=== PATIENT | female | born 1950 ===

== ENCOUNTER 2020-08-22 11:33 | Outpatient (REF) | payer SELFPAY ==
--- NOTE | 2020-08-22 12:45 | MHC.AU.P13 ---
Hearing Instrument Problem Date of Visit: 08/22/20 Right Ear: Pattern Painter: Phonak Model: [employer]O B50-13 Serial Number: [id number] Repair Warranty: 07/15/2021 Loss and Damage Warranty: 07/15/2021 Battery Size: 13 Color: SANDALWOOD Pipe Wrapping Machine Operator: 2P Type of Mold: cshell [id number] SEBASTIÁN EXP 04/18/20 Type of Wax Guard: CERUSTOP Left Ear: Pattern Painter: Phonak Model: [employer]O B50-13 Serial Number: [id number] RepairWarranty: 07/15/2021 Loss and Damage Warranty: USED Battery Size: 13 Color: SANDALWOOD Pipe Wrapping Machine Operator: 2UP Type of Mold: CSHELL [id number] EXP 06/30/2019 Type of Wax Guard: CERUSTOP Follow-Up Summary: Aids dropped off right not working - both aids cleaned, wax guards replaced, now amplifying clearly. Family member bought one pack wax guards. Recommendations: Recommendations: Hearing instrument follow-up or maintenance as needed. Signature: Provider: VELASQUEZ Cardenas-
== END 2020-08-22 11:34 | disposition home or self-care (01) ==
LOC: HO.HAP 11:33
PROVIDERS: Visit Provider Otolaryngology
DX: Z46.1 Encounter for fitting and adjustment of hearing aid (principal)
CPT/HCPCS: V5267

== ENCOUNTER 2023-06-04 11:03 | Emergency (ER) | payer MEDICARE, SELFPAY ==
--- NOTE | ~2023-06-04 | CT_ITS ---
EXAMINATION: CT ABDOMEN AND PELVIS WITH CONTRAST CLINICAL INFORMATION: Left lower quadrant pain COMPARISON: Previous CT of the abdomen and pelvis December 2022 and MRI January 2023 TECHNIQUE: Multidetector volumetric images were obtained from the superior aspect of the liver through the pubic symphysis following administration 85 mL of Omnipaque 350 intravenous contrast. Sagittal and coronal reformatted images were obtained on the technologist's workstation. Oral contrast: Yes This CT examination was performed using dose optimization techniques as appropriate, variously including the following: *Automated exposure control *Adjustment of mA and/or kV according to patient size (this includes techniques or standardized protocols for targeted exams where dose is matched to indication/reason for exam; i.e. extremities or head) *Use of iterative reconstruction technique DLP: 353 mGy-cm FINDINGS: LUNG BASES: Stable left lower lung cyst. Lung bases are otherwise clear. LIVER, GALLBLADDER, AND BILIARY TREE: The liver is normal in size, shape, and attenuation. Stable liver cysts, largest measuring 2 cm in the central liver near the hepatic venous confluence. No biliary ductal dilatation is present. Fluid fluid level in the gallbladder. Gallbladder is otherwise unremarkable. PANCREAS: Mild dilatation of the main pancreatic duct measuring up to 4 mm similar to previous exam. SPLEEN: Unremarkable. ADRENAL GLANDS: Unremarkable. KIDNEYS AND URETERS: There are areas of bilateral renal cortical thinning or scarring. No stone or hydronephrosis. BLADDER: Distended bladder. GASTROINTESTINAL TRACT: The small and large bowel are unremarkable. The appendix is upper normal in size but otherwise unremarkable. This is similar in size to December 2022 exam. No inflammatory changes in the periappendiceal fat or fluid. ABDOMINAL WALL: Diastasis of the rectus muscles and small umbilical hernia containing fat. LYMPH NODES: Normal. VASCULAR: Atherosclerotic disease. No aneurysm. PELVIC VISCERA: Probable small uterine fibroids similar to previous exam. OSSEOUS STRUCTURES: Degenerative changes of the spine and hip joints. CT/CT abdomen pelvis w IV con IMPRESSION: No acute findings. Stable liver cysts and mild dilatation of the main pancreatic duct in the head of the pancreas. Bilateral renal cortical thinning or scarring. Upper normal-size appendix similar to previous exam. Fleischner guidelines were followed.
[2023-06-04 11:36] VITALS: BP 153/75; PULSE 75; RESP 20; TEMP 37.2; O2SAT 100; BMI 34.8
--- NOTE | 2023-06-04 11:36 | ED.GENADULT ---
HPI - General Adult General Chief complaint: Abdominal Pain Stated complaint: abd pain/ leg pain sent by PCP Time Seen by Provider: 06/04/23 12:00 Related Data Allergies Allergy/AdvReac Type Severity Reaction Status Date / Time Sulfa (Sulfonamide AdvReac Stomach Verified 06/04/23 11:40 Antibiotics) Upset PMFSH Social History Social History Use of substances other than those prescribed or required for medical reasons: No Advance Directives: No Advance Directives Information Provided: Yes Physical Exam ED Vital Signs: Vital Signs - 24 hr 06/04/23 11:36 06/04/23 13:16 06/04/23 14:39 Temperature 98.9 F 98.6 F 98.3 F Pulse Rate 75 80 80 Respiratory Rate 20 14 18 Blood Pressure 153/75 H 131/77 152/72 H Pulse Oximetry 100 98 97 Oxygen Delivery Method Room Air Room Air Room Air 06/04/23 18:42 Temperature 98.2 F Pulse Rate 76 Respiratory Rate 20 Blood Pressure 168/85 H Pulse Oximetry 99 Oxygen Delivery Method Room Air BMI result Body Mass Index 34.8 Course Course Course Narrative: RME performed by Keshia Lindo PA-C. Patient is a 72 year old assigned female at presenting to the emergency department with lower abdominal pain, low back pain, and pain down her upper leg. Patient was sent here by her PCP. Patient has been to the [facility] ED for this already, got a CT scan and was negative. Detailed physical exam and review of systems are deferred to the steam hand. Labs ordered. Patient placed back in the waiting room pending room availability and results. Dr. Guidry saw and dispositioned this patient. Please refer to his note from 06/04/2023. Medications Administered Discontinued Medications Generic Name Dose Route Start Last Admin Trade Name Freq PRN Reason Stop Dose Admin Hydromorphone HCl 0.5 mg 06/04/23 12:47 06/04/23 13:12 Hydromorphone Hcl 0.5 Mg/0.5 Ml Syringe IVPUSH 06/04/23 12:48 0.5 mg ONCE ONE Administration Protocol Hydromorphone HCl 0.5 mg 06/04/23 18:51 06/04/23 19:10 Hydromorphone Hcl 0.5 Mg/0.5 Ml Syringe IVPUSH 06/04/23 18:52 0.5 mg ONCE ONE Administration Protocol Sodium Chloride 1,000 mls @ 999 mls/hr 06/04/23 13:00 06/04/23 14:27 Ns IV 06/04/23 14:00 Infused .Q1H1M BERNA Infusion Iohexol 100 ml 06/04/23 13:51 06/04/23 13:51 Iohexol 350 Mg/Ml 100 Ml Infus..Btl IV 06/04/23 13:52 85 ml ONCE ONE Administration Ondansetron HCl 4 mg 06/04/23 12:47 06/04/23 13:12 Ondansetron Hcl 4 Mg/2 Ml Vial IVPUSH 06/04/23 12:48 4 mg ONCE ONE Administration Medical Decision Making Lab Data 06/04/23 11:45 06/04/23 11:45 Labs: Lab Results 06/04/23 06/04/23 06/04/23 Range/Units 11:45 18:01 19:07 WBC 9.2 (4.8-10.8) X10*3/uL RBC 5.00 (4.20-5.50) X10*6/uL Hgb 13.8 (12.0-16.0) g/dl Hct 42.0 (37.0-47.0) % MCV 84.0 (80.0-98.0) fL MCH 27.6 (27.0-33.0) pg MCHC 32.9 (31.0-35.0) g/dl RDW 14.2 (11.0-16.0) % Plt Count 242 (160-400) X10*3/uL MPV 9.6 (9.4-12.3) fL Immature Gran % (Auto) 0.2 (0.0-0.4) % Neut % (Auto) 58.1 (45-73) % Lymph % (Auto) 34.2 (20-40) % [place] % (Auto) 6.0 (2-11) % Eos % (Auto) 0.8 (0-4) % Baso % (Auto) 0.7 (0-2) % Lymph # (Auto) 3.2 (1.2-4.9) X10*3/uL [place] # (Auto) 0.6 (0.1-1.2) X10*3/uL Eos # (Auto) 0.1 (0.0-0.4) X10*3/uL Baso # (Auto) 0.1 (0.0-0.2) X10*3/uL Abs Immat Gran (auto) 0.02 (0.00-0.03) X10*3/uL Absolute Neuts (auto) 5.4 (2.0-8.3) x10*3/uL Absolute Nucleated RBC 0.000 (0.0-0.012) X10*3/uL Nucleated RBC % (auto) 0.0 (0.0-0.2) /100WBC Sodium 135 (135-145) mmol/L Potassium 4.7 (3.3-5.1) mmol/L Chloride 100 (96-108) mmol/L Carbon Dioxide 25 (22-29) mmol/L Anion Gap 15 (12-20) BUN 10 (9-16) mg/dL Creatinine 0.76 (0.5-1.4) mg/dL Estim Creat Clear Calc 56.9 Estimated GFR > 60 POC Glucose 65 (60-115) mg/dL Random Glucose 108 (60-115) mg/dL Calcium 10.0 (8.4-10.2) mg/dL Magnesium 1.7 (1.6-2.6) mg/dL Total Bilirubin 0.4 (0.0-1.0) mg/dL AST 21 (5-31) U/L ALT 26 (0-31) U/L Alkaline Phosphatase 105 (39-117) U/L Total Protein 8.0 (6.5-8.0) g/dL Albumin 4.4 (3.5-5.0) g/dL Lipase 331 H (8-78) U/L Urine Color Yellow Urine Appearance Clear Urine pH 5.5 (5.0-9.0) Ur Specific [place] >= 1.030 H (1.005-1.025) Urine Protein Negative (Neg-Trace) mg/dL Urine Glucose (UA) Negative (Negative) mg/dL Urine Ketones 15 (Negative) mg/dL Urine Blood Negative (Negative) Urine Nitrite Negative (Negative) Ur Leukocyte Esterase Negative (Negative) Discharge Plan Discharge Clinical Impression: Abdominal pain Patient Disposition: Still a Patient
[2023-06-04 11:50] LABS: MANUAL DIFF FLAG NO
[2023-06-04 11:52] LABS: Basophils Absolute Auto 0.1 X10*3/uL (0.0-0.2); Basophils Percent Auto 0.7 % (0-2); Eosinophils Absolute Auto 0.1 X10*3/uL (0.0-0.4); Eosinophils Percent Auto 0.8 % (0-4); Hemoglobin 13.8 g/dl (12.0-16.0); Imm Gran Abs Auto 0.02 X10*3/uL (0.00-0.03); Imm Gran Pct Auto 0.2 % (0.0-0.4); Lymphocytes Absolute Auto 3.2 X10*3/uL (1.2-4.9); Lymphocytes Percent Auto 34.2 % (20-40); Mean Corpuscular HGB Conc 32.9 g/dl (31.0-35.0); Mean Corpuscular Hemoglobin 27.6 pg (27.0-33.0); Mean Platelet Volume 9.6 fL (9.4-12.3); Monocytes Absolute Auto 0.6 X10*3/uL (0.1-1.2); Neutrophils Absolute Auto 5.4 x10*3/uL (2.0-8.3); Neutrophils Percent Auto 58.1 % (45-73); Platelet Count 242 X10*3/uL (160-400); Red Cell Distribution Width 14.2 % (11.0-16.0); White Blood Count 9.2 X10*3/uL (4.8-10.8)
--- OUTSIDE RECORDS SUMMARY | 2023-06-04 11:55 | XMS_ITS | Continuity of Care Document ---
Author Name Unknown Organization [facility] Address [address] [place] [address] nhi, [address] [place] [address]- Care Team Providers Care Battery Container Inspector Name Role Phone Nicolette Rider NP Primary Care Physician [phone] Encounter [facility] Date(s): 03/16/22 - 04/15/22 [facility] [address] [place] [address] Drive, [address] [place] [address]- Allergies, Adverse Reactions, Alerts Substance Reaction Severity Status sulfa drugs Acute abdominal pain Active Effexor 1 Unknown Active 1nausea vomiting intolerance Immunizations Given and Recorded Vaccine Date Status Refusal Reason SARS-CoV-2 (COVID-19) mRNA BNT-162b2 vac 1 04/04/21 Given SARS-CoV-2 (COVID-19) mRNA BNT-162b2 vac 07/24/20 Recorded SARS-CoV-2 (COVID-19) mRNA BNT-162b2 vac 07/03/20 Recorded influenza virus vaccine, inactivated 04/04/21 Give n influenza virus vaccine, inactivated 01/30/20 Stevo rded influenza virus vaccine, inactivated 03/24/19 Give n influenza virus vaccine, inactivated 04/08/18 Give n influenza virus vaccine, inactivated 04/22/17 Give n influenza virus vaccine, inactivated 03/03/16 Give n influenza virus vaccine, inactivated 04/10/15 Give n influenza virus vaccine, inactivated 02/28/14 Give n influenza virus vaccine, inactivated 2 02/16/13 Gi alexandra Influenza Vaccine (oldterm) 3 02/16/12 Given tetanus/diphtheria/pertussis, acel(Tdap) 12/08/11 Given Pneumovax 23 (oldterm) 4 08/21/11 Given tetanus-diphtheria toxoids (Td) 5 08/21/11 Given FluLaval (oldterm) 6 01/26/11 Given Influenza Inactive (IM) (oldterm) 7 02/18/10 Given Not Given Vaccine Date Status Refusal Reason pneumococcal 13-valent vaccine 07/25/18 Not Given Patient Refuses pneumococcal 13-valent vaccine 07/22/18 Not Given Patient Refuses 1Result Comment: DILUENT LOT#: [id number] EXP: 10/2022 MFG: FRESENSIUS 2Admin Note: vis 3Admin Note: VIS GIVEN 4Admin Note: vis 08/16/08 5Admin Note: vis 03/20/08 6Admin Note: vis given 7Admin Note: VIS Medications acetaminophen 500 mg oral tablet 2 tablet = 1,000 mg, By Mouth, 4 times a day, PRN for pain, # 100 tablet, 0 Refills, Maintenance, 07/17/21 10:31:00 EDT, Tablet, [facility]/pharmacy #[id number], Partial fill upon patient request if the prescription is for a schedule II opioid drug., 155, cm, 07/01... Start Date: 07/17/21 Status: Ordered Alcohol Pads See Instructions, # 100 each, Refills 3, Tot. Refills 3, Maintenance, Use to check blood sugar twice daily for type 2 diabetes E11.65, 07/17/21 10:35:00 EDT, Supply, 155, cm, 07/17/21 10:03:00 EDT, Height, 48, kg, 10/27/20 14:35:00 EDT, Dry Weight Start Date: 07/17/21 Status: Ordered cyclobenzaprine 5 mg oral tablet 1 tablet = 5 mg, By Mouth, 3 times a day, PRN muscle spasms, # 30 tablet, 0 Refills, Maintenance, 04/06/22 9:51:00 EST, Tablet, [facility], Partial fill upon patient request if the prescription is for a schedule II opioid drug., 155, cm,... Start Date: 04/06/22 Status: Ordered Diabetic shoes with 3 inserts Diabetic shoes with 3 inserts, See Instructions, # 1 each, Refills 0, Tot. 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 Refills 11, Maintenance, Use up to 3 bed pads per night for urinary incontinence. R32, 10/21/21 11:58:00 EDT, Supply Start Date: 10/21/21 Status: Ordered empagliflozin 10 mg oral tablet 1 tablet = 10 mg, By Mouth, Daily in AM, # 30 tablet, 5 Refills, Maintenance, 03/12/22 21:19:00 EST, Tablet, [facility]/pharmacy #[id number], Please allow for early refill as last her pills were dropped in water;Partial fill upon patient request if the prescript... Start Date: 03/12/22 Status: Ordered Freestyle Lite Lancets See Instructions, # 100 each, Refills 3, Tot. Refills 3, Maintenance, use to check blood sugars twice daily for DM, E11.65, 07/17/21 10:35:00 EDT, Compound, 155, cm, 07/17/21 10:03:00 EDT, Height, 48, kg, 10/27/20 14:35:00 EDT, Dry Weight Start Date: 07/17/21 Stop Date: 11/14/21 Status: Ordered Freestyle Lite Monitor See Instructions, # 1 units, Refills 0, Tot. Refills 0, Maintenance, use to test blood sugars twicedaily for DM, E11.65, 05/20/18 15:46:00 EST, Compound Start Date: 05/20/18 Status: Ordered Freestyle Lite Test Strips See Instructions, # 100 each, Refills 3, Tot. Refills 3, Maintenance, use to test blood sugars twice daily for diabetes, E11.65, 07/17/21 10:34:00 EDT, Compound, 155, cm, 07/17/21 10:03:00 EDT, Height, 48, kg, 10/27/20 14:35:00 EDT, Dry Weight Start Date: 07/17/21 Stop Date: 11/14/21 Status: Ordered glimepiride 4 mg oral tablet 1 tablet = 4 mg, By Mouth, Daily, with the first meal of the day, # 30 tablet, 0 Refills, Maintenance, 03/10/22 16:40:00 EST, Tablet, [facility]/pharmacy #[id number], Please allow for early refill as last her pills were dropped in water; Partial fill upon patient... Start Date: 03/10/22 Stop Date: 04/09/22 Status: Ordered Medrol Dosepak 4 mg oral tablet 1 pack/packet, By Mouth, Once, # 21 tablet, 0 Refills, Soft Stop, 04/06/22 9:52:00 EST, Tablet, Partial fill upon patient request if the prescription is for a schedule II opioid drug., 155, cm, 04/06/22 7:13:00 EST, Height, 49.9, kg, 04/02/22 8:47:00... Start Date: 04/06/22 Status: Ordered metFORMIN 1000 mg oral tablet 1 tablet, By Mouth, 2 times a day, # 60 tablet, 5 Refills, 02/04/22 11:40:00 EDT, [facility]/pharmacy #[id number], Please allow for early refill as last her pills were dropped in water, 155, cm, 12/02/21 16:59:00EDT, Height, 48, kg, 10/27/20 14:35:00 EDT, Dry We... Start Date: 02/04/22 Status: Ordered Metoprolol Succinate ER 100 mg oral tablet, extended release 1 tablet, By Mouth, Daily, # 90 tablet, 3 Refills, Maintenance, 12/15/21 8:39:00 EDT, [facility]/pharmacy #[id number], 155, cm, 12/02/21 16:59:00 EDT, Height, 48, kg, 10/27/20 14:35:00 EDT, Dry Weight Start Date: 12/15/21 Stop Date: 12/10/22 Status: Ordered omeprazole 20 mg oral enteric coated capsule 1 capsule = 20 mg, By Mouth, Daily, # 14 capsule, 0 Refills, Maintenance, 12/02/21 18:07:00 EDT, ECCapsule, [facility]/pharmacy #[id number], Partial fill upon patient request if the prescription is for a schedule II opioid drug., 155, cm, 12/02/21 16:59:00 EDT, H... Start Date: 12/02/21 Stop Date: 12/16/21 Status: Ordered oxyCODONE 5 mg oral tablet See Instructions, PRN, 1 tablet By Mouth Every 4-6 hours, # 42 tablet, Refills 0, Tot. Refills 0, Maintenance, Pain , Moderate, 04/06/22 9:51:00 EST, Instructions Replace Required Details, Route to Pharmacy Electronically, [facility]... Start Date: 04/06/22 Status: Ordered Pen Charlton, 31 G x 5 mm BD Ultra Fine III See Instructions, # 50 each, Refills 1, Tot. Refills 1, Maintenance, Use for once weekly trulicity injection for DM E11.65, 08/01/21 15:14:00 EDT, To replace glimeride, Supply, 155, cm, 08/01/21 14:55:00 EDT, Height, 48, kg, 10/27/20 14:35:00 EDT, Dry... Start Date: 08/01/21 Status: Ordered ramipril 5 mg oral capsule 1 capsule, By Mouth, Daily, for 90 days, # 90 capsule, 1 Refills, Physician Stop 08/11/22 11:04:00 EDT, 02/12/22 11:04:00 EDT, [facility]/pharmacy #[id number], Please allow for early refill as last her pills weredropped in water, 155, cm, 12/02/21 16:59:00 EDT,... Start Date: 02/12/22 Stop Date: 08/11/22 Status: Ordered Small adult pull ups Small adult pull ups, See Instructions, # 240 each, Refills 11, Tot. Refills 11, Maintenance, Use up to 8 per day for urinary incontinence R32, 10/21/21 12:03:00 EDT, Supply Start Date: 10/21/21 Status: Ordered Walker See Instructions, # 1 each, Maintenance, Use for ambulation, 04/06/22 9:52:00 EST, Supply, 155, cm,04/06/22 7:13:00 EST, Height, 49.9, kg, 04/02/22 8:47:00 EST, Dry Weight Start Date: 04/06/22 Status: Ordered Problem List Condition Confirmation Course Effective Dates Status H ealth Status Informant Adjustment disorder with anxiety 1 Confirmed Active Breast mass, right Confirmed Active Cervical radiculopathy Confirmed Active Chronic left shoulder pain Confirmed Active Diabetes Mellitus Confirmed 02/19/10 Active Hx of fracture of clavicle Confirmed Active Hypertension Confirmed 02/19/10 Active *[id number] 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 Saunders Confirmed Active Current smoker Confirmed Active Cervical stenosis of spinal canal Confirmed Active Urinary incontinence Confirmed Active 1Dx in 08/2018 upon psych eval Patient Care team information Care Team Personnel Name: Nicolette Rider NP Position: [facility] PCO Associate Professional Member Role: PCP Address: Address: [address] [place] [address]- Name: Neelam Garvey RN Position: S RN Member Role: Primary Care Nurse Name: Jo Quick RN Position: S RN Member Role: Primary Care Nurse Name: La Mares RN Position: [facility] RN Member Role: Primary Care Nurse Name: Cherie Vaughan RN Position: [facility] RN Member Role: Primary Care Nurse Name: Torsten Gay RN Position: [facility] RN Member Role: Primary Care Nurse Address: Address: [address] [place] [address]- Care Team Related Persons Name: AMMON CUELLAR Address: home [address] [place] [address] Name: FAISAL GILLESPIE Address: home [address] [place] [address] Name: AMMON PIERRE Address: home [address] [address]
--- OUTSIDE RECORDS SUMMARY | 2023-06-04 11:55 | XMS_ITS | Continuity of Care Document ---
Author Name Unknown Organization [facility] Address [address] [place] [address]- Care Team Providers Care Staff Radiologist Name Role Phone Tereso MILLER, Nicolette Mills Primary Care Physician [phone] Encounter [facility] Date(s): 01/07/23 - 03/03/[address] [address]- Attending Physician: Not on Staff, Attending MD Allergies, Adverse Reactions, Alerts Substance Reaction Severity [...] Influenza Inactive (IM) (oldterm) 7 02/18/10 Given 1Result Comment: DILUENT LOT#: [id number] EXP: 10/2022 MFG: FRESENSIUS 2Admin Note: vis 3Admin Note: VIS GIVEN 4Admin Note: vis 08/16/08 5Admin Note: vis 03/20/08 6Admin Note: vis given 7Admin Note: VIS Medications acetaminophen 500 mg oral tablet 2 tablet = 1,000 mg, By Mouth, 4 times a day, PRN for pain, # 100 tablet, 0 Refills, Maintenance, 07/17/21 10:31:00 EDT, Tablet, [id number], Partial fill upon patient request if [...] Dry Weight Start Date: 07/17/21 Status: Ordered amlodipine-benazepril 5 mg-20 mg oral capsule 1 capsule, By Mouth, Daily, # 30 capsule, 5 Refills, Maintenance, 02/09/23 11:58:00 EDT, Capsule, [id number], to replace amlodipine, benazepril, ramipril., 1 capsule By Mouth Daily, 146, cm, 02/09/23 11:42:00 EDT, Height, 50, kg, 04/16/22 12:4... Start Date: 02/09/23 Status: Ordered capsaicin 0.025% topical cream 1 application, Topically, 3 times a day, PRN Pain , Moderate, # 60 Gm, 0 Refills, Maintenance, 05/21/22 11:55:00 EST, Cream, [id number], Partial fill upon patient request if the prescription is for a schedule II opioid drug., 1 application Top... Start Date: 05/21/22 Status: Ordered Diabetic shoes with 3 inserts Diabetic shoes with 3 inserts, See Instructions, # 1 each, Refills 0, Tot. 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 Start Date: 11/23/22 Status: Ordered disposable bed pads disposable bed pads, See Instructions, # 90 each, Refills 11, Tot. Refills 11, Maintenance, Use up to 3 bed pads per night for urinary incontinence. R32, 10/21/21 11:58:00 EDT, Supply Start Date: 10/21/21 Status: Ordered duloxetine 20 mg oral enteric coated capsule 1 capsule = 20 mg, By Mouth, Daily, # 90 capsule, 1 Refills, Maintenance, 01/12/23 12:16:00 EDT, [facility]/pharmacy #[id number], 146, cm, 01/12/23 11:33:00 EDT, Height, 50, kg, 04/16/22 12:46:00 EST, Dry Weight Start Date: 01/12/23 Stop Date: 07/11/23 Status: Ordered Freestyle Elliot Sensor See Instructions, # 2 each, Refills 5, Tot. Refills 5, Maintenance, Freestyle elliot 3 use as directed for Type 2 Diabetes Mellitus on insulin E11.65, 02/09/23 12:12:00 EDT, Supply, 146, cm, 02/09/23 11:42:00 EDT, Height, 50, kg, 04/16/22 12:46:00 EST... Start Date: 02/09/23 Stop Date: 08/08/23 Status: Ordered gabapentin 300 mg oral capsule 300 mg, 1, capsule, By Mouth, 3 times a day, # 270 capsule, Refills 1, Tot. Refills 1, Maintenance,01/12/23 12:17:00 EDT, Route to Pharmacy Electronically, [facility]/pharmacy #[id number], 146, cm, 01/12/23 11:33:00 EDT, Height, 50, kg, 04/16/22 12:46:00 EST, Dry... Start Date: 01/12/23 Stop Date: 07/11/23 Status: Ordered Lantus Solostar Pen 100 units/mL subcutaneous solution = 24 units, Subcutaneous Injection, Daily, Adjust dose as recommended weekly by RN per protocol. Dispense 3 pens per month, # 15 mL, 3 Refills, Maintenance, 02/09/23 12:19:00 EDT, [facility]/pharmacy #[id number],146, cm, 02/09/23 11:42:00 EDT, Height, 50, kg, 12... Start Date: 02/09/23 Stop Date: 02/04/24 Status: Ordered metFORMIN 500 mg oral tablet, extended release 1 tablet = 500 mg, By Mouth, Daily, # 90 tablet, 1 Refills, Maintenance, 02/23/23 16:46:00 EDT, [facility]/pharmacy #[id number], Partial fill upon patient request if the prescription is for a schedule II opioid drug., 146, cm, 02/09/23 11:42:00 EDT, Height, 50, kg... Start Date: 02/23/23 Stop Date: 08/22/23 Status: Ordered methocarbamol 750 mg oral tablet 1 tablet = 750 mg, By Mouth, 3 times a day, PRN Pain , Moderate, Take only as needed for muscle spasms and pain., # 90 tablet, 3 Refills, Maintenance, 02/09/23 12:40:00 EDT, [facility]/pharmacy #[id number], 146, cm, 02/09/23 11:42:00 EDT, Height, 50, kg, 04/16/22... Start Date: 02/09/23 Status: Ordered Metoprolol Succinate ER 100 mg oral tablet, extended release 1 tablet, By Mouth, Daily, # 90 tablet, 1 Refills, Maintenance, 12/27/22 10:31:00 EDT, [facility]/pharmacy#[id number], 146, cm, 12/04/22 11:11:00 EDT, Height, 50, kg, 04/16/22 12:46:00 EST, Dry Weight Start Date: 12/27/22 Stop Date: 06/25/23 Status: Ordered One Touch Delica Lancets See Instructions, # 100 each, Refills 5, Tot. Refills 5, Maintenance, 1 box = 100 lancets Use to test blood sugar twice a day for type 2 diabetes E11.65, 01/25/23 14:45:00 EDT, Supply, 146, cm, 01/12/23 11:33:00 EDT, Height, 50, kg, 04/16/22 12:46:0... Start Date: 01/25/23 Status: Ordered One Touch Ultra 2 Glucose Meter See Instructions, # 1 each, Refills 0, Tot. Refills 0, Maintenance, Use to test blood sugar twice aday for type 2 diabetes E11.65, 09/04/22 8:40:00 EDT, Supply, 146, cm, 09/01/22 11:06:00 EDT, Height, 50, kg, 04/16/22 12:46:00 EST, Dry Weight Start Date: 09/04/22 Status: Ordered One Touch Ultra Test Strips See Instructions, # 100 each, Refills 5, Tot. Refills 5, Maintenance, Use to test blood sugar twicea day for type 2 diabetes E11.65, 09/04/22 8:40:00 EDT, Supply, 146, cm, 09/01/22 11:06:00 EDT, Height, 50, kg, 04/16/22 12:46:00 EST, Dry Weight Start Date: 09/04/22 Status: Ordered pantoprazole 40 mg oral delayed release tablet 1 tablet = 40 mg, By Mouth, Daily, # 90 tablet, 0 Refills, Maintenance, 01/12/23 12:15:00 EDT, 146,cm, 01/12/23 11:33:00 EDT, Height, 50, kg, 04/16/22 12:46:00 EST, Dry Weight Start Date: 01/12/23 Stop Date: 04/12/23 Status: Ordered Pen Higden, 31 G x 5 mm BD Ultra Fine III See Instructions, # 100 each, Refills 3, Tot. Refills 3, Maintenance, Use for Lantus injection for DM E11.65, 01/12/23 12:18:00 EDT, To replace glimeride, Supply, 146, cm, 01/12/23 11:33:00 EDT, Height, 50, kg, 04/16/22 12:46:00 EST, Dry Weight Start Date: 01/12/23 Status: Ordered Small adult pull ups Small [...] Effective Dates Status H ealth Status Informant Acute pancreatitis Confirmed Active Adjustment disorder with anxiety 1 Confirmed Active Breast mass, right Confirmed Active Cervical radiculopathy Confirmed Active Chronic left shoulder pain Confirmed Active Chronic right shoulder pain Confirmed Active Diabetes Mellitus Confirmed 02/19/10 Active Hx of fracture of clavicle Confirmed Active Hypertension Confirmed 02/19/10 Active *[id number] 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 Confirmed Active Current smoker Confirmed Active Cervical stenosis of spinal canal Confirmed Active Subclinical hyperthyroidism Confirmed Active Thyroid nodule - TIRADS 4, follow up US due 05/01/2023 Confirmed Active Urinary incontinence Confirmed Active 1Dx in 08/2018 upon psych eval Social History Social History Type Response Sex Female Patient Care team information Care Team Personnel Name: Nicolette Rider NP Position: S PCO Associate Professional Member Role: PCP Address: Address: [address] [place] [address]- Name: Neelam Garvey RN Position: S RN Member Role: Primary Care Nurse Name: Jo Quick RN Position: S RN Member Role: Primary Care Nurse Name: La Mares RN Position: S RN Member Role: Primary Care Nurse Name: Cherie Vaughan RN Position: S RN Member Role: Primary Care Nurse Name: Torsten Gay RN Position: S RN Member Role: Primary Care Nurse Address: Address: [address] [place] [id number]- [place] Care Team Related Persons Name: AMMON CUELLAR Address: [address] [place] [address] Name: FAISAL GILLESPIE Address: home [address] [place] [address] Name: AMMON PIERRE Address: home [address] [address]
--- OUTSIDE RECORDS SUMMARY | 2023-06-04 11:55 | XMS_ITS | Continuity of Care Document ---
Author Name Unknown Organization [facility] Address [address] [place] [address]- Care Team Providers Care Director Global Intelligence Name Role Phone Tereso MILLER, Nicolette Mills Primary Care Physician [phone] Encounter [facility] Date(s): 03/22/23 - 05/21/[address] [address]- Attending Physician: Jose KEITH, Raffy Burton Allergies, Adverse Reactions, Alerts Substance Reaction Severity [...] 7 02/18/10 Given 1Result Comment: DILUENT LOT#: [id number] EXP: 10/2022 MFG: FRESENSIUS 2Admin Note: vis 3Admin Note: VIS GIVEN 2011- 4Admin Note: vis 08/16/08 5Admin Note: vis 03/20/08 6Admin Note: vis given 7Admin Note: VIS Medications acetaminophen 500 mg oral tablet 2 tablet = 1,000 mg, By Mouth, 4 times a day, PRN for pain, # 100 tablet, 0 Refills, Maintenance, 07/17/21 10:31:00 EDT, Tablet, [facility]/pharmacy #[id number], Partial fill upon patient request if the prescription is for a schedule II opioid drug., 155, cm, 07/01... Start Date: 07/17/21 Status: Ordered Alcohol Pads See Instructions, # 100 each, Refills 3, Tot. Refills 3, Maintenance, Use to check blood sugar twice daily for type 2 diabetes E11.65, 04/09/23 13:35:00 EST, Supply, 146, cm, 04/09/23 12:58:00 EST, Height, 50, kg, 04/16/22 12:46:00 EST, Dry Weight Start Date: 04/09/23 Status: Ordered amlodipine-benazepril 5 mg-20 mg oral capsule 1 capsule, By Mouth, Daily, # 30 capsule, 5 Refills, Maintenance, 02/09/23 11:58:00 EDT, Capsule, [facility]/pharmacy #[id number], to replace amlodipine, benazepril, ramipril., 1 capsule By Mouth Daily, 146, cm, 02/09/23 11:42:00 EDT, Height, 50, kg, 04/16/22 12:4... Start Date: 02/09/23 Status: Ordered ammonium lactate 12% topical cream 1 APPLICATION EXTERNALLY TWICE A DAY 30 DAYS, # 140 Gm Start Date: 04/01/23 Status: Ordered capsaicin 0.025% topical cream 1 application, Topically, 3 times a day, PRN Pain , Moderate, # 60 Gm, 0 Refills, Maintenance, 05/21/22 11:55:00 EST, Cream, [facility]/pharmacy #[id number], Partial fill upon patient request if [...] Refills, Maintenance, 11/23/22 13:00:00 EDT, Gel, [facility]/pharmacy #[id number], Partial fill upon patient request if the prescription is for aschedule II opioid drug., 146, cm, 09/01/22 11:06:0... Start Date: 11/23/22 Status: Ordered disposable bed pads disposable bed pads, See Instructions, # 90 each, Refills 11, Tot. Refills 11, Maintenance, Use up to 3 bed pads per night for urinary incontinence. R32, 10/21/21 11:58:00 EDT, Supply Start Date: 10/21/21 Status: Ordered duloxetine 30 mg oral enteric coated capsule 1 capsule = 30 mg, By Mouth, Daily, # 30 capsule, 3 Refills, Maintenance, 04/09/23 13:32:00 EST, [facility]/pharmacy #[id number], Partial fill upon patient request if the prescription is for a schedule II opioid drug., 146, cm, 04/09/23 12:58:00 EST, Height, 50, k... Start Date: 04/09/23 Status: Ordered Freestyle Elliot Sensor See Instructions, # 2 each, Refills 11, Tot. Refills 11, Maintenance, Freestyle elliot 3 sensors useas directed for Type 2 Diabetes Mellitus on insulin E11.65, 03/22/23 9:56:00 EST, PA was approved, Supply, 146, cm, 02/09/23 11:42:00 EDT, Height, 50,... Start Date: 03/22/23 Stop Date: 03/16/24 Status: Ordered Jardiance 10 mg oral tablet 1 tablet, By Mouth, Daily in AM, # 30 tablet, 0 Refills, Maintenance, 05/07/23 14:28:00 EST, [facility] STORE [id number], 146, cm, 04/09/23 12:58:00 EST, Height, 50, kg, 04/16/22 12:46:00 EST, Dry Weight Start Date: 05/07/23 Status: Ordered Lantus Solostar Pen 100 units/mL subcutaneous solution = 20 units, Subcutaneous Injection, Daily, Adjust dose as recommended weekly by RN per protocol. Dispense 3 pens per month, # 15 mL, 3 Refills, Maintenance, 02/09/23 12:19:00 EDT, [facility]/pharmacy #[id number],146, cm, 02/09/23 11:42:00 EDT, Height, 50, kg, 12... Start Date: 02/09/23 Stop Date: 02/04/24 Status: Ordered metFORMIN 500 mg/5 mL oral solution 5 mL = 500 mg, By Mouth, 2 times a day, # 300 mL, 4 Refills, Maintenance, 05/20/23 15:46:00 EST, Solution, [facility]/pharmacy #[id number], Partial fill upon patient request if the prescription is for a schedule II opioid drug., 146, cm, 05/20/23 14:43:00 EST, Hei... Start Date: 05/20/23 Status: Ordered Metoprolol Succinate ER 100 mg oral tablet, extended release 1 tablet, By Mouth, Daily, # 90 tablet, 1 Refills, Maintenance, 12/27/22 10:31:00 EDT, [facility]/pharmacy#[id number], 146, cm, 12/04/22 11:11:00 EDT, Height, 50, [...] Daily, # 90 tablet, 1 Refills, Maintenance, 05/21/23 11:02:00 EST, 146,cm, 05/20/23 14:43:00 EST, Height, 50, kg, 04/16/22 12:46:00 EST, Dry Weight Start Date: 05/21/23 Stop Date: 11/17/23 Status: Ordered Pen [place], 31 G x 5 mm BD Ultra Fine III See Instructions, # 100 each, Refills 3, Tot. Refills 3, Maintenance, Use for Lantus injection for DM E11.65, 01/12/23 12:18:00 EDT, To replace glimeride, Supply, 146, cm, 01/12/23 11:33:00 EDT, Height, 50, kg, 04/16/22 12:46:00 EST, Dry Weight Start Date: 01/12/23 Status: Ordered rosuvastatin 20 mg oral tablet 1 tablet = 20 mg, By Mouth, Daily, # 90 tablet, 3 Refills, Maintenance, 03/24/23 8:41:00 EST, Tablet, [facility]/pharmacy #[id number], Partial fill upon patient request if the prescription is for a schedule II opioid drug., 146, cm, 03/22/23 13:01:00 EST, Height,... Start Date: 03/24/23 Status: Ordered Small adult pull ups Small adult pull ups, See Instructions, # 240 each, Refills 11, Tot. Refills 11, Maintenance, Use up to 8 per day for urinary incontinence R32, 10/21/21 12:03:00 EDT, Supply Start Date: 10/21/21 Status: Ordered Tresiba FlexTouch 100 units/mL subcutaneous solution = 20 units, Subcutaneous Injection, Daily, Replaces Lantus, # 15 mL, 5 Refills, Maintenance, 05/20/23 15:46:00 EST, [facility]/pharmacy #[id number], Partial fill upon patient request if the prescription is for a schedule II opioid drug., 146, cm, 05/20/23 14:43:00... Start Date: 05/20/23 Status: Ordered Walker See Instructions, # 1 [...] clavicle Confirmed Active Hypertension Confirmed 02/19/10 Active *[phone] Economic Analysis Director Claudette Burnett Confirmed Active Current smoker Confirmed Active Cervical stenosis of spinal canal Confirmed Active Subclinical hyperthyroidism Confirmed Active Thyroid nodule - TIRADS 4, follow up US due 05/01/2023 Confirmed Active Urinary incontinence Confirmed Active 1Dx in 08/2018 upon psych eval Social History Social History Type Response Tobacco Use: MARIJUANA. Sex Female Patient Care team information Care Team Personnel Name: Nicolette Rider NP Position: S PCO Associate Professional Member Role: PCP Address: Address: [address] [place] [address]- Name: Neelam Garvey RN Position: S RN Member Role: Primary Care Nurse Name: Jo Quick RN Position: S RN Member Role: Primary Care Nurse Name: La Mares RN Position: S RN Member Role: Primary Care Nurse Name: Torsten Gay RN Position: S RN Member Role: Primary Care Nurse Address: Address: [address] [place] [address]- [place] Care Team Related Persons Name: AMMON CUELLAR Address: home [address] [place] [address] Name: FAISAL GILLESPIE Address: home [address] [place] [address] Name: AMMON PIERRE Address: home [address] [address]
--- OUTSIDE RECORDS SUMMARY | 2023-06-04 11:55 | XMS_ITS | Continuity of Care Document ---
Author Name Unknown Organization [facility] Address [address] [place] [address]- Care Team Providers Care Collar Shaper Operator Name Role Phone Tereso MILLER, Nicolette Mills Primary Care Physician [phone] [facility] Date(s): 10/27/20 - 10/27/[address] [address]- Discharge Disposition: A-D/C Walkout Attending Physician: Not on Staff, Attending MD Admitting Physician: Not on Staff, Admitting MD Referring Physician: Not on Staff, Referring MD Allergies, Adverse Reactions, Alerts Substance Reaction Severity Status Effexor 1 Unknown Active 1nausea vomiting intolerance Immunizations Given and Recorded Vaccine Date Status Refusal Reason SARS-CoV-2 (COVID-19) mRNA BNT-162b2 vac 07/24/20 Recorded SARS-CoV-2 (COVID-19) mRNA BNT-162b2 vac 07/03/20 Recorded influenza virus vaccine, inactivated 01/30/20 Stevo rded influenza virus vaccine, inactivated 03/24/19 Give n influenza virus vaccine, inactivated 04/08/18 Give n influenza virus vaccine, inactivated 04/22/17 Give n influenza virus vaccine, inactivated 03/03/16 Give n influenza virus vaccine, inactivated 04/10/15 Give n influenza virus vaccine, inactivated 02/28/14 Give n influenza virus vaccine, inactivated 1 02/16/13 Gi alexandra Influenza Vaccine (oldterm) 2 02/16/12 Given tetanus/diphtheria/pertussis, acel(Tdap) 12/08/11 Given Pneumovax 23 (oldterm) 3 08/21/11 Given tetanus-diphtheria toxoids (Td) 4 08/21/11 Given FluLaval (oldterm) 5 01/26/11 Given Influenza Inactive (IM) (oldterm) 6 02/18/10 Given Not Given Vaccine Date Status Refusal Reason pneumococcal 13-valent vaccine 07/25/18 Not Given Patient Refuses pneumococcal 13-valent vaccine 07/22/18 Not Given Patient Refuses 1Admin Note: vis 2Admin Note: VIS GIVEN 3Admin Note: vis 08/16/08 4Admin Note: vis 03/20/08 5Admin Note: vis given 6Admin Note: VIS Medications 4 pronged cane 4 pronged cane, See Instructions, # 1 each, Refills 0, Tot. Refills 0, Maintenance, to be used to help with mobility dx: unsteady gait R26.81, risk for falls Z91.81, 09/03/17 17:41:29 EDT, Compound Start Date: 09/03/17 Status: Ordered Alcohol Pads See Instructions, # 200 each, Refills 3, Tot. Refills 3, Maintenance, use as directed for Diabetes Mellitus to check BG twice daily E11.65, 09/27/20 14:01:00 EDT, Compound, 157.48, cm, 09/27/20 13:38:00 EDT, Height, 44.5, kg, 12/24/18 9:18:00 EDT, Dry... Start Date: 09/27/20 Stop Date: 01/25/21 Status: Ordered Bedside Commode See Instructions, # 1 each, Refills 0, Tot. Refills 0, Maintenance, please dispense one bedside commode Dx: frailty R54, Risk for falls Z91.81, urge incontinence N39.41, 02/18/18 18:43:58 EDT, Compound Start Date: 02/18/18 Status: Ordered Diabetics shoes Diabetics shoes, See Instructions, # 1 pair, Refills 3, Tot. Refills 3, Maintenance, diabetic shoesDx: DM2 with peripheral neuropathy, 05/20/18 15:36:48 EST, Compound Start Date: 05/20/18 Status: Ordered Disposable Bed Pads Disposable Bed Pads, See Instructions, # 30 each, Refills 11, Tot. Refills 11, Maintenance, Use every night for incontinence ICD10: R32, 12/30/18 13:32:56 EDT, Compound Start Date: 12/30/18 Status: Ordered extended shower chair/bench extended shower chair/bench, See Instructions, # 1 units, Refills 0, Tot. Refills 0, Maintenance, use for safe showering due to gait instability, 12/06/14 18:39:48, Compound Start Date: 12/06/14 Status: Ordered Freestyle Lite Lancets See Instructions, # 200 each, Refills 3, Tot. Refills 3, Maintenance, use to check blood sugars twice daily for DM, E11.65, 04/24/20 11:53:00 EST, Compound, 157.48, cm, 03/26/20 15:59:00 EST, Height,44.5, kg, 12/24/18 9:18:00 EDT, Dry Weight Start Date: 04/24/20 Stop Date: 08/22/20 Status: Ordered Freestyle Lite Lancets See Instructions, # 200 each, Refills 3, Tot. Refills 3, Maintenance, use to check blood sugars twice daily for DM, E11.65, 09/03/17 17:17:52 EDT, Compound Start Date: 09/03/17 Stop Date: 01/01/18 Status: Ordered Freestyle Lite Monitor See Instructions, # 1 units, Refills 0, Tot. Refills 0, Maintenance, use to test blood sugars twicedaily for DM, E11.65, 05/20/18 15:46:00 EST, Compound Start Date: 05/20/18 Status: Ordered Freestyle Lite Test Strips See Instructions, # 200 each, Refills 3, Tot. Refills 3, Maintenance, use to test blood sugars twice daily for diabetes, E11.65, 04/24/20 11:53:00 EST, Compound, 157.48, cm, 03/26/20 15:59:00 EST, Height, 44.5, kg, 12/24/18 9:18:00 EDT, Dry Weight Start Date: 04/24/20 Stop Date: 08/22/20 Status: Ordered Freestyle Lite Test Strips See Instructions, # 200 each, Refills 3, Tot. Refills 3, Maintenance, use to test blood sugars twice daily for diabetes, E11.65, 09/03/17 17:17:36 EDT, Compound Start Date: 09/03/17 Stop Date: 01/01/18 Status: Ordered glimepiride 2 mg oral tablet 1.5 tablet = 3 mg, By Mouth, Daily, decrease in dose with the first meal of the day, # 45 tablet, 5Refills, Maintenance, 10/25/20 13:20:00 EDT, Tablet, [facility]/pharmacy #[id number], Partial fill upon patient request if the prescription is for a schedule II op... Start Date: 10/25/20 Stop Date: 04/23/21 Status: Ordered meloxicam 15 mg oral tablet 1 tablet = 15 mg, By Mouth, Daily, PRN Pain , Moderate, # 30 tablet, 3 Refills, Maintenance, 10/25/20 13:41:00 EDT, Tablet, [id number], Partial fill upon patient request if the prescription is for a schedule II opioid drug., 157.48, cm, ... Start Date: 10/25/20 Stop Date: 02/22/21 Status: Ordered metFORMIN 1000 mg oral tablet 1 tablet = 1,000 mg, By Mouth, 2 times a day, # 180 tablet, 3 Refills, Soft Stop, 03/19/20 12:51:00EST, [id number], 157.48, cm, 10/31/19 7:51:00 EDT, Height, 44.5, kg, 12/24/18 9:18:00 EDT, Dry Weight Start Date: 03/19/20 Stop Date: 03/14/21 Status: Ordered Metoprolol Succinate ER 100 mg oral tablet, extended release 1 tablet, By Mouth, Daily, # 90 tablet, 3 Refills, Maintenance, 03/19/20 12:50:00 EST, [id number], 157.48, cm, 10/31/19 7:51:00 EDT, Height, 44.5, kg, 12/24/18 9:18:00 EDT, Dry Weight Start Date: 03/19/20 Status: Ordered multivitamin Multiple Vitamins oral capsule 1 capsule, By Mouth, Daily, # 90 capsule, 3 Refills, Maintenance, 04/24/20 11:53:00 EST, Capsule, [id number], 1 capsule By Mouth Daily,x90 days, 157.48, cm, 03/26/20 15:59:00 EST, Height, 44.5, kg, 12/24/18 9:18:00 EDT, Dry Weight Start Date: 04/24/20 Stop Date: 04/19/21 Status: Ordered multivitamin Multiple Vitamins oral capsule 1 capsule, By Mouth, Daily, # 90 capsule, 3 Refills, Maintenance, 03/19/20 12:51:00 EST, Capsule, [id number], 1 capsule By Mouth Daily,x90 days, 157.48, cm, 10/31/19 7:51:00 EDT, Height, 44.5, kg, 12/24/18 9:18:00 EDT, Dry Weight Start Date: 03/19/20 Stop Date: 03/14/21 Status: Ordered Nutritional Supplements See Instructions, # 180 each, Refills 3, Tot. Refills 3, Maintenance, Glucerna drinks. Drink 1 can twice a day. Dx: unintended weight loss, underweight R63.6, type 2 DM E11.65, 09/03/17 17:41:44 EDT,Compound Start Date: 09/03/17 Status: Ordered ramipril 5 mg oral capsule 1 capsule = 5 mg, By Mouth, Daily, # 90 capsule, 3 Refills, Maintenance, 03/19/20 12:51:00 EST, Capsule, [id number], resent as a dup, 157.48, cm, 10/31/19 7:51:00 EDT, Height, 44.5, kg, 12/24/18 9:18:00 EDT, Dry Weight Start Date: 03/19/20 Stop Date: 03/14/21 Status: Ordered Right wrist splint Right wrist splint, See Instructions, # 1 each, Refills 0, Tot. Refills 0, Maintenance, Thumb SpicaWrist splint to be worn every night to bed for Right Carpal Tunnel Syndrome G56.01, 02/08/18 8:27:22 EDT, Compound Start Date: 02/08/18 Status: Ordered rollator walker (4 wheels, seat, brakes) rollator walker (4 wheels, seat, brakes), See Instructions, # 1 units, Refills 0, Tot. Refills 0, Maintenance, use for safe ambulation and resting due to gait instability; patient is 155cm, 50kg, 12/06/14 18:37:52, Compound Start Date: 12/06/14 Status: Ordered Shingrix intramuscular injection = 0.5 mL, Intramuscular, Once, repeat dose in 2 to 6 months, # 2 each, 0 Refills, Soft Stop, 03/26/20 17:30:00 EST, Powder, [id number], Partial fill upon patient request, 0.5 mL IntramuscularOnce,Instr:repeat dose in 2 to 6 months, 157.48, cm... Start Date: 03/26/20 Status: Ordered Small Adult Diapers Small Adult Diapers, See Instructions, # 90 each, Refills 11, Tot. Refills 11, Maintenance, Wear daily for urinary incontinence. Up to three daily. ICD10: R32, 12/30/18 13:31:17 EDT, Compound Start Date: 12/30/18 Status: Ordered tiZANidine 2 mg oral capsule 1 capsule = 2 mg, By Mouth, Every 8 hours, PRN as needed for muscle spasm, # 40 capsule, 1 Refills,Maintenance, 10/25/20 13:32:00 EDT, Capsule, [id number], Partial fill upon patient request if the prescription is for a schedule II opioid drug... Start Date: 10/25/20 Status: Ordered Tylenol 325 mg oral capsule = 650 mg, By Mouth, Once, PRN as needed for fever, lot [id number] EXP 05/2018, # 2 capsule, 0 Refills, Maintenance, 03/07/18 17:28:48 EST, Capsule Start Date: 03/07/18 Stop Date: 03/07/18 Status: Ordered Voltaren 1% topical gel 1 application, Topically, 4 times a day, PRN Pain , Mild, # 100 Gm, 5 Refills, Maintenance, 09/27/20 14:00:00 EDT, Gel, [id number], 1 application Topically 4 times a day,PRN:Pain , Mild, 157.48, cm, 09/27/20 13:38:00 EDT, Height, 44.5, kg, ... Start Date: 09/27/20 Status: Ordered Problem List Condition Effective Dates Status Health Status Inform ant Adjustment disorder with anxiety(Confirmed) 1 Active Breast mass, right(Confirmed) Active Cervical radiculopathy(Confirmed) Active Chronic left shoulder pain(Confirmed) Active Diabetes Mellitus(Confirmed) 02/19/10 Active Hx of fracture of clavicle(Confirmed) Active Hypertension(Confirmed) 02/19/10 Active *[id number] Care Partn er Claudette Saunders(Confirmed) Active Current smoker(Confirmed) Active 1Dx in 08/2018 upon psych eval Vital Signs Most recent to oldest [Reference Range]: 1 Height 155 cm (10/27/20 2:35 PM) Weight 48 kg (10/27/20 2:35 PM) Oxygen Saturation [94-100 %] 98 % (10/27/20 2:35 PM) Pulse Rate [55-90 bpm] 85 bpm (10/27/20 2:35 PM) Blood Pressure [90-138/55-84 mm Hg] 180/ 71mm Hg *H* (10/27/20 2:35 PM) Respiratory Rate [16-30 br/min] 18 br/mi n (10/27/20 2:35 PM) Temperature [96.8-100.4 DegF] 98.6 DegF (10/27/20 2:35 PM) Mode of Delivery (Oxygen) Room air (10/27/20 2:35 PM) Blood pressure sites Arm, left (10/27/20 2:35 PM) Temperature Route Oral (10/27/20 2:35 PM) Dry Weight 48 kg (10/27/20 2:35 PM)
--- OUTSIDE RECORDS SUMMARY | 2023-06-04 11:55 | XMS_ITS | Continuity of Care Document ---
Author Name Unknown Organization [facility] Address [address] [address]- Care Team Providers Care Goldbeater Name Role Phone Tereso MILLER, Nicolette Mills Primary Care Physician [phone] Encounter [facility] Date(s): 08/09/19 - 08/19/19 [facility] [address] [address]- [facility] Attending Physician: Dai Clark Admitting Physician: Dai Clark Referring Physician: AdmtrDai Allergies, Adverse Reactions, Alerts Substance Reaction Severity Status Effexor 1 Active 1nausea vomiting intolerance Immunizations Given and Recorded Vaccine Date Status Refusal Reason influenza virus vaccine, inactivated 03/24/19 Give n [...] 1Admin Note: vis 2Admin Note: VIS GIVEN 2011- 3Admin Note: vis 08/16/08 4Admin Note: vis [...] Mellitus to check BG twice daily E11.65, 06/24/18 10:08:09 EST, Compound Start Date: 06/24/18 Stop Date: 10/22/18 Status: Ordered aspirin 81 mg oral delayed release tablet 81 mg, 1, tablet, By Mouth, Daily, # 90 tablet, Refills 1, Tot. Refills 1, Maintenance, 03/16/19 14:34:47 EST, Route to Pharmacy Electronically, [id number], [facility]/pharmacy #[id number] Start Date: 03/16/19 Stop Date: 09/12/19 Status: Ordered Bedside Commode See Instructions, # [...] EDT, Compound Start Date: 12/30/18 Status: Ordered EpiPen 2-Madhav 0.3 mg injectable kit See Instructions, Intramuscular Once, # 1 applicator, 0 Refills, Soft Stop Start Date: 09/14/12 Status: Ordered extended shower chair/bench extended shower [...] Status: Ordered glimepiride 2 mg oral tablet 1 tablet = 2 mg, By Mouth, Daily, # 90 tablet, 1 Refills, Soft Stop, 03/16/19 14:34:14 EST Start Date: 03/16/19 Stop Date: 09/12/19 Status: Ordered ibuprofen 600 mg oral tablet 600 mg, 1, tablet, By Mouth, Every 6 hours, PRN, # 60 tablet, Refills 1, Tot. Refills 1, Maintenance, Pain , Severe, 05/24/19 14:46:00 EST, Route to Pharmacy Electronically, [facility]/pharmacy #[id number], 151, cm, 05/01/19 14:24:00 EST, Height, 44.5, kg, ... Start Date: 05/24/19 Status: Ordered Lipitor 40 mg oral tablet 1 tablet = 40 mg, By Mouth, Daily, # 90 tablet, 1 Refills, Maintenance, 03/16/19 14:34:37 EST, Tablet Start Date: 03/16/19 Stop Date: 09/12/19 Status: Ordered metFORMIN 1000 mg oral tablet 1 tablet = 1,000 mg, By Mouth, 2 times a day, # 180 tablet, 1 Refills, Soft Stop, 03/16/19 14:33:56EST Start Date: 03/16/19 Stop Date: 09/12/19 Status: Ordered Metoprolol Succinate ER 100 mg oral tablet, extended release 1 tablet = 100 mg, By Mouth, Daily, # 90 tablet, 1 Refills, Soft Stop, 03/16/19 14:33:14 EST Start Date: 03/16/19 Stop Date: 09/12/19 Status: Ordered multivitamin Multiple Vitamins oral capsule 1 capsule, By Mouth, Daily, # 30 capsule, 0 Refills, Maintenance, 07/22/18 11:00:36 EDT, Capsule, 1capsule By Mouth Daily Start Date: 07/22/18 Status: Ordered multivitamin Multiple Vitamins oral tablet 1 tablet, By Mouth, Daily, # 90 tablet, 3 Refills, Maintenance, 05/24/19 15:09:00 EST, Tablet, [facility]/pharmacy #[id number], 1 tablet By Mouth Daily,x90 days, 151, cm, 05/24/19 14:49:00 EST, Height, 44.5, kg, 12/24/18 9:18:00 EDT, Dry Weight Start Date: 05/24/19 Stop Date: 05/18/20 Status: Ordered Nutritional Supplements See Instructions, # 180 each, Refills 3, Tot. Refills 3, Maintenance, Glucerna drinks. Drink 1 can twice a day. Dx: unintended weight loss, underweight R63.6, type 2 DM E11.65, 09/03/17 17:41:44 EDT,Compound Start Date: 09/03/17 Status: Ordered ramipril 5 mg oral capsule 1 capsule = 5 mg, By Mouth, Daily, # 90 capsule, 1 Refills, Maintenance, 03/16/19 14:32:50 EST, Capsule Start Date: 03/16/19 Stop Date: 09/12/19 Status: Ordered Right wrist splint Right wrist [...] 18:37:52, Compound Start Date: 12/06/14 Status: Ordered Small Adult Diapers Small Adult Diapers, See Instructions, # 90 each, Refills 11, Tot. Refills 11, Maintenance, Wear daily for urinary incontinence. Up to three daily. ICD10: R32, 12/30/18 13:31:17 EDT, Compound Start Date: 12/30/18 Status: Ordered Tylenol 325 mg oral capsule = 650 mg, By Mouth, Once, PRN as needed for fever, lot [id number] EXP 05/2018, # 2 capsule, 0 Refills, Maintenance, 03/07/18 17:28:48 EST, Capsule Start Date: 03/07/18 Stop Date: 03/07/18 Status: Ordered Voltaren 1% topical gel 1 application, Topically, 4 times a day, PRN Pain , Mild, # 100 Gm, 0 Refills, Maintenance, 06/30/19 12:31:00 EST, Gel, [id number], 1 application Topically 4 times a day,PRN:Pain , Mild, 151,cm, 06/12/19 9:50:00 EST, Height, 44.5, kg, ... Start Date: 06/30/19 Status: Ordered Problem List Condition Effective Dates Status Health Status Inform ant Adjustment disorder with anxiety(Confirmed) 1 Active Breast mass, right(Confirmed) Active Cervical radiculopathy(Confirmed) Active Diabetes Mellitus(Confirmed) 02/19/10 Active Hypertension(Confirmed) 02/19/10 Active *[id number]-Senior Process Engineer-Jose E Cotto(Confirmed) Active Current smoker(Confirmed) Active 1Dx in 08/2018 upon psych eval
--- OUTSIDE RECORDS SUMMARY | 2023-06-04 11:55 | XMS_ITS | Continuity of Care Document ---
Author Name Unknown Organization [facility] Address [address] [place] [address]- Care Team Providers Care Manager Meat Name Role Phone Tereso MILLER, Nicolette Mills Primary Care Physician [phone] Encounter [facility] Date(s): 11/29/20 - 12/29/[address] [id number] Allergies, Adverse Reactions, Alerts Substance Reaction Severity [...] tablet, 5Refills, Maintenance, 10/25/20 13:20:00 EDT, Tablet, [id number], Partial fill upon [...] Once, PRN as needed for fever, lot [id number] EXP 05/2018, # 2 capsule, 0 Refills, [...] cm, 09/27/20 13:38:00 EDT, Height, 44.5, kg, 08/... Start Date: 09/27/20 Status: Ordered Problem List Condition Effective Dates Status Health Status Inform ant Adjustment disorder with anxiety(Confirmed) 1 Active Breast mass, right(Confirmed) Active Cervical radiculopathy(Confirmed) Active Chronic left shoulder pain(Confirmed) Active Diabetes Mellitus(Confirmed) 02/19/10 Active Hx of fracture of clavicle(Confirmed) Active Hypertension(Confirmed) 02/19/10 Active *[id number] Care Partn patrick Saunders(Confirmed) Active Current smoker(Confirmed) Active Cervical stenosis of spinal canal(Confirmed) Active 1Dx in 08/2018 upon psych eval
--- OUTSIDE RECORDS SUMMARY | 2023-06-04 11:55 | XMS_ITS | Continuity of Care Document ---
Author Name Unknown Organization [facility] Address [address] [place] [address]- Care Team Providers Care Geometry Tutor Name Role Phone Tereso MILLER, Nicolette Mills Primary Care Physician [phone] Encounter [facility] Date(s): 02/04/22 - 03/06/[address] [address]- Allergies, Adverse Reactions, Alerts Substance Reaction Severity [...] Given Patient Refuses 1Result Comment: DILUENT LOT#: [id number] EXP: 10/2022 MFG: FRESENSIUS 2Admin Note: vis [...] Dry Weight Start Date: 07/17/21 Status: Ordered Ativan 0.5 mg oral tablet 1 tablet = 0.5 mg, By Mouth, Once, Take 1 (.5 mg) tablet 1/2 hour before MRI for anxity/panic. If needed, you may repeat by taking another .5 mg tablet. This medication can make you sleepy- please donot drive or operate machinery with use.... Start Date: 01/22/22 Status: Ordered cyclobenzaprine 5 mg oral tablet 1 tablet = 5 mg, By Mouth, 3 times a day, PRN muscle spasms, # 30 tablet, 0 Refills, Maintenance, 12/25/21 13:17:00 EDT, Tablet, [id number], Partial fill upon patient request if the prescription is for a schedule II opioid drug., 155, cm, 0... Start Date: 12/25/21 Status: Ordered Diabetic shoes with 3 inserts Diabetic shoes with 3 inserts, See Instructions, # 1 each, Refills 0, Tot. 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 Start Date: 12/17/21 Status: Ordered disposable bed pads disposable bed pads, See Instructions, # 90 each, Refills 11, Tot. Refills 11, Maintenance, Use up to 3 bed pads per night for urinary incontinence. R32, 10/21/21 11:58:00 EDT, Supply Start Date: 10/21/21 Status: Ordered empagliflozin 10 mg oral tablet 1 tablet = 10 mg, By Mouth, Daily in AM, # 30 tablet, 0 Refills, Maintenance, 11/09/21 13:28:00 EDT, Tablet, [id number], Please allow for early refill as last her pills were dropped in water;Partial fill upon patient request if the prescript... Start Date: 11/09/21 Status: Ordered Freestyle Lite Lancets See Instructions, [...] tablet = 4 mg, By Mouth, Daily, for 90 days, with the first meal of the day, # 90 tablet, 1 Refills, Hard Stop 03/10/22 16:40:00 EST, 09/11/21 16:40:00 EDT, Tablet, [id number], Partial fillupon patient request if the prescription is for a s... Start Date: 09/11/21 Stop Date: 03/10/22 Status: Ordered glimepiride 4 mg oral tablet 1 tablet = 4 mg, By Mouth, Daily, with the first meal of the day, # 30 tablet, 0 Refills, Maintenance, 03/10/22 16:40:00 EST, Tablet, [id number], Please allow for early refill as last her pills were dropped in water; Partial fill upon patient... Start Date: 03/10/22 Stop Date: 04/09/22 Status: Ordered ibuprofen 600 mg oral tablet 600 mg, 1, tablet, By Mouth, Every 6 hours, PRN, with food or milk, # 60 tablet, Refills 1, Tot. Refills 1, Maintenance, Pain , Moderate, 10/20/21 16:04:00 EDT, Route to Pharmacy Electronically, [id number], Partial fill upon patient request if... Start Date: 10/20/21 Status: Ordered Lac-Hydrin 12% lotion 1 application, Topically, 2 times a day, # 400 Gm, 0 Refills, Maintenance, 03/20/21 14:35:00 EST, Lotion, [id number], Partial fill upon patient request if the prescription is for a schedule II opioid drug., 1 application Topically 2 times a da... Start Date: 03/20/21 Status: Ordered metFORMIN 1000 mg oral tablet 1 tablet, By Mouth, 2 times a day, # 60 tablet, 5 Refills, 02/04/22 11:40:00 EDT, [id number], Please allow for early refill as last her pills were dropped in water, 155, cm, 12/02/21 16:59:00EDT, Height, 48, kg, 10/27/20 14:35:00 EDT, Dry We... Start Date: 02/04/22 Status: Ordered methocarbamol 500 mg oral tablet See Instructions, 1-2 tablets 4 times a day as needed for muscle spasms, # 40 tablet, 1 Refills, Maintenance, 10/07/21 13:46:00 EDT, Tablet, [id number], Partial fill upon patient request if the prescription is for a schedule II opioid drug., 1... Start Date: 10/07/21 Status: Ordered Metoprolol Succinate ER 100 mg oral tablet, extended release 1 tablet, By Mouth, Daily, # 90 tablet, 3 Refills, Maintenance, 12/15/21 8:39:00 EDT, [id number], 155, cm, 12/02/21 16:59:00 EDT, Height, 48, kg, 10/27/20 14:35:00 EDT, Dry Weight Start Date: 12/15/21 Stop Date: 12/10/22 Status: Ordered omeprazole 20 mg oral enteric coated capsule 1 capsule = 20 mg, By Mouth, Daily, # 14 capsule, 0 Refills, Maintenance, 12/02/21 18:07:00 EDT, ECCapsule, [id number], Partial fill upon patient request if the prescription is for a schedule II opioid drug., 155, cm, 12/02/21 16:59:00 EDT, H... Start Date: 12/02/21 Stop Date: 12/16/21 Status: Ordered ondansetron 4 mg oral tablet 1 tablet = 4 mg, By Mouth, Every 8 hours, PRN as needed for nausea/vomiting, Use as needed for nausea / vomiting, # 15 tablet, 0 Refills, Maintenance, 12/02/21 18:03:00 EDT, Tablet, [id number], Partial fill upon patient request if the prescrip... Start Date: 12/02/21 Stop Date: 12/07/21 Status: Ordered Pen [place], 31 G x 5 mm BD Ultra [...] Stop 08/11/22 11:04:00 EDT, 02/12/22 11:04:00 EDT, [id number], Please allow for early refill as last her pills weredropped in water, 155, cm, 12/02/21 16:59:00 EDT,... Start Date: 02/12/22 Stop Date: 08/11/22 Status: Ordered salicylic acid 17% topical liquid 1 application, Topically, Daily, # 15 mL, 1 Refills, Acute 03/15/22 11:23:00 EST, 02/12/22 11:23:00EDT, Liquid, [id number], Partial fill upon patient request if the prescription is for a schedule II opioid drug., 1 application Topically Daily... Start Date: 02/12/22 Stop Date: 03/15/22 Status: Ordered Small adult pull ups Small adult pull ups, See Instructions, # 240 each, Refills 11, Tot. Refills 11, Maintenance, Use up to 8 per day for urinary incontinence R32, 10/21/21 12:03:00 EDT, Supply Start Date: 10/21/21 Status: Ordered Voltaren 1% topical gel 1 application, Topically, 4 times a day, PRN Pain , Mild, # 100 Gm, 5 Refills, Maintenance, 01/22/21 10:34:00 EDT, Gel, [id number], 1 application Topically 4 times a day,PRN:Pain , Mild, 155,cm, 12/17/20 15:46:00 EDT, Height, 48, kg, 10/27/20... 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
--- OUTSIDE RECORDS SUMMARY | 2023-06-04 11:55 | XMS_ITS | Continuity of Care Document ---
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 Name Role Phone Tereso MILLER, Nicolette Mills Primary Care Physician Encounter [facility] [place] Date(s): 04/02/22 - 04/06/[address] [id number] Discharge Disposition: A-D/C Home Attending Physician: Jovon Nixon MD Admitting Physician: Jovon Nixon MD Referring Physician: Jovon Nixon MD Allergies, Adverse Reactions, Alerts Substance Reaction [...] Given Patient Refuses 1Result Comment: DILUENT LOT#: [id number] EXP: 10/2022 MFG: FRESENSIUS 2Admin Note: vis 3Admin Note: VIS GIVEN 2011- 4Admin Note: vis 08/16/08 5Admin Note: vis 03/20/08 6Admin Note: vis given 7Admin Note: VIS Medications acetaminophen 500 mg oral tablet 2 tablet = 1,000 mg, By Mouth, 4 times a day, PRN for pain, # 100 tablet, 0 Refills, Maintenance, 07/17/21 10:31:00 EDT, Tablet, [facility]/pharmacy #[id number], Partial fill upon patient request [...] Weight Start Date: 07/17/21 Status: Ordered cyclobenzaprine 10 mg oral tablet 5 mg, Tablet, By Mouth, 04/06/22 11:00:00 EST Start Date: 04/06/22 Stop Date: 04/06/22 Status: Completed cyclobenzaprine 5 mg oral tablet 1 tablet = 5 mg, By Mouth, 3 times a day, PRN muscle spasms, # 30 tablet, 0 Refills, Maintenance, 04/06/22 9:51:00 EST, Tablet[facility], Partial fill upon patient request if [...] 5 Refills, Maintenance, 03/12/22 21:19:00 EST, Tablet, [facility]/pharmacy #[id number], Please allow for early refill as [...] 0 Refills, Maintenance, 03/10/22 16:40:00 EST, Tablet, [facility]/pharmacy #[id number], Please allow for early refill as [...] 60 tablet, 5 Refills, 02/04/22 11:40:00 EDT, [id number], Please allow for early refill as last her pills were dropped in water, 155, cm, 12/02/21 16:59:00EDT, Height, 48, kg, 10/27/20 14:35:00 EDT, Dry We... Start Date: 02/04/22 Status: Ordered metoprolol 100 mg oral tablet, extended release 100 mg, XL Tablet, By Mouth, 04/06/22 9:00:00 EST Start Date: 04/06/22 Stop Date: 04/06/22 Status: Completed Metoprolol Succinate ER 100 mg oral tablet, [...] 0 Refills, Maintenance, 12/02/21 18:07:00 EDT, ECCapsule, [facility]/pharmacy #[id number], Partial fill upon patient request [...] Replace Required Details, Route to Pharmacy Electronically, [facility] [place] [facility] Start Date: 04/06/22 Status: Ordered Pen [place], 31 G x 5 mm BD Ultra [...] Stop 08/11/22 11:04:00 EDT, 02/12/22 11:04:00 EDT, [facility]/pharmacy #[id number], Please allow for early refill as [...] clavicle Confirmed Active Hypertension Confirmed 02/19/10 Active *[phone] Director Of Extension Work Claudette Saunders Confirmed Active Current smoker Confirmed Active Cervical stenosis of spinal canal Confirmed Active Urinary incontinence Confirmed Active 1Dx in 08/2018 upon psych eval Results Radiology Reports * Exam Date Time Procedure Performing Provider Status 04/03/22 5:58 PM Chest Portable Lisa Panda; Auth ( Verified) Notes: (Chest Portable) Reason For Exam: chest pressure; increased BP; negative EKG;Other: RESULT: Chest Portable Chest Portable Reason: Other:; chest pressure; increased BP; negative EKG; Clinical Question(s): Pulmonary Embolism / Pulmonary Embolism COMPARISON: 10/24/2019 FINDINGS: LINES AND TUBES: None. LUNGS AND PLEURA: Clear lungs. Normal pulmonary vascularity. No pleural effusion. No pneumothorax. HEART, MEDIASTINUM AND YASMEEN: Heart is normal in size. Aorta is mildly calcified. BONES AND SOFT TISSUES: No acute abnormality. Cervical spine fusion hardware. IMPRESSION: No evidence of acute abnormality. WSN: [id number] Ordering Physician: Carlton Warner Dictated By: Migel Sow MD Dictated Date/Time: 04/03/22 6:04 pm Reviewed By: Migel Sow MD Signed By: Migel Sow MD Signed Date/Time: 04/03/22 6:04 pm Transcribed By: LUTHER Transcribed Date/Time: 04/03/22 6:03 pm * Exam Date Time Procedure Performing Provider Status 04/02/22 7:03 PM US Doppler Ext Upper Venous Right Quinn Teresa garcia; Auth (Verified) Notes: (US Doppler Ext Upper Venous Right) Reason For Exam: RUE pain, tenderness, erythema after sx;Pain/Tenderness Extremities RESULT: US Doppler Ext Upper Venous Right US Doppler Ext Upper Venous Right Reason: Pain Tenderness Extremities; RUE pain, tenderness, erythema after sx; Clinical Question(s):Thrombosis COMPARISON: None. IMAGING TECHNIQUE: Ultrasound examination of the upper extremity deep venous system was performed using grayscale, color, and spectral wave analysis including response to compression. Assessment includes the contralateral jugular and subclavian vein. FINDINGS: Internal jugular vein: Patent. No thrombosis. Subclavian vein: Patent. No thrombosis. Axillary vein: Patent. No thrombosis. Brachial vein: Patent. No thrombosis. Basilic vein: Patent. No thrombosis. Cephalic vein: Patent. No thrombosis. Contralateral internal jugular vein: Could not be assessed due to difficulties with patient positioning. Contralateral subclavian vein: Could not be assessed due to difficulties with patient positioning. IMPRESSION: No evidence of venous thrombosis. WSN: [id number] Ordering Physician: Carlton Warner Dictated By: Tenisha Machuca MD Dictated Date/Time: 04/02/22 8:36 pm Reviewed By: Tenisha Machuca MD Signed By: Tenisha Machuca MD Signed Date/Time: 04/02/22 8:36 pm Transcribed By: LUTHER Transcribed Date/Time: 04/02/22 8:35 pm * Exam Date Time Procedure Performing Provider Status 04/02/22 12:33 PM C-Arm > 1 Hour Shwetha [facility] (Verified) Notes: (C-Arm > 1 Hour) Reason For Exam: ACDF C3-C6 RESULT: C-Arm > 1 Hour Cervical Spine 3 Views or Less, C-Arm > 1 Hour INDICATION: Reason: myelopathy,ACDF C3-C6 COMPARISONS: None TECHNIQUE: Fluoroscopy support was provided. There was no radiologist in attendance. FLUOROSCOPY TIME: 37.9 seconds EXPOSURE: 7 images TECHNOLOGIST TIME: 2 hours 45 minutes FINDINGS: Endotracheal tube is partially imaged. Esophageal temperature probe terminating at the C3-4 level. Images document anterior cervical spinal fusion at C3-C6. IMPRESSION: See above. WSN: [id number] Ordering Physician: Jovon Nixon Dictated By: Pranay Astudillo MD Dictated Date/Time: 04/02/22 12:40 p Reviewed By: Pranay Astudillo MD Signed By: Pranay Astudillo MD Signed Date/Time: 04/02/22 12:40 pm Transcribed By: LUTHER Transcribed Date/Time: 04/02/22 12:38 pm * Exam Date Time Procedure Performing Provider Status 04/02/22 12:33 PM Cervical Spine 3 Views or Less Dax meza La; Cinthya (Verified) Notes: (Cervical Spine 3 Views or Less) Reason For Exam: myelopathy,ACDF C3-C6 RESULT: Cervical Spine 3 Views or Less Cervical Spine 3 Views or Less, C-Arm > 1 Hour INDICATION: Reason: myelopathy,ACDF C3-C6 COMPARISONS: None TECHNIQUE: Fluoroscopy support was provided. There was no radiologist in attendance. FLUOROSCOPY TIME: 37.9 seconds EXPOSURE: 7 images TECHNOLOGIST TIME: 2 hours 45 minutes FINDINGS: Endotracheal tube is partially imaged. Esophageal temperature probe terminating at the C3-4 level. Images document anterior cervical spinal fusion at C3-C6. IMPRESSION: See above. WSN: [id number] Ordering Physician: Jovon Nixon Dictated By: Pranay Astudillo MD Dictated Date/Time: 04/02/22 12:40 p Reviewed By: Pranay Astudillo MD Signed By: Pranay Astudillo MD Signed Date/Time: 04/02/22 12:40 pm Transcribed By: LUTHER Transcribed Date/Time: 04/02/22 12:38 pm Vital Signs Most recent to oldest [Reference Range]: 1 2 3 Height 155 cm (04/06/22 11:27 AM) 155 cm (04/06/22 7:13 AM) 155 cm (04/06/22 3:05 AM) Weight 50 kg (04/02/22 8:38 AM) 50 kg (04/01/22 8:43 AM) Oxygen Saturation [94-100 %] 100 % (04/06/22 11:27 AM) 99 % (04/06/22 7:13 AM) 96 % (04/06/22 3:05 AM) Pulse Rate [55-90 bpm] 98 bpm *H* (04/06/22 11:27 AM) 83 bpm (04/06/22 9:12 AM) 83 bpm (04/06/22 7:13 AM) Body Mass Index [18.5-24.99 kg/m2] 20.81 kg/m2 (04/02/22 8:38 AM) 20.81 kg/m2 (04/01/22 8:43 AM) Blood Pressure [90-138/55-84 mm Hg] 164/90mm Hg *H* (04/06/22 11:27 AM) 164/84mm Hg *H* (04/06/22 9:12 AM) 164/84mm Hg *H* (04/06/22 7:13 AM) Respiratory Rate [16-30 br/min] 18 br/min (04/06/22 11:38 AM) 20 br/min (04/06/22 11:27 AM) 20 br/min (04/06/22 7:13 AM) Temperature [96.8-100.4 DegF] 98.5 DegF (04/06/22 11: AM) 98.4 DegF (04/06/22 7:13 AM) 98 DegF (04/06/22 3:05 AM) Mode of Delivery (Oxygen) Room air (04/06/22 11:27 AM) Room air (04/06/22 7:13 AM) Room air (04/06/22 3:05 AM) Blood pressure sites Arm, right (04/06/22 11:27 AM) Arm, left (04/06/22 7:13 AM) Arm, left (04/06/22 3:05 AM) Temperature Route Oral (04/06/22 11:27 AM) Oral (04/06/22 7:13 AM) Oral (04/06/22 3:05 AM) Dry Weight 49.9 kg (04/02/22 8:38 AM) 50 kg (04/01/22 8:43 AM) Weight Obtained Via Patient/family state d (04/01/22 8:43 AM) Dry Weight Obtained Via Standing scale (04/02/22 8:38 AM) Patient/family stated (04/01/22 8:43 AM) EKG study * Event Display: ECG 12-Lead Authored Date: Please click on pdf link to open report * Event Display: ECG 12-Lead Authored Date: Ventricular Rate: 73 BPM Atrial Rate: 73 BPM P-R Interval: 178 ms QRS Duration: 86 ms Q-T Interval: 416 ms QTC Calculation(Bazett): 458 ms P [place]: 73 degrees R [place]: -24 degrees T [place]: 58 degrees Normal sinus rhythm Septal infarct (cited on or before 24-JUL-2018) Abnormal ECG When compared with ECG of 19-MAR-2022 09:43, No significant change was found Confirmed by ANT TRUONG MD ([id number]) on 04/04/2022 1:03:30 PM [place] * Shwetha Arroyo RN: PERFORM, SIGN, VERIFY Event Display: Progress Note Hospital Authored Date: Patient: TELLO CUELLAR Age: 71 years Sex: Female : 1950 Associated Diagnoses: None Author: Shwetha Arroyo RN Findings Narrative/Incidental pt refused milk of magnesia and ducolax suppository, will take at home.. * Genie Yap RN: PERFORM, SIGN, VERIFY Event Display: Progress Note Hospital Authored Date: Patient: TELLO CUELLAR Age: 71 years Sex: Female : 1950 Associated Diagnoses: None Author: Genie Yap RN Findings Narrative/Incidental BP 186/84. Neurologist national sales consultant paged and ordered IV Hydralazine 10mg STAT. IV Hydralazine given. repeat BP 169/82. * Pamella Haq: MODIFY, SIGN, MODIFY, SIGN, VERIFY, MODIFY Pamella Haq: MODIFY, PERFORM Pamella Haq: PERFORM Andrea Henderson MD: SIGN Event Display: Progress Note Hospital Authored Date: Patient: TELLO CUELLAR Age: 71 years Sex: Female : 1950 Associated Diagnoses: None Author: Pamella Haq LOS 3 days POD 3 C3-6 ACDF No acute events overnight continued improvement in RUE pain, moving it much better this morning Denies any new pain, new weakness, new paresthesias, saddle anesthesias, changes in gait or changesin urination. No difficulty breathing. Health Status Problem list All Problems Adjustment disorder with anxiety / SNOMED CT 64508709 / Confirmed Dx in 08/2018 upon psych eval Breast mass, right / SNOMED CT 147768584 / Confirmed carpel tunnel surgery right wrist / Confirmed Cervical radiculopathy / SNOMED CT 849028061 / Confirmed Chronic left shoulder pain / SNOMED CT 888720680 / Confirmed Depression / SNOMED CT 854971311 / Confirmed Diabetes Mellitus / ICD-9-CM 250 / Confirmed Hx of fracture of clavicle / SNOMED CT 2534042575 / Confirmed Hypertension / ICD-9-CM 997.91 / Confirmed *[phone] Director Of Extension Work Claudette Saunders / SNOMED CT 704421679 / Confirmed Current smoker / SNOMED CT 892424221 / Confirmed Cervical stenosis of spinal canal / SNOMED CT 181124323 / Confirmed Urinary incontinence / SNOMED CT 1655552486 / Confirmed Inactive: Severe obesity / SNOMED CT 1392079762 select into nl: where @patientid:1 = @patientid:1 detail ProblemRequest->problem[1].onset_dt_tm = cnvtdatetime(curdate,curtime3) ekssub- >mod = 'Problem added by Discern Expert' go * Resolved: Alcohol dependency / SNOMED CT 520560805 Resolved: costochondritis Resolved: menapuase Canceled: *[phone]-Director Of Extension Work-Jose E Cotto / SNOMED CT 968158062 Allergies Allergic Reactions (Selected) Unknown Effexor- No reactions were documented. Nonallergic Reactions (Selected) Severity Not Documented Sulfa drugs- Acute abdominal pain. Medications (Selected) Inpatient Medications Ordered Bisacodyl Supp: 10 mg, Suppository, Rectally, Daily, PRN for Constipation, Routine, 04/02/22 13:29:00 EST Chloraseptic Lozenge: 1 lozenge, Lozenge, By Mouth, Every 3 hours, PRN for Other, Sore Throat, Routine, 04/02/22 13:29:00 EST Chloraseptic [place]: 1 sprays, [place], By Mouth, Every 4 hours, PRN for Other, Sore Throat, Routine, 04/02/22 13:29:00 EST Colace Capsule: 100 mg, Capsule, By Mouth, 2 times a day, Hold for: diarrhea or loose stools, Routine, 04/02/22 13:29:00 EST Decadron Inj: 4 mg, Injection, IV Push Slowly, Every 8 hours, Routine, 04/04/22 14:00:00 EST Heparin Inj: 5,000 units, Injection, Subcutaneous Injection, 3 times a day, (DVT Prophylaxis), Routine, 04/04/22 14:00:00 EST Insulin LISPRO Sliding Scale: 2-10 units, Injection, Subcutaneous Injection, 3 times a day before meals, Routine, 04/02/22 16:00:00 EST, Stop date 05/02/22 13:00:00 EST Milk of Magnesia Liquid: 30 mL, Suspension, By Mouth, Daily, PRN for Constipation, Routine, 04/02/22 13:29:00 EST MorPHINE Inj: 1 mg, Injection, IV Push Slowly, Every hour, PRN for Pain , Severe, Routine, 04/02/2213:29:00 EST Nicotine Topical: 14 mg, Patch, Topically, Apply to Left Arm, Daily, Routine, 04/04/22 11:11:00 EST Ondansetron Inj: 4 mg, Injection, IV Push, Every 6 hours, PRN for Nausea & Vomiting, Routine, 04/02/22 13:29:00 EST Remove Patch: 1 each, Patch, Topically, Apply to Left Arm, Daily, Remove existing Nicotine Topical patch prior to new patch application., Routine, 04/04/22 11:11:00 EST Tylenol Tablet: 650 mg, Tablet, By Mouth, Every 4 hours, Routine, 04/02/22 13:29:00 EST cyclobenzaprine 10 mg oral tablet: 5 mg, Tablet, By Mouth, Every 8 hours, Routine, 04/02/22 13:33:00 EST famotidine 20 mg oral tablet: 20 mg, Tablet, By Mouth, 2 times a day, to be taken while on Decadron, Routine, 04/04/22 13:37:00 EST metoprolol 100 mg oral tablet, extended release: 100 mg, XL Tablet, By Mouth, Daily, Routine, 04/02/22 13:35:00 EST oxyCODONE 5 mg oral tablet: 10 mg, Tablet, By Mouth, Every 4 hours, Hold for: hypotension/sedation,PRN for Pain , Severe, Routine, 04/02/22 18:51:00 EST oxyCODONE 5 mg oral tablet: 5 mg, Tablet, By Mouth, Every 4 hours, Hold for: hypotension/sedation, PRN for Pain , Moderate, Routine, 04/02/22 18:51:00 EST Prescriptions Prescribed Alcohol Pads: See Instructions, # 100 each, Refills 3, Tot. Refills 3, Maintenance, Use to check blood sugar twice daily for type 2 diabetes E11.65, 07/17/21 10:35:00 EDT, Supply, 155, cm, 07/17/21 10:03:00 EDT, Height, 48, kg, 10/27/20 14:35:00 EDT, Dry Weight Diabetic shoes with 3 inserts: Diabetic shoes with 3 inserts, See Instructions, # 1 each, Refills 0, Tot. 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 Refills 3, Maintenance, use to check blood sugars twice daily for DM, E11.65, 07/17/21 10:35:00 EDT, Compound, 155, cm, 07/17/21 10:03:00 EDT, Height, 48, kg, 10/27/20 14:35:00 EDT, Dry Weight Freestyle Lite Monitor: See Instructions, # 1 units, Refills 0, Tot. Refills 0, Maintenance, use totest blood sugars twice daily for DM, E11.65, 05/20/18 15:46:00 EST, Compound Freestyle Lite Test Strips: See Instructions, # 100 each, Refills 3, Tot. Refills 3, Maintenance, use to test blood sugars twice daily for diabetes, E11.65, 07/17/21 10:34:00 EDT, Compound, 155, cm, 07/17/21 10:03:00 EDT, Height, 48, kg, 10/27/20 14:35:00 EDT, Dry Weight Lac-Hydrin 12% lotion: 1 application, Topically, 2 times a day, # 400 Gm, 0 Refills, Maintenance, 03/20/21 14:35:00 EST, Lotion, [facility]/pharmacy #[id number], Partial fill upon patient request if the prescription is for a schedule II opioid drug., 1 application Topically 2 times a da... Metoprolol Succinate ER 100 mg oral tablet, extended release: 1 tablet, By Mouth, Daily, # 90 tablet, 3 Refills, Maintenance, 12/15/21 8:39:00 EDT, [facility]/pharmacy #[id number], 155, cm, 12/02/21 16:59:00 EDT,Height, 48, kg, 10/27/20 14:35:00 EDT, Dry Weight Pen [place], 31 G x 5 mm BD Ultra Fine III: See Instructions, # 50 each, Refills 1, Tot. Refills 1,Maintenance, Use for once weekly trulicity injection for DM E11.65, 08/01/21 15:14:00 EDT, To replace glimeride, Supply, 155, cm, 08/01/21 14:55:00 EDT, Height, 48, kg, 10/27/20 14:35:00 EDT, Dry... Small adult pull ups: Small adult pull ups, See Instructions, # 240 each, Refills 11, Tot. Refills 11, Maintenance, Use up to 8 per day for urinary incontinence R32, 10/21/21 12:03:00 EDT, Supply Voltaren 1% topical gel: 1 application, Topically, 4 times a day, PRN Pain , Mild, # 100 Gm, 5 Refills, Maintenance, 01/22/21 10:34:00 EDT, Gel, [facility]/pharmacy #[id number], 1 application Topically 4 times a day,PRN:Pain , Mild, 155, cm, 12/17/20 15:46:00 EDT, Height, 48, kg, 10/27/20... acetaminophen 500 mg oral tablet: 2 tablet = 1,000 mg, By Mouth, 4 times a day, PRN for pain, # 100tablet, 0 Refills, Maintenance, 07/17/21 10:31:00 EDT, Tablet, [facility]/pharmacy #[id number], Partial fill upon patient request if the prescription is for a schedule II opioid drug., 155, cm, 07/01... cyclobenzaprine 5 mg oral tablet: 1 tablet = 5 mg, By Mouth, 3 times a day, PRN muscle spasms, # 30tablet, 0 Refills, Maintenance, 12/25/21 13:17:00 EDT, Tablet, [facility]/pharmacy #[id number], Partial fill upon patient request if the prescription is for a schedule II opioid drug., 155, cm, ... disposable bed pads: disposable bed pads, See Instructions, # 90 each, Refills 11, Tot. Refills 11,Maintenance, Use up to 3 bed pads per night for urinary incontinence. R32, 10/21/21 11:58:00 EDT, Supply empagliflozin 10 mg oral tablet: 1 tablet = 10 mg, By Mouth, Daily in AM, # 30 tablet, 5 Refills, Maintenance, 03/12/22 21:19:00 EST, Tablet, [facility]/pharmacy #[id number], Please allow for early refill as lasther pills were dropped in water; Partial fill upon patient request if the prescript... glimepiride 4 mg oral tablet: 1 tablet = 4 mg, By Mouth, Daily, with the first meal of the day, # 30 tablet, 0 Refills, Maintenance, 03/10/22 16:40:00 EST, Tablet, [facility]/pharmacy #[id number], Please allow for early refill as last her pills were dropped in water; Partial fill upon patient... ibuprofen 600 mg oral tablet: 600 mg, 1, tablet, By Mouth, Every 6 hours, PRN, with food or milk, #60 tablet, Refills 1, Tot. Refills 1, Maintenance, Pain , Moderate, 10/20/21 16:04:00 EDT, Route toPharmacy Electronically, [id number], Partial fill upon patient request if... metFORMIN 1000 mg oral tablet: 1 tablet, By Mouth, 2 times a day, # 60 tablet, 5 Refills, 02/04/22 11:40:00 EDT, [id number], Please allow for early refill as last her pills were dropped in water, 155, cm, 12/02/21 16:59:00 EDT, Height, 48, kg, 10/27/20 14:35:00 EDT, Dry We... methocarbamol 500 mg oral tablet: See Instructions, 1-2 tablets 4 times a day as needed for muscle spasms, # 40 tablet, 1 Refills, Maintenance, 10/07/21 13:46:00 EDT, Tablet, [id number], Partial fill upon patient request if the prescription is for a schedule II opioid drug., 1... omeprazole 20 mg oral enteric coated capsule: 1 capsule = 20 mg, By Mouth, Daily, # 14 capsule, 0 Refills, Maintenance, 12/02/21 18:07:00 EDT, EC Capsule, [id number], Partial fill upon patient request if the prescription is for a schedule II opioid drug., 155, cm, 12/02/21 16:59:00 EDT, H... ondansetron 4 mg oral tablet: 1 tablet = 4 mg, By Mouth, Every 8 hours, PRN as needed for nausea/vomiting, Use as needed for nausea / vomiting, # 15 tablet, 0 Refills, Maintenance, 12/02/21 18:03:00 EDT, Tablet, [facility]/pharmacy #[id number], Partial fill upon patient request if the prescrip... ramipril 5 mg oral capsule: 1 capsule, By Mouth, Daily, for 90 days, # 90 capsule, 1 Refills, Physician Stop 08/11/22 11:04:00 EDT, 02/12/22 11:04:00 EDT, [id number], Please allow for early refill as last her pills were dropped in water, 155, cm, 12/02/21 16:59:00 EDT,... Physical Examination Temperature 97.9 (04:57) Systolic Blood Pressure 149 (04:57) Diastolic Blood Pressure 68 (04:57) Pulse 68 (04:57) SpO2 100 (04:57) Respiratory Rate 18 (05:54) General: Appears stated age, awake, alert and NAD HEENT: Normocephalic, atraumatic, trachea midline Respiratory: Breathing is even and nonlabored Extremities:?? Symmetric, no edema, no calf tenderness. Skin: on R dorsal hand extending to the medial forearm there is an erythematous petechia rash present Neurologic: anterior cervical incision is covered with a bandage that has mild hemorrhagic stainingpresent and Tegaderm. ( removed, steri strips remain in place) No edema or difficulty breathing. Voice is not hoarse. Mental status: awake, alert oriented to location, date and self Speech is clear, fluent, and appropriate, follows simple and complex commands CN: tracts well around the room no facial weakness hearing intact to voice Motor: normal bulk and tone Upper Extremities- RUE limited due to pain Deltoid:? 4/5 right? 5/5 left Biceps:? 4/5 right? 5/5 left Triceps:? 4/5 right? 5/5 left Wrist Ext:? 4/5 right? 5/5 left Hand weight calculator:? 4/5 right? 5/5 left Fine Motor:?? 4/5 right? 5/5 left Lower Extremities- Hip Flexion:? 5/5 right? 5/5 left Knee Extension:? 5/5 right? 5/5 left Plantar flexion:?? 5/5 right? 5/5 left Dorsiflexion:? 5/5 right? 5/5 left EHL:? 5/5 right? 5/5 left Sensation: intact to light touch throughout left upper and bilateral lower extremities right upper extremity with hypesthesias but improving no saddle anesthesia Reflexes: no Hoffmans no Clonus no Babinski Impression and Plan Ms. Cuellar is a 71 year old female with a PMHx significant for HTN, DM, depression, anxiety, urinary incontinence and current tobacco use who underwent an elective C3-C6 ACDF by Dr. Nixon on 04/02/22. Post operatively she developed significant pain in the RUE with hypesthesias, as well as a petechial rash in the right hand and forearm. A US of the RUE was obtained and there was no evidence of a venous thrombus. Patient symptoms are likely secondary to peripheral nerve inflammatory response due to the neuro monitoring needle. RUE symptoms are improving. RUE is 4- to 4/5 secondary to pain. POD3 s/p C3-C6 ACDF Plan: -Neuro checks q4hrs -Diabetic diet, with POC glucose and Insulin Sliding Scale -Maintain Normotensive BP -CIWA protocol - Oxycodone 5-10mg PO q4hrs PRN pain - Tylenol 650mg PO q4hrs for pain - Flexeril 5mg PO q8hrs for muscle spasms - Decadron 4mg IV q8hrs until discharge then will transition to a medrol dosepack - Heparin SubQ for DVT ppx -PT/OT rec rehab - CM following awaiting placement - Continue home meds, supportive care and bowel meds Discussed with national sales consultant attending neurosurgeon Dr. Henderson Page [phone] with any questions or concerns Note * Shwetha Arroyo RN: PERFORM Event Display: Discharge/Transfer Note Hospital Authored Date: [id number] Nursing Discharge Note Entered On: 04/06/2022 12:45 EST Performed On: 04/06/2022 12:44 EST by Shwetha Arroyo RN Nursing Discharge Note 2 Discharge Time : 04/06/2022 12:15 EST Discharge Level of Care at Discharge : Home/Long Term/Foster Care Patient Left Unit Via : Wheelchair Patient Accompanied Off Unit with : Responsible adult DC Instructions Provided & Signed by Pt : Yes Patient Understands D/C Instructions : Yes Patient Instructions Discharge Signed : Yes Did Pt have Specialty Bed or Wound Vac : No Shwetha Arroyo RN - 04/06/2022 12:44 EST * Alyse Herrera: MODIFY, SIGN, VERIFY, PERFORM Event Display: Discharge/Transfer Note Hospital Authored Date: [id number] Patient: TELLO CUELLAR Age: 71 years Sex: Female : 1950 Associated Diagnoses: None Author: Alyse Herrera Discharge Information Admission: Date: 04/02/2022 Preoperative diagnosis: Severe spinal cord compression, C3-4 and C4-5, with bilateral foraminal stenosis, C5-C6, with cervical myelopathy. Discharge: Date: 04/03/2022 Postoperative diagnosis: Same Operation: C3-6 ACDF Surgeon: Jovon Nixon M.D. Hospital Course Ms. Cuellar is a 71 year old female with a PMHx significant for HTN, DM, depression, anxiety, urinary incontinence and current tobacco use who presented outpatient for evaluation of right-sided neck pain, secondary suboccipital pain, headaches and right shoulder pain. She also had radiculopathy and num bness/tingling of her hands as well as significant weakness of her hands. On exam, she had weaknessof bilateral shoulder abduction at 4/5. MRI of the cervical spine showed some T2 signal change stemming from C3 all the way down to level of C5 with severe spinal cord compression at C3-C4 with very large right sided disc osteophyte complex and severe foraminal stenosis. She underwent an elective C3-C6 ACDF by Dr. Nixon on 04/02/22. Post operatively she developed significant pain in the RUE with hypesthesias, as well as a petechial rash in the right hand and forearm. A US of the RUE was obtained and there was no evidence of a venous thrombus. She has had improvement of both pain and movement of the right arm. She is ambulatory, tolerating PO, and voiding freely. PT clear patient for home w services. She will be discharged home with Medrol dosepak, oxycodone, and cyclobenzaprine. Discussed post operative expectations and pain management. She expressed good understanding, all questions answered. Neurosurgery post operative instructions provided upon discharge. Vitals Temperature 98.4 (07:14) Systolic Blood Pressure 164 (09:14) Diastolic Blood Pressure 84 (09:14) Pulse 83 (09:14) SpO2 99 (07:14) Respiratory Rate 20 (07:14) General: appears stated age, awake, alert, and NAD HEENT: NC/AT, trachea midline Respiratory: Regular rate, non labored Gastrointestinal: Soft, nontender, nondistended Extremities: symmetric, no edema, no calf tenderness Skin: _ Neurologic: Mental status Awake, alert oriented to location, date and self Speech clear, fluent appropriate Follows simple and complex commands CN EOMI, PERRL, VFF, no nystagmus No focal weakness Sensation intact Tongue midline Should shrug 5/5 Motor Normal bulk and tone Upper Extremities Deltoid: _/5 R _/5 L Triceps: _/5 R _/5 L Biceps: _/5 R _/5 L Wrist Ext: _/5 R _/5 L Hand weight calculator: _/5 R _/5 L Fine Motor: _/5 R _/5 L Lower Extremities Hip Flexion: _/5 R _/5 L Knee Extension: _/5 R _/5 L Plantar Flexion: _/5 R _/5 L Dorsiflexion: _/5 R _/5 L EHL: _/5 R _/5 L Sensation Intact to light touch throughout upper and lower extremities Discharge Plan Diet/Activity/Patient Education/Follow Up Follow Up with: Nicolette Rider; Jovon Nixon 04/29/2022 10:30 AM Please arrive an hour before yourappointment to get cervical x-rays in [facility] prior to appointment. Discharge Disposition Discharge: home with VNA. Home Health Face to Face I certify that this patient is under my care and that I or an allowed non- physician practitioner working with me, had a [id number] encounter with the patient on this date: 04/06/2022. The encounter with the patient was in whole, or in part, for the following medical condition, whichis the primary reason for home health care: Cervical spinal stenosis. Physical Therapy: Functional mobility training, Home exercise program to strengthen, increase ROM, Falls prevention training. Homebound due to: Inability to leave home without assistance/supervision, Pain, decreased strength,and endurance. Physician Signature: Alyse Herrera MEDICATION LIST (Selected) Prescriptions Prescribed Alcohol Pads: See Instructions, # 100 each, Refills 3, Tot. Refills 3, Maintenance, Use to check blood sugar twice daily for type 2 diabetes E11.65, 07/17/21 10:35:00 EDT, Supply, 155, cm, 07/17/21 10:03:00 EDT, Height, 48, kg, 10/27/20 14:35:00 EDT, Dry Weight Diabetic shoes with 3 inserts: Diabetic shoes with 3 inserts, See Instructions, # 1 each, Refills 0, Tot. 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 Refills 3, Maintenance, use to check blood sugars twice daily for DM, E11.65, 07/17/21 10:35:00 EDT, Compound, 155, cm, 07/17/21 10:03:00 EDT, Height, 48, kg, 10/27/20 14:35:00 EDT, Dry Weight Freestyle Lite Monitor: See Instructions, # 1 units, Refills 0, Tot. Refills 0, Maintenance, use totest blood sugars twice daily for DM, E11.65, 05/20/18 15:46:00 EST, Compound Freestyle Lite Test Strips: See Instructions, # 100 each, Refills 3, Tot. Refills 3, Maintenance, use to test blood sugars twice daily for diabetes, E11.65, 07/17/21 10:34:00 EDT, Compound, 155, cm, 07/17/21 10:03:00 EDT, Height, 48, kg, 10/27/20 14:35:00 EDT, Dry Weight Medrol Dosepak 4 mg oral tablet: 1 pack/packet, By Mouth, Once, # 21 tablet, 0 Refills, Soft Stop, 04/06/22 9:52:00 EST, Tablet, Partial fill upon patient request if the prescription is for a schedule II opioid drug., 155, cm, 04/06/22 7:13:00 EST, Height, 49.9, kg, 04/02/22 8:47:00... Metoprolol Succinate ER 100 mg oral tablet, extended release: 1 tablet, By Mouth, Daily, # 90 tablet, 3 Refills, Maintenance, 12/15/21 8:39:00 EDT, [facility]/pharmacy #[id number], 155, cm, 12/02/21 16:59:00 EDT,Height, 48, kg, 10/27/20 14:35:00 EDT, Dry Weight Pen [place], 31 G x 5 mm BD Ultra Fine III: See Instructions, # 50 each, Refills 1, Tot. Refills 1,Maintenance, Use for once weekly trulicity injection for DM E11.65, 08/01/21 15:14:00 EDT, To replace glimeride, Supply, 155, cm, 08/01/21 14:55:00 EDT, Height, 48, kg, 10/27/20 14:35:00 EDT, Dry... Small adult pull ups: Small adult pull ups, See Instructions, # 240 each, Refills 11, Tot. Refills 11, Maintenance, Use up to 8 per day for urinary incontinence R32, 10/21/21 12:03:00 EDT, Supply Walker: See Instructions, # 1 each, Maintenance, Use for ambulation, 04/06/22 9:52:00 EST, Supply, 155, cm, 04/06/22 7:13:00 EST, Height, 49.9, kg, 04/02/22 8:47:00 EST, Dry Weight acetaminophen 500 mg oral tablet: 2 tablet = 1,000 mg, By Mouth, 4 times a day, PRN for pain, # 100tablet, 0 Refills, Maintenance, 07/17/21 10:31:00 EDT, Tablet, [facility]/pharmacy #[id number], Partial fill upon patient request if the prescription is for a schedule II opioid drug., 155, cm, 07/01... cyclobenzaprine 5 mg oral tablet: 1 tablet = 5 mg, By Mouth, 3 times a day, PRN muscle spasms, # 30tablet, 0 Refills, Maintenance, 04/06/22 9:51:00 EST, Tablet, [facility], Partial fill upon patient request if the prescription is for a schedule II opioid drug., 155, cm,... disposable bed pads: disposable bed pads, See Instructions, # 90 each, Refills 11, Tot. Refills 11,Maintenance, Use up to 3 bed pads per night for urinary incontinence. R32, 10/21/21 11:58:00 EDT, Supply empagliflozin 10 mg oral tablet: 1 tablet = 10 mg, By Mouth, Daily in AM, # 30 tablet, 5 Refills, Maintenance, 03/12/22 21:19:00 EST, Tablet, [facility]/pharmacy #[id number], Please allow for early refill as lasther pills were dropped in water; Partial fill upon patient request if the prescript... glimepiride 4 mg oral tablet: 1 tablet = 4 mg, By Mouth, Daily, with the first meal of the day, # 30 tablet, 0 Refills, Maintenance, 03/10/22 16:40:00 EST, Tablet, [facility]/pharmacy #[id number], Please allow for early refill as last her pills were dropped in water; Partial fill upon patient... metFORMIN 1000 mg oral tablet: 1 tablet, By Mouth, 2 times a day, # 60 tablet, 5 Refills, 02/04/22 11:40:00 EDT, [facility]/pharmacy #[id number], Please allow for early refill as last her pills were dropped in water, 155, cm, 12/02/21 16:59:00 EDT, Height, 48, kg, 10/27/20 14:35:00 EDT, Dry We... omeprazole 20 mg oral enteric coated capsule: 1 capsule = 20 mg, By Mouth, Daily, # 14 capsule, 0 Refills, Maintenance, 12/02/21 18:07:00 EDT, EC Capsule, [facility]/pharmacy #[id number], Partial fill upon patient request if the prescription is for a schedule II opioid drug., 155, cm, 12/02/21 16:59:00 EDT, H... oxyCODONE 5 mg oral tablet: See Instructions, PRN, 1 tablet By Mouth Every 4-6 hours, # 42 tablet, Refills 0, Tot. Refills 0, Maintenance, Pain , Moderate, 04/06/22 9:51:00 EST, Instructions Replace Required Details, Route to Pharmacy Electronically, [facility]... ramipril 5 mg oral capsule: 1 capsule, By Mouth, Daily, for 90 days, # 90 capsule, 1 Refills, Physician Stop 08/11/22 11:04:00 EDT, 02/12/22 11:04:00 EDT, [facility]/pharmacy #[id number], Please allow for early refill as last her pills were dropped in water, 155, cm, 12/02/21 16:59:00 EDT,... * Cruz MANCILLA, Shwetha England: PERFORM Event Display: Patient Education/Instruction Authored Date: Inpatient Adult Discharge Instructions [address] [id number] Name: TELLO ALISA : 1950 Visit: 04/02/2022 07:03:00 Current Date: 04/06/2022 11:58 Account: [id number] Inpatient Adult Discharge Instructions We would like to thank you for allowing us to assist you with your healthcare needs. The following includes patient education materials and information regarding your injury/illness. Our entire staffstrives to provide an excellent experience for our patients and their families. PLEASE ENSURE YOU FOLLOW-UP PER THE INSTRUCTIONS BELOW! ?? YOUR OPINION IS IMPORTANT TO US! Please complete the survey you may receive by mail or email. Your feedback will be used to make improvements to the healthcare experiences of our patients and their families. Surveys are administered by [facility]. ?? If further treatment with your primary care physician or another doctor is recommended, it is important for you to keep the appointment. Call your primary care physician or return to the Emergency Department immediately if your condition worsens, fails to improve, or new symptoms develop. If you need to find a doctor, you can call [facility] [employer] for a referral at [phone] or toll free at [phone]) or log in to [email or web address].. ?? You can view and manage your care through the patient portal or by using a health care michelle of your choosing. [employer] is a website that allows you to securely view your medical information including your hospital discharge summary, office visit summaries, medications and follow-up visits. You can also request appointments, renew medications, and request access to your medical information using a health care michelle of your choosing, or just ask a question. You can enroll at [email or web address] or register during your next office visit. You have been discharged from [facility], Patient Care Unit: D3B. If you have any questions regarding these instructions after you leave, please call us and we will be happy to assist you. [facility] Your Care Team Attending Physician Tiffani KEITH, Jovon Posadas Discharging Providers Russell ROSENTHAL, Alyse Garcias Reason for Admission MYELOPATHY C3 C6 ACDF 23HR OVN FRANK Your Diagnosis Cervical spinal stenosis Tests Performed Below is a partial list of the tests performed during your hospitalization. You may have had other tests and procedures not included in this list. Please discuss all test results with your provider. COVID-19 (NOVEL CORONAVIRUS), PCR GLUCOSE POC Doppler Ext Upper Venous Right (US) XR C-Arm > 1 Hour XR Cervical Spine 3 Views or Less XR Chest Portable Primary Care Provider Nicolette Rider NP Advance Directive Health Care Proxy on File Yes - Health Care Proxy No qualifying data available. Discharge Vitals Temperature: 98.5 DegF Height: 155 cm Pulse Rate:??98 bpm??High Weight: 50 kg Respiratory Rate: 18 br/min Body Mass Index: 20.81 kg/m2 Systolic Blood Pressure:??164 mm Hg??High Body surface area: 1.47 Diastolic Blood Pressure:??90 mm Hg??High ?? Oxygen Saturation: 100 % ?? Studies Pending All tests and labs ordered during this hospital stay have been completed unless listed below. Please discuss all pending results with your provider listed above in these instructions. ?? No incomplete studies found What to do next Instructions From Your Doctor Discharge Orders Scheduled Follow-Up Appointments Wednesday 10:30 AM EST ?? With: Tiffani KEITH, Jovon Posadas Where: [facility] [address] [place] [address] Drive [address] [place] [address]- Wednesday 1:30 PM EST ?? With: Where: [facility] [address] [address]- You Need to Schedule the Following Appointments Follow Up with??Jovon Nixon When??04/29/2022 10:30 AM EST Why: Please arrive an hour before your appointment to get cervical x-rays in [facility] prior toappointment Where: [address] [place] [address], [address] [place] [phone]- Business (1) Follow Up with??Nicolette Rider When??In 0 days Discharge Medications TELLO CUELLAR :1950 Visit Date:04/02/2022 Medications: Please continue your medications until treatment is completed or stopped by your provider. Medications not listed below should be discontinued. Discuss any questions related to medications with your provider. What How Much When Why Instructions Next Dose New Durable Medical Equipment (Walker) See instructions Use for ambulation ?? Printed Prescription New MethylPREDNISolone (Medrol Dosepak 4 mg oral tablet) 1 pack/packet Oral Once Printed Prescription tomorrow am 04/07/22 New Oxycodone (oxyCODONE 5 mg oral tablet) See instructions 1 tablet By Mouth Every 4-6 hours ?? Pickup at [facility] 3 as needed Unchanged Acetaminophen (acetaminophen 500 mg oral tablet) 2 tab(s) Oral 4 times a day as needed for for pain Neck pain as needed, last dose 9am 04/06/22 Unchanged Cyclobenzaprine (cyclobenzaprine 5 mg oral tablet) 1 tab(s) Oral 3 times a day as needed for muscle spasms Pickup at [facility] 3 as needed, last dose 11:30 am??04/06/22 Unchanged Durable Medical Equipment (Alcohol Pads) See instructions Use to check blood sugar twice daily for type 2 diabetes E11.65 ?? 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 Unchanged Durable Medical Equipment (disposable bed pads) See instructions Urinary incontinence Use up to 3 bed pads per night for urinary incontinence. R32 ?? Unchanged Durable Medical Equipment (Freestyle Lite Lancets) See instructions Duration: 30 Days use to check blood sugars twice daily for DM, E11.65 ?? Unchanged Durable Medical Equipment (Freestyle Lite Monitor) See instructions use to test blood sugars twice daily for DM, E11.65 ?? Unchanged Durable Medical Equipment (Freestyle Lite Test Strips) See instructions Duration: 30 Days use to test blood sugars twice daily for diabetes, E11.65 ?? Unchanged Durable Medical Equipment (Pen [place], 31 G x 5 mm BD Ultra Fine III) See instructions Diabetes Mellitus Use for once weekly trulicity injection for DM E11.65 ?? Unchanged Durable Medical Equipment (Small adult pull ups) See instructions Urinary incontinence Use up to 8 per day for urinary incontinence R32 ?? Unchanged empagliflozin (empagliflozin 10 mg oral tablet) 1 tab(s) Oral Daily in the morning tomorrow am 04/07/22 Unchanged Glimepiride (glimepiride 4 mg oral tablet) 1 tab(s) Oral Daily Duration: 30 Days with the first meal of the day ?? tomorrow am 04/07/22 Unchanged Metformin (metFORMIN 1000 mg oral tablet) 1 tab(s) Oral Twice a day may resume as previous Unchanged Metoprolol (Metoprolol Succinate ER 100 mg oral tablet, extended release) 1 tab(s) Oral Daily Duration: 90 Days tomorrow am 04/07/22 Unchanged Omeprazole (omeprazole 20 mg oral enteric coated capsule) 1 capsule Oral Daily Duration: 14 Days tomorrow am 04/07/22 Unchanged Ramipril (ramipril 5 mg oral capsule) 1 capsule Oral Daily Duration: 90 Days resume as previous Pharmacy Information [facility] 3: [address], [place] [id number] [phone] ?? What How Much When Why Comments Stop Taking Ammonium Lactate 12% (Lac-Hydrin 12% lotion) 1 michelle Topically Twice a day Foot callus Stop Taking Diclofenac Topical (Voltaren 1% topical gel) 1 michelle Topically 4 times a day as needed for Pain , Mild Stop Taking Ibuprofen (ibuprofen 600 mg oral tablet) 1 tab(s) Oral Every 6 hours as needed for Pain , Moderate Neck pain with food or milk ?? Stop Taking Methocarbamol (methocarbamol 500 mg oral tablet) See instructions Muscle spasms of neck 1-2 tablets 4 times a day as needed for muscle spasms ?? Stop Taking Ondansetron (ondansetron 4 mg oral tablet) 1 tab(s) Oral Every 8 hours as needed for as needed for nausea/vomiting Duration: 5 Days Use as needed for nausea / ??vomiting ?? Test Results Below is a partial list of the most recent Laboratory test results done prior to this discharge. You may have had other tests and procedures not included in this list. Please discuss all test resultswith your provider. 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 Adjustment disorder with anxiety?? Breast mass, right?? carpel tunnel surgery right wrist?? Cervical radiculopathy?? Cervical stenosis of spinal canal?? Chronic left shoulder pain?? Current smoker?? Depression?? Diabetes Mellitus?? Hx of fracture of clavicle?? Hypertension?? Urinary incontinence?? Education Materials Below is the list of Educational Leaflet Providered with your Discharge Instructions. Neurosurgery-Cervical Fusion Post-Op?? Valuables and Belongings I fully understand and agree that [facility] accepts no responsibility for all my personal property including clothing, toilet articles, radios, jewelry, dentures, hearing aids, rings, money, or any other property that is in my possession or is brought to me after admission. I understand certain valuables may be placed in a hospital safe for a short period of time. I understand that the hospital is not liable for loss or damage due to accident, fire, or other natural occurrence while said property is in the safe. I accept full responsibility for any personal property that I keep with me, and will not hold the hospital responsible in case of loss or disappearance. I acknowledge that i have been encouraged to send valuables and belongings home. ?? Review of Valuable and Belonging List: With patient Disposition of Belongings: Other: PACU Date for Pt to Sign Valuables/Belongings: 04/02/22 08:59:00 ?? Valuables & Belongings ?? Clothes Electronic devices Jewelry Monetary Items Personal devices Miscellaneous Medications (Valuables) Valuables at Bedside Pants, Shirt, Shoes, Undergarments, Other: purple bathrobe ? Dentures, partial plate, Dentures, upper, Hearing aid, left ? Valuables Sent Home ? Valuables Sent to Security ? Other Discharge Information ?? Wound Assessment?? Wound Assessment?? Wound Location I: Neck Wound Type I: Surgical ? Pulmonary Rehab Status?? Pulmonary Rehab Discharge Status?? Respiratory Rate: 18 br/min ? Common Emergency Awareness Tips IS IT A STROKE? Act FAST and Check for these signs: FACE Does the face look uneven? ARM Does one arm drift down? SPEECH Does their speech sound strange? TIME Call at any sign of stroke ?? Heart Attack Signs Chest discomfort: Most heart attacks involve discomfort in the center of the chest and lasts more than a few minutes, or goes away and comes back. It can feel like uncomfortable pressure, squeezing, fullness or pain. Discomfort in upper body: Symptoms can include pain or discomfort in one or both arms, back, neck, jaw or stomach. Shortness of breath: With or without discomfort. Other signs: Breaking out in a cold sweat, nausea, or lightheaded. Remember, MINUTES DO MATTER. If you experience any of these heart attack warning signs, call to get immediate medical attention! ?? Smoking can increase your chances of developing chronic health problems and can cause harmful effects to other family members in your house. If you smoke, you are strongly encouraged to quit. Please call [facility] Link at [phone] or [phone]) or log in to [email or web address] for referrals to smoking cessation programs. ?? The National Suicide Prevention Hotline is available 23/11 if you or someone you know needs to find a reason to keep living. By calling 3-742-751-Breadcrumbtracking (7018) you'll be connected to a skilled, trained counselor at a crisis center in your area. INPATIENT DISCHARGE INSTRUCTIONS SIGNATURE PAGE ALISATELLO Location:[facility] Registration Date and Time:04/02/2022 07:03 [facility] Primary Care Physician: Nicolette Rider NP, I TELLO CUELLAR, have received the above patient education materials/instructions and have verbalized understanding. If ambulance or transport services are being used I further acknowledge being givena choice of service. ?? If you need to contact me, please call me at this number: . Patient/Cherry Grower Name: Patient/Cherry Grower Signature: Relationship to Patient: Witness Name/Signature: Date: * Alyse Herrera: PERFORM, SIGN, VERIFY Event Display: Patient Education Handout Authored Date: [id number] * Alyse Herrera: PERFORM Event Display: Patient Education Leaflets Authored Date: [id number] Neurosurgery-Cervical Fusion Post-Op ?? 201 Cervical Fusion What can I expect post operatively? Please remember that it takes time for your muscles and nerves to heal. You may have complete relief of your pain immediately after your surgery, but that is not normal.?? Neck pain is common post operatively and may persist for several weeks. Narcotics and muscle relaxers help to control this painbut it is not always possible to achieve 0/10 pain in postoperative period. ? With a cervical fusion, it is common to have sore shoulders.?? You may also feel a lump in your throat. These will all subside in the coming weeks.? You may prefer to eat softer foods for a few days after surgery. ?? Bruising after surgery below or around the surgical site is expected.? Localized swelling or ???bumps?? are common at the surgical site and will subside over time.?? Call the office if they are getting worse.? It is common to experience temporary relapse or flare of preoperative symptoms.?? If it does not subside or if it worsens you should call the office.? Physical therapy may be suggested at your follow up appointment. ?? Constipation is common while taking narcotics; you may want to start on a bowel regimen to prevent this.?? You can use over the counter medications.? Which Activities should I avoid? Do not bend or twist your back repeatedly. Do not lift more than 5-10 pounds (about the weight of a gallon of milk). If you go to pick something up and it causes strain to the muscles, do not lift it. Remember to keep things close to your body if you do lift or carry anything, and use your knees if you bend instead of your back. Do not drive if you are taking prescription pain medications or a muscle relaxer . These medications can cause you to be drowsy. Once you are able to drive, make sure that you can safely look over your shoulders without causing any pain. You are able to sit in a car.?? If for prolonged periods of time, take frequent breaks to stretch and walk.?? Do not do any running/jogging, vacuuming, weight lifting, sweeping/mopping, laundry, shoveling/raking, riding a medical sociologist or anything that might irritate your back until you have completely healed from your surgery. You may have sexual activity when you are comfortable with it. ?? Follow these activity limitations until your follow up appointment in 4 weeks. ? Medications?? You will get prescription pain medications when discharged from the hospital.?? Narcotic medications are tightly controlled, any new scripts you need to lease picker in person. If you live far away this may be able to arrange through your primary care provider.? You will get muscle relaxers to take in addition to pain medications.?? This helps prevent muscles from getting tight and sore, which will make mobility difficult.?? Do not take pain medication and tizanidine at the same time. Would recommend spacing these medications out by at least 2 hours. Do not take ibuprofen for 3 months after a fusion surgery. ?? You may take 975-1000 mg of tylenol every 6 hours for additional pain relief. Do not exceed the daily recommended dose of 4000 mg. ?? You may restart any antiplatelet or anticoagulation medications 1 week post- operative, please consult with your prescribing physician on these medications.? How can I take care of myself at home? Please remember that it takes time for your muscles and nerves to heal. You may have complete relief of your pain immediately after your surgery, but that is not normal. Back or neck pain is common post operatively and may persist for several weeks. ?? It is common to experience temporary relapse or flare of preoperative symptoms.?? If it does not subside you can call the office.? Walk around your house at least every 1 ??-2 hours while you are awake, to stay as active as possible, keep the back muscles strong, and to help prevent blood clots in your legs. You may do stairs as tolerated.?? Once you are comfortable with walking, you can gradually increase the amount or length of time thatyou do walk. ?? Do not push yourself to do too much too soon. Increasing your pain may actually delay your recovery. Change your positions often. Avoid lying down, standing or sitting for long periods during the day. ?? If you do any activity that increases your pain, you should stop it immediately. ?? You may sleep how you are most comfortable, with the exception of stomach sleeping. ?? Ice: You may ice the area to help with pain. Place a towel over the surgical site to protect your skin, and then use an ice pack for 30 minutes,usually about 4 times per day. Do not leave the pack on longer than 30 minutes since it may actually increase your pain. ?? Washing/wound care: Your surgical dressing will remain in place for 3 days postoperatively; you may remove it on day 3 after surgery and shower normally. ?? It is important that you wash your surgical wounds at least once per day with soap and water, and pat it dry afterwards. ?? Do not be afraid of hurting the wound because of the soap and water. You should take showers, but not baths to do this. Do not submerge incision (i.e. bath, pool, Jacuzzi, ocean) for at least four weeks after surgery. If angeles have been used, you will need to be seen within 10-14 days from surgery at the office tohave the angeles removed. Steri strips are commonly placed over the incision.?? These will fall off on their own. ?? When should I call my doctor? Contact our office at the appropriate number listed below if you have any of the following signs and symptoms: ?? New numbness or tingling or weakness in your feet or legs Increasing redness or swelling around your incision with or without any soreness The edges of your incision start coming apart. ??Incision is draining, especially if yellow/green and/or bad smelling. Fever over 101 F. ??Pain that is increasing and you cannot control.?? If you are having difficulties with breathing go to the emergency department This information has been modified by your health care provider with permission from the publisher. ?? * AMI Guzman S: Pranay Bartlett MD: VERIFY Event Display: Result: Authored Date: Cervical Spine 3 Views or Less, C-Arm > 1 Hour INDICATION: Reason: myelopathy,ACDF C3-C6 COMPARISONS: None TECHNIQUE: Fluoroscopy support was provided. There was no radiologist in attendance. FLUOROSCOPY TIME: 37.9 seconds EXPOSURE: 7 images TECHNOLOGIST TIME: 2 hours 45 minutes FINDINGS: Endotracheal tube is partially imaged. Esophageal temperature probe terminating at the C3-4 level. Images document anterior cervical spinal fusion at C3-C6. IMPRESSION: See above. WSN: [id number] Ordering Physician: Jovon Nixon Dictated By: Pranay Astudillo MD Dictated Date/Time: 04/02/22 12:40 p Reviewed By: Pranay Astudillo MD Signed By: Pranay Astudillo MD Signed Date/Time: 04/02/22 12:40 pm Transcribed By: CSB Transcribed Date/Time: 04/02/22 12:38 pm * AMI Guzman S: Tenisha Delong MD: VERIFY Event Display: Result: Authored Date: US Doppler Ext Upper Venous Right Reason: Pain Tenderness Extremities; RUE pain, tenderness, erythema after sx; Clinical Question(s):Thrombosis COMPARISON: None. IMAGING TECHNIQUE: Ultrasound examination of the upper extremity deep venous system was performed using grayscale, color, and spectral wave analysis including response to compression. Assessment includes the contralateral jugular and subclavian vein. FINDINGS: Internal jugular vein: Patent. No thrombosis. Subclavian vein: Patent. No thrombosis. Axillary vein: Patent. No thrombosis. Brachial vein: Patent. No thrombosis. Basilic vein: Patent. No thrombosis. Cephalic vein: Patent. No thrombosis. Contralateral internal jugular vein: Could not be assessed due to difficulties with patient positioning. Contralateral subclavian vein: Could not be assessed due to difficulties with patient positioning. IMPRESSION: No evidence of venous thrombosis. WSN: [id number] Ordering Physician: Carlton Warner Dictated By: Tenisha Machuca MD Dictated Date/Time: 04/02/22 8:36 pm Reviewed By: Tenisha Machuca MD Signed By: Tenisha Machuca MD Signed Date/Time: 04/02/22 8:36 pm Transcribed By: LUTHER Transcribed Date/Time: 04/02/22 8:35 pm XR Cervical spine Views * AMI Guzman S: TRANSCRIPranay Hanna MD: VERIFY Event Display: Result: Authored Date: [id number] Cervical Spine 3 Views or Less, C-Arm > 1 Hour INDICATION: Reason: myelopathy,ACDF C3-C6 COMPARISONS: None TECHNIQUE: Fluoroscopy support was provided. There was no radiologist in attendance. FLUOROSCOPY TIME: 37.9 seconds EXPOSURE: 7 images TECHNOLOGIST TIME: 2 hours 45 minutes FINDINGS: Endotracheal tube is partially imaged. Esophageal temperature probe terminating at the C3-4 level. Images document anterior cervical spinal fusion at C3-C6. IMPRESSION: See above. WSN: [id number] Ordering Physician: Jovon Nixon Dictated By: Pranay Astudillo MD Dictated Date/Time: 04/02/22 12:40 p Reviewed By: Pranay Astudillo MD Signed By: Pranay Astudillo MD Signed Date/Time: 04/02/22 12:40 pm Transcribed By: LUTHER Transcribed Date/Time: 04/02/22 12:38 pm Portable XR Chest Views * NIKOLASSPowerscwilbur , CIS S: TRANSCRIBE Migel Sow MD: VERIFY Event Display: Result: Authored Date: [id number] Chest Portable Reason: Other:; chest pressure; increased BP; negative EKG; Clinical Question(s): Pulmonary Embolism / Pulmonary Embolism COMPARISON: 10/24/2019 FINDINGS: LINES AND TUBES: None. LUNGS AND PLEURA: Clear lungs. Normal pulmonary vascularity. No pleural effusion. No pneumothorax. HEART, MEDIASTINUM AND YASMEEN: Heart is normal in size. Aorta is mildly calcified. BONES AND SOFT TISSUES: No acute abnormality. Cervical spine fusion hardware. IMPRESSION: No evidence of acute abnormality. WSN: [id number] Ordering Physician: Carlton Warner Dictated By: Migel Sow MD Dictated Date/Time: 04/03/22 6:04 pm Reviewed By: Migel Sow MD Signed By: Migel Sow MD Signed Date/Time: 04/03/22 6:04 pm Transcribed By: LUTHER Transcribed Date/Time: 04/03/22 6:03 pm Patient Care team information Care Team Personnel Name: Nicolette Rider NP Position: S PCO Associate Professional Member Role: PCP Address: Address: [address] [place] [id number]- Name: Neelam Garvey RN Position: S RN Member Role: Primary Care Nurse Name: Jo Quick RN Position: S RN Member Role: Primary Care Nurse Name: La Mares RN Position: S RN Member Role: Primary Care Nurse Name: Cherie Vaughan RN Position: S RN Member Role: Primary Care Nurse Name: Torsten Gya RN Position: S RN Member Role: Primary Care Nurse Address: Address: [address] [place] [phone]- Care Team Related Persons Name: AMMON CUELLAR Address: home [address] [place] [address] Name: FAISAL GILLESPIE Address: home [address] [place] [address] Name: AMMON PIERRE Address: home [address] [address]
--- OUTSIDE RECORDS SUMMARY | 2023-06-04 11:55 | XMS_ITS | Continuity of Care Document ---
Author Name Unknown Organization [facility] Address [address] [place] [address]- Care Team Providers Care Medical Chief Technician Name Role Phone Tereos MILLER, Nicolette Mills Primary Care Physician Encounter [facility] Date(s): 12/23/22 - 02/12/[address] [address]- Attending Physician: Not on Staff, Attending MD [...] 7 02/18/10 Given 1Result Comment: DILUENT LOT#: [id number] EXP: 10/2022 MFG: FRESENSIUS 2Admin Note: vis [...] Refills, Maintenance, 02/09/23 11:58:00 EDT, Capsule, [id number], to replace amlodipine, benazepril, ramipril., 1 capsule [...] 3 Refills, Maintenance, 11/23/22 13:00:00 EDT, Gel, [facility]/pharmacy #[id number], Partial fill upon patient request [...] capsule, 1 Refills, Maintenance, 01/12/23 12:16:00 EDT, [facility]/pharmacy #[id number], 146, cm, 01/12/23 11:33:00 EDT, Height, [...] Maintenance,01/12/23 12:17:00 EDT, Route to Pharmacy Electronically, [facility]/pharmacy #[id number], 146, cm, 01/12/23 11:33:00 EDT, Height, 50, kg, 04/16/22 12:46:00 EST, Dry... Start Date: 01/12/23 Stop Date: 07/11/23 Status: Ordered Lantus Solostar Pen 100 units/mL subcutaneous solution = 24 units, Subcutaneous Injection, Daily, Adjust dose as recommended weekly by RN per protocol. Dispense 3 pens per month, # 15 mL, 3 Refills, Maintenance, 02/09/23 12:19:00 EDT, [facility]/pharmacy #[id number],146, cm, 02/09/23 11:42:00 EDT, Height, 50, kg, 12... Start Date: 02/09/23 Stop Date: 02/04/24 Status: Ordered methocarbamol 750 mg oral tablet 1 tablet = 750 mg, By Mouth, 3 times a day, PRN Pain , Moderate, Take only as needed for muscle spasms and pain., # 90 tablet, 3 Refills, Maintenance, 02/09/23 12:40:00 EDT, [facility]/pharmacy #[id number], 146, cm, 02/09/23 11:42:00 EDT, Height, 50, kg, 04/16/22... 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 Confirmed Active Current smoker Confirmed Active Cervical stenosis of spinal canal Confirmed Active Subclinical hyperthyroidism Confirmed Active Thyroid nodule - TIRADS 4, follow up US due 05/01/2023 Confirmed Active Urinary incontinence Confirmed Active 1Dx in 08/2018 upon psych eval Social History Social History Type Response Sex Female Patient Care team information Care Team Personnel Name: Nicolette Rider NP Position: [facility] PCO Associate Professional Member Role: PCP Address: Address: [address] [place] [address]- Name: Neelam Garvey RN Position: [facility] RN Member Role: Primary Care Nurse Name: Jo Quick RN Position: S RN Member Role: Primary Care Nurse Name: La Mares RN Position: S RN Member Role: Primary Care Nurse Name: Cherie Vaughan RN Position: [facility] RN Member Role: Primary Care Nurse Name: Torsten Gay RN Position: S RN Member Role: Primary Care Nurse Address: Address: [address] [place] [address]- Care Team Related Persons Name: AMMON CUELLAR Address: home [address] [place] [address] Name: FAISAL GILLESPIE Address: home [address] [place] [id number] Name: AMMON PIERRE Address: home [address] [address]
--- OUTSIDE RECORDS SUMMARY | 2023-06-04 11:55 | XMS_ITS | Continuity of Care Document ---
Author Name Unknown Organization [facility] Address [address] [place] [address]- Care Team Providers Care Account Specialist Name Role Phone Tereso MILLER, Nicolette Mills Primary Care Physician [phone] Encounter [facility] Date(s): 11/26/22 - 12/26/[address] [address]- Allergies, Adverse Reactions, Alerts Substance Reaction Severity [...] 7 02/18/10 Given 1Result Comment: DILUENT LOT#: [id number] EXP: 10/2022 MFG: FRESENSIUS 2Admin Note: vis [...] Dry Weight Start Date: 07/17/21 Status: Ordered capsaicin 0.025% topical cream 1 application, Topically, 3 times a day, PRN Pain , Moderate, # 60 Gm, 0 Refills, Maintenance, 05/21/22 11:55:00 EST, Cream, [id number], Partial fill upon patient request if the prescription is for a schedule II opioid drug., 1 application Top... Start Date: 05/21/22 Status: Ordered cetirizine 10 mg oral tablet 1 tablet, By Mouth, Daily, # 30 tablet, 1 Refills, Maintenance, 09/01/22 11:12:00 EDT, [id number], 146, cm, 09/01/22 11:06:00 EDT, Height, 50, kg, 04/16/22 12:46:00 EST, Dry Weight Start Date: 09/01/22 Status: Ordered clotrimazole 1% topical cream See Instructions, APPLY EXTERNALLY TO THE VAGINAL AREA NEEDED FOR ITCH TWICE DAILY FOR YEAST INFECTION, # 60 Gm, 1 Refills, Maintenance, 12/23/22 21:53:00 EDT, [id number], 40, APPLY EXTERNALLY TO THE VAGINAL AREA NEEDED FOR ITCH TWICE DAILY... Start Date: 12/23/22 Status: Ordered Diabetic shoes with 3 inserts [...] 3 Refills, Maintenance, 11/23/22 13:00:00 EDT, Gel, [facility]/pharmacy #[id number], Partial fill upon patient request if the prescription is for aschedule II opioid drug., 146, cm, 09/01/22 11:06:0... Start Date: 11/23/22 Status: Ordered disposable bed pads disposable bed pads, See Instructions, # 90 each, Refills 11, Tot. Refills 11, Maintenance, Use up to 3 bed pads per night for urinary incontinence. R32, 10/21/21 11:58:00 EDT, Supply Start Date: 10/21/21 Status: Ordered fluconazole 150 mg oral tablet 1 tablet = 150 mg, By Mouth, Once, For yeast infection. Take one dose today (Friday 09/01) and the next dose in 72 hours (Monday 09/04), # 2 tablet, 0 Refills, Soft Stop, 09/01/22 11:17:00 EDT, Tablet, [facility]/pharmacy #2566, Partial fill upon patient reque... Start Date: 09/01/22 Status: Ordered glimepiride 4 mg oral tablet See Instructions, TAKE 1 TABLET BY MOUTH EVERY DAY WITH THE FIRST MEAL OF THE DAY, # 90 tablet, 1 Refills, Maintenance, 12/23/22 21:53:00 EDT, [id number], 146, cm, 12/04/22 11:11:00 EDT, Height,50, kg, 04/16/22 12:46:00 EST, Dry Weight Start Date: 12/23/22 Status: Ordered ibuprofen 600 mg oral tablet 1, tablet, By Mouth, 4 times a day, PRN, # 60 tablet, Refills 1, Maintenance, NEEDED FOR PAIN, 11/18/22 11:25:00 EDT, Route to Pharmacy Electronically, [id number], 146, cm, 09/01/22 11:06:00 EDT, Height, 50, kg, 04/16/22 12:46:00 EST, Dry Weight Start Date: 11/18/22 Status: Ordered Jardiance 10 mg oral tablet 1 tablet, By Mouth, Daily in AM, # 30 tablet, 2 Refills, Maintenance, 09/29/22 12:59:00 EDT, [facility], 146, cm, 09/01/22 11:06:00 EDT, Height, 50, kg, 04/16/22 12:46:00 EST, Dry Weight Start Date: 09/29/22 Status: Ordered metFORMIN 1000 mg oral tablet 1 tablet, By Mouth, 2 times a day, # 60 tablet, 5 Refills, 08/07/22 13:34:00 EDT, [facility]/pharmacy #[id number], Please allow for early refill as last her pills were dropped in water, 146, cm, 07/27/22 11:29:00EDT, Height, 50, kg, 04/16/22 12:46:00 EST, Dry We... Start Date: 08/07/22 Status: Ordered Metoprolol Succinate ER 100 mg oral tablet, extended release 1 tablet, By Mouth, Daily, # 90 tablet, 1 Refills, Maintenance, 12/27/22 10:31:00 EDT, [id number], 146, cm, 12/04/22 11:11:00 EDT, Height, 50, kg, 04/16/22 12:46:00 EST, Dry Weight Start Date: 12/27/22 Stop Date: 06/25/23 Status: Ordered Metoprolol Succinate ER 100 mg oral tablet, extended release 1 tablet, By Mouth, Daily, for 90 days, # 90 tablet, 1 Refills, Hard Stop 12/27/22 10:31:00 EDT, 06/30/22 10:31:00 EST, [id number], 146, cm, 05/21/22 11:19:00 EST, Height, 50, kg, 04/16/22 12:46:00 EST, Dry Weight Start Date: 06/30/22 Stop Date: 12/27/22 Status: Ordered omeprazole 20 mg oral enteric coated capsule 1 capsule = 20 mg, By Mouth, Daily, # 14 capsule, 0 Refills, Maintenance, 12/02/21 18:07:00 EDT, [place], [facility]/pharmacy #[id number], Partial fill upon patient request if the prescription is for a schedule II opioid drug., 155, cm, 12/02/21 16:59:00 EDT, H... Start Date: 12/02/21 Stop Date: 12/16/21 Status: Ordered One Touch Ultra 2 Glucose [...] Start Date: 09/04/22 Status: Ordered One Touch UltraSoft Lancets See Instructions, # 100 each, Refills 5, Tot. Refills 5, Maintenance, Use to test blood sugar twicea day for type 2 diabetes E11.65, 09/04/22 8:40:00 EDT, Supply, 146, cm, 09/01/22 11:06:00 EDT, Height, 50, kg, 04/16/22 12:46:00 EST, Dry Weight Start Date: 09/04/22 Status: Ordered Pen [place], 31 G x 5 mm BD Ultra Fine III See Instructions, # 50 each, Refills 1, Tot. Refills 1, Maintenance, Use for once weekly trulicity injection for DM E11.65, 08/01/21 15:14:00 EDT, To replace glimeride, Supply, 155, cm, 08/01/21 14:55:00 EDT, Height, 48, kg, 10/27/20 14:35:00 EDT, Dry... Start Date: 08/01/21 Status: Ordered Pls discontinue empagliflozin (Jardiance) Pls discontinue empagliflozin (Jardiance), See Instructions, # 1 each, Refills 0, Tot. Refills 0, Maintenance, pls dicontinue, 09/01/22 11:18:00 EDT, Supply, 146, cm, 09/01/22 11:06:00 EDT, Height, 50, kg, 04/16/22 12:46:00 EST, Dry Weight Start Date: 09/01/22 Status: Ordered ramipril 5 mg oral capsule 1 capsule, By Mouth, Daily, # 90 capsule, 0 Refills, Maintenance, 12/17/22 14:32:00 EDT, [facility], 146, cm, 12/04/22 11:11:00 EDT, Height, 50, kg, 04/16/22 12:46:00 EST, Dry Weight Start Date: 12/17/22 Status: Ordered Small adult pull ups Small adult pull ups, See Instructions, # 240 each, Refills 11, Tot. Refills 11, Maintenance, Use up to 8 per day for urinary incontinence R32, 10/21/21 12:03:00 EDT, Supply Start Date: 10/21/21 Status: Ordered tiZANidine 2 mg oral tablet 1, tablet, By Mouth, Every 8 hours, PRN, MUSCLE SPASMS., # 90 tablet, Refills 0, Maintenance, NEEDED, 06/16/22 15:00:00 EST, Route to Pharmacy Electronically, [facility], 146, cm, 05/21/22 11:19:00 EST, Height, 50, kg, 04/16/22 12:46:00 EST, D... Start Date: 06/16/22 Status: Ordered Walker See Instructions, # 1 [...] clavicle Confirmed Active Hypertension Confirmed 02/19/10 Active *[id number]-Kirby cherelle Montoya Confirmed Active Current smoker Confirmed Active Cervical stenosis of spinal canal Confirmed Active Subclinical hyperthyroidism Confirmed Active Thyroid nodule - TIRADS 4, follow up US due 05/01/2023 Confirmed Active Urinary incontinence Confirmed Active 1Dx in 08/2018 upon psych eval Patient Care team information Care Team Personnel Name: Tereso MILLER, Nicolette Mills Position: [facility] PCO Associate Professional Member Role: PCP Address: Address: [address] [place] [address]- Name: Neelam Garvey RN Position: S RN Member Role: Primary Care Nurse Name: Jo Quick RN Position: S RN Member Role: Primary Care Nurse Name: La Mares RN Position: S RN Member Role: Primary Care Nurse Name: Cherie Vaughan RN Position: S RN Member Role: Primary Care Nurse Name: Torsten Gay RN Position: S RN Member Role: Primary Care Nurse Address: Address: [address] [place] [address]- Care Team Related Persons Name: AMMON CUELLAR Address: home [address] [place] [address] Name: FAISAL GILLESPIE Address: home [address] [facility] [address] [place] [address] Name: AMMON PIERRE Address: home [address] [address]
--- OUTSIDE RECORDS SUMMARY | 2023-06-04 11:55 | XMS_ITS | Continuity of Care Document ---
Author Name Unknown Organization [facility] Address [address] [place] [address]- Care Team Providers Care Manufacturing Cost Estimator Name Role Phone Nicolette Rider NP Primary Care Physician Encounter [facility] Date(s): 08/27/22 - 09/26/[address] [address]- Allergies, Adverse Reactions, Alerts Substance Reaction Severity [...] (Td) 5 08/21/11 Given FluLaval (oldterm) 6 9/26/11 Given Influenza Inactive (IM) (oldterm) 7 02/18/10 Given Not Given Vaccine Date Status Refusal Reason pneumococcal 13-valent vaccine 07/25/18 Not Given Patient Refuses pneumococcal 13-valent vaccine 07/22/18 Not Given Patient Refuses 1Result Comment: DILUENT LOT#: [id number] EXP: 10/2022 MFG: FRESENSIUS 2Admin Note: vis [...] Refills, Maintenance, 09/01/22 11:12:00 EDT, [facility], 146, cm, 09/01/22 11:06:00 EDT, Height, 50, kg, 04/16/22 12:46:00 EST, Dry Weight Start Date: 09/01/22 Status: Ordered clotrimazole 1% topical cream 1 application, Topically, 2 times a day, For yeast infection. Apply externally to the vaginal area as needed for itch., # 60 Gm, 1 Refills, Maintenance, 09/01/22 11:29:00 EDT, Cream, [id number], Partial fill upon patient request if the prescr... Start Date: 09/01/22 Status: Ordered Diabetic shoes with 3 inserts [...] 5 Refills, Maintenance, 03/12/22 21:19:00 EST, Tablet, [id number], Please allow for early refill as last her pills were dropped in water;Partial fill upon patient request if the prescript... Start Date: 03/12/22 Status: Ordered fluconazole 150 mg oral tablet 1 tablet = 150 mg, By Mouth, Once, For yeast infection. Take one dose today (Friday 09/01) and the next dose in 72 hours (Monday 09/04), # 2 tablet, 0 Refills, Soft Stop, 09/01/22 11:17:00 EDT, Tablet, [id number], Partial fill upon patient reque... Start Date: 09/01/22 Status: Ordered glimepiride 4 mg oral tablet 1 tablet = 4 mg, By Mouth, Daily, with the first meal of the day, # 30 tablet, 5 Refills, Maintenance, 08/07/22 13:54:00 EDT, Tablet, [id number], Please allow for early refill as last her pills were dropped in water; Partial fill upon patient... Start Date: 08/07/22 Stop Date: 02/03/23 Status: Ordered ibuprofen 600 mg oral tablet 600 mg, 1, tablet, By Mouth, 4 times a day, PRN, # 60 tablet, Refills 1, Tot. Refills 1, Maintenance, for pain, 05/21/22 11:57:00 EST, Route to Pharmacy Electronically, [facility]/pharmacy #[id number], Partial fill upon patient request if the prescription is for a... Start Date: 05/21/22 Status: Ordered metFORMIN 1000 mg oral tablet 1 tablet, By Mouth, 2 times a day, # 60 tablet, 5 Refills, 08/07/22 13:34:00 EDT, [facility]/pharmacy #[id number], Please allow for early refill as last her pills were dropped in water, 146, cm, 07/27/22 11:29:00EDT, Height, 50, kg, 04/16/22 12:46:00 EST, Dry We... Start Date: 08/07/22 Status: Ordered Metoprolol Succinate ER 100 mg oral tablet, extended release 1 tablet, By Mouth, Daily, # 90 tablet, 1 Refills, Maintenance, 06/30/22 10:31:00 EST, [facility]/pharmacy#[id number], 146, cm, 05/21/22 11:19:00 EST, Height, 50, kg, 04/16/22 12:46:00 EST, Dry Weight Start Date: 06/30/22 Stop Date: 12/27/22 Status: Ordered omeprazole 20 mg oral enteric coated capsule 1 capsule = 20 mg, By Mouth, Daily, # 14 capsule, 0 Refills, Maintenance, 12/02/21 18:07:00 EDT, ECCapsule, [facility]/pharmacy #[id number], Partial fill upon patient request if the [...] Weight Start Date: 09/04/22 Status: Ordered Pen [place], 31 G x 5 mm BD Ultra [...] # 90 capsule, 1 Refills, Physician Stop 02/07/23 11:04:00 EDT, 08/11/22 11:04:00 EDT, [facility]/pharmacy #[id number], Please allow for early refill as last her pills weredropped in water, 146, cm, 07/27/22 11:29:00 EDT,... Start Date: 08/11/22 Stop Date: 02/07/23 Status: Ordered Small adult pull ups Small [...] 06/16/22 15:00:00 EST, Route to Pharmacy Electronically, [facility] 609[facility], 146, cm, 05/21/22 11:19:00 EST, Height, 50, [...] clavicle Confirmed Active Hypertension Confirmed 02/19/10 Active *[id number]-Kirby cherelle Montoya Confirmed Active Current smoker Confirmed Active Cervical stenosis of spinal canal Confirmed Active Subclinical hyperthyroidism Confirmed Active Thyroid nodule - TIRADS 4, follow up US due 05/01/2023 Confirmed Active Urinary incontinence Confirmed Active 1Dx in 08/2018 upon psych eval Patient Care team information Care Team Personnel Name: Nicolette Rider NP Position[facility] Associate Professional Member Role: PCP Address: Address: [address] [place] [address]- [place] Name: Neelam Garvey RN Position: S RN Member Role: Primary Care Nurse Name: Jo Quick RN Position: S RN Member Role: Primary Care Nurse Name: La Mares RN Position: S RN Member Role: Primary Care Nurse Name: Cherie Vaughan RN Position: S RN Member Role: Primary Care Nurse Name: Torsten aGy RN Position: [facility] RN Member Role: Primary Care Nurse Address: Address: [address] [place] [address]- Care Team Related Persons Name: AMMON CUELLAR Address: home [address] [place] [address] Name: FAISAL GILLESPIE Address: home [address] [place] [address] Name: AMMON PIERRE Address: home [address] [address]
--- OUTSIDE RECORDS SUMMARY | 2023-06-04 11:56 | XMS_ITS | Continuity of Care Document ---
Author Name Unknown Organization [facility] Address [address] [place] [address]- Care Team Providers Care Hog Killer Name Role Phone Nicolette Rider NP Primary Care Physician Encounter [facility] Date(s): 04/20/22 - 05/20/[address] [address]- Allergies, Adverse Reactions, Alerts Substance Reaction Severity [...] Given Patient Refuses 1Result Comment: DILUENT LOT#: [id number] EXP: 10/2022 MFG: FRESENSIUS 2Admin Note: vis 3Admin Note: VIS GIVEN 4Admin Note: vis 08/16/08 5Admin Note: vis 03/20/08 6Admin Note: vis given 7Admin Note: VIS Medications acetaminophen 500 mg oral tablet 2 tablet = 1,000 mg, By Mouth, 4 times a day, PRN for pain, # 100 tablet, 0 Refills, Maintenance, 07/17/21 10:31:00 EDT, Tablet, [facility]/pharmacy #[id number], Partial fill upon [...] 0 Refills, Maintenance, 04/06/22 9:51:00 EST, Tablet, [facility], Partial fill upon patient request if [...] 5 Refills, Maintenance, 03/12/22 21:19:00 EST, Tablet, [facility]/pharmacy #[id number], Please allow for [...] 0 Refills, Maintenance, 03/10/22 16:40:00 EST, Tablet, [facility]/pharmacy #[id number], Please allow for [...] 60 tablet, 5 Refills, 02/04/22 11:40:00 EDT, [facility]/pharmacy #[id number], Please allow for early refill as last her pills were dropped in water, 155, cm, 12/02/21 16:59:00EDT, Height, 48, kg, 10/27/20 14:35:00 EDT, Dry We... Start Date: 02/04/22 Status: Ordered Metoprolol Succinate ER 100 mg oral tablet, extended release 1 tablet, By Mouth, Daily, # 90 tablet, 3 Refills, Maintenance, 12/15/21 8:39:00 EDT, [facility]/pharmacy #[id number], 155, cm, 12/02/21 16:59:00 EDT, Height, 48, kg, 10/27/20 14:35:00 EDT, Dry Weight Start Date: 12/15/21 Stop Date: 12/10/22 Status: Ordered omeprazole 20 mg oral enteric coated capsule 1 capsule = 20 mg, By Mouth, Daily, # 14 capsule, 0 Refills, Maintenance, 12/02/21 18:07:00 EDT, ECCapsule, [facility]/pharmacy #[id number], Partial fill upon [...] Replace Required Details, Route to Pharmacy Electronically, [facility]... Start Date: 04/06/22 Status: Ordered Pen [place], 31 G x 5 mm BD Ultra [...] Stop 08/11/22 11:04:00 EDT, 02/12/22 11:04:00 EDT, [facility]/pharmacy #[id number], Please allow for early refill as last [...] clavicle Confirmed Active Hypertension Confirmed 02/19/10 Active *[id number] Shank Burnisher Claudette Burnett Confirmed Active Current smoker Confirmed Active Cervical stenosis of spinal canal Confirmed Active Urinary incontinence Confirmed Active 1Dx in 08/2018 upon psych eval Patient Care team information Care Team Personnel Name: Nicolette Rider NP Position: [facility] PCO Associate Professional Member Role: PCP Address: Address: [address] [place] [address]- Name: Neelam Garvey RN Position: S RN Member Role: Primary Care Nurse Name: Jo Quick RN Position: S RN Member Role: Primary Care Nurse Name: La Mares RN Position: S RN Member Role: Primary Care Nurse Name: Cherie Vaughan RN Position: S RN Member Role: Primary Care Nurse Name: Torsten Gay RN Position: [facility] RN Member Role: Primary Care Nurse Address: Address: [address] [place] [address]- Care Team Related Persons Name: AMMON CUELLAR Address: home [address] [place] [address] Name: FAISAL GILLESPIE Address: home [address] [place] [address] Name: AMMON PIERRE Address: home [address] [address]
--- OUTSIDE RECORDS SUMMARY | 2023-06-04 11:56 | XMS_ITS | Continuity of Care Document ---
Author Name Unknown Organization [facility] Address [address] [place] [address]- Care Team Providers Care Straight Tooth Gear Generator Operator Name Role Phone Nicolette Rider NP Primary Care Physician [phone] Encounter [facility] Date(s): 05/19/22 - 06/18/[address] [address]- Allergies, Adverse Reactions, Alerts Substance Reaction Severity [...] Given Patient Refuses 1Result Comment: DILUENT LOT#: [id number] EXP: 10/2022 MFG: FRESENSIUS 2Admin Note: vis [...] 5 Refills, Maintenance, 03/12/22 21:19:00 EST, Tablet, [facility]/pharmacy #[id number], Please allow for early refill as [...] 0 Refills, Maintenance, 03/10/22 16:40:00 EST, Tablet, [facility]/pharmacy #[id number], Please allow for early refill as last her pills were dropped in water; Partial fill upon patient... Start Date: 03/10/22 Stop Date: 04/09/22 Status: Ordered ibuprofen 600 mg oral tablet 600 mg, 1, tablet, By Mouth, 4 times a day, PRN, # 60 tablet, Refills 1, Tot. Refills 1, Maintenance, for pain, 05/21/22 11:57:00 EST, Route to Pharmacy Electronically, [facility]/pharmacy #[id number], Partial fill upon patient request if the prescription is for a... Start Date: 05/21/22 Status: Ordered metFORMIN 1000 mg oral tablet 1 tablet, By Mouth, 2 times a day, # 60 tablet, 5 Refills, 02/04/22 11:40:00 EDT, [facility]/pharmacy #[id number], Please allow for early refill as last her pills were dropped in water, 155, cm, 12/02/21 16:59:00EDT, Height, 48, kg, 10/27/20 14:35:00 EDT, Dry We... Start Date: 02/04/22 Status: Ordered Metoprolol Succinate ER 100 mg oral tablet, extended release 1 tablet, By Mouth, Daily, # 90 tablet, 3 Refills, Maintenance, 12/15/21 8:39:00 EDT, [facility]/pharmacy #[id number], 155, cm, 12/02/21 16:59:00 EDT, Height, 48, kg, 10/27/20 14:35:00 EDT, Dry Weight Start Date: 12/15/21 Stop Date: 12/10/22 Status: Ordered omeprazole 20 mg oral enteric coated capsule 1 capsule = 20 mg, By Mouth, Daily, # 14 capsule, 0 Refills, Maintenance, 12/02/21 18:07:00 EDT, ECCapsule, [facility]/pharmacy #[id number], Partial fill upon patient request if the prescription is for a schedule II opioid drug., 155, cm, 12/02/21 16:59:00 EDT, H... 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 Current smoker Confirmed Active Cervical stenosis of spinal canal Confirmed Active Urinary incontinence Confirmed Active 1Dx in 08/2018 upon psych eval Patient Care team information Care Team Personnel Name: Nicolette Rider NP Position: [facility] PCO Associate Professional Member Role: PCP Address: Address: [address] [place] [address]- Name: Neelam Garvey RN Position: S RN Member Role: Primary Care Nurse Name: Jo Quick RN Position: S RN Member Role: Primary Care Nurse Name: La Mares RN Position: S RN Member Role: Primary Care Nurse Name: Cherie Vaughan RN Position: S RN Member Role: Primary Care Nurse Name: Torsten Gay RN Position: [facility] RN Member Role: Primary Care Nurse Address: Address: [address] [place] [address]- Care Team Related Persons Name: AMMON CUELLAR Address: home [address] [place] [address] Name: FAISAL GILLESPIE Address: home [address] [place] [address] Name: AMMON PIERRE Address: home [address] [address]
--- OUTSIDE RECORDS SUMMARY | 2023-06-04 11:56 | XMS_ITS | Continuity of Care Document ---
Author Name Unknown Organization [facility] Address [address] [place] [address], [address] [place] [address]- Care Team Providers Care Community Action Worker Name Role Phone Tereso MILLER, Nicolette Mills Primary Care Physician [phone] Encounter [facility] Date(s): 01/12/22 - 02/27/22 [facility] [address] [place] [address] Drive, [address] [place], [place] [address] Attending Physician: Jovon Nixon MD Referring Physician: Nicolette Rider NP Allergies, Adverse Reactions, Alerts Substance Reaction Severity [...] Given Patient Refuses 1Result Comment: DILUENT LOT#: [id number] EXP: 10/2022 MFG: FRESENSIUS 2Admin Note: vis [...] Refills, Maintenance, 12/25/21 13:17:00 EDT, [facility]t, [id number], Partial fill upon patient request if the prescription is for a schedule II opioid drug., 155, cm, 080... Start Date: 12/25/21 Status: Ordered Diabetic shoes [...] Refills, Soft Stop, 12/17/21 9:21:00 EDT, Tablet, [facility]/pharmacy #2566, Partial fill upon patient request if [...] 0 Refills, Maintenance, 11/09/21 13:28:00 EDT, Tablet, [facility]/pharmacy #2566, Please allow for [...] 03/10/22 16:40:00 EST, 09/11/21 16:40:00 EDT, Tablet, [facility]/pharmacy #[id number], Partial fillupon patient request if the [...] 1 Refills, Maintenance, 10/07/21 13:46:00 EDT, Tablet, [facility]/pharmacy #4471, Partial fill upon patient [...] 12/02/21 Stop Date: 12/07/21 Status: Ordered Pen [place], 31 G x 5 mm BD Ultra [...] clavicle Confirmed Active Hypertension Confirmed 02/19/10 Active *[id number] 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
--- OUTSIDE RECORDS SUMMARY | 2023-06-04 11:56 | XMS_ITS | Continuity of Care Document ---
Author Name Unknown Organization [facility] Address [address] [place] [address] [address], [address] [place] [address]- Care Team Providers Care Cad Developer Name Role Phone Tereso MILLER, Nicolette Mills Primary Care Physician Encounter [facility] Date(s): 10/04/19 - 11/03/19 [facility] [address] [place] [address] Drive, [address] [place] [address]- [facility] Attending Physician: Dai Clark Admitting [...] Date: 06/24/18 Stop Date: 10/22/18 Status: Ordered Bedside Commode See Instructions, # [...] tablet = 2 mg, By Mouth, Daily, labs due, # 90 tablet, 0 Refills, Soft Stop, 10/02/19 8:52:00 EDT, [facility]/pharmacy #[id number], 151, cm, 06/12/19 9:50:00 EST, Height, 44.5, kg, 12/24/18 9:18:00 EDT, Dry Weight Start Date: 10/02/19 Stop Date: 12/31/19 Status: Ordered metFORMIN 1000 mg oral tablet 1 tablet = 1,000 mg, By Mouth, 2 times a day, # 180 tablet, 1 Refills, Soft Stop, 03/16/19 14:33:56EST Start Date: 03/16/19 Stop Date: 09/12/19 Status: Ordered Metoprolol Succinate ER 100 mg oral tablet, extended release 1 tablet, By Mouth, Daily, # 90 tablet, 1 Refills, Maintenance, 08/22/19 7:23:00 EDT, [facility] STORE 63694, 151, cm, 06/12/19 9:50:00 EST, Height, 44.5, kg, 12/24/18 9:18:00 EDT, Dry Weight Start Date: 08/22/19 Status: Ordered multivitamin Multiple Vitamins oral capsule 1 capsule, By Mouth, Daily, # 30 capsule, 0 Refills, Maintenance, 07/22/18 11:00:36 EDT, Capsule, 1capsule By Mouth Daily Start Date: 07/22/18 Status: Ordered Nutritional Supplements See Instructions, # 180 each, Refills 3, Tot. Refills 3, Maintenance, Glucerna drinks. Drink 1 can twice a day. Dx: unintended weight loss, underweight R63.6, type 2 DM E11.65, 09/03/17 17:41:44 EDT,Compound Start Date: 09/03/17 Status: Ordered ramipril 5 mg oral capsule 1 capsule = 5 mg, By Mouth, Daily, # 90 capsule, 1 Refills, Maintenance, 09/29/19 16:40:00 EDT, Capsule, [facility]/pharmacy #[id number], resent as a dup, 151, cm, 06/12/19 9:50:00 EST, Height, 44.5, kg, :18:00 EDT, Dry Weight Start Date: 09/29/19 Stop Date: 03/27/20 Status: Ordered Right wrist splint Right wrist [...] Once, PRN as needed for fever, lot [id number] EXP 05/2018, # 2 capsule, 0 Refills, Maintenance, 03/07/18 17:28:48 EST, Capsule Start Date: 03/07/18 Stop Date: 03/07/18 Status: Ordered Problem List Condition Effective Dates Status Health Status Inform ant Adjustment disorder with anxiety(Confirmed) 1 Active Breast mass, right(Confirmed) Active Cervical radiculopathy(Confirmed) Active Diabetes Mellitus(Confirmed) 02/19/10 Active Hypertension(Confirmed) 02/19/10 Active *[id number]-Orderly-KirtiJose E(Confirmed) Active Current smoker(Confirmed) Active 1Dx in 08/2018 upon psych eval
--- OUTSIDE RECORDS SUMMARY | 2023-06-04 11:56 | XMS_ITS | Continuity of Care Document ---
Author Name Unknown Organization [facility] Address [address] [place] [address]- Care Team Providers Care Call Center Representative Name Role Phone Nicolette Rider NP Primary Care Physician Encounter [facility] Date(s): 11/18/22 - 12/18/[address] [address] Allergies, Adverse Reactions, Alerts Substance Reaction [...] 7 02/18/10 Given 1Result Comment: DILUENT LOT#: [id number] EXP: 10/2022 MFG: FRESENSIUS 2Admin Note: vis [...] Refills, Maintenance, 09/01/22 11:12:00 EDT, [facility], 146, cm, 09/01/22 11:06:00 EDT, Height, 50, [...] 3 Refills, Maintenance, 11/23/22 13:00:00 EDT, Gel, [id number], Partial fill upon patient request [...] 11/18/22 11:25:00 EDT, Route to Pharmacy Electronically, [facility], 146, cm, 09/01/22 11:06:00 EDT, Height, 50, kg, 04/16/22 12:46:00 EST, Dry Weight Start Date: 11/18/22 Status: Ordered Jardiance 10 mg oral tablet 1 tablet, By Mouth, Daily in AM, # 30 tablet, 2 Refills, Maintenance, 09/29/22 12:59:00 EDT, [facility], 146, cm, 09/01/22 11:06:00 EDT, Height, 50, kg, 04/16/22 12:46:00 EST, Dry Weight Start Date: 09/29/22 Status: Ordered metFORMIN 1000 mg oral tablet 1 tablet, By Mouth, 2 times a day, # 60 tablet, 5 Refills, 08/07/22 13:34:00 EDT, [facility]/pharmacy #[id number], Please allow for early refill as last her pills were dropped in water, 146, cm, 07/27/22 11:29:00EDT, Height, 50, kg, 04/16/22 12:46:00 EST, Dry We... Start Date: 08/07/22 Status: Ordered Metoprolol Succinate ER 100 mg oral tablet, extended release 1 tablet, By Mouth, Daily, # 90 tablet, 1 Refills, Maintenance, 12/27/22 10:31:00 EDT, [facility]/pharmacy#[id number], 146, cm, 12/04/22 11:11:00 [...] 0 Refills, Maintenance, 12/02/21 18:07:00 EDT, [place], [facility]/pharmacy #[id number], Partial fill upon patient request if the [...] Weight Start Date: 09/04/22 Status: Ordered Pen [place], 31 G x 5 mm BD Ultra [...] capsule, 0 Refills, Maintenance, 12/17/22 14:32:00 EDT, [facility] 05[facility], 146, cm, 12/04/22 11:11:00 EDT, Height, 50, [...] 06/16/22 15:00:00 EST, Route to Pharmacy Electronically, [facility] 53[facility], 146, cm, 05/21/22 11:19:00 EST, Height, 50, [...] clavicle Confirmed Active Hypertension Confirmed 02/19/10 Active *[id number]-Kirby cherelle Montoya Confirmed Active Current smoker Confirmed Active Cervical stenosis of spinal canal Confirmed Active Subclinical hyperthyroidism Confirmed Active Thyroid nodule - TIRADS 4, follow up US due 05/01/2023 Confirmed Active Urinary incontinence Confirmed Active 1Dx in 08/2018 upon psych eval Patient Care team information Care Team Personnel Name: Tereso MILLER, Nicolette Mills Position: [facility]O Associate Professional Member Role: PCP Address: Address: [address] [place] [address]- Name: Neelam Garvey RN Position: S RN Member Role: Primary Care Nurse Name: Jo Quick RN Position: S RN Member Role: Primary Care Nurse Name: La Mares RN Position: S RN Member Role: Primary Care Nurse Name: Cherie Vaughan RN Position: S RN Member Role: Primary Care Nurse Name: Torsten Gay RN Position: S RN Member Role: Primary Care Nurse Address: Address: [address] [place] [address]- Care Team Related Persons Name: AMMON CUELLAR Address: home [address] [place] [address] Name: FAISAL GILLESPIE Address: home [address] [place] [address] Name: AMMON PIERRE Address: home [address] [address]
--- OUTSIDE RECORDS SUMMARY | 2023-06-04 11:56 | XMS_ITS | Continuity of Care Document ---
Author Name Unknown Organization [facility] Address [address] [place] [address]- Care Team Providers Care Perinatal Instructor Name Role Phone Nicolette Rider NP Primary Care Physician [facility] Date[facility]): 04/16/22 - 05/16/22 [facility] [address] [facility] [address] [place], [place] [address] Allergies, Adverse Reactions, Alerts Substance Reaction Severity [...] Given Patient Refuses 1Result Comment: DILUENT LOT#: [id number] EXP: 10/2022 MFG: FRESENSIUS 2Admin Note: vis 3Admin Note: VIS GIVEN 4Admin Note: vis 08/16/08 5Admin Note: vis 03/20/08 6Admin Note: vis given 7Admin Note: VIS Medications acetaminophen 500 mg oral tablet 2 tablet = 1,000 mg, By Mouth, 4 times a day, PRN for pain, # 100 tablet, 0 Refills, Maintenance, 07/17/21 10:31:00 EDT, Tablet, [facility]/pharmacy #[id number], Partial fill upon patient request [...] 0 Refills, Maintenance, 04/06/22 9:51:00 EST, Tablet, [facility], Partial fill upon patient request if [...] 5 Refills, Maintenance, 03/12/22 21:19:00 EST, Tablet, [facility]/pharmacy #[id number], Please allow for early refill [...] 0 Refills, Maintenance, 03/10/22 16:40:00 EST, Tablet, [facility]/pharmacy #[id number], Please allow for early refill [...] 60 tablet, 5 Refills, 02/04/22 11:40:00 EDT, [facility]/pharmacy #[id number], Please allow for early refill as last her pills were dropped in water, 155, cm, 12/02/21 16:59:00EDT, Height, 48, kg, 10/27/20 14:35:00 EDT, Dry We... Start Date: 02/04/22 Status: Ordered Metoprolol Succinate ER 100 mg oral tablet, extended release 1 tablet, By Mouth, Daily, # 90 tablet, 3 Refills, Maintenance, 12/15/21 8:39:00 EDT, [facility]/pharmacy #[id number], 155, cm, 12/02/21 16:59:00 EDT, Height, 48, kg, 10/27/20 14:35:00 EDT, Dry Weight Start Date: 12/15/21 Stop Date: 12/10/22 Status: Ordered omeprazole 20 mg oral enteric coated capsule 1 capsule = 20 mg, By Mouth, Daily, # 14 capsule, 0 Refills, Maintenance, 12/02/21 18:07:00 EDT, ECCapsule, [facility]/pharmacy #[id number], Partial fill upon patient request [...] Replace Required Details, Route to Pharmacy Electronically, [facility]... 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 Current smoker Confirmed Active Cervical stenosis of spinal canal Confirmed Active Urinary incontinence Confirmed Active 1Dx in 08/2018 upon psych eval Patient Care team information Care Team Personnel Name: Nicolette iRder NP Position: S PCO Associate Professional Member Role: PCP Address: Address: [address] [place] [address]- Name: Neelam Garvey RN Position: S RN Member Role: Primary Care Nurse Name: Jo Quick RN Position: S RN Member Role: Primary Care Nurse Name: La Mares RN Position: S RN Member Role: Primary Care Nurse Name: Cherie Vaughan RN Position: S RN Member Role: Primary Care Nurse Name: Torsten Gay RN Position: S RN Member Role: Primary Care Nurse Address: Address: [address] [place] [address]- Care Team Related Persons Name: AMMON CUELLAR Address: home [address] [place] [address] Name: FAISAL GILLESPIE Address: home [address] [place] [address] Name: AMMON PIERRE Address: home [address] [address]
--- OUTSIDE RECORDS SUMMARY | 2023-06-04 11:56 | XMS_ITS | Continuity of Care Document ---
Author Name Unknown Organization [facility] Address [address] [place] [address]- Care Team Providers Care Tooth Cutter Contact Wheel Name Role Phone Tereso MILLER, Nicolette Mills Primary Care Physician [phone] [facility]counter [facility] Date(s): 02/14/22 - 03/16/[address] [address]- Allergies, Adverse Reactions, Alerts Substance Reaction Severity [...] Given Patient Refuses 1Result Comment: DILUENT LOT#: [id number] EXP: 10/2022 MFG: FRESENSIUS 2Admin Note: vis [...] Refills, Maintenance, 12/25/21 13:17:00 EDT, Tablet, [id number], Partial fill upon patient request if the prescription is for a schedule II opioid drug., 155, cm, ... Start Date: 12/25/21 Status: Ordered Diabetic shoes [...] Refills, Soft Stop, 12/17/21 9:21:00 EDT, Tablet, [facility]/pharmacy #[id number], Partial fill upon patient [...] 5 Refills, Maintenance, 03/12/22 21:19:00 EST, Tablet, [facility]/pharmacy #[id number], Please allow for early [...] 0 Refills, Maintenance, 03/10/22 16:40:00 EST, Tablet, [facility]/pharmacy #[id number], Please allow for early [...] 10/20/21 16:04:00 EDT, Route to Pharmacy Electronically, [facility]/pharmacy #[id number], Partial fill upon patient request if... [...] 60 tablet, 5 Refills, 02/04/22 11:40:00 EDT, [facility]/pharmacy #[id number], Please allow for early [...] 0 Refills, Maintenance, 12/02/21 18:03:00 EDT, Tablet, [facility]/pharmacy #[id number], Partial fill upon patient request if the prescrip... 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 Current smoker Confirmed Active Cervical stenosis of spinal canal Confirmed Active Urinary incontinence Confirmed Active 1Dx in 08/2018 upon psych eval Patient Care team information Care Team Personnel Name: Nicolette Rider NP Position: [facility] PCO Associate Professional Member Role: PCP Address: Address: [address] [place] [address]- Name: Neelam Garvey RN Position: S RN Member Role: Primary Care Nurse Name: La Mares RN Position: S RN Member Role: Primary Care Nurse Name: Cherie Vaughan RN Position: S RN Member Role: Primary Care Nurse Name: Torsten Gay RN Position: S RN Member Role: Primary Care Nurse Address: Address: [address] [place] [address] Care Team Related Persons Name: AMMON CUELLAR Address: home [address] [place] [address] Name: FAISAL GILLESPIE Address: home [address] [place] [address] Name: AMMON PIERRE Address: home [address] [address]
--- OUTSIDE RECORDS SUMMARY | 2023-06-04 11:56 | XMS_ITS | Continuity of Care Document ---
Author Name Unknown Organization [facility] Address [address] [place] [address]- Care Team Providers Care Geek Squad [employer] Name Role Phone Tereso MILLER, Nicolette Mills Primary Care Physician [facility] Date[facility]s): 11/26/22 - 12/26/[address] [address]- Allergies, Adverse Reactions, Alerts Substance Reaction Severity [...] 7 02/18/10 Given 1Result Comment: DILUENT LOT#: [id number] EXP: 10/2022 MFG: FRESENSIUS 2Admin Note: vis [...] Refills, Maintenance, 09/01/22 11:12:00 EDT, [id number], 146, cm, 09/01/22 11:06:00 EDT, Height, 50, kg, 04/16/22 12:46:00 EST, Dry Weight Start Date: 09/01/22 Status: Ordered clotrimazole 1% topical cream See Instructions, APPLY EXTERNALLY TO THE VAGINAL AREA NEEDED FOR ITCH TWICE DAILY FOR YEAST INFECTION, # 60 Gm, 1 Refills, Maintenance, 12/23/22 21:53:00 EDT, [facility], 40, APPLY EXTERNALLY TO THE VAGINAL AREA [...] 3 Refills, Maintenance, 11/23/22 13:00:00 EDT, Gel, [facility] #[id number], Partial fill upon patient request if [...] Refills, Soft Stop, 09/01/22 11:17:00 EDT, Tablet, [facility] #[id number], Partial fill upon patient reque... Start Date: 09/01/22 Status: Ordered glimepiride 4 mg oral tablet See Instructions, TAKE 1 TABLET BY MOUTH EVERY DAY WITH THE FIRST MEAL OF THE DAY, # 90 tablet, 1 Refills, Maintenance, 12/23/22 21:53:00 EDT, [facility], 146, cm, 12/04/22 11:11:00 EDT, Height,50, kg, 04/16/22 12:46:00 EST, Dry Weight Start Date: 12/23/22 Status: Ordered ibuprofen 600 mg oral tablet 1, tablet, By Mouth, 4 times a day, PRN, # 60 tablet, Refills 1, Maintenance, NEEDED FOR PAIN, 11/18/22 11:25:00 EDT, Route to Pharmacy Electronically, [facility], 146, cm, 09/01/22 11:06:00 EDT, Height, 50, kg, 04/16/22 12:46:00 EST, Dry Weight Start Date: 11/18/22 Status: Ordered Jardiance 10 mg oral tablet 1 tablet, By Mouth, Daily in AM, # 30 tablet, 2 Refills, Maintenance, 09/29/22 12:59:00 EDT, [facility], 146, cm, 09/01/22 11:06:00 EDT, Height, 50, kg, 04/16/22 12:46:00 EST, Dry Weight Start Date: 09/29/22 Status: Ordered metFORMIN 1000 mg oral tablet 1 tablet, By Mouth, 2 times a day, # 60 tablet, 5 Refills, 08/07/22 13:34:00 EDT, [facility]/pharmacy #[id number], Please allow for early [...] 0 Refills, Maintenance, 12/02/21 18:07:00 EDT, [place], [facility]/pharmacy #6931, Partial fill upon patient request if the [...] Weight Start Date: 09/04/22 Status: Ordered Pen [place], 31 G x 5 mm BD Ultra [...] capsule, 0 Refills, Maintenance, 12/17/22 14:32:00 EDT, [facility], 146, cm, 12/04/22 11:11:00 EDT, Height, 50, [...] 06/16/22 15:00:00 EST, Route to Pharmacy Electronically, [facility], 146, cm, 05/21/22 11:19:00 EST, Height, 50, [...] clavicle Confirmed Active Hypertension Confirmed 02/19/10 Active *[id number]-Kirby cherelle Montoya Confirmed Active Current smoker Confirmed Active Cervical stenosis of spinal canal Confirmed Active Subclinical hyperthyroidism Confirmed Active Thyroid nodule - TIRADS 4, follow up US due 05/01/2023 Confirmed Active Urinary incontinence Confirmed Active 1Dx in 08/2018 upon psych eval Patient Care team information Care Team Personnel Name: Tereso MILLER, Nicolette Mills Position: [facility] PCO Associate Professional Member Role: PCP Address: Address: [address] [place] [address]- Name: Neelam Garvey RN Position: S RN Member Role: Primary Care Nurse Name: Jo Quick RN Position: S RN Member Role: Primary Care Nurse Name: La Mares RN Position: S RN Member Role: Primary Care Nurse Name: Cherie Vaughan RN Position: S RN Member Role: Primary Care Nurse Name: Torsten Gay RN Position: S RN Member Role: Primary Care Nurse Address: Address: [address] [place] [address]- Care Team Related Persons Name: AMMON CUELLAR Address: home [address] [place] [address] Name: FAISAL GILLESPIE Address: home [address] [place] [address] Name: AMMON PIERRE Address: home [address] [address]
--- OUTSIDE RECORDS SUMMARY | 2023-06-04 11:56 | XMS_ITS | Continuity of Care Document ---
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/pharmacy #[id number], Partial fill upon patient request [...] capsule, 1 Refills, Maintenance, 01/12/23 12:16:00 EDT, [facility]/pharmacy #[id number], 146, cm, 01/12/23 11:33:00 EDT, Height, [...] Maintenance,01/12/23 12:17:00 EDT, [id number] 146, cm, 01/12/23 11:33:00 EDT, Height, 50, kg, 04/16/22 12:46:00 EST, Dry... Start Date: 01/12/23 Stop Date: 07/11/23 Status: Ordered Lantus Solostar Pen 100 units/mL subcutaneous solution = 24 units, Subcutaneous Injection, Daily, Adjust dose as recommended weekly by RN per protocol. Dispense 3 pens per month, # 15 mL, 3 Refills, Maintenance, 02/09/23 12:19:00 EDT, [facility]/pharmacy #[id number],146, cm, 02/09/23 11:42:00 EDT, Height, 50, kg, 12... Start Date: 02/09/23 Stop Date: 02/04/24 Status: Ordered methocarbamol 750 mg oral tablet 1 tablet = 750 mg, By Mouth, 3 times a day, PRN Pain , Moderate, Take only as needed for muscle spasms and pain., # 90 tablet, 3 Refills, Maintenance, 02/09/23 12:40:00 EDT, [facility]/pharmacy #[id number], 146, cm, 02/09/23 11:42:00 EDT, Height, 50, kg, 04/16/22... Start Date: 02/09/23 Status: Ordered Metoprolol Succinate ER 100 mg oral tablet, extended release 1 tablet, By Mouth, Daily, # 90 tablet, 1 Refills, Maintenance, 12/27/22 10:31:00 EDT, 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 Current smoker Confirmed Active Cervical stenosis of spinal canal Confirmed Active Subclinical hyperthyroidism Confirmed Active Thyroid nodule - TIRADS 4, follow up US due 05/01/2023 Confirmed Active Urinary incontinence Confirmed Active 1Dx in 08/2018 upon psych eval Social History Social History Type Response Sex Female Patient Care team information Care Team Personnel Name: Nicolette Rider NP Position: [facility] PCO Associate Professional Member Role: PCP Address: Address: [address] [place] [id number]- Name: Neelam Garvey RN Position: S RN Member Role: Primary Care Nurse Name: Jo Quick RN Position: S RN Member Role: Primary Care Nurse Name: La Mares RN Position: S RN Member Role: Primary Care Nurse Name: Cherie Vaughan RN Position: S RN Member Role: Primary Care Nurse Name: Torsten Gay RN Position: S RN Member Role: Primary Care Nurse Address: Address: [address] [place] [address]- Care Team Related Persons Name: AMMON CUELLAR Address: home [address] [place] [address] Name: FAISAL GILLESPIE Address: home [address] [place] [address] Name: AMMON PIERRE Address: home [address] [address]
--- OUTSIDE RECORDS SUMMARY | 2023-06-04 11:56 | XMS_ITS | Continuity of Care Document ---
Author Name Unknown Organization 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 If needed, you may repeat by taking another .5 mg tablet. This medication can make you sleepy- pleasedo not drive or operate machinery with [employer]... Start Date: 12/04/21 Status: Ordered cyclobenzaprine 5 mg oral tablet 1 tablet = 5 mg, By Mouth, 3 times a day, PRN muscle spasms, # 30 tablet, 0 Refills, Maintenance, 12/25/21 13:17:00 EDT, Tablet, [id number], Partial fill upon patient request if the prescription is for a schedule II opioid drug., 155, cm, /0... Start Date: 12/25/21 Status: Ordered Diabetic shoes with 3 inserts Diabetic shoes with 3 inserts, See Instructions, # 1 each, Refills 0, Tot. 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, 09/08/21 12:14:00 EDT, Supply Start Date: 09/08/21 Status: Ordered Diflucan 150 mg oral tablet See Instructions, 1 tablet By Mouth today, repeat in 72 hours if no improvement, # 2 tablet, 0 Refills, Soft Stop, 12/17/21 9:21:00 EDT, Tablet, [facility]/pharmacy #[id number], Partial fill upon patient [...] 0 Refills, Maintenance, 11/09/21 13:28:00 EDT, Tablet, [facility]/pharmacy #[id number], Please allow for early [...] 03/10/22 16:40:00 EST, 09/11/21 16:40:00 EDT, Tablet, [facility]/pharmacy #[id number], Partial fillupon patient request if the [...] 2 times a day, # 60 tablet, 0 Refills, 11/09/21 13:29:00 EDT, [id number], Please allow for early refill as last her pills were dropped in water, 155, cm, 10/07/21 13:25:00EDT, Height, 48, kg, 10/27/20 14:35:00 EDT, Dry We... Start Date: 11/09/21 Status: Ordered methocarbamol 500 mg oral tablet [...] 12/02/21 Stop Date: 12/07/21 Status: Ordered Pen [place], 31 G x 5 mm BD Ultra Fine III See Instructions, # 50 each, Refills 1, Tot. Refills 1, Maintenance, Use for once weekly trulicity injection for DM E11.65, 08/01/21 15:14:00 EDT, To replace glimeride, Supply, 155, cm, 08/01/21 14:55:00 EDT, Height, 48, kg, 10/27/20 14:35:00 EDT, Dry... Start Date: 08/01/21 Status: Ordered Small adult pull ups Small [...] Date: 01/22/21 Status: Ordered Problem List Condition Effective Dates Status Health Status Inform ant Adjustment disorder with anxiety(Confirmed) 1 Active Breast mass, right(Confirmed) Active Cervical radiculopathy(Confirmed) Active Chronic left shoulder pain(Confirmed) Active Diabetes Mellitus(Confirmed) 02/19/10 Active Hx of fracture of clavicle(Confirmed) Active Hypertension(Confirmed) 02/19/10 Active *[id number] Care Partn patrick Saunders(Confirmed) Active Current smoker(Confirmed) Active Cervical stenosis of spinal canal(Confirmed) Active Urinary incontinence(Confirmed) Active 1Dx in 08/2018 upon psych eval Care Team Personnel Name: Nicolette Rider NP Address: [address] [place] [address]
--- OUTSIDE RECORDS SUMMARY | 2023-06-04 11:56 | XMS_ITS | Continuity of Care Document ---
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 Name Role Phone Tereso MILLER, Nicolette Mills Primary Care Physician [phone] [facility]): 04/17/20 - 05/17/[address] [address] Allergies, Adverse Reactions, Alerts Substance Reaction [...] daily for diabetes, E11.65, 04/24/20 11:53:00 EST, [facility], 157.48, cm, 03/26/20 15:59:00 EST, Height, 44.5, [...] Mouth, Daily, labs due, # 90 tablet, 3 Refills, Soft Stop, 03/19/20 12:51:00 EST, [facility]/pharmacy #[id number], 157.48, cm, 10/31/19 7:51:00 EDT, Height, 44.5, kg, 12/24/18 9:18:00 EDT, DryWeight Start Date: 03/19/20 Stop Date: 03/14/21 Status: Ordered metFORMIN 1000 mg oral tablet [...] 3 Refills, Maintenance, 03/19/20 12:51:00 EST, Capsule, [facility]/pharmacy #[id number], resent as a dup, 157.48, cm, [...] Once, PRN as needed for fever, lot [id number] EXP 05/2018, # 2 capsule, 0 Refills, Maintenance, 03/07/18 17:28:48 EST, Capsule Start Date: 03/07/18 Stop Date: 03/07/18 Status: Ordered Problem List Condition Effective Dates Status Health Status Inform ant Adjustment disorder with anxiety(Confirmed) 1 Active Breast mass, right(Confirmed) Active Cervical radiculopathy(Confirmed) Active Chronic left shoulder pain(Confirmed) Active Diabetes Mellitus(Confirmed) 02/19/10 Active Hx of fracture of clavicle(Confirmed) Active Hypertension(Confirmed) 02/19/10 Active *[id number] Care Partn er Claudette Saunders(Confirmed) Active Current smoker(Confirmed) Active 1Dx in 08/2018 upon psych eval
--- OUTSIDE RECORDS SUMMARY | 2023-06-04 11:56 | XMS_ITS | Continuity of Care Document ---
Author Name Unknown Organization [facility] Address [address] [place] [address]- Care Team Providers Care Nurse College Name Role Phone Nicolette Rider NP Primary Care Physician Encounter [facility] Date(s): 12/31/22 - 01/30/[address] [address]- Allergies, Adverse Reactions, Alerts Substance Reaction Severity [...] 7 02/18/10 Given 1Result Comment: DILUENT LOT#: [id number] EXP: 10/2022 MFG: FRESENSIUS 2Admin Note: vis 3Admin Note: VIS GIVEN 2011- 4Admin Note: vis 08/16/08 5Admin Note: vis 03/20/08 6Admin Note: vis given 7Admin Note: VIS Medications acetaminophen 500 mg oral tablet 2 tablet = 1,000 mg, By Mouth, 4 times a day, PRN for pain, # 100 tablet, 0 Refills, Maintenance, 07/17/21 10:31:00 EDT, Tablet, [facility]/pharmacy #[id number], Partial fill upon patient request [...] Dry Weight Start Date: 07/17/21 Status: Ordered amLODIPine 10 mg oral tablet 10 mg, 1, tablet, By Mouth, Daily, Instead of amlodipine/benazepril combo, # 90 tablet, Refills 1, Tot. Refills 1, Maintenance, 01/26/23 9:38:00 EDT, Route to Pharmacy Electronically, [facility]/pharmacy #[id number], Partial fill upon patient request if the prescr... Start Date: 01/26/23 Status: Ordered capsaicin 0.025% topical cream 1 application, Topically, 3 times a day, PRN Pain , Moderate, # 60 Gm, 0 Refills, Maintenance, 05/21/22 11:55:00 EST, Cream, [id number], Partial fill upon patient request if the prescription is for a schedule II opioid drug., 1 application Top... Start Date: 05/21/22 Status: Ordered clotrimazole 1% topical cream See Instructions, APPLY EXTERNALLY TO THE VAGINAL AREA NEEDED FOR ITCH TWICE DAILY FOR YEAST INFECTION, # 60 Gm, 1 Refills, Maintenance, 12/23/22 21:53:00 EDT, [id number], 40, APPLY EXTERNALLY TO THE VAGINAL AREA [...] 3 Refills, Maintenance, 11/23/22 13:00:00 EDT, Gel, [facility]/pharmacy #[id number], Partial fill upon patient request [...] capsule, 1 Refills, Maintenance, 01/12/23 12:16:00 EDT, [facility]/pharmacy #[id number], 146, cm, 01/12/23 11:33:00 EDT, Height, 50, kg, 04/16/22 12:46:00 EST, Dry Weight Start Date: 01/12/23 Stop Date: 07/11/23 Status: Ordered folic acid 1 mg oral tablet TAKE 1 TABLET BY MOUTH EVERY DAY Start Date: 01/12/23 Status: Ordered gabapentin 300 mg oral capsule 300 mg, 1, capsule, By Mouth, 3 times a day, # 270 capsule, Refills 1, Tot. Refills 1, Maintenance,01/12/23 12:17:00 EDT, Route to Pharmacy Electronically, [facility]/pharmacy #[id number], 146, cm, 01/12/23 11:33:00 EDT, Height, 50, kg, 04/16/22 12:46:00 EST, Dry... Start Date: 01/12/23 Stop Date: 07/11/23 Status: Ordered ibuprofen 600 mg oral tablet 1, tablet, By Mouth, 4 times a day, PRN, # 60 tablet, Refills 1, Maintenance, NEEDED FOR PAIN, 11/18/22 11:25:00 EDT, Route to Pharmacy Electronically, [facility] [id number], 146, cm, 09/01/22 11:06:00 EDT, Height, 50, kg, 04/16/22 12:46:00 EST, Dry Weight Start Date: 11/18/22 Status: Ordered isopropyl alcohol 70% topical pad See Instructions, USE DIRECTED., # 100 each, 5 Refills, Maintenance, 01/12/23 12:17:00 EDT, [facility]/pharmacy #[id number], USE DIRECTED., 146, cm, 01/12/23 11:33:00 EDT, Height, 50, kg, 04/16/22 12:46:00 EST, Dry Weight Start Date: 01/12/23 Status: Ordered Lantus Solostar Pen 100 units/mL subcutaneous solution = 12 units, Subcutaneous Injection, Daily, # 15 mL, 3 Refills, Maintenance, 01/12/23 12:15:00 EDT, [facility]/pharmacy #[id number], 146, cm, 01/12/23 11:33:00 EDT, Height, 50, kg, 04/16/22 12:46:00 EST, Dry Weight Start Date: 01/12/23 Stop Date: 01/07/24 Status: Ordered metFORMIN 1000 mg oral tablet 1 tablet, By Mouth, 2 times a day, # 60 tablet, 5 Refills, 08/07/22 13:34:00 EDT, [facility]/pharmacy #[id number], Please allow for early refill as last her pills were dropped in water, 146, cm, 07/27/22 11:29:00EDT, Height, 50, kg, 04/16/22 12:46:00 EST, Dry We... Start Date: 08/07/22 Status: Ordered methocarbamol 750 mg oral tablet 1 tablet = 750 mg, By Mouth, 3 times a day, PRN Pain , Moderate, # 90 tablet, 3 Refills, Maintenance, 01/12/23 12:15:00 EDT, [facility]/pharmacy #[id number], 146, cm, 01/12/23 11:33:00 EDT, Height, 50, kg, 04/16/22 12:46:00 EST, Dry Weight Start Date: 01/12/23 Status: Ordered Metoprolol Succinate ER 100 mg oral tablet, extended release 1 tablet, By Mouth, Daily, # 90 tablet, 1 Refills, Maintenance, 12/27/22 10:31:00 EDT, [facility]/pharmacy#[id number], 146, cm, 12/04/22 11:11:00 EDT, Height, [...] 01/12/23 Stop Date: 04/12/23 Status: Ordered Pen [place], 31 G x 5 mm BD Ultra Fine III See Instructions, # 100 each, Refills 3, Tot. Refills 3, Maintenance, Use for Lantus injection for DM E11.65, 01/12/23 12:18:00 EDT, To replace glimeride, Supply, 146, cm, 01/12/23 11:33:00 EDT, Height, 50, kg, 04/16/22 12:46:00 EST, Dry Weight Start Date: 01/12/23 Status: Ordered ramipril 5 mg oral capsule 1 capsule, By Mouth, Daily, instead of amlodipine/benazepril. Back to previous regimen., # 90 capsule, 1 Refills, Maintenance, 01/26/23 9:36:00 EDT, [id number], 146, cm, 01/12/23 11:33:00 EDT, Height, 50, kg, 04/16/22 12:46:00 EST, Dry Weight Start Date: 01/26/23 Status: Ordered Small adult pull ups Small adult pull ups, See Instructions, # 240 each, Refills 11, Tot. 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 Current smoker Confirmed Active Cervical stenosis of spinal canal Confirmed Active Subclinical hyperthyroidism Confirmed Active Thyroid nodule - TIRADS 4, follow up US due 05/01/2023 Confirmed Active Urinary incontinence Confirmed Active 1Dx in 08/2018 upon psych eval Social History Social History Type Response Sex Female Patient Care team information Care Team Personnel Name: Nicolette Rider NP Position: [facility] PCO Associate Professional Member Role: PCP Address: Address: [address] [place] [address]- Name: Neelam Garvey RN Position: S RN Member Role: Primary Care Nurse Name: Jo Quick RN Position: S RN Member Role: Primary Care Nurse Name: La Mares RN Position: S RN Member Role: Primary Care Nurse Name: Cherie Vaughan RN Position: S RN Member Role: Primary Care Nurse Name: Torsten Gay RN Position: S RN Member Role: Primary Care Nurse Address: Address: [address] [place] [address]- Care Team Related Persons Name: AMMON CUELLAR Address: home [address] [place] [address] Name: FAISAL GILLESPIE Address: home [address] [place] [address] Name: AMMON PIERRE Address: home [address] [address]
--- OUTSIDE RECORDS SUMMARY | 2023-06-04 11:56 | XMS_ITS | Continuity of Care Document ---
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 Name Role Phone Nicolette Rider NP Primary Care Physician [phone] Encounter [facility] [place] Date(s): 11/18/22 - 12/18/[address] [address] Allergies, Adverse Reactions, Alerts Substance Reaction Severity [...] 7 02/18/10 Given 1Result Comment: DILUENT LOT#: [id number] EXP: 10/2022 MFG: FRESENSIUS 2Admin Note: vis [...] Refills, Maintenance, 09/01/22 11:12:00 EDT, [facility], 146, cm, 09/01/22 11:06:00 EDT, Height, 50, [...] 11/18/22 11:25:00 EDT, Route to Pharmacy Electronically, [facility], 146, cm, 09/01/22 11:06:00 EDT, Height, 50, kg, 04/16/22 12:46:00 EST, Dry Weight Start Date: 11/18/22 Status: Ordered Jardiance 10 mg oral tablet 1 tablet, By Mouth, Daily in AM, # 30 tablet, 2 Refills, Maintenance, 09/29/22 12:59:00 EDT, [facility], 146, cm, 09/01/22 11:06:00 EDT, Height, 50, kg, 04/16/22 12:46:00 EST, Dry Weight Start Date: 09/29/22 Status: Ordered metFORMIN 1000 mg oral tablet 1 tablet, By Mouth, 2 times a day, # 60 tablet, 5 Refills, 08/07/22 13:34:00 EDT, [facility]/pharmacy #[id number], Please allow for early refill as last her pills were dropped in water, 146, cm, 07/27/22 11:29:00EDT, Height, 50, kg, 04/16/22 12:46:00 EST, Dry We... Start Date: 08/07/22 Status: Ordered Metoprolol Succinate ER 100 mg oral tablet, extended release 1 tablet, By Mouth, Daily, # 90 tablet, 1 Refills, Maintenance, 12/27/22 10:31:00 EDT, [facility]/pharmacy#[id number], 146, cm, 12/04/22 11:11:00 EDT, Height, [...] 0 Refills, Maintenance, 12/02/21 18:07:00 EDT, [place], [facility]/pharmacy #[id number], Partial fill upon patient request if the [...] Weight Start Date: 09/04/22 Status: Ordered Pen [place], 31 G x 5 mm BD [...] capsule, 0 Refills, Maintenance, 12/17/22 14:32:00 EDT, [facility], 146, cm, 12/04/22 11:11:00 EDT, Height, 50, [...] 06/16/22 15:00:00 EST, Route to Pharmacy Electronically, [facility], 146, cm, 05/21/22 11:19:00 EST, Height, 50, [...] clavicle Confirmed Active Hypertension Confirmed 02/19/10 Active *[id number]-Kirby cherelle Montoya Confirmed Active Current smoker Confirmed Active Cervical stenosis of spinal canal Confirmed Active Subclinical hyperthyroidism Confirmed Active Thyroid nodule - TIRADS 4, follow up US due 05/01/2023 Confirmed Active Urinary incontinence Confirmed Active 1Dx in 08/2018 upon psych eval Patient Care team information Care Team Personnel Name: Tereso MILLER, Nicolette [place] Position: [facility] PCO Associate Professional Member Role: PCP Address: Address: [address] [place] [address]- Name: Neelam Garvey RN Position: S RN Member Role: Primary Care Nurse Name: Jo Quick RN Position: S RN Member Role: Primary Care Nurse Name: aL Mares RN Position: S RN Member Role: Primary Care Nurse Name: Cherie Vaughan RN Position: S RN Member Role: Primary Care Nurse Name: Torsten Gay RN Position: S RN Member Role: Primary Care Nurse Address: Address: [address] [place] [address]- Care Team Related Persons Name: AMMON CUELLAR Address: home [address] [place] [address] Name: FAISAL GILLESPIE Address: home [address] [place] [address] Name: AMMON PIERRE Address: home [address] [address]
--- OUTSIDE RECORDS SUMMARY | 2023-06-04 11:56 | XMS_ITS | Continuity of Care Document ---
Author Name Unknown Organization [facility] Address [address] [place] [address]- Care Team Providers Care Asset Specialist Name Role Phone Nicolette Rider NP Primary Care Physician Encounter [facility] [place] Date(s): 01/07/23 - 02/06/[address] [address] Attending Physician: Dai Clark Admitting Physician: AdmtrDai Referring Physician: Admtr, Ar8 Allergies, Adverse Reactions, Alerts Substance Reaction Severity [...] 7 02/18/10 Given 1Result Comment: DILUENT LOT#: [id number] EXP: 10/2022 MFG: FRESENSIUS 2Admin Note: vis 3Admin Note: VIS GIVEN 2011- 4Admin Note: vis 08/16/08 5Admin Note: vis 03/20/08 6Admin Note: vis given 7Admin Note: VIS Medications acetaminophen 500 mg oral tablet 2 tablet = 1,000 mg, By Mouth, 4 times a day, PRN for pain, # 100 tablet, 0 Refills, Maintenance, 07/17/21 10:31:00 EDT, Tablet, [facility]/pharmacy #[id number], Partial fill upon patient request [...] 01/26/23 9:38:00 EDT, Route to Pharmacy Electronically, [facility]/pharmacy #[id number], Partial fill upon patient request if the prescr... Start Date: 01/26/23 Status: Ordered capsaicin 0.025% topical cream 1 application, Topically, 3 times a day, PRN Pain , Moderate, # 60 Gm, 0 Refills, Maintenance, 05/21/22 11:55:00 EST, Cream, [facility]/pharmacy #[id number], Partial fill upon patient request if the prescription is for a schedule II opioid drug., 1 application Top... Start Date: 05/21/22 Status: Ordered clotrimazole 1% topical cream See Instructions, APPLY EXTERNALLY TO THE VAGINAL AREA NEEDED FOR ITCH TWICE DAILY FOR YEAST INFECTION, # 60 Gm, 1 Refills, Maintenance, 12/23/22 21:53:00 EDT, [facility] ST[facility] 31237, 40, APPLY EXTERNALLY TO THE VAGINAL AREA [...] 3 Refills, Maintenance, 11/23/22 13:00:00 EDT, Gel, [facility]/pharmacy #[id number], Partial fill upon patient request [...] capsule, 1 Refills, Maintenance, 01/12/23 12:16:00 EDT, [facility]/pharmacy #[id number], 146, cm, 01/12/23 11:33:00 EDT, [...] Maintenance,01/12/23 12:17:00 EDT, Route to Pharmacy Electronically, [facility]/pharmacy #[id number], 146, cm, 01/12/23 11:33:00 EDT, Height, 50, kg, 04/16/22 12:46:00 EST, Dry... Start Date: 01/12/23 Stop Date: 07/11/23 Status: Ordered ibuprofen 600 mg oral tablet 1, tablet, By Mouth, 4 times a day, PRN, # 60 tablet, Refills 1, Maintenance, NEEDED FOR PAIN, 11/18/22 11:25:00 EDT, Route to Pharmacy Electronically, [facility] [id number], 146, cm, 09/01/22 11:06:00 EDT, Height, 50, kg, 04/16/22 12:46:00 EST, Dry Weight Start Date: 11/18/22 Status: Ordered isopropyl alcohol 70% topical pad See Instructions, USE DIRECTED., # 100 each, 5 Refills, Maintenance, 01/12/23 12:17:00 EDT, [facility]/pharmacy #[id number], USE DIRECTED., 146, cm, 01/12/23 11:33:00 EDT, Height, 50, kg, 04/16/22 12:46:00 EST, Dry Weight Start Date: 01/12/23 Status: Ordered Lantus Solostar Pen 100 units/mL subcutaneous solution = 12 units, Subcutaneous Injection, Daily, # 15 mL, 3 Refills, Maintenance, 01/12/23 12:15:00 EDT, [facility]/pharmacy #[id number], 146, cm, 01/12/23 11:33:00 EDT, Height, 50, kg, 04/16/22 12:46:00 EST, Dry Weight Start Date: 01/12/23 Stop Date: 01/07/24 Status: Ordered metFORMIN 1000 mg oral tablet 1 tablet, By Mouth, 2 times a day, # 60 tablet, 5 Refills, 08/07/22 13:34:00 EDT, [facility]/pharmacy #[id number], Please allow for early refill as last her pills were dropped in water, 146, cm, 07/27/22 11:29:00EDT, Height, 50, kg, 04/16/22 12:46:00 EST, Dry We... Start Date: 08/07/22 Status: Ordered methocarbamol 750 mg oral tablet 1 tablet = 750 mg, By Mouth, 3 times a day, PRN Pain , Moderate, # 90 tablet, 3 Refills, Maintenance, 01/12/23 12:15:00 EDT, [facility]/pharmacy #[id number], 146, cm, 01/12/23 11:33:00 EDT, Height, 50, kg, 04/16/22 12:46:00 EST, Dry Weight Start Date: 01/12/23 Status: Ordered Metoprolol Succinate ER 100 mg oral tablet, extended release 1 tablet, By Mouth, Daily, # 90 tablet, 1 Refills, Maintenance, 12/27/22 10:31:00 EDT, [facility]/pharmacy#[id number], 146, cm, 12/04/22 11:11:00 EDT, Height, [...] 01/12/23 Stop Date: 04/12/23 Status: Ordered Pen [place], 31 G x 5 mm BD Ultra [...] capsule, 1 Refills, Maintenance, 01/26/23 9:36:00 EDT, [facility]/pharmacy #[id number], 146, cm, 01/12/23 11:33:00 EDT, [...] clavicle Confirmed Active Hypertension Confirmed 02/19/10 Active *[id number] Brick Paver Claudette Burnett Confirmed Active Current smoker Confirmed Active Cervical stenosis of spinal canal Confirmed Active Subclinical hyperthyroidism Confirmed Active Thyroid nodule - TIRADS 4, follow up US due 05/01/2023 Confirmed Active Urinary incontinence Confirmed Active 1Dx in 08/2018 upon psych eval Social History Social History Type Response Sex Female Patient Care team information Care Team Personnel Name: Nicolette Rider NP Position: [facility] PCO Associate Professional Member Role: PCP Address: Address: [address] [place] [address]- Name: Neelam Garvey RN Position: S RN Member Role: Primary Care Nurse Name: Jo Quick RN Position: S RN Member Role: Primary Care Nurse Name: La Mares RN Position: S RN Member Role: Primary Care Nurse Name: Cherie Vaughan RN Position: S RN Member Role: Primary Care Nurse Name: Torsten Gay RN Position: S RN Member Role: Primary Care Nurse Address: Address: [address] [place] [address]- Care Team Related Persons Name: AMMON CUELLAR Address: home [address] [place] [address] Name: FAISAL GILLESPIE Address: home [address] [place] [address] Name: AMMON PIERRE Address: home [address] [address]
--- OUTSIDE RECORDS SUMMARY | 2023-06-04 11:56 | XMS_ITS | Continuity of Care Document ---
Author Name Unknown Organization [facility] Address [address] [place] [address]- Care Team Providers Care Machine Edge Bander Name Role Phone Nicolette Rider NP Primary Care Physician Encounter [facility] [place] Date(s): 01/22/21 - 03/22/[address] [address]- Attending Physician: [place] MD Admitting Physician: [place] MD Referring Physician: Nicolette Rider NP Allergies, [...] 09/03/17 Stop Date: 01/01/18 Status: Ordered glimepiride 4 mg oral tablet 1 tablet = 4 mg, By Mouth, Daily, increase in dose with the first meal of the day, # 30 tablet, 5 Refills, Maintenance, 03/20/21 14:42:00 EST, Tablet, [id number], Partial fill upon patient request if the prescription is for a schedule II opio... Start Date: 03/20/21 Status: Ordered Lac-Hydrin 12% lotion 1 application, Topically, 2 times a day, # 400 Gm, 0 Refills, Maintenance, 03/20/21 14:35:00 EST, Lotion, [id number], Partial fill upon patient request if the prescription is for a schedule II opioid drug., 1 application Topically 2 times a da... Start Date: 03/20/21 Status: Ordered meloxicam 15 mg oral tablet [...] capsule, By Mouth, Daily, # 90 capsule, 1 Refills, [facility] ST[facility] 31642, 155, cm, 03/04/21 13:56:00 EDT, Height, 48, kg, 10/27/20 14:35:00 EDT, Dry Weight Start Date: 03/10/21 Status: Ordered Right wrist splint Right wrist [...] Refills, Soft Stop, 03/26/20 17:30:00 EST, Powder, [facility]/pharmacy #[id number], Partial fill upon patient request, 0.5 [...] Once, PRN as needed for fever, lot [id number] EXP 05/2018, # 2 capsule, 0 Refills, [...] fracture of clavicle(Confirmed) Active Hypertension(Confirmed) 02/19/10 Active *[id number] Care Partn patrick Saunders(Confirmed) Active Current smoker(Confirmed) Active Cervical stenosis of spinal canal(Confirmed) Active 1Dx in 08/2018 upon psych eval
--- OUTSIDE RECORDS SUMMARY | 2023-06-04 11:56 | XMS_ITS | Continuity of Care Document ---
Author Name Unknown Organization [facility] Address [address] [place] [address]- Care Team Providers Care Md Allergy Immunology Name Role Phone Tereso MILLER, Nicolette Mills Primary Care Physician [phone] Encounter [facility] Date(s): 01/07/22 - 02/06/[address] [address]- Allergies, Adverse Reactions, Alerts Substance Reaction Severity [...] Given Patient Refuses 1Result Comment: DILUENT LOT#: [id number] EXP: 10/2022 MFG: FRESENSIUS 2Admin Note: vis [...] Refills, Maintenance, 12/25/21 13:17:00 EDT, Tablet, [facility], Partial fill upon patient request if the [...] Refills, Soft Stop, 12/17/21 9:21:00 EDT, Tablet, [facility]/pharmacy #[id number], Partial fill upon patient request [...] 0 Refills, Maintenance, 11/09/21 13:28:00 EDT, Tablet, [facility]/pharmacy #[id number], Please allow for early refill [...] 03/10/22 16:40:00 EST, 09/11/21 16:40:00 EDT, Tablet, [facility]/pharmacy #[id number], Partial fillupon patient request if the [...] 60 tablet, 5 Refills, 02/04/22 11:40:00 EDT, [facility]/pharmacy #[id number], Please allow for early refill [...] 12/02/21 Stop Date: 12/07/21 Status: Ordered Pen [place], 31 G x 5 mm BD Ultra [...] clavicle Confirmed Active Hypertension Confirmed 02/19/10 Active *[id number] Claim Approver Claudette Saunders Confirmed Active Current smoker Confirmed Active Cervical stenosis of spinal canal Confirmed Active Urinary incontinence Confirmed Active 1Dx in 08/2018 upon psych eval Patient Care team information Personnel Name: Nicolette Rider NP Address: Address: [address] [place] [address]
--- OUTSIDE RECORDS SUMMARY | 2023-06-04 11:57 | XMS_ITS | Continuity of Care Document ---
Author Name Unknown Organization [facility] Address [address] [place] [address]- Care Team Providers Care Casket Coverer Name Role Phone Nicolette Rider NP Primary Care Physician Encounter [facility] [place] Date(s): 03/20/21 - 05/16/[address] [address]- Attending Physician: Wilber Fragoso OD Admitting Physician: Wilber Fragoso OD Referring Physician: Nicolette Rider NP Allergies, Adverse [...] Given Patient Refuses 1Result Comment: DILUENT LOT#: [id number] EXP: 10/2022 MFG: FRESENSIUS 2Admin Note: vis 3Admin Note: VIS GIVEN 4Admin Note: vis 08/16/08 5Admin Note: vis 03/20/08 6Admin Note: vis given 7Admin Note: VIS Medications 4 pronged cane 4 [...] 2 times a day, # 180 tablet, 0 Refills, Soft Stop, 05/14/21 14:44:00EST, [id number], 155, cm, 03/20/21 13:49:00 EST, Height, 48, kg, 10/27/20 14:35:00 EDT, DryWeight Start Date: 05/14/21 Stop Date: 08/12/21 Status: Ordered Metoprolol Succinate ER 100 mg oral tablet, extended release 1 tablet, By Mouth, Daily, # 90 tablet, 1 Refills, Maintenance, 05/14/21 14:44:00 EST, [id number], 155, cm, 03/20/21 13:49:00 EST, Height, 48, kg, 10/27/20 14:35:00 EDT, Dry Weight Start Date: 05/14/21 Status: Ordered multivitamin Multiple Vitamins oral capsule [...] Mouth, Daily, # 90 capsule, 1 Refills, [facility], 155, cm, 03/04/21 13:56:00 EDT, Height, 48, [...] Once, PRN as needed for fever, lot [id number] EXP 05/2018, # 2 capsule, 0 Refills, [...] fracture of clavicle(Confirmed) Active Hypertension(Confirmed) 02/19/10 Active *[id number] Care Partn patrick Saunders(Confirmed) Active Current smoker(Confirmed) Active Cervical stenosis of spinal canal(Confirmed) Active 1Dx in 08/2018 upon psych eval
--- OUTSIDE RECORDS SUMMARY | 2023-06-04 11:57 | XMS_ITS | Continuity of Care Document ---
Author Name Unknown Organization [facility] Address [address] [place] [address]- Care Team Providers Care Psychologist Military Personnel Name Role Phone Nicolette Rider NP Primary Care Physician Encounter [facility] Date(s): 03/19/22 - 04/18/22 [facility] [address], [place] [address] Attending Physician: Dai Clark Admitting Physician: Admtr, Ar8 Referring Physician: Admtr, Ar8 Allergies, Adverse Reactions, [...] Given Patient Refuses 1Result Comment: DILUENT LOT#: [id number] EXP: 10/2022 MFG: FRESENSIUS 2Admin Note: vis 3Admin Note: VIS GIVEN 2011- 4Admin Note: vis 08/16/08 5Admin Note: vis 03/20/08 6Admin Note: vis given 7Admin Note: VIS Medications acetaminophen 500 mg oral tablet 2 tablet = 1,000 mg, By Mouth, 4 times a day, PRN for pain, # 100 tablet, 0 Refills, Maintenance, 07/17/21 10:31:00 EDT, Tablet, [facility]/pharmacy #[id number], Partial fill upon [...] 0 Refills, Maintenance, 04/06/22 9:51:00 EST, Tablet, [facility], Partial fill upon patient request if [...] 5 Refills, Maintenance, 03/12/22 21:19:00 EST, Tablet, [facility]/pharmacy #[id number], Please allow for [...] 0 Refills, Maintenance, 03/10/22 16:40:00 EST, Tablet, [facility]/pharmacy #[id number], Please allow for [...] 60 tablet, 5 Refills, 02/04/22 11:40:00 EDT, [facility]/pharmacy #[id number], Please allow for early refill as last her pills were dropped in water, 155, cm, 12/02/21 16:59:00EDT, Height, 48, kg, 10/27/20 14:35:00 EDT, Dry We... Start Date: 02/04/22 Status: Ordered Metoprolol Succinate ER 100 mg oral tablet, extended release 1 tablet, By Mouth, Daily, # 90 tablet, 3 Refills, Maintenance, 12/15/21 8:39:00 EDT, [facility]/pharmacy #[id number], 155, cm, 12/02/21 16:59:00 EDT, Height, 48, kg, 10/27/20 14:35:00 EDT, Dry Weight Start Date: 12/15/21 Stop Date: 12/10/22 Status: Ordered omeprazole 20 mg oral enteric coated capsule 1 capsule = 20 mg, By Mouth, Daily, # 14 capsule, 0 Refills, Maintenance, 12/02/21 18:07:00 EDT, ECCapsule, [facility]/pharmacy #[id number], Partial fill upon [...] Replace Required Details, Route to Pharmacy Electronically, [facility]... Start Date: 04/06/22 Status: Ordered Pen Victor, 31 G x 5 mm BD Ultra [...] Stop 08/11/22 11:04:00 EDT, 02/12/22 11:04:00 EDT, [facility]/pharmacy #[id number], Please allow for early refill as last [...] clavicle Confirmed Active Hypertension Confirmed 02/19/10 Active *[id number] Scientific Specialist Claudette Saunders Confirmed Active Current smoker Confirmed Active Cervical stenosis of spinal canal Confirmed Active Urinary incontinence Confirmed Active 1Dx in 08/2018 upon psych eval Patient Care team information Care Team Personnel Name: Nicolette Rider NP Position: [facility] PCO Associate Professional Member Role: PCP Address: Address: [address] [place] [address]- Name: Neelam Garvey RN Position: [facility] RN Member Role: Primary Care Nurse Name: Jo Quick RN Position: S RN Member Role: Primary Care Nurse Name: La Mares RN Position: [facility] RN Member Role: Primary Care Nurse Name: Cherie Vaughan RN Position: [facility] RN Member Role: Primary Care Nurse Name: Torsten Gya RN Position: [facility] RN Member Role: Primary Care Nurse Address: Address: [address] [place] [address]- Care Team Related Persons Name: AMMON CUELLAR Address: home [address] [place] [address] Name: FAISAL GILLESPIE Address: home [address] [place] [address] Name: AMMON PIERRE Address: home [address] [address]
--- OUTSIDE RECORDS SUMMARY | 2023-06-04 11:57 | XMS_ITS | Continuity of Care Document ---
Author Name Unknown Organization [facility] Address [address] [place] [address]- Care Team Providers Care Cattle Producers Name Role Phone Nicolette Rider NP Primary Care Physician Encounter [facility] Date(s): 02/21/23 - 04/01/[address] [address] Attending Physician: Nicolette Rider NP Admitting Physician: Nicolette Rider NP Referring Physician: Nicolette Rider NP Allergies, Adverse [...] influenza virus vaccine, inactivated 2 02/16/13 Gi alxeandra Influenza Vaccine (oldterm) 3 02/16/12 Given tetanus/diphtheria/pertussis, acel(Tdap) 12/08/11 Given Pneumovax 23 (oldterm) 4 08/21/11 Given tetanus-diphtheria toxoids (Td) 5 08/21/11 Given FluLaval (oldterm) 6 01/26/11 Given Influenza Inactive (IM) (oldterm) 7 02/18/10 Given 1Result Comment: DILUENT LOT#: [id number] EXP: 10/2022 MFG: FRESENSIUS 2Admin Note: vis 3Admin Note: VIS GIVEN 4Admin Note: vis 08/16/08 5Admin Note: vis 03/20/08 6Admin Note: vis given 7Admin Note: VIS Medications acetaminophen 500 mg oral tablet 2 tablet = 1,000 mg, By Mouth, 4 times a day, PRN for pain, # 100 tablet, 0 Refills, Maintenance, 07/17/21 10:31:00 EDT, Tablet, [facility]/pharmacy #[id number], Partial fill upon patient [...] Refills, Maintenance, 02/09/23 11:58:00 EDT, Capsule, [id number], to replace amlodipine, benazepril, ramipril., 1 capsule [...] capsule, 1 Refills, Maintenance, 01/12/23 12:16:00 EDT, [id number], 146, cm, 01/12/23 11:33:00 [...] Date: 03/22/23 Stop Date: 03/16/24 Status: Ordered gabapentin 300 mg oral capsule 300 mg, 1, capsule, By Mouth, 3 times a day, # 270 capsule, Refills 1, Tot. Refills 1, Maintenance,01/12/23 12:17:00 EDT, Route to Pharmacy Electronically, [facility]/pharmacy #[id number], 146, cm, 01/12/23 11:33:00 EDT, Height, 50, kg, 04/16/22 12:46:00 EST, Dry... Start Date: 01/12/23 Stop Date: 07/11/23 Status: Ordered glipiZIDE 5 mg oral tablet, extended release 1 tablet = 5 mg, By Mouth, Daily, # 30 tablet, 2 Refills, Maintenance, 03/24/23 8:41:00 EST, ER Tablet, [facility]/pharmacy #[id number], Partial fill upon patient request if the prescription is for a schedule II opioid drug., 146, cm, 03/22/23 13:01:00 EST, Height... Start Date: 03/24/23 Status: Ordered Lantus Solostar Pen 100 units/mL subcutaneous solution = 24 units, Subcutaneous Injection, Daily, Adjust dose as recommended weekly by RN per protocol. Dispense 3 pens per month, # 15 mL, 3 Refills, Maintenance, 02/09/23 12:19:00 EDT, [facility]/pharmacy #[id number],146, cm, 02/09/23 11:42:00 EDT, Height, 50, kg, 12... Start Date: 02/09/23 Stop Date: 02/04/24 Status: Ordered metFORMIN 500 mg oral tablet, extended release 2 tablet = 1,000 mg, By Mouth, Daily, Take with food, # 180 tablet, 3 Refills, Maintenance, 03/24/23 8:41:00 EST, [facility]/pharmacy #[id number], Note dose change; ER 1000 mg tabs are not covered by patient's insurance, 146, cm, 03/22/23 13:01:00 EST, Height, 50,... Start Date: 03/24/23 Stop Date: 03/18/24 Status: Ordered methocarbamol 750 mg oral tablet 1 tablet = 750 mg, By Mouth, 3 times a day, PRN Pain , Moderate, Take only as needed for muscle spasms and pain., # 90 tablet, 3 Refills, Maintenance, 02/09/23 12:40:00 EDT, [facility]/pharmacy #[id number], 146, cm, 02/09/23 11:42:00 EDT, Height, 50, kg, 04/16/22... Start Date: 02/09/23 Status: Ordered Metoprolol Succinate ER 100 mg oral tablet, extended release 1 tablet, By Mouth, Daily, # 90 tablet, 1 Refills, Maintenance, 12/27/22 10:31:00 EDT, [facility]/pharmacy#[id number], 146, cm, 12/04/22 11:11:00 EDT, [...] 01/12/23 Stop Date: 04/12/23 Status: Ordered Pen [place], 31 G x 5 mm BD Ultra [...] 3 Refills, Maintenance, 03/24/23 8:41:00 EST, Tablet, [facility]/pharmacy #[id number], Partial fill upon patient request if the [...] clavicle Confirmed Active Hypertension Confirmed 02/19/10 Active *[id number] Experimental Display Builder Claudette Burnett Confirmed Active Current smoker Confirmed Active Cervical stenosis of spinal canal Confirmed Active Subclinical hyperthyroidism Confirmed Active Thyroid nodule - TIRADS 4, follow up US due 05/01/2023 Confirmed Active Urinary incontinence Confirmed Active 1Dx in 08/2018 upon psych eval Social History Social History Type Response Sex Female Patient Care team information Care Team Personnel Name: Nicolette Rider NP Position: [facility] PCO Associate Professional Member Role: PCP Address: Address: [address] [place] [address]- Name: Neelam Garvey RN Position: S RN Member Role: Primary Care Nurse Name: Jo Quick RN Position: S RN Member Role: Primary Care Nurse Name: La Mares RN Position: S RN Member Role: Primary Care Nurse Name: Cherie Vaughan RN Position: S RN Member Role: Primary Care Nurse Name: Torsten Gay RN Position: S RN Member Role: Primary Care Nurse Address: Address: [address] [place] [address]- Care Team Related Persons Name: AMMON CUELLAR Address: home [address] [place] [address] Name: FAISAL GILLESPIE Address: home [address] [place] [address] Name: AMMON PIERRE Address: home [address] [address]
--- OUTSIDE RECORDS SUMMARY | 2023-06-04 11:57 | XMS_ITS | Continuity of Care Document ---
Author Name Unknown Organization [facility] Address [address] [place] [address]- Care Team Providers Care Spiral Machine Operator Name Role Phone Tereso MILLER, Nicolette Mills Primary Care Physician Encounter [facility] Date(s): 02/18/23 - 03/20/[address] [address]- Allergies, Adverse Reactions, Alerts Substance Reaction Severity [...] 7 02/18/10 Given 1Result Comment: DILUENT LOT#: [id number] EXP: 10/2022 MFG: FRESENSIUS 2Admin Note: vis [...] 3 Refills, Maintenance, 11/23/22 13:00:00 EDT, Gel, [facility]/pharmacy #[id number], Partial fill upon patient request if [...] capsule, 1 Refills, Maintenance, 01/12/23 12:16:00 EDT, [facility]/pharmacy #[id number], 146, cm, 01/12/23 11:33:00 EDT, Height, 50, kg, 04/16/22 12:46:00 EST, Dry Weight Start Date: 01/12/23 Stop Date: 07/11/23 Status: Ordered Freestyle Elliot Sensor See Instructions, # 2 each, Refills 11, Tot. Refills 11, Maintenance, Freestyle elliot 3 use as directed for Type 2 Diabetes Mellitus on insulin E11.65, 03/15/23 11:20:00 EST, Supply Start Date: 03/15/23 Stop Date: 03/09/24 Status: Ordered gabapentin 300 mg oral capsule 300 mg, 1, capsule, By Mouth, 3 times a day, # 270 capsule, Refills 1, Tot. Refills 1, Maintenance,01/12/23 12:17:00 EDT, Route to Pharmacy Electronically, [facility]/pharmacy #[id number], 146, cm, 01/12/23 11:33:00 EDT, Height, 50, kg, 04/16/22 12:46:00 EST, Dry... Start Date: 01/12/23 Stop Date: 07/11/23 Status: Ordered Lantus Solostar Pen 100 units/mL subcutaneous solution = 24 units, Subcutaneous Injection, Daily, Adjust dose as recommended weekly by RN per protocol. Dispense 3 pens per month, # 15 mL, 3 Refills, Maintenance, 02/09/23 12:19:00 EDT, [facility]/pharmacy #[id number],146, cm, 02/09/23 11:42:00 EDT, Height, 50, kg, 12... Start Date: 02/09/23 Stop Date: 02/04/24 Status: Ordered metFORMIN 500 mg oral tablet, extended release 1 tablet = 500 mg, By Mouth, Daily, # 90 tablet, 1 Refills, Maintenance, 02/23/23 16:46:00 EDT, [facility]/pharmacy #[id number], Partial fill upon patient request if [...] tablet, 3 Refills, Maintenance, 02/09/23 12:40:00 EDT, [facility]/pharmacy #[id number], 146, cm, 02/09/23 11:42:00 EDT, Height, 50, kg, 04/16/22... Start Date: 02/09/23 Status: Ordered Metoprolol Succinate ER 100 mg oral tablet, extended release 1 tablet, By Mouth, Daily, # 90 tablet, 1 Refills, Maintenance, 12/27/22 10:31:00 EDT, [facility]/pharmacy#[id number], 146, cm, 12/04/22 11:11:00 EDT, Height, 50, [...] 01/12/23 Stop Date: 04/12/23 Status: Ordered Pen [place], 31 G x 5 mm BD Ultra [...] clavicle Confirmed Active Hypertension Confirmed 02/19/10 Active *[id number] Hospital Medicine Director Claudette Burnett Confirmed Active Current smoker Confirmed Active Cervical stenosis of spinal canal Confirmed Active Subclinical hyperthyroidism Confirmed Active Thyroid nodule - TIRADS 4, follow up US due 05/01/2023 Confirmed Active Urinary incontinence Confirmed Active 1Dx in 08/2018 upon psych eval Social History Social History Type Response Sex Female Patient Care team information Care Team Personnel Name: Nicolette Rider NP Position: [facility] PCO Associate Professional Member Role: PCP Address: Address: [address] [place] [address]- Name: Neelam Garvey RN Position: S RN Member Role: Primary Care Nurse Name: Jo Quick RN Position: S RN Member Role: Primary Care Nurse Name: La Mares RN Position: S RN Member Role: Primary Care Nurse Name: Cherie Vaughan RN Position: S RN Member Role: Primary Care Nurse Name: Torsten Gay RN Position: S RN Member Role: Primary Care Nurse Address: Address: [address] [place] [address] Care Team Related Persons Name: AMMON CUELLAR Address: home [address] [place] [address] Name: FAISAL GILLESPIE Address: home [address] [place] [address] Name: AMMON PIERRE Address: home [address] [address]
--- OUTSIDE RECORDS SUMMARY | 2023-06-04 11:57 | XMS_ITS | Continuity of Care Document ---
Author Name Unknown Organization [facility] Address [address] [place] [address]- Care Team Providers Care Machine Tool Operator Name Role Phone Nicolette Rider NP Primary Care Physician [phone] Encounter [facility] Date(s): 07/16/22 - 08/15/22 [facility] [address], [place] [address] Allergies, Adverse Reactions, Alerts Substance Reaction Severity [...] Given Patient Refuses 1Result Comment: DILUENT LOT#: [id number] EXP: 10/2022 MFG: FRESENSIUS 2Admin Note: vis [...] Ordered cetirizine 10 mg oral tablet 1 tablet = 10 mg, By Mouth, Daily, # 30 tablet, 1 Refills, Maintenance, 07/27/22 11:47:00 EDT, Tablet, [id number], Partial fill upon patient request if the prescription is for a schedule II opioid drug., 146, cm, 07/27/22 11:29:00 EDT, Height,... Start Date: 07/27/22 Status: Ordered Diabetic shoes with 3 inserts [...] 5 Refills, Maintenance, 03/12/22 21:19:00 EST, Tablet, [facility]/pharmacy #[id number], Please allow for early refill as last [...] 5 Refills, Maintenance, 08/07/22 13:54:00 EDT, Tablet, [facility]/pharmacy #[id number], Please allow for early refill as last her pills were dropped in water; Partial fill upon patient... Start Date: 08/07/22 Stop Date: 02/03/23 Status: Ordered ibuprofen 600 mg oral tablet 600 mg, 1, tablet, By Mouth, 4 times a day, PRN, # 60 tablet, Refills 1, Tot. Refills 1, Maintenance, for pain, 05/21/22 11:57:00 EST, Route to Pharmacy Electronically, [id number], Partial fill upon patient request if the prescription is for a... Start Date: 05/21/22 Status: Ordered metFORMIN 1000 mg oral tablet 1 tablet, By Mouth, 2 times a day, # 60 tablet, 5 Refills, 08/07/22 13:34:00 EDT, [id number], Please allow for early refill as last her pills were dropped in water, 146, cm, 07/27/22 11:29:00EDT, Height, 50, kg, 04/16/22 12:46:00 EST, Dry We... Start Date: 08/07/22 Status: Ordered Metoprolol Succinate ER 100 mg oral tablet, extended release 1 tablet, By Mouth, Daily, # 90 tablet, 1 Refills, Maintenance, 06/30/22 10:31:00 EST, [id number], 146, cm, 05/21/22 11:19:00 EST, Height, 50, kg, 04/16/22 12:46:00 EST, Dry Weight Start Date: 06/30/22 Stop Date: 12/27/22 Status: Ordered omeprazole 20 mg oral enteric coated capsule 1 capsule = 20 mg, By Mouth, Daily, # 14 capsule, 0 Refills, Maintenance, 12/02/21 18:07:00 EDT, ECCapsule, [facility]/pharmacy #[id number], Partial fill upon patient request if the prescription is for a schedule II opioid drug., 155, cm, 12/02/21 16:59:00 EDT, H... Start Date: 12/02/21 Stop Date: 12/16/21 Status: Ordered Pen [place], 31 G x 5 mm BD Ultra [...] Stop 02/07/23 11:04:00 EDT, 08/11/22 11:04:00 EDT, [facility]/pharmacy #[id number], Please allow for [...] 06/16/22 15:00:00 EST, Route to Pharmacy Electronically, 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 Current smoker Confirmed Active Cervical stenosis of spinal canal Confirmed Active Subclinical hyperthyroidism Confirmed Active Thyroid nodule - TIRADS 4, follow up US due 05/01/2023 Confirmed Active Urinary incontinence Confirmed Active 1Dx in 08/2018 upon psych eval Patient Care team information Care Team Personnel Name: Nicoletet Rider NP Position: [facility] PCO Associate Professional Member Role: PCP Address: Address: [address] [place] [address]- Name: Neelam Garvey RN Position: S RN Member Role: Primary Care Nurse Name: Jo Quick RN Position: S RN Member Role: Primary Care Nurse Name: La Mares RN Position: S RN Member Role: Primary Care Nurse Name: Cherie Vaughan RN Position: S RN Member Role: Primary Care Nurse Name: Torsten Gay RN Position: [facility] RN Member Role: Primary Care Nurse Address: Address: [address] [place] [address]- Care Team Related Persons Name: AMMON CUELLAR Address: home [address] [place] [address] Name: FAISAL GILLESPIE Address: home [address] [place] [address] Name: AMMON PIERRE Address: home [address] [address]
--- OUTSIDE RECORDS SUMMARY | 2023-06-04 11:57 | XMS_ITS | Continuity of Care Document ---
Author Name Unknown Organization [facility] Address [address] [place] [address] [address], [address] [place] [address]- Care Team Providers Care Smasher Hand Name Role Phone Nicolette Rider NP Primary Care Physician [phone] Encounter [facility] Date(s): 03/03/22 - 04/02/22 [facility] [address] [place] [address] Drive, [address] [place] [address]- Allergies, Adverse Reactions, Alerts Substance Reaction Severity [...] Given Patient Refuses 1Result Comment: DILUENT LOT#: [id number] EXP: 10/2022 MFG: FRESENSIUS 2Admin Note: vis 3Admin Note: VIS GIVEN 4Admin Note: vis 08/16/08 5Admin Note: vis 03/20/08 6Admin Note: vis given 7Admin Note: VIS Medications acetaminophen 500 mg oral tablet 2 tablet = 1,000 mg, By Mouth, 4 times a day, PRN for pain, # 100 tablet, 0 Refills, Maintenance, 07/17/21 10:31:00 EDT, Tablet, [facility]/pharmacy #[id number], Partial fill upon patient [...] 5 Refills, Maintenance, 03/12/22 21:19:00 EST, Tablet, [facility]/pharmacy #[id number], Please allow for early [...] 0 Refills, Maintenance, 03/10/22 16:40:00 EST, Tablet, [facility]/pharmacy #[id number], Please allow for early [...] 10/20/21 16:04:00 EDT, Route to Pharmacy Electronically, [facility]/pharmacy #[id number], Partial fill upon patient request if... Start Date: 10/20/21 Status: Ordered Lac-Hydrin 12% lotion 1 application, Topically, 2 times a day, # 400 Gm, 0 Refills, Maintenance, 03/20/21 14:35:00 EST, Lotion, [facility]/pharmacy #[id number], Partial fill upon patient [...] 0 Refills, Maintenance, 12/02/21 18:07:00 EDT, ECCapsule, [facility]/pharmacy #[id number], Partial fill upon patient [...] 0 Refills, Maintenance, 12/02/21 18:03:00 EDT, Tablet, [facility]/pharmacy #[id number], Partial fill upon patient request if the prescrip... 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 Current smoker Confirmed Active Cervical stenosis of spinal canal Confirmed Active Urinary incontinence Confirmed Active 1Dx in 08/2018 upon psych eval Patient Care team information Care Team Personnel Name: Nicolette Rider NP Position: [facility] PCO Associate Professional Member Role: PCP Address: Address: [address] [place] [address]- Name: Neelam Garvey RN Position: S RN Member Role: Primary Care Nurse Name: La Mares RN Position: S RN Member Role: Primary Care Nurse Name: Cherie Vaughan RN Position: [facility] RN Member Role: Primary Care Nurse Name: Torsten Gay RN Position: S RN Member Role: Primary Care Nurse Address: Address: [address] [place] [address]- Care Team Related Persons Name: AMMON CUELLAR Address: home [address] [place] [address] Name: FAISAL GILLESPIE Address: home [address] [place] [address] Name: AMMON PIERRE Address: home [address] [address]
--- OUTSIDE RECORDS SUMMARY | 2023-06-04 11:57 | XMS_ITS | Continuity of Care Document ---
Author Name Unknown Organization [facility] Address [address] [place] [address]- Care Team Providers Care Welder Apprentice Name Role Phone Nicolette Rider NP Primary Care Physician [phone] [facility]counter [facility] Date(s): 01/05/23 - 02/04/[address] [address]- Allergies, Adverse Reactions, Alerts Substance Reaction Severity [...] 7 02/18/10 Given 1Result Comment: DILUENT LOT#: [id number] EXP: 10/2022 MFG: FRESENSIUS 2Admin Note: vis 3Admin Note: VIS GIVEN 2011- 4Admin Note: vis 08/16/08 5Admin Note: vis 03/20/08 6Admin Note: vis given 7Admin Note: VIS Medications acetaminophen 500 mg oral tablet 2 tablet = 1,000 mg, By Mouth, 4 times a day, PRN for pain, # 100 tablet, 0 Refills, Maintenance, 07/17/21 10:31:00 EDT, Tablet, [facility]/pharmacy #[id number], Partial fill upon patient request [...] 01/26/23 9:38:00 EDT, Route to Pharmacy Electronically, [facility]/pharmacy #[id number], Partial fill upon patient request if the [...] Gm, 1 Refills, Maintenance, 12/23/22 21:53:00 EDT, [facility]ORE 716[facility], 40, APPLY EXTERNALLY TO THE VAGINAL AREA [...] Maintenance, 11/23/22 13:00:00 EDT, Gel, [facility]/pharmacy #2566, Partial fill upon patient request [...] Refills, Maintenance, 01/12/23 12:16:00 EDT, [facility]/pharmacy #[id number], 146, cm, 01/12/23 11:33:00 EDT, [...] EDT, Route to Pharmacy Electronically, [facility]/pharmacy #[id number], 146, cm, 01/12/23 11:33:00 EDT, Height, 50, kg, 04/16/22 12:46:00 EST, Dry... Start Date: 01/12/23 Stop Date: 07/11/23 Status: Ordered ibuprofen 600 mg oral tablet 1, tablet, By Mouth, 4 times a day, PRN, # 60 tablet, Refills 1, Maintenance, NEEDED FOR PAIN, 11/18/22 11:25:00 EDT, Route to Pharmacy Electronically, [facility] STORE 22102, 146, cm, 09/01/22 11:06:00 EDT, Height, 50, kg, 04/16/22 12:46:00 EST, Dry Weight Start Date: 11/18/22 Status: Ordered isopropyl alcohol 70% topical pad See Instructions, USE DIRECTED., # 100 each, 5 Refills, Maintenance, 01/12/23 12:17:00 EDT, [facility]/pharmacy #[id number], USE DIRECTED., 146, cm, 01/12/23 11:33:00 EDT, Height, 50, kg, 04/16/22 12:46:00 EST, Dry Weight Start Date: 01/12/23 Status: Ordered Lantus Solostar Pen 100 units/mL subcutaneous solution = 12 units, Subcutaneous Injection, Daily, # 15 mL, 3 Refills, Maintenance, 01/12/23 12:15:00 EDT, [facility]/pharmacy #[id number], 146, cm, 01/12/23 11:33:00 EDT, Height, 50, kg, 04/16/22 12:46:00 EST, Dry Weight Start Date: 01/12/23 Stop Date: 01/07/24 Status: Ordered metFORMIN 1000 mg oral tablet 1 tablet, By Mouth, 2 times a day, # 60 tablet, 5 Refills, 08/07/22 13:34:00 EDT, [facility]/pharmacy #[id number], Please allow for early refill as last her pills were dropped in water, 146, cm, 07/27/22 11:29:00EDT, Height, 50, kg, 04/16/22 12:46:00 EST, Dry We... Start Date: 08/07/22 Status: Ordered methocarbamol 750 mg oral tablet 1 tablet = 750 mg, By Mouth, 3 times a day, PRN Pain , Moderate, # 90 tablet, 3 Refills, Maintenance, 01/12/23 12:15:00 EDT, [facility]/pharmacy #[id number], 146, cm, 01/12/23 11:33:00 EDT, Height, 50, kg, 04/16/22 12:46:00 EST, Dry Weight Start Date: 01/12/23 Status: Ordered Metoprolol Succinate ER 100 mg oral tablet, extended release 1 tablet, By Mouth, Daily, # 90 tablet, 1 Refills, Maintenance, 12/27/22 10:31:00 EDT, [facility]/pharmacy#[id number], 146, cm, 12/04/22 11:11:00 EDT, Height, [...] 01/12/23 Stop Date: 04/12/23 Status: Ordered Pen [place], 31 G x 5 mm BD Ultra [...] clavicle Confirmed Active Hypertension Confirmed 02/19/10 Active *[id number] 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 Current smoker Confirmed Active Cervical stenosis of spinal canal Confirmed Active Subclinical hyperthyroidism Confirmed Active Thyroid nodule - TIRADS 4, follow up US due 05/01/2023 Confirmed Active Urinary incontinence Confirmed Active 1Dx in 08/2018 upon psych eval Social History Social History Type Response Sex Female Patient Care team information Care Team Personnel Name: Nicolette Rider NP Position: [facility] PCO Associate Professional Member Role: PCP Address: Address: [address] [place] [address]- Name: Neelam Garvey RN Position: S RN Member Role: Primary Care Nurse Name: Jo Quick RN Position: S RN Member Role: Primary Care Nurse Name: La Mares RN Position: S RN Member Role: Primary Care Nurse Name: Cherie Vaughan RN Position: S RN Member Role: Primary Care Nurse Name: Torsten Gay RN Position: S RN Member Role: Primary Care Nurse Address: Address: [address] [place] [address]- Care Team Related Persons Name: AMMON CUELLAR Address: home [address] [place] [address] Name: FAISAL GILLESPIE Address: home [address] [facility] [address] [place] [address] Name: AMMON PIERRE Address: home [address] [address]
--- OUTSIDE RECORDS SUMMARY | 2023-06-04 11:57 | XMS_ITS | Continuity of Care Document ---
Author Name Unknown Organization [facility] Address [address] [place] [address]- Care Team Providers Care Market Manager Name Role Phone Tereso MILLER, Nicolette Mills Primary Care Physician [facility] Date[facility]s): 03/21/19 - 04/21/[address] [address]- [facility] Attending Physician: Not on Staff, Attending MD [...] 03/16/19 14:34:47 EST, Route to Pharmacy Electronically, [id number], [facility]/pharmacy #[id number] Start Date: 03/16/19 Stop Date: 09/12/19 Status: Ordered Bedside Commode See Instructions, # 1 each, Refills 0, Tot. Refills 0, Maintenance, please dispense one bedside commode Dx: frailty R54, Risk for falls Z91.81, urge incontinence N39.41, 02/18/18 18:43:58 EDT, Compound Start Date: 02/18/18 Status: Ordered cephalexin monohydrate 500 mg oral capsule 1 capsule = 500 mg, By Mouth, Every 8 hours, 0 Refills, Maintenance, 12/19/18 9:08:40 EDT, Capsule Start Date: 12/19/18 Stop Date: 12/26/18 Status: Ordered Diabetics shoes Diabetics shoes, See [...] Date: 03/16/19 Stop Date: 09/12/19 Status: Ordered Lipitor 40 mg oral tablet [...] 17:41:44 EDT,Compound Start Date: 09/03/17 Status: Ordered ondansetron 4 mg oral tablet, disintegrating 1 tablet = 4 mg, By Mouth, Every 8 hours, PRN Nausea & Vomiting, # 10 tablet, 0 Refills, Maintenance, 12/19/18 9:09:08 EDT, Tablet Start Date: 12/19/18 Status: Ordered ramipril 5 mg oral capsule [...] Once, PRN as needed for fever, lot [id number] EXP 05/2018, # 2 capsule, 0 Refills, Maintenance, 03/07/18 17:28:48 EST, Capsule Start Date: 03/07/18 Stop Date: 03/07/18 Status: Ordered Voltaren 1% topical gel 1 application, Topically, 4 times a day, PRN Pain , Mild, # 100 Gm, 0 Refills, Maintenance, 04/21/19 13:41:00 EST, Gel, [facility], 1 application Topically 4 times a day,PRN:Pain , Mild, 151,cm, 04/21/19 13:19:00 EST, Height, 44.5, kg, 12/24/... Start Date: 04/21/19 Status: Ordered Problem List Condition Effective Dates Status Health Status Inform ant Adjustment disorder with anxiety(Confirmed) 1 Active Breast mass, right(Confirmed) Active Cervical radiculopathy(Confirmed) Active Diabetes Mellitus(Confirmed) 02/19/10 Active Hypertension(Confirmed) 02/19/10 Active *[id number]-Guest History Clerk-Jose E Cotto(Confirmed) Active Current smoker(Confirmed) Active 1Dx in 08/2018 upon psych eval
--- OUTSIDE RECORDS SUMMARY | 2023-06-04 11:57 | XMS_ITS | Continuity of Care Document ---
Author Name Unknown Organization [facility] Address [address] [place] [address]- Care Team Providers Care Van Helper Name Role Phone Nicolette Rider NP Primary Care Physician Encounter [facility] [id number] Date(s): 10/25/20 - 11/24/[address] [address]- Attending Physician: AdmDai quiroz Admitting Physician: Admtr, Dai Referring Physician: Admtr, Ar8 Allergies, Adverse Reactions, [...] tablet, 5Refills, Maintenance, 10/25/20 13:20:00 EDT, Tablet, [facility]/pharmacy #[id number], Partial fill upon patient request if [...] Once, PRN as needed for fever, lot [id number] EXP 05/2018, # 2 capsule, 0 Refills, [...] fracture of clavicle(Confirmed) Active Hypertension(Confirmed) 02/19/10 Active *[id number] Care Partn er Claudette Saunders(Confirmed) Active Current smoker(Confirmed) Active 1Dx in 08/2018 upon psych eval
--- OUTSIDE RECORDS SUMMARY | 2023-06-04 11:57 | XMS_ITS | Continuity of Care Document ---
Author Name Unknown Organization [facility] Address [address] [place] [address]- Care Team Providers Care Core Manager Name Role Phone Tereso MILLER, Nicolette Mills Primary Care Physician Encounter [facility] [id number] Date(s): 04/24/20 - 05/24/[address] [address]- Attending Physician: Dai Clark Admitting Physician: AdmtrDai Referring Physician: Admtr, ArYareli Allergies, Adverse Reactions, Alerts Substance Reaction Severity [...] E11.65, 04/24/20 11:53:00 EST, Compound, 157.48, cm, 11/24/20 15:59:00 EST, Height,44.5, kg, 12/24/18 9:18:00 EDT, [...] 3 Refills, Soft Stop, 03/19/20 12:51:00 EST, [facility]/pharmacy #2566, 157.48, cm, 10/31/19 7:51:00 EDT, Height, [...] 3 Refills, Maintenance, 03/19/20 12:51:00 EST, Capsule, [facility]/pharmacy #[id number], resent as a dup, 157.48, cm, [...] Once, PRN as needed for fever, lot [id number] EXP 05/2018, # 2 capsule, 0 Refills, Maintenance, 03/07/18 17:28:48 EST, Capsule Start Date: 03/07/18 Stop Date: 03/07/18 Status: Ordered Problem List Condition Effective Dates Status Health Status Inform ant Adjustment disorder with anxiety(Confirmed) 1 Active Breast mass, right(Confirmed) Active Cervical radiculopathy(Confirmed) Active Chronic left shoulder pain(Confirmed) Active Diabetes Mellitus(Confirmed) 02/19/10 Active Hx of fracture of clavicle(Confirmed) Active Hypertension(Confirmed) 02/19/10 Active *[id number] Care Partn patrick Saunders(Confirmed) Active Current smoker(Confirmed) Active 1Dx in 08/2018 upon psych eval
--- OUTSIDE RECORDS SUMMARY | 2023-06-04 11:57 | XMS_ITS | Continuity of Care Document ---
Author Name Unknown Organization [facility] Address [address] [place] [address]- Care Team Providers Care Damaged Freight Inspector Name Role Phone Nicolette Rider NP Primary Care Physician [phone] Encounter [facility] R [id number] Date(s): 02/10/23 - 05/07/23 [facility] [address] [place] [id number] Attending Physician: Natasha Ramsay MD Admitting Physician: Natasha Ramsay MD Referring Physician: Nicolette Rider NP Allergies, [...] 7 02/18/10 Given 1Result Comment: DILUENT LOT#: [id number] EXP: 10/2022 MFG: FRESENSIUS 2Admin Note: vis 3Admin Note: VIS GIVEN 4Admin Note: vis 08/16/08 5Admin Note: vis 03/20/08 6Admin Note: vis given 7Admin Note: VIS Medications acetaminophen 500 mg oral tablet 2 tablet = 1,000 mg, By Mouth, 4 times a day, PRN for pain, # 100 tablet, 0 Refills, Maintenance, 07/17/21 10:31:00 EDT, Tablet, [facility]/pharmacy #[id number], Partial fill upon patient request [...] Refills, Maintenance, 02/09/23 11:58:00 EDT, Capsule, [id number], to replace amlodipine, benazepril, ramipril., 1 capsule [...] capsule, 3 Refills, Maintenance, 04/09/23 13:32:00 EST, [facility]/pharmacy #[id number], Partial fill upon patient request [...] tablet, 0 Refills, Maintenance, 05/07/23 14:28:00 EST, [facility], 146, cm, 04/09/23 12:58:00 EST, Height, 50, kg, 04/16/22 12:46:00 EST, Dry Weight Start Date: 05/07/23 Status: Ordered Lantus Solostar Pen 100 units/mL subcutaneous solution = 20 units, Subcutaneous Injection, Daily, Adjust dose as recommended weekly by RN per protocol. Dispense 3 pens per month, # 15 mL, 3 Refills, Maintenance, 02/09/23 12:19:00 EDT, [facility]/pharmacy #[id number],146, cm, 02/09/23 11:42:00 EDT, Height, 50, kg, 12... Start Date: 02/09/23 Stop Date: 02/04/24 Status: Ordered MetFORMIN (Eqv-Glucophage XR) 500 mg oral tablet, extended release 2 tablet = 1,000 mg, By Mouth, 2 times a day, # 360 tablet, 3 Refills, Maintenance, 04/19/23 17:54:00 EST, [id number], Partial fill upon patient request if the prescription is for a schedule II opioid drug., 146, cm, 04/09/23 12:58:00 EST, Hei... Start Date: 04/19/23 Stop Date: 04/13/24 Status: Ordered metFORMIN 500 mg oral tablet, extended release 2 tablet = 1,000 mg, By Mouth, 2 times a day, Take with food, # 360 tablet, 3 Refills, Maintenance,03/18/24 8:41:00 EST, [id number], Note dose change; ER 1000 mg tabs are not covered by patient's insurance, 146, cm, 03/22/23 13:01:00 EST, Hei... Start Date: 03/18/24 Stop Date: 03/13/25 Status: Ordered metFORMIN 500 mg oral tablet, extended release 2 tablet = 1,000 mg, By Mouth, Daily, for 90 days, Take with food, # 180 tablet, 3 Refills, Hard Stop 03/18/24 8:41:00 EST, 03/24/23 8:41:00 EST, [facility]/pharmacy #[id number], Note dose change; ER 1000 mg tabsare not covered by patient's insurance, 146, cm, 11... Start Date: 03/24/23 Stop Date: 03/18/24 Status: Ordered methocarbamol 750 mg oral tablet 1 tablet = 750 mg, By Mouth, 3 times a day, PRN Pain , Moderate, Take only as needed for muscle spasms and pain., # 90 tablet, 3 Refills, Maintenance, 02/09/23 12:40:00 EDT, [facility]/pharmacy #[id number], 146, cm, 02/09/23 11:42:00 EDT, [...] 01/12/23 Stop Date: 04/12/23 Status: Ordered Pen [place], 31 G x 5 mm BD Ultra [...] 3 Refills, Maintenance, 03/24/23 8:41:00 EST, Tablet, [facility]/pharmacy #[id number], Partial fill upon patient request if the [...] clavicle Confirmed Active Hypertension Confirmed 02/19/10 Active *[id number] Pediatric Registered Nurse Claudette Burnett Confirmed Active Current smoker Confirmed [...] Team Personnel Name: Nicolette Rider NP Position: [facility] PCO Associate Professional Member Role: PCP Address: Address: [address] [place] [address]- Name: Neelam Garvey RN Position: [facility] RN Member Role: Primary Care Nurse Name: Jo Quick RN Position: [facility] RN Member Role: Primary Care Nurse Name: La Mares RN Position: [facility] RN Member Role: Primary Care Nurse Name: Cherie Vaughan NP Position: [facility] Medical Student Member Role: Primary Care Nurse Name: Torsten Gay RN Position: [facility] RN Member Role: Primary Care Nurse Address: Address: [address] [place] [address]- Care Team Related Persons Name: AMMON CUELLAR Address: home [address] [place] [address] Name: FAISAL GILLESPIE Address: home [address] [place] [address] Name: AMMON PIERRE Address: home [address] [address]
--- OUTSIDE RECORDS SUMMARY | 2023-06-04 11:57 | XMS_ITS | Continuity of Care Document ---
Author Name Unknown Organization [facility] Address [address] [place] [address]- Care Team Providers Care Interior Design Professor Name Role Phone Tereso MILLER, Nicolette Mills Primary Care Physician [facility]counter [facility] Date(s): 11/23/22 - 12/23/[address] [address]- Allergies, Adverse Reactions, Alerts Substance Reaction Severity [...] 7 02/18/10 Given 1Result Comment: DILUENT LOT#: [id number] EXP: 10/2022 MFG: FRESENSIUS 2Admin Note: vis [...] Refills, Maintenance, 09/01/22 11:12:00 EDT, [facility], 146, cm, 09/01/22 11:06:00 EDT, Height, 50, kg, 04/16/22 12:46:00 EST, Dry Weight Start Date: 09/01/22 Status: Ordered clotrimazole 1% topical cream See Instructions, APPLY EXTERNALLY TO THE VAGINAL AREA NEEDED FOR ITCH TWICE DAILY FOR YEAST INFECTION, # 60 Gm, 1 Refills, Maintenance, 12/23/22 21:53:00 EDT, [facility], 40, APPLY EXTERNALLY TO THE VAGINAL AREA [...] 3 Refills, Maintenance, 11/23/22 13:00:00 EDT, Gel, [facility]pharmacy #2566, Partial fill upon patient request if [...] Refills, Soft Stop, 09/01/22 11:17:00 EDT, Tablet, [facility]/pharmacy #2566, Partial fill upon patient reque... Start Date: 09/01/22 Status: Ordered glimepiride 4 mg oral tablet See Instructions, TAKE 1 TABLET BY MOUTH EVERY DAY WITH THE FIRST MEAL OF THE DAY, # 90 tablet, 1 Refills, Maintenance, 12/23/22 21:53:00 EDT, [facility], 146, cm, 12/04/22 11:11:00 EDT, Height,50, kg, 04/16/22 12:46:00 EST, Dry Weight Start Date: 12/23/22 Status: Ordered ibuprofen 600 mg oral tablet 1, tablet, By Mouth, 4 times a day, PRN, # 60 tablet, Refills 1, Maintenance, NEEDED FOR PAIN, 11/18/22 11:25:00 EDT, Route to Pharmacy Electronically, [facility], 146, cm, 09/01/22 11:06:00 EDT, Height, 50, kg, 04/16/22 12:46:00 EST, Dry Weight Start Date: 11/18/22 Status: Ordered Jardiance 10 mg oral tablet 1 tablet, By Mouth, Daily in AM, # 30 tablet, 2 Refills, Maintenance, 09/29/22 12:59:00 EDT, [facility], 146, cm, 09/01/22 11:06:00 EDT, Height, 50, kg, 04/16/22 12:46:00 EST, Dry Weight Start Date: 09/29/22 Status: Ordered metFORMIN 1000 mg oral tablet 1 tablet, By Mouth, 2 times a day, # 60 tablet, 5 Refills, 08/07/22 13:34:00 EDT, [facility]/pharmacy #[id number], Please allow for early [...] 0 Refills, Maintenance, 12/02/21 18:07:00 EDT, Har[place]et, [facility]/pharmacy #5341, Partial fill upon patient request if the [...] Weight Start Date: 09/04/22 Status: Ordered Pen [place], 31 G x 5 mm BD Ultra [...] capsule, 0 Refills, Maintenance, 12/17/22 14:32:00 EDT, [facility], 146, cm, 12/04/22 11:11:00 EDT, Height, 50, [...] 06/16/22 15:00:00 EST, Route to Pharmacy Electronically, [facility], 146, cm, 05/21/22 11:19:00 EST, Height, 50, [...] clavicle Confirmed Active Hypertension Confirmed 02/19/10 Active *[id number]-Kirby cherelle Montoya Confirmed Active Current smoker Confirmed Active Cervical stenosis of spinal canal Confirmed Active Subclinical hyperthyroidism Confirmed Active Thyroid nodule - TIRADS 4, follow up US due 05/01/2023 Confirmed Active Urinary incontinence Confirmed Active 1Dx in 08/2018 upon psych eval Patient Care team information Care Team Personnel Name: Tereso MILLER, Nicolette Mills Position: [facility] PCO Associate Professional Member Role: PCP Address: Address: [address] [place] [address]- Name: Neelam Garvey RN Position: S RN Member Role: Primary Care Nurse Name: Jo Quick RN Position: S RN Member Role: Primary Care Nurse Name: La Mares RN Position: S RN Member Role: Primary Care Nurse Name: Cherie Vaughan RN Position: S RN Member Role: Primary Care Nurse Name: Torsten Gay RN Position: S RN Member Role: Primary Care Nurse Address: Address: [address] [place] [address]- Care Team Related Persons Name: AMMON CUELLAR Address: home [address] [place] [address] Name: FAISAL GILLESPIE Address: home [address] [facility] [address] [place] [address] Name: AMMON PIERRE Address: home [address] [address]
--- OUTSIDE RECORDS SUMMARY | 2023-06-04 11:57 | XMS_ITS | Continuity of Care Document ---
Author Name Unknown Organization [facility] Address [address] [place] [address]- Care Team Providers Care Partition Making Machine Operator Name Role Phone Tereso MILLER, Nicolette Mills Primary Care Physician [facility] Date(s): 08/07/22 - 09/06/[address] [address]- Allergies, Adverse Reactions, Alerts Substance Reaction Severity [...] Given Patient Refuses 1Result Comment: DILUENT LOT#: [id number] EXP: 10/2022 MFG: FRESENSIUS 2Admin Note: vis [...] Refills, Maintenance, 09/01/22 11:12:00 EDT, [facility], 146, cm, 09/01/22 11:06:00 EDT, Height, 50, [...] 11:57:00 EST, Route to Pharmacy Electronically, [facility]/pharmacy #[id number], Partial fill upon patient request if the prescription is for a... Start Date: 05/21/22 Status: Ordered metFORMIN 1000 mg oral tablet 1 tablet, By Mouth, 2 times a day, # 60 tablet, 5 Refills, 08/07/22 13:34:00 EDT, [facility]/pharmacy #[id number], Please allow for early refill as last her pills were dropped in water, 146, cm, 07/27/22 11:29:00EDT, Height, 50, kg, 04/16/22 12:46:00 EST, Dry We... Start Date: 08/07/22 Status: Ordered Metoprolol Succinate ER 100 mg oral tablet, extended release 1 tablet, By Mouth, Daily, # 90 tablet, 1 Refills, Maintenance, 06/30/22 10:31:00 EST, [facility]/pharmacy#2566, 146, cm, 05/21/22 11:19:00 EST, Height, 50, kg, 04/16/22 12:46:00 EST, Dry Weight Start Date: 06/30/22 Stop Date: 12/27/22 Status: Ordered omeprazole 20 mg oral enteric coated capsule 1 capsule = 20 mg, By Mouth, Daily, # 14 capsule, 0 Refills, Maintenance, 12/02/21 18:07:00 EDT, ECCapsule, [facility]/pharmacy #5151, Partial fill upon patient request if the [...] Weight Start Date: 09/04/22 Status: Ordered Pen [place], 31 G x 5 mm BD Ultra [...] Stop 02/07/23 11:04:00 EDT, 08/11/22 11:04:00 EDT, [facility]/pharmacy #[id number], Please allow for early refill as [...] 06/16/22 15:00:00 EST, Route to Pharmacy Electronically, [facility], 146, cm, 05/21/22 11:19:00 EST, Height, 50, [...] clavicle Confirmed Active Hypertension Confirmed 02/19/10 Active *[id number] Fitting Room Associate Claudette Burnett Confirmed Active Current smoker Confirmed Active Cervical stenosis of spinal canal Confirmed Active Subclinical hyperthyroidism Confirmed Active Thyroid nodule - TIRADS 4, follow up US due 05/01/2023 Confirmed Active Urinary incontinence Confirmed Active 1Dx in 08/2018 upon psych eval Patient Care team information Care Team Personnel Name: Nicolette Rider NP Position: [facility] PCO Associate Professional Member Role: PCP Address: Address: [address] [place] [address]- [place] Name: Neelam Garvey RN Position: S RN Member Role: Primary Care Nurse Name: Jo Quick RN Position: S RN Member Role: Primary Care Nurse Name: La Mares RN Position: [facility] RN Member Role: Primary Care Nurse Name: Cherie Vaughan RN Position: [facility] RN Member Role: Primary Care Nurse Name: Torsten Gay RN Position: [facility] RN Member Role: Primary Care Nurse Address: Address: [address] [place] [address]- Care Team Related Persons Name: AMMON CUELLAR Address: home [address] [place] [address] Name: FAISAL GILLESPIE Address: home [address] [facility] [address] [place] [address] Name: AMMON PIERRE Address: home [address] [address]
--- OUTSIDE RECORDS SUMMARY | 2023-06-04 11:57 | XMS_ITS | Continuity of Care Document ---
Author Name Unknown Organization [facility] Address [address] [place] [address]- Care Team Providers Care Family Coach Name Role Phone Tereso MILLER, Nicolette Mills Primary Care Physician [phone] [place] [facility] [place] [place] [id number] Date(s): 05/24/19 - 06/03/[address] [address]- [facility] Attending Physician: Dai Clark Admitting Physician: Dai [...] 03/16/19 14:34:47 EST, Route to Pharmacy Electronically, [id number], [facility]/pharmacy #[id number] Start Date: 03/16/19 Stop Date: 09/12/19 [...] 05/24/19 14:46:00 EST, Route to Pharmacy Electronically, [facility]/pharmacy #[id number], 151, cm, 05/01/19 14:24:00 EST, Height, [...] 3 Refills, Maintenance, 05/24/19 15:09:00 EST, Tablet, [facility]/pharmacy #2566, 1 tablet By Mouth Daily,x90 days, [...] Once, PRN as needed for fever, lot [id number] EXP 05/2018, # 2 capsule, 0 Refills, [...] Diabetes Mellitus(Confirmed) 02/19/10 Active Hypertension(Confirmed) 02/19/10 Active *[id number]-Field Supervisor Seed Production-Jose E Cotto(Confirmed) Active Current smoker(Confirmed) Active 1Dx in 08/2018 upon psych eval
--- OUTSIDE RECORDS SUMMARY | 2023-06-04 11:57 | XMS_ITS | Continuity of Care Document ---
Author Name Unknown Organization [facility] Address [address] [place] [address]- Care Team Providers Care Admission Liaison Name Role Phone Tereso MILLER, Nicolette Mills Primary Care Physician [facility] Date(s): 11/17/19 - 12/17/[address] [address]- [facility] Allergies, Adverse Reactions, Alerts Substance Reaction Severity [...] 0 Refills, Soft Stop, 10/02/19 8:52:00 EDT, [facility]/pharmacy #[id number], 151, cm, 06/12/19 9:50:00 EST, Height, [...] tablet, 1 Refills, Maintenance, 08/22/19 7:23:00 EDT, [id number], 151, cm, 06/12/19 9:50:00 EST, Height, 44.5, [...] 1 Refills, Maintenance, 09/29/19 16:40:00 EDT, Capsule, [id number], resent as a dup, 151, cm, 06/12/19 9:50:00 EST, Height, 44.5, kg, 199:18:00 EDT, Dry Weight Start Date: 09/29/19 Stop [...] Once, PRN as needed for fever, lot [id number] EXP 05/2018, # 2 capsule, 0 Refills, Maintenance, 03/07/18 17:28:48 EST, Capsule Start Date: 03/07/18 Stop Date: 03/07/18 Status: Ordered Problem List Condition Effective Dates Status Health Status Inform ant Adjustment disorder with anxiety(Confirmed) 1 Active Breast mass, right(Confirmed) Active Cervical radiculopathy(Confirmed) Active Diabetes Mellitus(Confirmed) 02/19/10 Active Hypertension(Confirmed) 02/19/10 Active *[id number]-Mobility Scooter Repairer-KirtiJose E guallpa(Confirmed) Active Current smoker(Confirmed) Active 1Dx in 08/2018 upon psych eval
--- OUTSIDE RECORDS SUMMARY | 2023-06-04 11:57 | XMS_ITS | Continuity of Care Document ---
Author Name Unknown Organization [facility] Address [address] [place] [address], [address] [place] [address]- Care Team Providers Care Structural Steel Worker Helper Name Role Phone Tereso MILLER, Nicolette Mills Primary Care Physician [phone] Encounter [facility] Date(s): 02/18/22 - 02/25/22 [facility] [address] [place] [address] Drive, [address] [place], [place] [address] Attending Physician: Jovon Nxion MD Referring Physician: Nicolette Rider NP Allergies, [...] Given Patient Refuses 1Result Comment: DILUENT LOT#: [id number] EXP: 10/2022 MFG: FRESENSIUS 2Admin Note: vis [...] Refills, Maintenance, 12/25/21 13:17:00 EDT, Tablet, [id number], Partial fill upon patient request if the [...] Refills, Soft Stop, 12/17/21 9:21:00 EDT, Tablet, [facility]/pharmacy #[id number], Partial fill upon [...] 0 Refills, Maintenance, 11/09/21 13:28:00 EDT, Tablet, [facility]/pharmacy #[id number], Please allow for [...] 03/10/22 16:40:00 EST, 09/11/21 16:40:00 EDT, Tablet, [facility]/pharmacy #[id number], Partial fillupon patient request if [...] 60 tablet, 5 Refills, 02/04/22 11:40:00 EDT, [facility]/pharmacy #[id number], Please allow for early refill as last her pills were dropped in water, 155, cm, 12/02/21 16:59:00EDT, Height, 48, kg, 10/27/20 14:35:00 EDT, Dry We... Start Date: 02/04/22 Status: Ordered methocarbamol 500 mg oral tablet See Instructions, 1-2 tablets 4 times a day as needed for muscle spasms, # 40 tablet, 1 Refills, Maintenance, 10/07/21 13:46:00 EDT, Tablet, [facility]/pharmacy #[id number], Partial fill upon patient request if the prescription is for a schedule II opioid drug., 1... Start Date: 10/07/21 Status: Ordered Metoprolol Succinate ER 100 mg oral tablet, extended release 1 tablet, By Mouth, Daily, # 90 tablet, 3 Refills, Maintenance, 12/15/21 8:39:00 EDT, [facility]/pharmacy #[id number], 155, cm, 12/02/21 16:59:00 EDT, Height, 48, kg, 10/27/20 14:35:00 EDT, Dry Weight Start Date: 12/15/21 Stop Date: 12/10/22 Status: Ordered omeprazole 20 mg oral enteric coated capsule 1 capsule = 20 mg, By Mouth, Daily, # 14 capsule, 0 Refills, Maintenance, 12/02/21 18:07:00 EDT, ECCapsule, [facility]/pharmacy #[id number], Partial fill upon [...] 12/02/21 Stop Date: 12/07/21 Status: Ordered Pen [place], 31 G x 5 mm BD Ultra [...] clavicle Confirmed Active Hypertension Confirmed 02/19/10 Active *[id number] [employer] Internship Claudette Saunders Confirmed Active Current smoker Confirmed Active Cervical stenosis of spinal canal Confirmed Active Urinary incontinence Confirmed Active 1Dx in 08/2018 upon psych eval Vital Signs Most recent to oldest [Reference Range]: 1 Height 155 cm (02/18/22 1:07 PM) Weight 49.10 kg (02/18/22 1:07 PM) Body Mass Index [18.5-24.99 kg/m2] 20.44 kg/m2 (02/18/22 1:07 PM) Patient Care team information Personnel Name: Nicolette Rider NP Address: Address: [address] [place] [address]
--- OUTSIDE RECORDS SUMMARY | 2023-06-04 11:57 | XMS_ITS | Continuity of Care Document ---
Author Name Unknown Organization [facility] Address [address] [place] [address]- Care Team Providers Care Boat Tester Name Role Phone Tereso MILLER, Nicolette Mills Primary Care Physician [facility] Date[facility]s): 03/26/20 - 04/25/[address] [address] Allergies, Adverse Reactions, Alerts Substance Reaction [...] daily for diabetes, E11.65, 04/24/20 11:53:00 EST, [facility], 157.48, cm, 03/26/20 15:59:00 EST, Height, 44.5, [...] 3 Refills, Soft Stop, 03/19/20 12:51:00 EST, [facility]/pharmacy #[id number], 157.48, cm, 10/31/19 7:51:00 EDT, [...] 3 Refills, Maintenance, 03/19/20 12:51:00 EST, Capsule, [facility]/pharmacy #[id number], resent as a dup, 157.48, [...] Once, PRN as needed for fever, lot [id number] EXP 05/2018, # 2 capsule, 0 Refills, Maintenance, 03/07/18 17:28:48 EST, Capsule Start Date: 03/07/18 Stop Date: 03/07/18 Status: Ordered Problem List Condition Effective Dates Status Health Status Inform ant Adjustment disorder with anxiety(Confirmed) 1 Active Breast mass, right(Confirmed) Active Cervical radiculopathy(Confirmed) Active Chronic left shoulder pain(Confirmed) Active Diabetes Mellitus(Confirmed) 02/19/10 Active Hx of fracture of clavicle(Confirmed) Active Hypertension(Confirmed) 02/19/10 Active *[id number] Care Partn er Claudette Saunders(Confirmed) Active Current smoker(Confirmed) Active 1Dx in 08/2018 upon psych eval
--- OUTSIDE RECORDS SUMMARY | 2023-06-04 11:58 | XMS_ITS | Continuity of Care Document ---
Author Name Unknown Organization [facility] Address [address] [place] [address]- Care Team Providers Care Lens Mold Setter Name Role Phone Tereso MILLER, Nicolette Mills Primary Care Physician [facility]counter [facility] Date(s): 03/18/23 - 04/17/[address] [address]- Allergies, Adverse Reactions, Alerts Substance Reaction Severity [...] 7 02/18/10 Given 1Result Comment: DILUENT LOT#: [id number] EXP: 10/2022 MFG: FRESENSIUS 2Admin Note: vis 3Admin Note: VIS GIVEN 2011- 4Admin Note: vis 08/16/08 5Admin Note: vis 03/20/08 6Admin Note: vis given 7Admin Note: VIS Medications acetaminophen 500 mg oral tablet 2 tablet = 1,000 mg, By Mouth, 4 times a day, PRN for pain, # 100 tablet, 0 Refills, Maintenance, 07/17/21 10:31:00 EDT, Tablet, [id number], Partial fill upon patient request if the [...] Refills, Maintenance, 02/09/23 11:58:00 EDT, Capsule, [id number], to replace amlodipine, benazepril, ramipril., 1 capsule [...] 3 Refills, Maintenance, 11/23/22 13:00:00 EDT, Gel, [facility]/pharmacy #[id number], Partial fill [...] capsule, 3 Refills, Maintenance, 04/09/23 13:32:00 EST, [facility]/pharmacy #[id number], Partial fill upon patient request if the prescription is for a schedule II opioid drug., 146, cm, 04/09/23 12:58:00 EST, Height, 50, k... Start Date: 04/09/23 Status: Ordered Freestyle Elliot Sensor See Instructions, # 2 each, Refills 11, Tot. Refills 11, Maintenance, Freestyle elliot 3 sensors useas directed for Type 2 Diabetes Mellitus on insulin E11.65, 03/22/23 9:56:00 EST PA was approved, Supply, 146, cm, 02/09/23 11:42:00 EDT, Height, 50,... Start Date: 03/22/23 Stop Date: 03/16/24 Status: Ordered Jardiance 10 mg oral tablet 1 tablet = 10 mg, By Mouth, Daily in AM, # 30 tablet, 0 Refills, Maintenance, 04/09/23 11:34:00 EST, Tablet, [facility]/pharmacy #[id number], Partial fill upon patient request if the prescription is for a schedule II opioid drug., 146, cm, 03/22/23 13:01:00 EST, H... Start Date: 04/09/23 Stop Date: 05/09/23 Status: Ordered Lantus Solostar Pen 100 units/mL subcutaneous solution = 20 units, Subcutaneous Injection, Daily, Adjust dose as recommended weekly by RN per protocol. Dispense 3 pens per month, # 15 mL, 3 Refills, Maintenance, 02/09/23 12:19:00 EDT, [facility]/pharmacy #[id number],146, cm, 02/09/23 11:42:00 EDT, Height, 50, kg, 12... Start Date: 02/09/23 Stop Date: 02/04/24 Status: Ordered metFORMIN 500 mg oral tablet, extended release 2 tablet = 1,000 mg, By Mouth, 2 times a day, Take with food, # 360 tablet, 3 Refills, Maintenance,03/18/24 8:41:00 EST, [facility]/pharmacy #[id number], Note dose change; ER 1000 mg tabs are not covered by patient's insurance, 146, cm, 03/22/23 13:01:00 EST, Hei... Start Date: 03/18/24 Stop Date: 03/13/25 Status: Ordered metFORMIN 500 mg oral tablet, extended release 2 tablet = 1,000 mg, By Mouth, Daily, for 90 days, Take with food, # 180 tablet, 3 Refills, Hard Stop 03/18/24 8:41:00 EST, 03/24/23 8:41:00 EST, [id number], Note dose change; [...] tablet, 3 Refills, Maintenance, 02/09/23 12:40:00 EDT, [facility]/pharmacy #[id number], 146, cm, 02/09/23 11:42:00 EDT, Height, 50, kg, 04/16/22... Start Date: 02/09/23 Status: Ordered Metoprolol Succinate ER 100 mg oral tablet, extended release 1 tablet, By Mouth, Daily, # 90 tablet, 1 Refills, Maintenance, 12/27/22 10:31:00 EDT, [facility]/pharmacy#2566, 146, cm, 12/04/22 11:11:00 EDT, Height, [...] 01/12/23 Stop Date: 04/12/23 Status: Ordered Pen [place], 31 G x 5 mm BD Ultra [...] 3 Refills, Maintenance, 03/24/23 8:41:00 EST, Tablet, [facility]/pharmacy #[id number], Partial fill upon patient request if the [...] clavicle Confirmed Active Hypertension Confirmed 02/19/10 Active *[id number] Heel Padder Claudette Burnett Confirmed Active Current smoker Confirmed [...] Team Personnel Name: Nicolette Rider NP Position: [facility] PCO Associate Professional Member Role: PCP Address: Address: [address] [place] [address]- Name: Neelam Garvey RN Position: S RN Member Role: Primary Care Nurse Name: Jo Quick RN Position: S RN Member Role: Primary Care Nurse Name: La Mares RN Position: S RN Member Role: Primary Care Nurse Name: Cherie Vaughan NP Position: [facility] PCO Associate Professional Member Role: Primary Care Nurse Name: Torsten Gay RN Position: S RN Member Role: Primary Care Nurse Address: Address: [address] [place] [address]- Care Team Related Persons Name: AMMON CUELLAR Address: home [address] [place] [address] Name: FAISAL GILLESPIE Address: home [address] [place] [address] Name: AMMON PIERRE Address: home [address] [address]
--- OUTSIDE RECORDS SUMMARY | 2023-06-04 11:58 | XMS_ITS | Continuity of Care Document ---
Author Name Unknown Organization [facility] Address [address] [place] [address]- Care Team Providers Care Bulk Delivery Driver Name Role Phone Tereso MILLER, Nicolette Mills Primary Care Physician [phone] Encounter [id number] Date(s): 05/21/22 - 06/20/[address] [address]- Attending Physician: Dai Clark Admitting Physician: AdmDai quiroz Referring Physician: AdmtrDai Allergies, Adverse Reactions, Alerts [...] Given Patient Refuses 1Result Comment: DILUENT LOT#: [id number] EXP: 10/2022 MFG: FRESENSIUS 2Admin Note: vis [...] for 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 Start Date: 03/10/22 Stop Date: 04/09/22 Status: Ordered ibuprofen 600 mg oral tablet 600 mg, 1, tablet, By Mouth, 4 times a day, PRN, # 60 tablet, Refills 1, Tot. Refills 1, Maintenance, for pain, 05/21/22 11:57:00 EST, Route to Pharmacy Electronically, [facility]/pharmacy #[id number], Partial fill upon patient request if the prescription is for a... Start Date: 05/21/22 Status: Ordered metFORMIN 1000 mg oral tablet 1 tablet, By Mouth, 2 times a day, # 60 tablet, 5 Refills, 02/04/22 11:40:00 EDT, [facility]/pharmacy #[id number], Please allow for early refill as last her pills were dropped in water, 155, cm, 12/02/21 16:59:00EDT, Height, 48, kg, 10/27/20 14:35:00 EDT, Dry We... Start Date: 02/04/22 Status: Ordered Metoprolol Succinate ER 100 mg oral tablet, extended release 1 tablet, By Mouth, Daily, # 90 tablet, 3 Refills, Maintenance, 12/15/21 8:39:00 EDT, [facility]/pharmacy #[id number], 155, cm, 12/02/21 16:59:00 EDT, Height, 48, kg, 10/27/20 14:35:00 EDT, Dry Weight Start Date: 12/15/21 Stop Date: 12/10/22 Status: Ordered omeprazole 20 mg oral enteric coated capsule 1 capsule = 20 mg, By Mouth, Daily, # 14 capsule, 0 Refills, Maintenance, 12/02/21 18:07:00 EDT, ECCapsule, [facility]/pharmacy #[id number], Partial fill upon patient request if the prescription is for a schedule II opioid drug., 155, cm, 12/02/21 16:59:00 EDT, H... Start Date: 12/02/21 Stop Date: 12/16/21 Status: Ordered Pen [place], 31 G x 5 mm BD Ultra [...] Stop 08/11/22 11:04:00 EDT, 02/12/22 11:04:00 EDT, [facility]/pharmacy #[id number], Please allow for early refill as last [...] 06/16/22 15:00:00 EST, Route to Pharmacy Electronically, [facility], 146, cm, 05/21/22 11:19:00 EST, Height, 50, [...] clavicle Confirmed Active Hypertension Confirmed 02/19/10 Active *[id number] Janitorial Services Supervisor Claudette Burnett Confirmed Active Current smoker Confirmed Active Cervical stenosis of spinal canal Confirmed Active Urinary incontinence Confirmed Active 1Dx in 08/2018 upon psych eval Note * Juan Colon: PERFORM Event Display: Discharge/Transfer Note Hospital Authored Date: Patient Care team information Care Team Personnel Name: Tereso DOCUMENTATION CONSULTANT, Nicolette Mills Position: [facility] PCO Associate Professional Member Role: PCP Address: Address: [address] [place] [address]- Name: Neelam Garvey RN Position: S RN Member Role: Primary Care Nurse Name: Jo Quick RN Position: S RN Member Role: Primary Care Nurse Name: La Mares RN Position: S RN Member Role: Primary Care Nurse Name: Cherie Vaughan RN Position: S RN Member Role: Primary Care Nurse Name: Torsten Gay RN Position: S RN Member Role: Primary Care Nurse Address: Address: [address] [place] [address]- Care Team Related Persons Name: AMMON CUELLAR Address: home [address] [place] [address] Name: FAISAL GILLESPIE Address: home [address] [place] [address] Name: AMMON PIERRE Address: home [address] [address]
--- OUTSIDE RECORDS SUMMARY | 2023-06-04 11:58 | XMS_ITS | Continuity of Care Document ---
Author Name Unknown Organization [facility] Address [address] [place] [address]- Care Team Providers Care Echo Vascular Technologist Name Role Phone Tereso MILLER, Nicolette Mills Primary Care Physician [phone] [facility] Date[facility]s): 03/17/19 - 04/19/[address] [address]- [facility] Attending Physician: Debra Michael MD Admitting Physician: Debra Michael MD Allergies, Adverse Reactions, Alerts Substance Reaction [...] 1Admin Note: vis 2Admin Note: VIS GIVEN 2011-13 3Admin Note: vis 08/16/08 4Admin Note: vis [...] 03/16/19 14:34:47 EST, Route to Pharmacy Electronically, [id number], [facility]/pharmacy #[id number] Start Date: 03/16/19 Stop Date: 09/12/19 [...] Once, PRN as needed for fever, lot [id number] EXP 05/2018, # 2 capsule, 0 Refills, Maintenance, 03/07/18 17:28:48 EST, Capsule Start Date: 03/07/18 Stop Date: 03/07/18 Status: Ordered Problem List Condition Effective Dates Status Health Status Inform ant Adjustment disorder with anxiety(Confirmed) 1 Active Breast mass, right(Confirmed) Active Cervical radiculopathy(Confirmed) Active Diabetes Mellitus(Confirmed) 02/19/10 Active Hypertension(Confirmed) 02/19/10 Active *[id number]-Automatic Screwmaker-Jose E Cotto(Confirmed) Active Current smoker(Confirmed) Active 1Dx in 08/2018 upon psych eval
--- OUTSIDE RECORDS SUMMARY | 2023-06-04 11:58 | XMS_ITS | Continuity of Care Document ---
Author Name Unknown Organization [facility] Address [address] [place] [address]- Care Team Providers Care Lunchroom Worker Name Role Phone Nicolette Rider NP Primary Care Physician Encounter [facility] Date(s): 04/16/22 - 05/20/[address] [address]- Attending Physician: Not on Staff, Attending MD [...] Given Patient Refuses 1Result Comment: DILUENT LOT#: [id number] EXP: 10/2022 MFG: FRESENSIUS 2Admin Note: vis 3Admin Note: VIS GIVEN 4Admin Note: vis 08/16/08 5Admin Note: vis 03/20/08 6Admin Note: vis given 7Admin Note: VIS Medications acetaminophen 500 mg oral tablet 2 tablet = 1,000 mg, By Mouth, 4 times a day, PRN for pain, # 100 tablet, 0 Refills, Maintenance, 07/17/21 10:31:00 EDT, Tablet, [facility]/pharmacy #[id number], Partial fill upon patient request [...] 0 Refills, Maintenance, 04/06/22 9:51:00 EST, Tablet, [facility] 3, Partial fill upon patient request [...] 5 Refills, Maintenance, 03/12/22 21:19:00 EST, Tablet, [facility]/pharmacy #[id number], Please allow for early refill [...] 60 tablet, 5 Refills, 02/04/22 11:40:00 EDT, [facility]/pharmacy #[id number], Please allow for early refill as last her pills were dropped in water, 155, cm, 12/02/21 16:59:00EDT, Height, 48, kg, 10/27/20 14:35:00 EDT, Dry We... Start Date: 02/04/22 Status: Ordered Metoprolol Succinate ER 100 mg oral tablet, extended release 1 tablet, By Mouth, Daily, # 90 tablet, 3 Refills, Maintenance, 12/15/21 8:39:00 EDT, [facility]/pharmacy #[id number], 155, cm, 12/02/21 16:59:00 EDT, Height, 48, kg, 10/27/20 14:35:00 EDT, Dry Weight Start Date: 12/15/21 Stop Date: 12/10/22 Status: Ordered omeprazole 20 mg oral enteric coated capsule 1 capsule = 20 mg, By Mouth, Daily, # 14 capsule, 0 Refills, Maintenance, 12/02/21 18:07:00 EDT, ECCapsule, [facility]/pharmacy #[id number], Partial fill upon patient request [...] Replace Required Details, Route to Pharmacy Electronically, [facility]... 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 Current smoker Confirmed Active Cervical stenosis of spinal canal Confirmed Active Urinary incontinence Confirmed Active 1Dx in 08/2018 upon psych eval Patient Care team information Care Team Personnel Name: Nicolette Rider NP Position: S PCO Associate Professional Member Role: PCP Address: Address: [address] [place] [address]- Name: Neelam Garvey RN Position: S RN Member Role: Primary Care Nurse Name: Jo Quick RN Position: S RN Member Role: Primary Care Nurse Name: La Mares RN Position: S RN Member Role: Primary Care Nurse Name: Cherie Vaughan RN Position: S RN Member Role: Primary Care Nurse Name: Torsten Gay RN Position: S RN Member Role: Primary Care Nurse Address: Address: [address] [place] [address]- Care Team Related Persons Name: AMMON CUELLAR Address: home [address] [place] [address] Name: FAISAL GILLESPIE Address: home [address] [place] [address] Name: AMMON PIERRE Address: home [address] [address]
--- OUTSIDE RECORDS SUMMARY | 2023-06-04 11:58 | XMS_ITS | Continuity of Care Document ---
Author Name Unknown Organization [facility] Address [address] [place] [address]- Care Team Providers Care Toy Trains And Accessories Salesperson Name Role Phone Nicolette Rider NP Primary Care Physician [facility]counter [facility] Date(s): 12/23/22 - 01/22/[address] [address]- Allergies, Adverse Reactions, Alerts Substance Reaction Severity [...] 7 02/18/10 Given 1Result Comment: DILUENT LOT#: [id number] EXP: 10/2022 MFG: FRESENSIUS 2Admin Note: vis [...] Weight Start Date: 07/17/21 Status: Ordered amlodipine-benazepril 10 mg-20 mg oral capsule 1 capsule, By Mouth, Daily, To replace amlodipine and ramipril, # 90 capsule, 3 Refills, Maintenance, 01/12/23 12:23:00 EDT, Capsule, [id number], 1 capsule By Mouth Daily,x90 days,Instr:To replace amlodipine and ramipril, 146, cm, 01/12/23 11:... Start Date: 01/12/23 Stop Date: 01/07/24 Status: Ordered capsaicin 0.025% topical cream 1 [...] Gm, 1 Refills, Maintenance, 12/23/22 21:53:00 EDT, [facility] [id number], 40, APPLY EXTERNALLY TO THE VAGINAL AREA [...] 3 Refills, Maintenance, 11/23/22 13:00:00 EDT, Gel, [facility]/pharmacy #[id number], Partial fill upon [...] capsule, 1 Refills, Maintenance, 01/12/23 12:16:00 EDT, [facility]/pharmacy #[id number], 146, cm, 01/12/23 11:33:00 EDT, [...] Maintenance,01/12/23 12:17:00 EDT, Route to Pharmacy Electronically, [facility]/pharmacy #[id number], 146, cm, 01/12/23 11:33:00 EDT, Height, 50, kg, 04/16/22 12:46:00 EST, Dry... Start Date: 01/12/23 Stop Date: 07/11/23 Status: Ordered ibuprofen 600 mg oral tablet 1, tablet, By Mouth, 4 times a day, PRN, # 60 tablet, Refills 1, Maintenance, NEEDED FOR PAIN, 11/18/22 11:25:00 EDT, Route to Pharmacy Electronically, [facility] [id number], 146, cm, 09/01/22 11:06:00 EDT, Height, 50, kg, 04/16/22 12:46:00 EST, Dry Weight Start Date: 11/18/22 Status: Ordered isopropyl alcohol 70% topical pad See Instructions, USE DIRECTED., # 100 each, 5 Refills, Maintenance, 01/12/23 12:17:00 EDT, [facility]/pharmacy #[id number], USE DIRECTED., 146, cm, 01/12/23 11:33:00 EDT, Height, 50, kg, 04/16/22 12:46:00 EST, Dry Weight Start Date: 01/12/23 Status: Ordered Lantus Solostar Pen 100 units/mL subcutaneous solution = 12 units, Subcutaneous Injection, Daily, # 15 mL, 3 Refills, Maintenance, 01/12/23 12:15:00 EDT, [facility]/pharmacy #[id number], 146, cm, 01/12/23 11:33:00 EDT, Height, 50, kg, 04/16/22 12:46:00 EST, Dry Weight Start Date: 01/12/23 Stop Date: 01/07/24 Status: Ordered metFORMIN 1000 mg oral tablet 1 tablet, By Mouth, 2 times a day, # 60 tablet, 5 Refills, 08/07/22 13:34:00 EDT, [facility]/pharmacy #[id number], Please allow for early refill as last her pills were dropped in water, 146, cm, 07/27/22 11:29:00EDT, Height, 50, kg, 04/16/22 12:46:00 EST, Dry We... Start Date: 08/07/22 Status: Ordered methocarbamol 750 mg oral tablet 1 tablet = 750 mg, By Mouth, 3 times a day, PRN Pain , Moderate, # 90 tablet, 3 Refills, Maintenance, 01/12/23 12:15:00 EDT, [facility]/pharmacy #[id number], 146, cm, 01/12/23 11:33:00 EDT, Height, 50, kg, 04/16/22 12:46:00 EST, Dry Weight Start Date: 01/12/23 Status: Ordered Metoprolol Succinate ER 100 mg oral tablet, extended release 1 tablet, By Mouth, Daily, # 90 tablet, 1 Refills, Maintenance, 12/27/22 10:31:00 EDT, [facility]/pharmacy#[id number], 146, cm, 12/04/22 11:11:00 EDT, Height, 50, kg, 04/16/22 12:46:00 EST, Dry Weight Start Date: 12/27/22 Stop Date: 06/25/23 Status: Ordered One Touch Delica Lancets See Instructions, # 100 each, Refills 5, Tot. Refills 5, Maintenance, 1 box = 100 lancets Use to test blood sugar twice a day for type 2 diabetes E11.65, 01/20/23 14:23:00 EDT, Supply, 146, cm, 01/12/23 11:33:00 EDT, Height, 50, kg, 04/16/22 12:46:0... Start Date: 01/20/23 Status: Ordered One Touch Ultra 2 Glucose [...] 01/12/23 Stop Date: 04/12/23 Status: Ordered Pen [place], 31 G x 5 mm BD Ultra [...] clavicle Confirmed Active Hypertension Confirmed 02/19/10 Active *[id number] Hostel Parent Claudette Burnett Confirmed Active Current smoker Confirmed [...] Associate Professional Member Role: PCP Address: Address: [address] [place] [address]- [place] Name: Neelam Garvey RN Position: S RN Member Role: Primary Care Nurse Name: Jo Quick RN Position: S RN Member Role: Primary Care Nurse Name: La Mares RN Position: S RN Member Role: Primary Care Nurse Name: Cherie Vaughan RN Position: S RN Member Role: Primary Care Nurse Name: Torsten Gay RN Position: S RN Member Role: Primary Care Nurse Address: Address: [address] [place] [address]- Care Team Related Persons Name: AMMON CUELLAR Address: home [address] [place] [address] Name: FAISAL GILLESPIE Address: home [address] [place] [address] Name: AMMON PIERRE Address: home [address] [address]
--- OUTSIDE RECORDS SUMMARY | 2023-06-04 11:58 | XMS_ITS | Continuity of Care Document ---
Author Name Unknown Organization [facility] Address [address] [place] [address]- Care Team Providers Care Team Cdl Driver Name Role Phone Tereso MILLER, Nicolette Mills Primary Care Physician Encounter [facility] [place] [place] Date(s): 01/22/23 - 02/21/[address] [address]- Allergies, Adverse Reactions, Alerts Substance Reaction Severity [...] 7 02/18/10 Given 1Result Comment: DILUENT LOT#: [id number] EXP: 10/2022 MFG: FRESENSIUS 2Admin Note: vis [...] Refills, Maintenance, 02/09/23 11:58:00 EDT, Capsule, [id number], to replace amlodipine, benazepril, ramipril., 1 capsule [...] 3 Refills, Maintenance, 11/23/22 13:00:00 EDT, Gel, [facility]/pharmacy #[id number], Partial fill upon patient [...] capsule, 1 Refills, Maintenance, 01/12/23 12:16:00 EDT, [facility]/pharmacy #[id number], 146, cm, 01/12/23 11:33:00 EDT, [...] Maintenance,01/12/23 12:17:00 EDT, Route to Pharmacy Electronically, [facility]/pharmacy #[id number], 146, cm, 01/12/23 11:33:00 EDT, Height, 50, kg, 04/16/22 12:46:00 EST, Dry... Start Date: 01/12/23 Stop Date: 07/11/23 Status: Ordered Lantus Solostar Pen 100 units/mL subcutaneous solution = 24 units, Subcutaneous Injection, Daily, Adjust dose as recommended weekly by RN per protocol. Dispense 3 pens per month, # 15 mL, 3 Refills, Maintenance, 02/09/23 12:19:00 EDT, [facility]/pharmacy #[id number],146, cm, 02/09/23 11:42:00 EDT, Height, 50, kg, 12... Start Date: 02/09/23 Stop Date: 02/04/24 Status: Ordered methocarbamol 750 mg oral tablet 1 tablet = 750 mg, By Mouth, 3 times a day, PRN Pain , Moderate, Take only as needed for muscle spasms and pain., # 90 tablet, 3 Refills, Maintenance, 02/09/23 12:40:00 EDT, [facility]/pharmacy #[id number], 146, cm, 02/09/23 11:42:00 EDT, Height, 50, kg, 04/16/22... 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 Current smoker Confirmed Active Cervical stenosis of spinal canal Confirmed Active Subclinical hyperthyroidism Confirmed Active Thyroid nodule - TIRADS 4, follow up US due 05/01/2023 Confirmed Active Urinary incontinence Confirmed Active 1Dx in 08/2018 upon psych eval Social History Social History Type Response Sex Female Patient Care team information Care Team Personnel Name: Nicolette Rider NP Position: [facility] Associate Professional Member Role: PCP Address: Address: [address] [place] [address]- Name: Neelam Garvey RN Position: S RN Member Role: Primary Care Nurse Name: Jo Quick RN Position: S RN Member Role: Primary Care Nurse Name: La Mares RN Position: S RN Member Role: Primary Care Nurse Name: Cherie Vaughan RN Position: S RN Member Role: Primary Care Nurse Name: Torsten Gay RN Position: S RN Member Role: Primary Care Nurse Address: Address: [address] [place] [address]- Care Team Related Persons Name: AMMON CUELLAR Address: home [address] [place] [address] Name: FAISAL GILLESPIE Address: home [address] [place] [address] Name: AMMON PIERRE Address: home [address] [address]
--- OUTSIDE RECORDS SUMMARY | 2023-06-04 11:58 | XMS_ITS | Continuity of Care Document ---
Author Name Unknown Organization [facility] Address [address] [place] [address]- Care Team Providers Care Lead Qa Analyst Name Role Phone Tereso MILLER, Nicolette Mills Primary Care Physician [phone] [facility]counter [facility] Date(s): 11/28/20 - 12/28/[address] [address] Allergies, Adverse Reactions, Alerts Substance Reaction Severity [...] Once, PRN as needed for fever, lot [id number] EXP 05/2018, # 2 capsule, 0 Refills, [...] fracture of clavicle(Confirmed) Active Hypertension(Confirmed) 02/19/10 Active *[id number] Care Partn patrick Saunders(Confirmed) Active Current smoker(Confirmed) Active Cervical stenosis of spinal canal(Confirmed) Active 1Dx in 08/2018 upon psych eval
--- OUTSIDE RECORDS SUMMARY | 2023-06-04 11:58 | XMS_ITS | Continuity of Care Document ---
Author Name Unknown Organization [facility] Address [address] [place] [address]- Care Team Providers Care Service Attendant Name Role Phone Tereso MILLER, Nicolette Mills Primary Care Physician [facility] Date(s): 02/04/21 - 03/06/[address] [address] Allergies, Adverse Reactions, Alerts Substance Reaction [...] EDT, Compound Start Date: 02/18/18 Status: Ordered ciprofloxacin-hydrocortisone 0.2%-1% otic suspension 3 drops, Ears, Both, 2 times a day, for 7 days, # 10 mL, 0 Refills, Acute 03/11/21 14:05:00 EST, 03/04/21 14:05:00 EDT, Otic Suspension, [id number], 3 drops Ears, Both 2 times a day,x7 days, 155, cm, 03/04/21 13:56:00 EDT, Height, 48, kg, 10/02... Start Date: 03/04/21 Stop Date: 03/11/21 Status: Ordered Diabetics shoes Diabetics shoes, See [...] the day, # 45 tablet, 5Refills, Maintenance, 01/22/21 10:53:00 EDT, Tablet, [id number], Partial fill upon patient request if the prescription is for a schedule II op... Start Date: 01/22/21 Stop Date: 07/21/21 Status: Ordered hydrocortisone/neomycin/polymyxin B otic 1%-0.35%-70177 u/ml solution 2 drops, Ears, Both, 4 times a day, for 7 days, # 10 mL, 0 Refills, Acute 03/13/21 14:32:00 EST, 03/06/21 14:32:00 EDT, Solution, [id number], Partial fill upon patient request if the prescription is for a schedule II opioid drug., 2 drops Ears... Start Date: 03/06/21 Stop Date: 03/13/21 Status: Ordered meloxicam 15 mg oral tablet [...] cm, 10/31/19 7:51:00 EDT, Height, 44.5, kg, 08/24/19 9:18:00 EDT, Dry Weight Start Date: 03/19/20 [...] Date: 03/19/20 Stop Date: 03/14/21 Status: Ordered nicotine 2 mg oral transmucosal lozenge 1 lozenge = 2 mg, By Mouth, 4 times a day, # 72 lozenge, 0 Refills, Maintenance, 01/22/21 10:44:00 EDT, [id number], Partial fill upon patient request if the prescription is for a schedule II opioid drug., 1 lozenge By Mouth 4 times a day, 155,... Start Date: 01/22/21 Status: Ordered Nutritional Supplements See Instructions, # [...] Once, PRN as needed for fever, lot [id number] EXP 05/2018, # 2 capsule, 0 Refills, [...] fracture of clavicle(Confirmed) Active Hypertension(Confirmed) 02/19/10 Active *[id number] Care Partn er Claudette Saunders(Confirmed) Active Current smoker(Confirmed) Active Cervical stenosis of spinal canal(Confirmed) Active 1Dx in 08/2018 upon psych eval
--- OUTSIDE RECORDS SUMMARY | 2023-06-04 11:58 | XMS_ITS | Continuity of Care Document ---
Author Name Unknown Organization [facility] ter Address [address] [place] [address]- Care Team Providers Care Car Ferry Captain Name Role Phone Nicolette Rider NP Primary Care Physician [facility] Date[facility]s): 05/26/19 - 07/23/[address] [address]- [facility] Attending Physician: Nicolette Rider NP Admitting Physician: [...] 03/16/19 14:34:47 EST, Route to Pharmacy Electronically, [id number], [facility]/pharmacy #[id number] Start Date: 03/16/19 Stop Date: 09/12/19 [...] 05/24/19 14:46:00 EST, Route to Pharmacy Electronically, [facility]/pharmacy #[id number], 151, cm, 05/01/19 14:24:00 EST, Height, [...] 3 Refills, Maintenance, 05/24/19 15:09:00 EST, Tablet, [facility]/pharmacy #[id number], 1 tablet By Mouth Daily,x90 days, [...] Once, PRN as needed for fever, lot [id number] EXP 05/2018, # 2 capsule, 0 Refills, [...] Diabetes Mellitus(Confirmed) 02/19/10 Active Hypertension(Confirmed) 02/19/10 Active *[id number] Sweatband Cutter-Jose E Cotto(Confirmed) Active Current smoker(Confirmed) Active 1Dx in 08/2018 upon psych eval
--- OUTSIDE RECORDS SUMMARY | 2023-06-04 11:58 | XMS_ITS | Continuity of Care Document ---
Author Name Unknown Organization [facility] Address [address] [place] [address]- Care Team Providers Care Supervisor Steno Pool Name Role Phone Tereso MILLER, Nicolette Mills Primary Care Physician [facility]counter [facility] Date(s): 10/27/21 - 11/26/[address] [address]- Allergies, Adverse Reactions, Alerts Substance Reaction Severity [...] Given Patient Refuses 1Result Comment: DILUENT LOT#: [id number] EXP: 10/2022 MFG: FRESENSIUS 2Admin Note: vis [...] Dry Weight Start Date: 07/17/21 Status: Ordered Diabetic shoes with 3 inserts Diabetic shoes with 3 inserts, See Instructions, # 1 each, Refills 0, Tot. 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 Start Date: 09/11/21 Stop Date: 03/10/22 Status: Ordered glimepiride 4 mg oral tablet 1 tablet = 4 mg, By Mouth, Daily, with the first meal of the day, # 30 tablet, 0 Refills, Maintenance, 03/10/22 16:40:00 EST, Tablet, [facility]/pharmacy #2566, Please allow [...] 10/20/21 16:04:00 EDT, Route to Pharmacy Electronically, [facility]/pharmacy #[id number], Partial fill upon patient request if... Start Date: 10/20/21 Status: Ordered Lac-Hydrin 12% lotion 1 application, Topically, 2 times a day, # 400 Gm, 0 Refills, Maintenance, 03/20/21 14:35:00 EST, Lotion, [facility]/pharmacy #[id number], Partial fill upon [...] 1 Refills, Maintenance, 10/07/21 13:46:00 EDT, Tablet, [facility]/pharmacy #[id number], Partial fill upon patient request if the prescription is for a schedule II opioid drug., 1... Start Date: 10/07/21 Status: Ordered Metoprolol Succinate ER 100 mg oral tablet, extended release 1 tablet, By Mouth, Daily, # 30 tablet, 0 Refills, Maintenance, 11/09/21 13:29:00 EDT, [facility]/pharmacy#[id number], Please allow for early refill as last her pills were dropped in water, 155, cm, 10/07/21 13:25:00 EDT, Height, 48, kg, 10/27/20 14:35:00 EDT, D... Start Date: 11/09/21 Status: Ordered Pen [place], 31 G x 5 mm BD Ultra [...] capsule 1 capsule, By Mouth, Daily, for 30 days, # 30 capsule, 0 Refills, Physician Stop 12/09/21 13:28:00 EDT, 11/09/21 13:28:00 EDT, [id number], Please allow for early refill as last her pills weredropped in water, 155, cm, 10/07/21 13:25:00 EDT,... Start Date: 11/09/21 Stop Date: 12/09/21 Status: Ordered Small adult pull ups Small [...] fracture of clavicle(Confirmed) Active Hypertension(Confirmed) 02/19/10 Active *[phone] Care Partn patrick Saunders(Confirmed) Active Current smoker(Confirmed) Active Cervical stenosis of spinal canal(Confirmed) Active Urinary incontinence(Confirmed) Active 1Dx in 08/2018 upon psych eval
--- OUTSIDE RECORDS SUMMARY | 2023-06-04 11:58 | XMS_ITS | Continuity of Care Document ---
Author Name Unknown Organization [facility] Address [address] [place] [address]- Care Team Providers Care Medical Claims Assistant Name Role Phone Tereso MILLER, Nicolette Mills Primary Care Physician [facility] Date(s): 08/05/21 - 09/04/[address] [address]- Allergies, Adverse Reactions, Alerts Substance Reaction Severity [...] Given Patient Refuses 1Result Comment: DILUENT LOT#: [id number] EXP: 10/2022 MFG: FRESENSIUS 2Admin Note: vis [...] EDT, Compound Start Date: 09/03/17 Status: Ordered acetaminophen 500 mg oral tablet 2 tablet = 1,000 mg, By Mouth, 4 times a day, PRN for pain, # 100 tablet, 0 Refills, Maintenance, 07/17/21 10:31:00 EDT, Tablet, [facility]/pharmacy #[id number], Partial fill upon patient request [...] Dry Weight Start Date: 07/17/21 Status: Ordered Alcohol Pads [...] dose with the first meal of the day Restart while titrating trulicity, # 30 tablet, 5 Refills, Maintenance, 08/14/21 16:03:00 EDT, Tablet, [id number], Partial fill upon patient request if the pre... Start Date: 08/14/21 Status: Ordered ibuprofen 600 mg oral tablet 600 mg, 1, tablet, By Mouth, Every 6 hours, PRN, with food or milk, # 60 tablet, Refills 1, Tot. Refills 1, Maintenance, Pain , Moderate, 07/17/21 10:31:00 EDT, Route to Pharmacy Electronically, [id number], Partial fill upon patient request if... Start Date: 07/17/21 Status: Ordered Lac-Hydrin 12% lotion 1 application, [...] a day, # 180 tablet, 0 Refills, [id number], 155, cm, 08/01/21 14:55:00 EDT, Height, 48, kg, 10/27/20 14:35:00 EDT, Dry Weight Start Date: 08/08/21 Status: Ordered methocarbamol 500 mg oral tablet See Instructions, 1-2 tablets 4 times a day as needed for muscle spasms, # 40 tablet, 0 Refills, Maintenance, 08/19/21 11:23:00 EDT, Tablet, [facility]/pharmacy #[id number], Partial fill upon patient request if the prescription is for a schedule II opioid drug., 1... Start Date: 08/19/21 Status: Ordered Metoprolol Succinate ER 100 mg [...] 3 Refills, Maintenance, 04/24/20 11:53:00 EST, Capsule, [facility]/pharmacy #[id number], 1 capsule By Mouth Daily,x90 days, 157.48, cm, 03/26/20 15:59:00 EST, Height, 44.5, kg, 12/24/18 9:18:00 EDT, Dry Weight Start Date: 04/24/20 Stop Date: 04/19/21 Status: Ordered Nutritional Supplements See Instructions, # 180 each, Refills 3, Tot. Refills 3, Maintenance, Glucerna drinks. Drink 1 can twice a day. Dx: unintended weight loss, underweight R63.6, type 2 DM E11.65, 09/03/17 17:41:44 EDT,Compound Start Date: 09/03/17 Status: Ordered Pen [place], 31 G x 5 mm BD Ultra [...] Mouth, Daily, # 90 capsule, 1 Refills, 08/22/21 13:26:00 EDT, [facility]/pharmacy #[id number], 155, cm, 08/19/21 10:29:00 EDT, Height, 48, kg, 10/27/20 14:35:00 EDT, Dry Weight Start Date: 08/22/21 Status: Ordered Right wrist splint Right wrist [...] EDT, Compound Start Date: 12/30/18 Status: Ordered Trulicity Pen 0.75 mg/0.5 mL subcutaneous solution 0.5 mL = 0.75 mg, Subcutaneous Injection, Every week, rotate injection sites, # 2.5 mL, 2 Refills, Maintenance, 08/01/21 15:13:00 EDT, Solution, [id number], Partial fill upon patient request if the prescription is for a schedule II opioid drug... Start Date: 08/01/21 Stop Date: 10/30/21 Status: Ordered Voltaren 1% topical gel 1 [...] fracture of clavicle(Confirmed) Active Hypertension(Confirmed) 02/19/10 Active *[id number] Care Partn patrick Saunders(Confirmed) Active Current smoker(Confirmed) Active Cervical stenosis of spinal canal(Confirmed) Active 1Dx in 08/2018 upon psych eval
--- OUTSIDE RECORDS SUMMARY | 2023-06-04 11:58 | XMS_ITS | Continuity of Care Document ---
Author Name Unknown Organization [facility] ter Address [address] [place] [address]- Care Team Providers Care Machine Driller Name Role Phone Nicolette Rider NP Primary Care Physician Encounter [facility] Date(s): 08/12/21 - 11/14/[address] [address] Attending Physician: Nicolette Rider NP [...] Given Patient Refuses 1Result Comment: DILUENT LOT#: [id number] EXP: 10/2022 MFG: FRESENSIUS 2Admin Note: vis 3Admin Note: VIS GIVEN 2011- 4Admin Note: vis 08/16/08 5Admin Note: vis 03/20/08 6Admin Note: vis given 7Admin Note: VIS Medications acetaminophen 500 mg oral tablet 2 tablet = 1,000 mg, By Mouth, 4 times a day, PRN for pain, # 100 tablet, 0 Refills, Maintenance, 07/17/21 10:31:00 EDT, Tablet, [facility]/pharmacy #[id number], Partial fill upon patient request if [...] 0 Refills, Maintenance, 11/09/21 13:28:00 EDT, Tablet, [facility]/pharmacy #[id number], Please allow for early refill as last [...] 03/10/22 16:40:00 EST, 09/11/21 16:40:00 EDT, Tablet, [facility]/pharmacy #5806, Partial fillupon patient request if the prescription is for a s... Start Date: 09/11/21 Stop Date: 03/10/22 Status: Ordered glimepiride 4 mg oral tablet 1 tablet = 4 mg, By Mouth, Daily, with the first meal of the day, # 30 tablet, 0 Refills, Maintenance, 03/10/22 16:40:00 EST, Tablet, [facility]/pharmacy #2566, Please allow for [...] 10/20/21 16:04:00 EDT, Route to Pharmacy Electronically, [facility]/pharmacy #[id number], Partial fill upon patient request if... Start Date: 10/20/21 Status: Ordered Lac-Hydrin 12% lotion 1 application, Topically, 2 times a day, # 400 Gm, 0 Refills, Maintenance, 03/20/21 14:35:00 EST, Lotion, [facility]/pharmacy #[id number], Partial fill upon patient request if the prescription is for a schedule II opioid drug., 1 application Topically 2 times a da... Start Date: 03/20/21 Status: Ordered metFORMIN 1000 mg oral tablet 1 tablet, By Mouth, 2 times a day, # 60 tablet, 0 Refills, 11/09/21 13:29:00 EDT, [facility]/pharmacy #2566, Please allow for early refill as last her pills were dropped in water, 155, cm, 10/07/21 13:25:00EDT, Height, 48, kg, 10/27/20 14:35:00 EDT, Dry We... Start Date: 11/09/21 Status: Ordered methocarbamol 500 mg oral tablet See Instructions, 1-2 tablets 4 times a day as needed for muscle spasms, # 40 tablet, 1 Refills, Maintenance, 10/07/21 13:46:00 EDT, Tablet, [facility]/pharmacy #[id number], Partial fill upon patient request if the prescription is for a schedule II opioid drug., 1... Start Date: 10/07/21 Status: Ordered Metoprolol Succinate ER 100 mg oral tablet, extended release 1 tablet, By Mouth, Daily, # 30 tablet, 0 Refills, Maintenance, 11/09/21 13:29:00 EDT, [id number], Please allow for early refill as last her pills were dropped in water, 155, cm, 10/07/21 13:25:00 EDT, Height, 48, kg, 10/27/20 14:35:00 EDT, D... Start Date: 11/09/21 Status: Ordered Pen [place], 31 G x 5 mm BD Ultra [...] 5 Refills, Maintenance, 01/22/21 10:34:00 EDT, Gel, [facility]/pharmacy #[id number], 1 application Topically 4 times a [...] fracture of clavicle(Confirmed) Active Hypertension(Confirmed) 02/19/10 Active *[id number] Care Partn patrick Saundesr(Confirmed) Active Current smoker(Confirmed) Active Cervical stenosis of spinal canal(Confirmed) Active Urinary incontinence(Confirmed) Active 1Dx in 08/2018 upon psych eval
--- OUTSIDE RECORDS SUMMARY | 2023-06-04 11:58 | XMS_ITS | Continuity of Care Document ---
Author Name Unknown Organization [facility] Address [address] [place] [address]- Care Team Providers Care Urban Redevelopment Specialist Name Role Phone Tereso MILLER, Nicolette Mills Primary Care Physician [phone] [facility] Date[facility]s): 12/19/20 - 01/18/[address] [address] Allergies, Adverse Reactions, Alerts [...] Once, PRN as needed for fever, lot [id number] EXP 05/2018, # 2 capsule, 0 Refills, [...] fracture of clavicle(Confirmed) Active Hypertension(Confirmed) 02/19/10 Active *[phone] Care Partn patrick Saunders(Confirmed) Active Current smoker(Confirmed) Active Cervical stenosis of spinal canal(Confirmed) Active 1Dx in 08/2018 upon psych eval
--- OUTSIDE RECORDS SUMMARY | 2023-06-04 11:58 | XMS_ITS | Continuity of Care Document ---
Author Name Unknown Organization [facility] Address [address] [place] [address]- Care Team Providers Care Automated Equipment Engineer Technician Name Role Phone Tereso MILLER, Nicolette Mills Primary Care Physician [phone] Encounter [facility] Date(s): 09/30/21 - 10/30/[address] [address]- Allergies, Adverse Reactions, Alerts Substance Reaction Severity [...] Given Patient Refuses 1Result Comment: DILUENT LOT#: [id number] EXP: 10/2022 MFG: FRESENSIUS 2Admin Note: vis [...] Mouth, Daily in AM, # 30 tablet, 3 Refills, Maintenance, 10/07/21 13:53:00 EDT, Tablet, [facility]/pharmacy #[id number], Partial fill upon patient request if the prescription is for a schedule II opioid drug., 155, cm, 10/07/21 13:25:00 EDT, H... Start Date: 10/07/21 Status: Ordered Freestyle Lite Lancets See Instructions, [...] the day, # 90 tablet, 1 Refills, Maintenance, 09/11/21 16:40:00 EDT, Tablet, [facility]/pharmacy #[id number], Partial fill upon patient request if the prescription is for a schedule II opioid drug., 155, cm,... Start Date: 09/11/21 Stop Date: 03/10/22 Status: Ordered ibuprofen 600 mg oral tablet 600 mg, 1, tablet, By Mouth, Every 6 hours, PRN, with food or milk, # 60 tablet, Refills 1, Tot. Refills 1, Maintenance, Pain , Moderate, 10/20/21 16:04:00 EDT, Route to Pharmacy Electronically, [facility]/pharmacy #[id number], Partial fill upon patient request if... Start Date: 10/20/21 Status: Ordered Lac-Hydrin 12% lotion 1 application, Topically, 2 times a day, # 400 Gm, 0 Refills, Maintenance, 03/20/21 14:35:00 EST, Lotion, [facility]/pharmacy #[id number], Partial fill upon patient request if the prescription is for a schedule II opioid drug., 1 application Topically 2 times a da... Start Date: 03/20/21 Status: Ordered metFORMIN 1000 mg oral tablet 1 tablet, By Mouth, 2 times a day, # 180 tablet, 3 Refills, 10/20/21 16:04:00 EDT, [facility]/pharmacy #[id number], 155, cm, 10/07/21 13:25:00 EDT, Height, 48, kg, 10/27/20 14:35:00 EDT, Dry Weight Start Date: 10/20/21 Status: Ordered methocarbamol 500 mg oral tablet See Instructions, 1-2 tablets 4 times a day as needed for muscle spasms, # 40 tablet, 1 Refills, Maintenance, 10/07/21 13:46:00 EDT, Tablet, [facility]/pharmacy #[id number], Partial fill upon patient request if the prescription is for a schedule II opioid drug., 1... Start Date: 10/07/21 Status: Ordered Metoprolol Succinate ER 100 mg oral tablet, extended release 1 tablet, By Mouth, Daily, # 90 tablet, 1 Refills, Maintenance, 09/11/21 16:39:00 EDT, [facility]/pharmacy#[id number], 155, cm, 08/19/21 10:29:00 EDT, Height, 48, kg, 10/27/20 14:35:00 EDT, Dry Weight Start Date: 09/11/21 Status: Ordered Pen [place], 31 G x 5 mm BD Ultra [...] 90 capsule, 1 Refills, 08/22/21 13:26:00 EDT, [id number], 155, cm, 08/19/21 10:29:00 EDT, Height, 48, kg, 10/27/20 14:35:00 EDT, Dry Weight Start Date: 08/22/21 Status: Ordered Small adult pull ups Small [...] fracture of clavicle(Confirmed) Active Hypertension(Confirmed) 02/19/10 Active *[phone] Care Partn patrick Saunders(Confirmed) Active Current smoker(Confirmed) Active Cervical stenosis of spinal canal(Confirmed) Active Urinary incontinence(Confirmed) Active 1Dx in 08/2018 upon psych eval
--- OUTSIDE RECORDS SUMMARY | 2023-06-04 11:58 | XMS_ITS | Continuity of Care Document ---
Author Name Unknown Organization [facility] Address [address] [place] [address]- Care Team Providers Care Undraped Artist Model Name Role Phone Tereso MILLER, Nicolette Mills Primary Care Physician [facility]counter [facility] Date(s): 05/14/21 - 06/13/[address] [address]- Allergies, Adverse Reactions, Alerts Substance Reaction Severity [...] Given Patient Refuses 1Result Comment: DILUENT LOT#: [id number] EXP: 10/2022 MFG: FRESENSIUS 2Admin Note: vis [...] # 90 capsule, 1 Refills, [id number], 155, cm, 03/04/21 13:56:00 EDT, Height, 48, [...] Once, PRN as needed for fever, lot [id number] EXP 05/2018, # 2 capsule, 0 Refills, [...] fracture of clavicle(Confirmed) Active Hypertension(Confirmed) 02/19/10 Active *[id number] Care Partn er Claudette Saunders(Confirmed) Active Current smoker(Confirmed) Active Cervical stenosis of spinal canal(Confirmed) Active 1Dx in 08/2018 upon psych eval
--- OUTSIDE RECORDS SUMMARY | 2023-06-04 11:58 | XMS_ITS | Continuity of Care Document ---
Author Name Unknown Organization [facility] Address [address] [place] [address]- Care Team Providers Care Vending Machine Repairer Name Role Phone Nicolette Rider NP Primary Care Physician [phone] Encounter [facility] Date(s): 03/20/21 - 05/02/[address] [address]- Attending Physician: Not on Staff, Attending MD [...] Given Patient Refuses 1Result Comment: DILUENT LOT#: [id number] EXP: 10/2022 MFG: FRESENSIUS 2Admin Note: vis [...] 3 Refills, Maintenance, 04/24/20 11:53:00 EST, Capsule, [facility]/pharmacy #[id number], 1 capsule By Mouth Daily,x90 days, 157.48, cm, 03/26/20 15:59:00 EST, Height, 44.5, kg, 12/24/18 9:18:00 EDT, Dry Weight Start Date: 04/24/20 Stop Date: 04/19/21 Status: Ordered multivitamin Multiple Vitamins oral capsule 1 capsule, By Mouth, Daily, # 90 capsule, 3 Refills, Maintenance, 03/19/20 12:51:00 EST, Capsule, [facility]/pharmacy #[id number], 1 capsule By Mouth Daily,x90 days, [...] Mouth, Daily, # 90 capsule, 1 Refills, [id number], 155, cm, 03/04/21 13:56:00 EDT, Height, 48, [...] Once, PRN as needed for fever, lot [id number] EXP 05/2018, # 2 capsule, 0 Refills, [...] fracture of clavicle(Confirmed) Active Hypertension(Confirmed) 02/19/10 Active *[id number] Care Partn patrick Saunders(Confirmed) Active Current smoker(Confirmed) Active Cervical stenosis of spinal canal(Confirmed) Active 1Dx in 08/2018 upon psych eval
--- OUTSIDE RECORDS SUMMARY | 2023-06-04 11:58 | XMS_ITS | Continuity of Care Document ---
Author Name Unknown Organization [facility] Address [address] [place] [address] [address], [address] [place] [address]- Care Team Providers Care Oyster Preparer Name Role Phone Nicolette Rider NP Primary Care Physician [phone] Encounter [facility] Date(s): 04/29/22 - 05/06/22 [facility] [address] [place] [address] Drive, [address] [place], [place] [address] Attending Physician: Jovon Nixon MD Referring Physician: [...] Given Patient Refuses 1Result Comment: DILUENT LOT#: [id number] EXP: 10/2022 MFG: FRESENSIUS 2Admin Note: vis 3Admin Note: VIS GIVEN 2011- 4Admin Note: vis 08/16/08 5Admin Note: vis 03/20/08 6Admin Note: vis given 7Admin Note: VIS Medications acetaminophen 500 mg oral tablet 2 tablet = 1,000 mg, By Mouth, 4 times a day, PRN for pain, # 100 tablet, 0 Refills, Maintenance, 07/17/21 10:31:00 EDT, Tablet, [facility]/pharmacy #[id number], Partial fill upon patient request if [...] 0 Refills, Maintenance, 04/06/22 9:51:00 EST, Tablet, [facility], Partial fill upon patient request if [...] 5 Refills, Maintenance, 03/12/22 21:19:00 EST, Tablet, [facility]/pharmacy #[id number], Please allow for early refill as [...] 0 Refills, Maintenance, 03/10/22 16:40:00 EST, Tablet, [facility]/pharmacy #[id number], Please allow for early refill as [...] 60 tablet, 5 Refills, 02/04/22 11:40:00 EDT, [facility]/pharmacy #[id number], Please allow for early refill as last her pills were dropped in water, 155, cm, 12/02/21 16:59:00EDT, Height, 48, kg, 10/27/20 14:35:00 EDT, Dry We... Start Date: 02/04/22 Status: Ordered Metoprolol Succinate ER 100 mg oral tablet, extended release 1 tablet, By Mouth, Daily, # 90 tablet, 3 Refills, Maintenance, 12/15/21 8:39:00 EDT, [facility]/pharmacy #[id number], 155, cm, 12/02/21 16:59:00 EDT, Height, 48, kg, 10/27/20 14:35:00 EDT, Dry Weight Start Date: 12/15/21 Stop Date: 12/10/22 Status: Ordered omeprazole 20 mg oral enteric coated capsule 1 capsule = 20 mg, By Mouth, Daily, # 14 capsule, 0 Refills, Maintenance, 12/02/21 18:07:00 EDT, ECCapsule, [facility]/pharmacy #[id number], Partial fill upon patient request if [...] Replace Required Details, Route to Pharmacy Electronically, [facility]... Start Date: 04/06/22 Status: Ordered Pen [place], 31 G x 5 mm BD Ultra [...] Stop 08/11/22 11:04:00 EDT, 02/12/22 11:04:00 EDT, [facility]/pharmacy #[id number], Please allow for early refill as last [...] clavicle Confirmed Active Hypertension Confirmed 02/19/10 Active *[id number] Gas Mask Assembler Claudette Burnett Confirmed Active Current smoker Confirmed Active Cervical stenosis of spinal canal Confirmed Active Urinary incontinence Confirmed Active 1Dx in 08/2018 upon psych eval Vital Signs Most recent to oldest [Reference Range]: 1 Height 146 cm (04/29/22 10:23 AM) Weight 50 kg (04/29/22 10:23 AM) Body Mass Index [18.5-24.99 kg/m2] 23.46 kg/m2 (04/29/22 10:23 AM) Patient Care team information Care Team Personnel Name: Nicolette Rider NP Position: [facility] PCO Associate Professional Member Role: PCP Address: Address: [address] [place] [address]- Name: Neelam Garvey RN Position: S RN Member Role: Primary Care Nurse Name: Jo Quick RN Position: S RN Member Role: Primary Care Nurse Name: La Mares RN Position: S RN Member Role: Primary Care Nurse Name: Cherie Vaughan RN Position: S RN Member Role: Primary Care Nurse Name: Torsten Gay RN Position: S RN Member Role: Primary Care Nurse Address: Address: [address] [place] [address]- Care Team Related Persons Name: AMMON CUELLAR Address: home [address] [place] [address] Name: FAISAL GILLESPIE Address: home [address] [facility] [place] [address] Name: AMMON PIERRE Address: home [address] [address]
--- OUTSIDE RECORDS SUMMARY | 2023-06-04 11:58 | XMS_ITS | Continuity of Care Document ---
Author Name Unknown Organization [facility] Address [address] [place] [address] [address], [address] [place] [address]- Care Team Providers Care Credit Controller Name Role Phone Tereso MILLER, Nicolette Mills Primary Care Physician [facility] Date(s): 06/12/19 - 06/19/19 [facility] [address] [place] [address] Drive, [address] [place] [address]- [facility] Attending Physician: Tiffani KEITH, Jovon Posadas Allergies, Adverse Reactions, Alerts Substance Reaction Severity [...] 03/16/19 14:34:47 EST, Route to Pharmacy Electronically, [id number], [facility]/pharmacy #[id number] Start Date: 03/16/19 Stop Date: 09/12/19 [...] 05/24/19 14:46:00 EST, Route to Pharmacy Electronically, [facility]/pharmacy #[id number], 151, cm, 05/01/19 14:24:00 EST, Height, [...] 3 Refills, Maintenance, 05/24/19 15:09:00 EST, Tablet, [facility]/pharmacy #[id number], 1 tablet By Mouth Daily,x90 days, [...] Once, PRN as needed for fever, lot [id number] EXP 05/2018, # 2 capsule, 0 Refills, Maintenance, 03/07/18 17:28:48 EST, Capsule Start Date: 03/07/18 Stop Date: 03/07/18 Status: Ordered Voltaren 1% topical gel 1 application, Topically, 4 times a day, PRN Pain , Mild, # 100 Gm, 0 Refills, Maintenance, 06/09/19 8:46:00 EST, Gel, [id number], 1 application Topically 4 times a day,PRN:Pain , Mild, 151, cm, 05/24/19 14:49:00 EST, Height, 44.5, kg, ... Start Date: 06/09/19 Status: Ordered Problem List Condition Effective Dates Status Health Status Inform ant Adjustment disorder with anxiety(Confirmed) 1 Active Breast mass, right(Confirmed) Active Cervical radiculopathy(Confirmed) Active Diabetes Mellitus(Confirmed) 02/19/10 Active Hypertension(Confirmed) 02/19/10 Active *[id number]-Land Agent-Jose E Cotto(Confirmed) Active Current smoker(Confirmed) Active 1Dx in 08/2018 upon psych eval Vital Signs Most recent to oldest [Reference Range]: 1 Height 151 cm (06/12/19 9:50 AM) Weight 46.00 kg (06/12/19 9:50 AM) Body Mass Index [18.5-24.99] 20.17 (06/12/19 9:50 AM)
--- OUTSIDE RECORDS SUMMARY | 2023-06-04 11:59 | XMS_ITS | Continuity of Care Document ---
Author Name Unknown Organization [facility] Address [address] [place] [address]- Care Team Providers Care Waiter/Waitress Tavern Name Role Phone Nicolette Rider NP Primary Care Physician [phone] Encounter [facility] Date(s): 10/01/21 - 11/29/[address] [address]- Attending Physician: [place] MD Admitting Physician: [...] Given Patient Refuses 1Result Comment: DILUENT LOT#: [id number] EXP: 10/2022 MFG: FRESENSIUS 2Admin Note: vis 3Admin Note: VIS GIVEN 2011- 4Admin Note: vis 08/16/08 5Admin Note: vis 03/20/08 6Admin Note: vis given 7Admin Note: VIS Medications acetaminophen 500 mg oral tablet 2 tablet = 1,000 mg, By Mouth, 4 times a day, PRN for pain, # 100 tablet, 0 Refills, Maintenance, 07/17/21 10:31:00 EDT, Tablet, [facility]/pharmacy #[id number], Partial fill upon patient request [...] 0 Refills, Maintenance, 11/09/21 13:28:00 EDT, Tablet, [facility]/pharmacy #[id number], Please allow for early refill as last [...] 03/10/22 16:40:00 EST, 09/11/21 16:40:00 EDT, Tablet, [facility]/pharmacy #[id number], Partial fillupon patient request if the prescription is for a s... Start Date: 09/11/21 Stop Date: 03/10/22 Status: Ordered glimepiride 4 mg oral tablet 1 tablet = 4 mg, By Mouth, Daily, with the first meal of the day, # 30 tablet, 0 Refills, Maintenance, 03/10/22 16:40:00 EST, Tablet, [facility]/pharmacy #[id number], Please allow for early refill [...] 10/20/21 16:04:00 EDT, Route to Pharmacy Electronically, [facility]/pharmacy #[id number], Partial fill upon patient request if... Start Date: 10/20/21 Status: Ordered Lac-Hydrin 12% lotion 1 application, Topically, 2 times a day, # 400 Gm, 0 Refills, Maintenance, 03/20/21 14:35:00 EST, Lotion, [facility]/pharmacy #[id number], Partial fill upon patient request if the prescription is for a schedule II opioid drug., 1 application Topically 2 times a da... Start Date: 03/20/21 Status: Ordered metFORMIN 1000 mg oral tablet 1 tablet, By Mouth, 2 times a day, # 60 tablet, 0 Refills, 11/09/21 13:29:00 EDT, [facility]/pharmacy #[id number], Please allow for early refill as last her pills were dropped in water, 155, cm, 10/07/21 13:25:00EDT, Height, 48, kg, 10/27/20 14:35:00 EDT, Dry We... Start Date: 11/09/21 Status: Ordered methocarbamol 500 mg oral tablet See Instructions, 1-2 tablets 4 times a day as needed for muscle spasms, # 40 tablet, 1 Refills, Maintenance, 10/07/21 13:46:00 EDT, Tablet, [facility]/pharmacy #[id number], Partial fill upon patient request [...] D... Start Date: 11/09/21 Status: Ordered Pen [place], 31 G x 5 mm BD Ultra [...] fracture of clavicle(Confirmed) Active Hypertension(Confirmed) 02/19/10 Active *[id number] Care Partn patrick Saunders(Confirmed) Active Current smoker(Confirmed) Active Cervical stenosis of spinal canal(Confirmed) Active Urinary incontinence(Confirmed) Active 1Dx in 08/2018 upon psych eval
--- OUTSIDE RECORDS SUMMARY | 2023-06-04 11:59 | XMS_ITS | Continuity of Care Document ---
Author Name Unknown Organization [facility] Address [address] [place] [address]- Care Team Providers Care Concreter Name Role Phone Tereso MILLER, Nicolette Mills Primary Care Physician [phone] [facility]counter [facility] Date(s): 07/21/21 - 08/20/[address] [address]- Allergies, Adverse Reactions, Alerts Substance Reaction Severity [...] Given Patient Refuses 1Result Comment: DILUENT LOT#: [id number] EXP: 10/2022 MFG: FRESENSIUS 2Admin Note: vis [...] 0 Refills, Maintenance, 07/17/21 10:31:00 EDT, Tablet, [facility]/pharmacy #[id number], Partial fill upon patient request if [...] a day, # 180 tablet, 0 Refills, [facility], 155, cm, 08/01/21 14:55:00 EDT, Height, 48, kg, 10/27/20 14:35:00 EDT, Dry Weight Start Date: 08/08/21 Status: Ordered methocarbamol 500 mg oral tablet See Instructions, 1-2 tablets 4 times a day as needed for muscle spasms, # 40 tablet, 0 Refills, Maintenance, 08/19/21 11:23:00 EDT, Tablet, [facility]/pharmacy #[id number], Partial fill upon patient request if [...] 3 Refills, Maintenance, 04/24/20 11:53:00 EST, Capsule, [facility]/pharmacy #[id number], 1 capsule By Mouth Daily,x90 days, [...] EDT,Compound Start Date: 09/03/17 Status: Ordered Pen [place], 31 G x 5 mm BD Ultra [...] Mouth, Daily, # 90 capsule, 1 Refills, [facility], 155, cm, 03/04/21 13:56:00 EDT, Height, 48, [...] 2 Refills, Maintenance, 08/01/21 15:13:00 EDT, Solution, [facility]/pharmacy #[id number], Partial fill upon patient request if the [...] fracture of clavicle(Confirmed) Active Hypertension(Confirmed) 02/19/10 Active *[id number] Care Partn er Claudette Saunders(Confirmed) Active Current smoker(Confirmed) Active Cervical stenosis of spinal canal(Confirmed) Active 1Dx in 08/2018 upon psych eval
--- OUTSIDE RECORDS SUMMARY | 2023-06-04 11:59 | XMS_ITS | Continuity of Care Document ---
Author Name Unknown Organization [facility] Address [address] [place] [address], [address] [place] [address]- Care Team Providers Care Wire Harness Assembler Name Role Phone Tereso MILLER, Nicolette Mills Primary Care Physician [facility] Date(s): 01/12/22 - 02/11/22 [facility] [address] [place] [address] Drive, [address] [place], [place] [address] Allergies, Adverse Reactions, Alerts Substance [...] Given Patient Refuses 1Result Comment: DILUENT LOT#: [id number] EXP: 10/2022 MFG: FRESENSIUS 2Admin Note: vis [...] Refills, Maintenance, 12/25/21 13:17:00 EDT, Tablet, [id number], Partial fill upon patient request if the [...] Refills, Soft Stop, 12/17/21 9:21:00 EDT, Tablet, [facility]/pharmacy [...] 0 Refills, Maintenance, 11/09/21 13:28:00 EDT, Tablet, [facility]/pharmacy [...] 03/10/22 16:40:00 EST, 09/11/21 16:40:00 EDT, Tablet, [facility]/pharmacy #[id number], Partial fillupon patient request if [...] 12/02/21 Stop Date: 12/07/21 Status: Ordered Pen [place], 31 G x 5 mm BD Ultra [...] clavicle Confirmed Active Hypertension Confirmed 02/19/10 Active *[id number] Printer Repair Technician Claudette Saunders Confirmed Active Current smoker Confirmed Active Cervical stenosis of spinal canal Confirmed Active Urinary incontinence Confirmed Active 1Dx in 08/2018 upon psych eval Patient Care team information Personnel Name: Nicolette Rider NP Address: Address: [address] [place] [address]
--- OUTSIDE RECORDS SUMMARY | 2023-06-04 11:59 | XMS_ITS | Continuity of Care Document ---
Author Name Unknown Organization [facility] al Address [address] [place] [address]- Care Team Providers Care Communications Technologist Name Role Phone Tereso MILLER, Nicolette Mills Primary Care Physician Encounter [facility] Date(s): 04/16/22 - 04/16/[address] [address]- Encounter Diagnosis Type II diabetes mellitus with hyperosmolarity, uncontrolled(Final) - 04/16/22 Vaginal candidiasis(Final) - 04/16/22 Discharge Disposition: A-D/C Home Attending Physician: Leobardo Esteves MD Admitting Physician: Leobardo Esteves MD Referring Physician: Not on Staff, Referring [...] Given Patient Refuses 1Result Comment: DILUENT LOT#: [id number] EXP: 10/2022 MFG: FRESENSIUS 2Admin Note: vis 3Admin Note: VIS GIVEN 4Admin Note: vis 08/16/08 5Admin Note: vis 03/20/08 6Admin Note: vis given 7Admin Note: VIS Medications acetaminophen 500 mg oral tablet 2 tablet = 1,000 mg, By Mouth, 4 times a day, PRN for pain, # 100 tablet, 0 Refills, Maintenance, 07/17/21 10:31:00 EDT, Tablet, [facility]/pharmacy #[id number], [...] 0 Refills, Maintenance, 04/06/22 9:51:00 EST, Tablet, [facility] 3, Partial fill upon patient request [...] 5 Refills, Maintenance, 03/12/22 21:19:00 EST, Tablet, [facility]/pharmacy #[id number], Please allow for early refill [...] 0 Refills, Maintenance, 03/10/22 16:40:00 EST, Tablet, [facility]/pharmacy #[id number], Please allow for early refill [...] 60 tablet, 5 Refills, 02/04/22 11:40:00 EDT, [facility]/pharmacy #[id number], Please allow for early refill as last her pills were dropped in water, 155, cm, 12/02/21 16:59:00EDT, Height, 48, kg, 10/27/20 14:35:00 EDT, Dry We... Start Date: 02/04/22 Status: Ordered Metoprolol Succinate ER 100 mg oral tablet, extended release 1 tablet, By Mouth, Daily, # 90 tablet, 3 Refills, Maintenance, 12/15/21 8:39:00 EDT, [facility]/pharmacy #[id number], 155, cm, 12/02/21 16:59:00 EDT, Height, 48, kg, 10/27/20 14:35:00 EDT, Dry Weight Start Date: 12/15/21 Stop Date: 12/10/22 Status: Ordered Monistat-1 Day or Night 1200 mg-2% vaginal kit 1 supp, Vaginally, Daily at bedtime, for 1 days, Use the cream in the kit for the itching and rash around the perineum, # 1 supp, 0 Refills, Acute 04/17/22 14:01:00 EST, 04/16/22 14:01:00 EST, [facility]/pharmacy #[id number], Partial fill upon patient request if t... Start Date: 04/16/22 Stop Date: 04/17/22 Status: Ordered omeprazole 20 mg oral enteric coated capsule 1 capsule = 20 mg, By Mouth, Daily, # 14 capsule, 0 Refills, Maintenance, 12/02/21 18:07:00 EDT, ECCapsule, [facility]/pharmacy #[id number], Partial fill upon patient request [...] Replace Required Details, Route to Pharmacy Electronically, [facility]... Start Date: 04/06/22 Status: Ordered Pen [place], 31 G x 5 mm BD Ultra [...] Stop 08/11/22 11:04:00 EDT, 02/12/22 11:04:00 EDT, 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 Active Current smoker Confirmed Active Cervical stenosis of spinal canal Confirmed Active Urinary incontinence Confirmed Active 1Dx in 08/2018 upon psych eval Results Orders for Microbiology Reports Name Date Wet Prep 04/16/22 Microbiology Reports TEST:Wet Prep STATUS:Auth (Verified) BODY SITE: SOURCE:VAGINA COLLECTED DATE/TIME:04/16/22 1:53 PM Wet Prep SPECIMEN DESCRIPTION : VAGINAL SPECIMEN SPECIAL REQUESTS : NONE DIRECT EXAM : NO TRICHOMONAS,YEAST,OR CLUE CELLS OBSERVED 1+ WHITE BLOOD CELLS REPORT STATUS : FINAL 04/16/2022 Vital Signs Most recent to oldest [Reference Range]: 1 2 Height 146 cm (04/16/22 12:46 PM) Weight 50 kg (04/16/22 12:46 PM) Oxygen Saturation [94-100 %] 100 % (04/16/22 2:20 PM) 100 % (04/16/22 12:41 PM) Pulse Rate [55-90 bpm] 84 bpm (04/16/22 2:20 PM) 86 bpm (04/16/22 12:41 PM) Blood Pressure [90-138/55-84 mm Hg] 138/ 63mm Hg (04/16/22 2:20 PM) 131/62mm Hg (04/16/22 12:41 PM) Respiratory Rate [16-30 br/min] 16 br/mi n (04/16/22 2:20 PM) 18 br/min (04/16/22 12:41 PM) Temperature [96.8-100.4 DegF] 98.6 DegF (04/16/22 12:41 PM) Mode of Delivery (Oxygen) Room air (04/16/22 2:20 PM) Room air (04/16/22 12:41 PM) Blood pressure sites Arm, left (04/16/22 2:20 PM) Arm, right (04/16/22 12:41 PM) Temperature Route Oral (04/16/22 12:41 PM) Dry Weight 50 kg (04/16/22 12:46 PM) Weight Obtained Via Patient/family state d (04/16/22 12:46 PM) Dry Weight Obtained Via Patient/family s tated (04/16/22 12:46 PM) Note * Omid MILLER, Ekaterina WH: PERFORM Event Display: Patient Education Leaflets Authored Date: Yeast Infection, Vaginal (Marylou Vaginal Infection) ?? [id number] Infecci??n vaginal por c??ndida [Marylou Vaginal Infection] Usted tiene philip infecci??n vaginal por c??ndida. Tambi??n se conoce joleen philip infecci??n por levadura. Por lo general es causada por un tipo de levadura (hongo) llamada c??ndida. La c??ndida se encuentra normalmente en la vagina, natalie si aumenta chavez n??beena, esto puede llevar a philip infecci??n y provocar s??ntomas. Los s??ntomas de philip infecci??n por c??ndida (candidiasis) pueden incluir: ??? Flujo blanquecino, grumoso o hawa, que puede parecerse al reques??n ??? Picaz??n o ardor ??? Ardor al orinar Ciertos factores pueden hacer que la infecci??n por c??ndida sea m??s probable. Estos pueden incluir: ??? Dana ciertos medicamentos, joleen antibi??ticos o p??ldoras anticonceptivas ??? Embarazo ??? Diabetes ??? Sistema inmunitario debilitado Por lo general la infecci??n por c??ndida se trata con medicamentos antimic??ticos (contra los hongos). Estos pueden ser en forma de crema vaginal o pastilla que brent oralmente. El tratamiento puede durar de 1 a 7 d??as. Las mujeres con infecciones graves o recurrentes necesitan cursos m??s prolongados de tratamiento. Cuidados en el hogar ??? Si le recetaron medicamentos, aseg??rese de tomarlos joleen le indicaron. Termine todo chavez medicamento incluso si flores s??ntomas desaparecen. Nota: No se trate usted misma con productos de venta sin receta si hablar ante con chavez proveedor, quien le dir?? si esta es philip buena opci??n para usted. ??? P reg??ntele a chavez proveedor qu?? medidas puede dana para reducir el riesgo de tener philip infecci??n por c??ndida en el futuro. Cuidados de seguimiento Gia un seguimiento con chavez proveedor de atenci??n m??dica o joleen le indiquen. Cu??ndo buscar consejo m??dico Llame a chavez proveedor de atenci??n m??dica si algo de lo siguiente ocurre: ??? Fiebre de 100.4??F (38??C) o m??s guerrero, o joleen le haya indicado chavez proveedor de atenci??n m??dica. ??? Flores s??ntomas empeoran o no desaparecen a los pocos d??as de iniciar el tratamiento. ??? Tiene un dolor nuevo en la parte baja del est??benito o en la charleen??n p??lvica. ??? Tiene efectos secundarios que le molestan o philip reacci??n a la crema o a las pastillas que le recetaron. ??? Usted o chavez(s) macy(s) sexual(es) tiene(n) nuevos s??ntomas, joleen un salpullido, dolor en las articulaciones o llagas. ?? Last Reviewed Date: 2017 ?? [id number] [employer]. Todos los derechos reservados. Esta informaci??n no pretende sustituir la atenci??n m??dica profesional. S??lo chavez m??dico puede diagnosticar y tratar un problema de ivanna. ?? Patient Care team information Care Team Personnel Name: Nicolette Rider NP Position: [facility] Associate Professional Member Role: PCP Address: Address: [address] [place] [address]- [place] Name: Neelam Garvey RN Position: [facility] RN Member Role: Primary Care Nurse Name: Jo Quick RN Position: [facility] RN Member Role: Primary Care Nurse Name: La Mares RN Position: [facility] RN Member Role: Primary Care Nurse Name: Cherie Vaughan RN Position: [facility] RN Member Role: Primary Care Nurse Name: Torsten Gay RN Position: [facility] RN Member Role: Primary Care Nurse Address: Address: [address] [place] [address]- [place] Name: Ekaterina Anne NP Position: [facility] Associate Professional Member Role: Nurse Practitioner Address: Address: [address] [place] [address] [place] [address]- [place] Name: Radha Matos Position: [facility] ED OA Member Role: Air Control Electronics Operator Name: Leobardo Esteves MD Position: [facility] ED Medicine MD Member Role: Admitting Physician Address: Address: [address] [place] [address] Department [place] [address]- [place] Name: Zena Burgos RN Position: [facility] ED RN W/OE and Tasks Member Role: Patient Care Provider Care Team Related Persons Name: AMMON CUELLAR Address: home [address] [place] [address] Name: FAISAL GILLESPIE Address: home [address] [place] [address] Name: AMMON PIERRE Address: home [address] [address]
--- OUTSIDE RECORDS SUMMARY | 2023-06-04 11:59 | XMS_ITS | Continuity of Care Document ---
Author Name Unknown Organization [facility] Address [address] [place] [address]- Care Team Providers Care Hospice Music Therapist Name Role Phone Tereso MILLER, Nicolette Mills Primary Care Physician [phone] [place] [facility] [place]/21/23 - 02/20/[address] [address]- Allergies, Adverse Reactions, Alerts Substance Reaction Severity [...] 7 02/18/10 Given 1Result Comment: DILUENT LOT#: [id number] EXP: 10/2022 MFG: FRESENSIUS 2Admin Note: vis [...] Refills, Maintenance, 02/09/23 11:58:00 EDT, Capsule, [id number], to replace amlodipine, benazepril, ramipril., 1 capsule [...] 3 Refills, Maintenance, 11/23/22 13:00:00 EDT, Gel, [facility]/pharmacy #[id number], Partial fill upon patient [...] capsule, 1 Refills, Maintenance, 01/12/23 12:16:00 EDT, [facility]/pharmacy #[id number], 146, cm, 01/12/23 11:33:00 [...] Maintenance,01/12/23 12:17:00 EDT, Route to Pharmacy Electronically, [facility]/pharmacy #[id number], 146, cm, 01/12/23 11:33:00 EDT, Height, 50, kg, 04/16/22 12:46:00 EST, Dry... Start Date: 01/12/23 Stop Date: 07/11/23 Status: Ordered Lantus Solostar Pen 100 units/mL subcutaneous solution = 24 units, Subcutaneous Injection, Daily, Adjust dose as recommended weekly by RN per protocol. Dispense 3 pens per month, # 15 mL, 3 Refills, Maintenance, 02/09/23 12:19:00 EDT, [facility]/pharmacy #[id number],146, cm, 02/09/23 11:42:00 EDT, Height, 50, kg, 12... Start Date: 02/09/23 Stop Date: 02/04/24 Status: Ordered methocarbamol 750 mg oral tablet 1 tablet = 750 mg, By Mouth, 3 times a day, PRN Pain , Moderate, Take only as needed for muscle spasms and pain., # 90 tablet, 3 Refills, Maintenance, 02/09/23 12:40:00 EDT, [facility]/pharmacy #[id number], 146, cm, 02/09/23 11:42:00 EDT, Height, 50, kg, 04/16/22... 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 Current smoker Confirmed Active Cervical stenosis of spinal canal Confirmed Active Subclinical hyperthyroidism Confirmed Active Thyroid nodule - TIRADS 4, follow up US due 05/01/2023 Confirmed Active Urinary incontinence Confirmed Active 1Dx in 08/2018 upon psych eval Social History Social History Type Response Sex Female Patient Care team information Care Team Personnel Name: Nicolette Rider NP Position: [facility] Associate Professional Member Role: PCP Address: Address: [address] [place] [address]- Name: Neelam Garvey RN Position: S RN Member Role: Primary Care Nurse Name: Jo Quick RN Position: S RN Member Role: Primary Care Nurse Name: La Mares RN Position: S RN Member Role: Primary Care Nurse Name: Cherie Vaughan RN Position: S RN Member Role: Primary Care Nurse Name: Torsten Gay RN Position: S RN Member Role: Primary Care Nurse Address: Address: [address] [place] [address]- Care Team Related Persons Name: AMMON CUELLAR Address: home [address] [place] [address] Name: FAISAL GILLESPIE Address: home [address] [place] [address] Name: AMMON PIERRE Address: home [address] [address]
--- OUTSIDE RECORDS SUMMARY | 2023-06-04 11:59 | XMS_ITS | Continuity of Care Document ---
Author Name Unknown Organization [facility] Address [address] [place] [address]- Care Team Providers Care Composing Room Machinist Name Role Phone Tereso MILLER, Nicolette Mills Primary Care Physician Encounter [facility] ACCT R [id number] Date(s): 04/21/19 - 05/01/[address] [address]- [facility] Attending Physician: Dai Clark Admitting [...] 03/16/19 14:34:47 EST, Route to Pharmacy Electronically, [id number], [facility]/pharmacy #[id number] Start Date: 03/16/19 Stop Date: [...] Once, PRN as needed for fever, lot [id number] EXP 05/2018, # 2 capsule, 0 Refills, Maintenance, 03/07/18 17:28:48 EST, Capsule Start Date: 03/07/18 Stop Date: 03/07/18 Status: Ordered Voltaren 1% topical gel 1 application, Topically, 4 times a day, PRN Pain , Mild, # 100 Gm, 0 Refills, Maintenance, 04/21/19 13:41:00 EST, Gel, [facility]/pharmacy #[id number], 1 application Topically 4 times a day,PRN:Pain , Mild, 151,cm, 04/21/19 13:19:00 EST, Height, 44.5, kg, 12/24/... Start Date: 04/21/19 Status: Ordered Problem List Condition Effective Dates Status Health Status Inform ant Adjustment disorder with anxiety(Confirmed) 1 Active Breast mass, right(Confirmed) Active Cervical radiculopathy(Confirmed) Active Diabetes Mellitus(Confirmed) 02/19/10 Active Hypertension(Confirmed) 02/19/10 Active *[phone]-Probation And Parole Officer-Jose E Cotto(Confirmed) Active Current smoker(Confirmed) Active 1Dx in 08/2018 upon psych eval
--- OUTSIDE RECORDS SUMMARY | 2023-06-04 11:59 | XMS_ITS | Continuity of Care Document ---
Author Name Unknown Organization [facility] Address [address] [place] [address]- Care Team Providers Care Road Grader Operator Name Role Phone Nicolette Rider NP Primary Care Physician Encounter [facility] Date(s): 03/12/22 - 04/11/[address] [address]- Allergies, Adverse Reactions, Alerts Substance Reaction Severity [...] Given Patient Refuses 1Result Comment: DILUENT LOT#: [id number] EXP: 10/2022 MFG: FRESENSIUS 2Admin Note: vis 3Admin Note: VIS GIVEN 4Admin Note: vis 08/16/08 5Admin Note: vis 03/20/08 6Admin Note: vis given 7Admin Note: VIS Medications acetaminophen 500 mg oral tablet 2 tablet = 1,000 mg, By Mouth, 4 times a day, PRN for pain, # 100 tablet, 0 Refills, Maintenance, 07/17/21 10:31:00 EDT, Tablet, [facility]/pharmacy #[id number], Partial fill upon patient request [...] 0 Refills, Maintenance, 04/06/22 9:51:00 EST, Tablet, [facility], Partial fill upon patient request [...] Refills, Maintenance, 03/12/22 21:19:00 EST, Tablet, [facility]/pharmacy #[id number], Please allow for early refill [...] Refills, Maintenance, 03/10/22 16:40:00 EST, Tablet, [facility]/pharmacy #[id number], Please allow for early refill [...] tablet, 5 Refills, 02/04/22 11:40:00 EDT, [facility]/pharmacy #[id number], Please allow for early refill as last her pills were dropped in water, 155, cm, 12/02/21 16:59:00EDT, Height, 48, kg, 10/27/20 14:35:00 EDT, Dry We... Start Date: 02/04/22 Status: Ordered Metoprolol Succinate ER 100 mg oral tablet, extended release 1 tablet, By Mouth, Daily, # 90 tablet, 3 Refills, Maintenance, 12/15/21 8:39:00 EDT, [facility]/pharmacy #[id number], 155, cm, 12/02/21 16:59:00 EDT, Height, 48, kg, 10/27/20 14:35:00 EDT, Dry Weight Start Date: 12/15/21 Stop Date: 12/10/22 Status: Ordered omeprazole 20 mg oral enteric coated capsule 1 capsule = 20 mg, By Mouth, Daily, # 14 capsule, 0 Refills, Maintenance, 12/02/21 18:07:00 EDT, ECCapsule, [facility]/pharmacy #[id number], Partial fill upon patient request [...] Replace Required Details, Route to Pharmacy Electronically, [facility]... Start Date: 04/06/22 Status: Ordered Pen [place], 31 G x 5 mm BD Ultra [...] 08/11/22 11:04:00 EDT, 02/12/22 11:04:00 EDT, [facility]/pharmacy #[id number], Please allow for early refill as last [...] clavicle Confirmed Active Hypertension Confirmed 02/19/10 Active *[phone] Field Observer Claudette Saunders Confirmed Active Current smoker Confirmed Active Cervical stenosis of spinal canal Confirmed Active Urinary incontinence Confirmed Active 1Dx in 08/2018 upon psych eval Patient Care team information Care Team Personnel Name: Nicolette Rider NP Position: [facility] Associate Professional Member Role: PCP Address: Address: [address] [place] [address]- Name: Neelam Garvey RN Position: S RN Member Role: Primary Care Nurse Name: Jo Quick RN Position: S RN Member Role: Primary Care Nurse Name: La Mares RN Position: S RN Member Role: Primary Care Nurse Name: Cherie Vaughan RN Position: S RN Member Role: Primary Care Nurse Name: Torsten Gay RN Position: [facility] RN Member Role: Primary Care Nurse Address: Address: [address] [place] [address]- Care Team Related Persons Name: AMMON CUELLAR Address: home [address] [place] [address] Name: FAISAL GILLESPIE Address: home [address] [place] [address] Name: AMMON PIERRE Address: home [address] [address]
--- OUTSIDE RECORDS SUMMARY | 2023-06-04 11:59 | XMS_ITS | Continuity of Care Document ---
Author Name Unknown Organization [facility] Address [address] [place] [address]- Care Team Providers Care Dining Car Steward Name Role Phone Nicolette Rider NP Primary Care Physician En[place] [facility] [place]s): 04/22/22 - 06/07/[address] [address]- Attending Physician: Not on Staff, Attending MD [...] Given Patient Refuses 1Result Comment: DILUENT LOT#: [id number] EXP: 10/2022 MFG: FRESENSIUS 2Admin Note: vis [...] 5 Refills, Maintenance, 03/12/22 21:19:00 EST, Tablet, [facility]/pharmacy #[id number], Please allow for [...] 0 Refills, Maintenance, 03/10/22 16:40:00 EST, Tablet, [facility]/pharmacy #[id number], Please allow for early refill as last her pills were dropped in water; Partial fill upon patient... Start Date: 03/10/22 Stop Date: 04/09/22 Status: Ordered ibuprofen 600 mg oral tablet 600 mg, 1, tablet, By Mouth, 4 times a day, PRN, # 60 tablet, Refills 1, Tot. Refills 1, Maintenance, for pain, 05/21/22 11:57:00 EST, Route to Pharmacy Electronically, [facility]/pharmacy #[id number], Partial fill upon patient request if the prescription is for a... Start Date: 05/21/22 Status: Ordered metFORMIN 1000 mg oral tablet 1 tablet, By Mouth, 2 times a day, # 60 tablet, 5 Refills, 02/04/22 11:40:00 EDT, [facility]/pharmacy #[id number], Please allow for early refill as last her pills were dropped in water, 155, cm, 12/02/21 16:59:00EDT, Height, 48, kg, 10/27/20 14:35:00 EDT, Dry We... Start Date: 02/04/22 Status: Ordered Metoprolol Succinate ER 100 mg oral tablet, extended release 1 tablet, By Mouth, Daily, # 90 tablet, 3 Refills, Maintenance, 12/15/21 8:39:00 EDT, [facility]/pharmacy #[id number], 155, cm, 12/02/21 16:59:00 EDT, Height, 48, kg, 10/27/20 14:35:00 EDT, Dry Weight Start Date: 12/15/21 Stop Date: 12/10/22 Status: Ordered omeprazole 20 mg oral enteric coated capsule 1 capsule = 20 mg, By Mouth, Daily, # 14 capsule, 0 Refills, Maintenance, 12/02/21 18:07:00 EDT, ECCapsule, [facility]/pharmacy #[id number], Partial fill upon patient request if the prescription is for a schedule II opioid drug., 155, cm, 12/02/21 16:59:00 EDT, H... Start Date: 12/02/21 Stop Date: 12/16/21 Status: Ordered Pen [place], 31 G x 5 mm BD Ultra [...] Stop 08/11/22 11:04:00 EDT, 02/12/22 11:04:00 EDT, [facility]/pharmacy #[id number], Please allow for early refill as last [...] Status: Ordered tiZANidine 2 mg oral tablet 2 mg, 1, tablet, By Mouth, Every 8 hours, PRN, # 90 tablet, Refills 0, Tot. Refills 0, Maintenance,as needed for muscle spasm, 05/21/22 11:55:00 EST, Route to Pharmacy Electronically, [facility]/pharmacy #[id number], Partial fill upon patient request if the presc... Start Date: 05/21/22 Status: Ordered Walker See Instructions, # 1 [...] clavicle Confirmed Active Hypertension Confirmed 02/19/10 Active *[phone] Hot Walker Claudette Burnett Confirmed Active Current smoker Confirmed Active Cervical stenosis of spinal canal Confirmed Active Urinary incontinence Confirmed Active 1Dx in 08/2018 upon psych eval Patient Care team information Care Team Personnel Name: Nicolette Rider NP Position: [facility] Associate Professional Member Role: PCP Address: Address: [address] [place] [address]- Name: Neelam Garvey RN Position: S RN Member Role: Primary Care Nurse Name: Jo Quick RN Position: S RN Member Role: Primary Care Nurse Name: La Mares RN Position: S RN Member Role: Primary Care Nurse Name: Cherie Vaughan RN Position: S RN Member Role: Primary Care Nurse Name: Torsten Gay RN Position: S RN Member Role: Primary Care Nurse Address: Address: [address] [place] [address]- Care Team Related Persons Name: AMMON CUELLAR Address: home [address] [place] [address] Name: FAISAL GILLESPIE Address: home [address] [place] [address] Name: AMMON PIERRE Address: home [address] [address]
--- OUTSIDE RECORDS SUMMARY | 2023-06-04 11:59 | XMS_ITS | Continuity of Care Document ---
Author Name Unknown Organization [facility] Address [address] [place] [address] nhi, [address] [place] [address]- Care Team Providers Care Licensed Esthetician Name Role Phone Tereso MILLER, Nicolette Mills Primary Care Physician [phone] Encounter [facility] Date(s): 04/24/22 - 05/24/22 [facility] [address] [place] [address] Drive, [address] [place] [address]- Allergies, Adverse Reactions, Alerts Substance Reaction Severity [...] Given Patient Refuses 1Result Comment: DILUENT LOT#: [id number] EXP: 10/2022 MFG: FRESENSIUS 2Admin Note: vis [...] 5 Refills, Maintenance, 03/12/22 21:19:00 EST, Tablet, [facility]/pharmacy #[id number], Please allow for early refill as [...] 0 Refills, Maintenance, 03/10/22 16:40:00 EST, Tablet, [facility]/pharmacy #[id number], Please allow for early refill as last her pills were dropped in water; Partial fill upon patient... Start Date: 03/10/22 Stop Date: 04/09/22 Status: Ordered ibuprofen 600 mg oral tablet 600 mg, 1, tablet, By Mouth, 4 times a day, PRN, # 60 tablet, Refills 1, Tot. Refills 1, Maintenance, for pain, 05/21/22 11:57:00 EST, Route to Pharmacy Electronically, [facility]/pharmacy #[id number], Partial fill upon patient request if the prescription is for a... Start Date: 05/21/22 Status: Ordered metFORMIN 1000 mg oral tablet 1 tablet, By Mouth, 2 times a day, # 60 tablet, 5 Refills, 02/04/22 11:40:00 EDT, [facility]/pharmacy #[id number], Please allow for early refill as last her pills were dropped in water, 155, cm, 12/02/21 16:59:00EDT, Height, 48, kg, 10/27/20 14:35:00 EDT, Dry We... Start Date: 02/04/22 Status: Ordered Metoprolol Succinate ER 100 mg oral tablet, extended release 1 tablet, By Mouth, Daily, # 90 tablet, 3 Refills, Maintenance, 12/15/21 8:39:00 EDT, [facility]/pharmacy #[id number], 155, cm, 12/02/21 16:59:00 EDT, Height, 48, kg, 10/27/20 14:35:00 EDT, Dry Weight Start Date: 12/15/21 Stop Date: 12/10/22 Status: Ordered omeprazole 20 mg oral enteric coated capsule 1 capsule = 20 mg, By Mouth, Daily, # 14 capsule, 0 Refills, Maintenance, 12/02/21 18:07:00 EDT, ECCapsule, [facility]/pharmacy #[id number], Partial fill upon patient request if the prescription is for a schedule II opioid drug., 155, cm, 12/02/21 16:59:00 EDT, H... 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 Current smoker Confirmed Active Cervical stenosis of spinal canal Confirmed Active Urinary incontinence Confirmed Active 1Dx in 08/2018 upon psych eval Patient Care team information Care Team Personnel Name: Nicolette Rider NP Position: [facility] Associate Professional Member Role: PCP Address: Address: [address] [place] [address]- Name: Neelam Garvey RN Position: S RN Member Role: Primary Care Nurse Name: Jo Quick RN Position: S RN Member Role: Primary Care Nurse Name: La Mares RN Position: S RN Member Role: Primary Care Nurse Name: Cherie Vaughan RN Position: S RN Member Role: Primary Care Nurse Name: Torsten Gay RN Position: S RN Member Role: Primary Care Nurse Address: Address: [address] [place] [address]- Care Team Related Persons Name: AMMON CUELLAR Address: home [address] [place] [address] Name: FAISAL GILLESPIE Address: home [address] [place] [address] Name: AMMON PIERRE Address: home [address] [address]
--- OUTSIDE RECORDS SUMMARY | 2023-06-04 11:59 | XMS_ITS | Continuity of Care Document ---
Author Name Unknown Organization [facility] Address [address] [place] [address]- Care Team Providers Care Acute Dialysis Registered Nurse Name Role Phone Tereso MILLER, Nicolette Mills Primary Care Physician Encounter [facility] [id number] Date(s): 04/21/23 - 05/21/[address] [address]- Attending Physician: Dai Clark Admitting Physician: Dai Clark Referring Physician: Dai Clark Allergies, Adverse Reactions, Alerts Substance Reaction Severity [...] acel(Tdap) 12/08/11 Given Pneumovax 23 (oldterm) 4 4/20/12 Given tetanus-diphtheria toxoids (Td) 5 08/21/11 Given FluLaval (oldterm) 6 01/26/11 Given Influenza Inactive (IM) (oldterm) 7 02/18/10 Given 1Result Comment: DILUENT LOT#: [id number] EXP: 10/2022 MFG: FRESENSIUS 2Admin Note: vis 3Admin Note: VIS GIVEN 4Admin Note: vis 08/16/08 5Admin Note: vis 03/20/08 6Admin Note: vis given 7Admin Note: VIS Medications acetaminophen 500 mg oral tablet 2 tablet = 1,000 mg, By Mouth, 4 times a day, PRN for pain, # 100 tablet, 0 Refills, Maintenance, 07/17/21 10:31:00 EDT, Tablet, [facility]/pharmacy #[id number], Partial fill upon patient request [...] Refills, Maintenance, 02/09/23 11:58:00 EDT, Capsule, [id number], to replace amlodipine, benazepril, ramipril., 1 capsule [...] capsule, 3 Refills, Maintenance, 04/09/23 13:32:00 EST, [id number], Partial fill upon patient [...] tablet, 0 Refills, Maintenance, 05/07/23 14:28:00 EST, [facility] STORE [id number], 146, cm, 04/09/23 12:58:00 EST, Height, 50, kg, 04/16/22 12:46:00 EST, Dry Weight Start Date: 05/07/23 Status: Ordered Lantus Solostar Pen 100 units/mL subcutaneous solution = 20 units, Subcutaneous Injection, Daily, Adjust dose as recommended weekly by RN per protocol. Dispense 3 pens per month, # 15 mL, 3 Refills, Maintenance, 02/09/23 12:19:00 EDT, [facility]/pharmacy #[id number],146, cm, 02/09/23 11:42:00 EDT, Height, 50, kg, 12... Start Date: 02/09/23 Stop Date: 02/04/24 Status: Ordered metFORMIN 500 mg/5 mL oral solution 5 mL = 500 mg, By Mouth, 2 times a day, # 300 mL, 4 Refills, Maintenance, 05/20/23 15:46:00 EST, Solution, [facility]/pharmacy #[id number], Partial fill upon patient request if the prescription is for a schedule II opioid drug., 146, cm, 05/20/23 14:43:00 EST, Hei... Start Date: 05/20/23 Status: Ordered Metoprolol Succinate ER 100 mg oral tablet, extended release 1 tablet, By Mouth, Daily, # 90 tablet, 1 Refills, Maintenance, 12/27/22 10:31:00 EDT, [facility]/pharmacy#[id number], 146, cm, 12/04/22 11:11:00 EDT, Height, [...] 05/21/23 Stop Date: 11/17/23 Status: Ordered Pen [place], 31 G x 5 mm BD Ultra [...] 3 Refills, Maintenance, 03/24/23 8:41:00 EST, Tablet, [facility]/pharmacy #[id number], Partial fill upon patient request if the [...] mL, 5 Refills, Maintenance, 05/20/23 15:46:00 EST, [id number], Partial fill upon patient [...] clavicle Confirmed Active Hypertension Confirmed 02/19/10 Active *[id number] 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 Sex Female Consult note * Magalis Gomes: PERFORM Event Display: Consultation Note Authored Date: [id number] Note * Juan Colon: PERFORM Event Display: Discharge/Transfer Note Hospital Authored Date: [id number] Patient Care team information Care Team Personnel Name: Nicolette Rider NP Position: [facility] Associate Professional Member Role: PCP Address: Address: [address] [place] [address]- [place] Name: Neelam Garvey RN Position: S RN Member Role: Primary Care Nurse Name: Jo Quick RN Position: S RN Member Role: Primary Care Nurse Name: La Mares RN Position: S RN Member Role: Primary Care Nurse Name: Torsten Gay RN Position: [facility] RN Member Role: Primary Care Nurse Address: Address: [address] [place] [address]- Care Team Related Persons Name: AMMON CUELLAR Address: home [address] [place] [address] Name: FAISAL GILLESPIE Address: home [address] [place] [address] Name: AMMON PIERRE Address: home [address] [address]
--- OUTSIDE RECORDS SUMMARY | 2023-06-04 11:59 | XMS_ITS | Continuity of Care Document ---
Author Name Unknown Organization [facility] Address [address] [place] [address]- Care Team Providers Care Radar Operator Name Role Phone Tereso MILLER, Nicolette Mills Primary Care Physician [phone] [facility] Date[facility]s): 12/22/19 - 01/21/[address] [address]- [facility] Allergies, Adverse Reactions, Alerts Substance Reaction Severity [...] 0 Refills, Soft Stop, 10/02/19 8:52:00 EDT, [facility]/pharmacy #[id number], 151, cm, 06/12/19 9:50:00 [...] tablet, By Mouth, Daily, # 90 tablet, 0 Refills, Maintenance, 12/22/19 9:06:00 EDT, [facility]/pharmacy #[id number], 157.48, cm, 10/31/19 7:51:00 EDT, Height, 44.5, kg, 12/24/18 9:18:00 EDT, Dry Weight Start Date: 12/22/19 Status: Ordered multivitamin Multiple Vitamins oral capsule [...] mg, By Mouth, Daily, # 90 capsule, 0 Refills, Maintenance, 12/22/19 9:06:00 EDT, Capsule, [id number], resent as a dup, 157.48, cm, 10/31/19 7:51:00 EDT, Height, 44.5, kg, 12/24/18 9:18:00 EDT, Dry Weight Start Date: 12/22/19 Stop Date: 03/21/20 Status: Ordered Right wrist splint Right wrist [...] Once, PRN as needed for fever, lot [id number] EXP 05/2018, # 2 capsule, 0 Refills, Maintenance, 03/07/18 17:28:48 EST, Capsule Start Date: 03/07/18 Stop Date: 03/07/18 Status: Ordered Problem List Condition Effective Dates Status Health Status Inform ant Adjustment disorder with anxiety(Confirmed) 1 Active Breast mass, right(Confirmed) Active Cervical radiculopathy(Confirmed) Active Diabetes Mellitus(Confirmed) 02/19/10 Active Hypertension(Confirmed) 02/19/10 Active *[id number]-Window Shade Cutter And Mounter-Jose E Cotto(Confirmed) Active Current smoker(Confirmed) Active 1Dx in 08/2018 upon psych eval
--- OUTSIDE RECORDS SUMMARY | 2023-06-04 11:59 | XMS_ITS | Continuity of Care Document ---
Author Name Unknown Organization [facility] Address [address] [place] [address] [address], [address] [place] [address]- Care Team Providers Care Heat Treating Bluer Name Role Phone Tereso MILLER, Nicoeltte Mills Primary Care Physician [phone] Encounter [facility] Date(s): 04/22/22 - 05/22/22 [facility] [address] [place] [address] Drive, [address] [place] [address]- Allergies, Adverse Reactions, Alerts Substance Reaction Severity [...] Given Patient Refuses 1Result Comment: DILUENT LOT#: [id number] EXP: 10/2022 MFG: FRESENSIUS 2Admin Note: vis [...] Refills, Maintenance, 03/12/22 21:19:00 EST, Tablet, [facility]/pharmacy #[id number], Please allow for early [...] Refills, Maintenance, 03/10/22 16:40:00 EST, Tablet, [facility]/pharmacy #[id number], Please allow for early refill as last her pills were dropped in water; Partial fill upon patient... Start Date: 03/10/22 Stop Date: 04/09/22 Status: Ordered ibuprofen 600 mg oral tablet 600 mg, 1, tablet, By Mouth, 4 times a day, PRN, # 60 tablet, Refills 1, Tot. Refills 1, Maintenance, for pain, 05/21/22 11:57:00 EST, Route to Pharmacy Electronically, [facility]/pharmacy #[id number], Partial fill upon patient request if the prescription is for a... Start Date: 05/21/22 Status: Ordered metFORMIN 1000 mg oral tablet 1 tablet, By Mouth, 2 times a day, # 60 tablet, 5 Refills, 02/04/22 11:40:00 EDT, [facility]/pharmacy #[id number], Please allow for early refill as last her pills were dropped in water, 155, cm, 12/02/21 16:59:00EDT, Height, 48, kg, 10/27/20 14:35:00 EDT, Dry We... Start Date: 02/04/22 Status: Ordered Metoprolol Succinate ER 100 mg oral tablet, extended release 1 tablet, By Mouth, Daily, # 90 tablet, 3 Refills, Maintenance, 12/15/21 8:39:00 EDT, [facility]/pharmacy #[id number], 155, cm, 12/02/21 16:59:00 EDT, Height, 48, kg, 10/27/20 14:35:00 EDT, Dry Weight Start Date: 12/15/21 Stop Date: 12/10/22 Status: Ordered omeprazole 20 mg oral enteric coated capsule 1 capsule = 20 mg, By Mouth, Daily, # 14 capsule, 0 Refills, Maintenance, 12/02/21 18:07:00 EDT, ECCapsule, [facility]/pharmacy #[id number], Partial fill upon patient request if the prescription is for a schedule II opioid drug., 155, cm, 12/02/21 16:59:00 EDT, H... 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 Current smoker Confirmed Active Cervical stenosis of spinal canal Confirmed Active Urinary incontinence Confirmed Active 1Dx in 08/2018 upon psych eval Patient Care team information Care Team Personnel Name: Nicolette Rider NP Position: [facility] Associate Professional Member Role: PCP Address: Address: [address] [place] [address]- Name: Neelam Garvey RN Position: S RN Member Role: Primary Care Nurse Name: Jo Quick RN Position: S RN Member Role: Primary Care Nurse Name: La Mares RN Position: S RN Member Role: Primary Care Nurse Name: Cherie Vaughan RN Position: S RN Member Role: Primary Care Nurse Name: Torsten Gay RN Position: S RN Member Role: Primary Care Nurse Address: Address: [address] [place] [address]- Care Team Related Persons Name: AMMON CUELLAR Address: home [address] [place] [address] Name: FAISAL GILLESPIE Address: home [address] [place] [address] Name: AMMON PIERRE Address: home [address] [address]
--- OUTSIDE RECORDS SUMMARY | 2023-06-04 11:59 | XMS_ITS | Continuity of Care Document ---
Author Name Unknown Organization [facility] ter Address [address] [place] [id number] Care Team Providers Care Harness Placer Name Role Phone Tereso MILLER, Nicolette Mills Primary Care Phys[place] [facility] [place] - 12/31/[address] [address]- Encounter Diagnosis Acute pancreatitis(Final) - 12/30/22 Discharge Disposition: A-D/C AMA Attending Physician: Jose Marion MD Admitting Physician: Elly Hall MD Referring Physician: Not on Staff, Referring [...] Vaccine (oldterm) 3 02/16/12 Given tetanus/diphtheria/pertussis, acel(Tdap) 8/7/12 Given Pneumovax 23 (oldterm) 4 08/21/11 Given tetanus-diphtheria toxoids (Td) 5 08/21/11 Given FluLaval (oldterm) 6 01/26/11 Given Influenza Inactive (IM) (oldterm) 7 02/18/10 Given 1Result Comment: DILUENT LOT#: [id number] EXP: 10/2022 MFG: FRESENSIUS 2Admin Note: vis [...] Refills, Maintenance, 09/01/22 11:12:00 EDT, [id number], 146, cm, 09/01/22 11:06:00 EDT, Height, 50, kg, 04/16/22 12:46:00 EST, Dry Weight Start Date: 09/01/22 Status: Ordered clotrimazole 1% topical cream See Instructions, APPLY EXTERNALLY TO THE VAGINAL AREA NEEDED FOR ITCH TWICE DAILY FOR YEAST INFECTION, # 60 Gm, 1 Refills, Maintenance, 12/23/22 21:53:00 EDT, [id number], 40, APPLY EXTERNALLY TO THE VAGINAL AREA [...] 3 Refills, Maintenance, 11/23/22 13:00:00 EDT, Gel, [facility]/pharmacy #[id number], Partial fill upon [...] EDT, Supply Start Date: 10/21/21 Status: Ordered glimepiride 4 mg oral tablet See Instructions, TAKE 1 TABLET BY MOUTH EVERY DAY WITH THE FIRST MEAL OF THE DAY, # 90 tablet, 1 Refills, Maintenance, 12/23/22 21:53:00 EDT, [id number], 146, cm, 12/04/22 11:11:00 EDT, Height,50, kg, 04/16/22 12:46:00 EST, Dry Weight Start Date: 12/23/22 Status: Ordered HYDROmorphone Inj 0.5 mg, Injection, IV Push Slowly, Once, STAT, 12/30/22 18:41:00 EDT, Stop date 12/30/22 18:41:00 EDT Start Date: 12/30/22 Stop Date: 12/30/22 Status: Completed ibuprofen 600 mg oral tablet 1, tablet, By Mouth, 4 times a day, PRN, # 60 tablet, Refills 1, Maintenance, NEEDED FOR PAIN, 11/18/22 11:25:00 EDT, Route to Pharmacy Electronically, [id number], 146, cm, 09/01/22 11:06:00 EDT, Height, 50, kg, 04/16/22 12:46:00 EST, Dry Weight Start Date: 11/18/22 Status: Ordered Jardiance 10 mg oral tablet 1 tablet, By Mouth, Daily in AM, # 30 tablet, 2 Refills, Maintenance, 09/29/22 12:59:00 EDT, [id number], 146, cm, 09/01/22 11:06:00 EDT, Height, 50, kg, 04/16/22 12:46:00 EST, Dry Weight Start Date: 09/29/22 Status: Ordered lisinopril 20 mg oral tablet 20 mg, Tablet, By Mouth, 12/31/22 9:00:00 EDT Start Date: 12/31/22 Stop Date: 12/31/22 Status: Completed metFORMIN 1000 mg oral tablet 1 tablet, By Mouth, 2 times a day, # 60 tablet, 5 Refills, 08/07/22 13:34:00 EDT, [facility]/pharmacy #[id number], Please allow for early refill as last her pills were dropped in water, 146, cm, 07/27/22 11:29:00EDT, Height, 50, kg, 04/16/22 12:46:00 EST, Dry We... Start Date: 08/07/22 Status: Ordered Metoprolol Succinate ER 100 mg oral tablet, extended release 100 mg, XL Tablet, By Mouth, 12/31/22 9:00:00 EDT Start Date: 12/31/22 Stop Date: 12/31/22 Status: Completed Metoprolol Succinate ER 100 mg oral tablet, extended release 1 tablet, By Mouth, Daily, # 90 tablet, 1 Refills, Maintenance, 12/27/22 10:31:00 EDT, [id number], 146, cm, 12/04/22 11:11:00 EDT, Height, 50, kg, 04/16/22 12:46:00 EST, Dry Weight Start Date: 12/27/22 Stop Date: 06/25/23 Status: Ordered omeprazole 20 mg oral enteric coated capsule 1 capsule = 20 mg, By Mouth, Daily, # 14 capsule, 0 Refills, Maintenance, 12/02/21 18:07:00 EDT, Har[place], [facility]/pharmacy #[id number], Partial fill upon patient request if the [...] Weight Start Date: 09/04/22 Status: Ordered Pen [place], 31 G x 5 mm BD Ultra [...] capsule, 0 Refills, Maintenance, 12/17/22 14:32:00 EDT, [id number], 146, cm, 12/04/22 11:11:00 EDT, Height, 50, [...] clavicle Confirmed Active Hypertension Confirmed 02/19/10 Active *[id number]-Kirby cherelle Montoya Confirmed Active Current smoker Confirmed Active Cervical stenosis of spinal canal Confirmed Active Subclinical hyperthyroidism Confirmed Active Thyroid nodule - TIRADS 4, follow up US due 05/01/2023 Confirmed Active Urinary incontinence Confirmed Active 1Dx in 08/2018 upon psych eval Results Radiology Reports * Exam Date Time Procedure Performing Provider Status 12/30/22 6:[address] Abdomen and Pelvi s W/O Contrast Jennifer Sally; Auth (Verified) Notes: (CT Abdomen and Pelvis W/O Contrast) Reason For Exam: Flank pain, kidney stone suspected;Other: RESULT: CT Abdomen and Pelvis W/O Contrast CT Abdomen and Pelvis W/O Contrast Hx of Present Illness: Pt reporting LLQ pain for two days w assoc. diarrhea. No nausea and vomitingat this time, abd soft but distended, reports of rigidity from UC; Reason: Other:; Flank pain, kidney stone suspected; diabetes. Clinical Question(s): Calculus; Left Side flank; Order Comment: TECHNIQUE: Spiral CT through the abdomen and pelvis without IV contrast formatted in 3 planes. Thisstudy was performed without oral contrast. Weight- based protocol using automatic tube modulation was used to optimize exposure parameters. CTDIvol Body: 6.56 mGy, DLP Body: 269 mGy*cm. COMPARISON: 12/24/2018 FINDINGS: Advertising Sales Manager View Findings, Lines and Tubes: None. Visualized Chest: Lung bases are clear. Stable pulmonary cyst or bleb in the base of the left lowerlobe. No pleural effusion. Diaphragm: Normal. Liver: Stable 1.9 cm cyst in the right hepatic lobe superiorly. Gallbladder: No CT evidence of gallbladder pathology. Bile ducts: No biliary ductal dilation. Spleen: Normal. Pancreas: Normal. Adrenal glands: Normal. Kidneys and ureters: No hydronephrosis, stones, or noncontrast evidence of suspicious masses. Bladder: Normal. Reproductive organs: Unremarkable. Stomach, small bowel, and large bowel: Normal. Appendix: Normal. Peritoneum and retroperitoneum: No ascites or pneumoperitoneum. No omental or mesenteric lesions. Lymph nodes: No enlarged lymph nodes. Blood vessels: Normal. No aneurysm. Abdominal and pelvic wall: Unremarkable. Bones: No acute abnormality. IMPRESSION: No acute abnormality in the abdomen and pelvis. Stable 1.9 cm hepatic cyst. WSN: [id number] Ordering Physician: Crow Livingston Dictated By: Jeremias Ledbetter MD Dictated Date/Time: 12/30/22 6:34 pm Reviewed By: Jeremias Ledbetter MD Signed By: Jeremias Ledbetter MD Signed Date/Time: 12/30/22 6:34 pm Transcribed By: LUTHER Transcribed Date/Time: 12/30/22 6:23 pm Vital Signs Most recent to oldest [Reference Range]: 1 2 3 Oxygen Saturation [94-100 %] 100 % (12/31/22 4:44 AM) 99 % (12/30/22 8:43 PM) 97 % (12/30/22 3:59 PM) Pulse Rate [55-90 bpm] 80 bpm (12/31/22 9:09 AM) 100 bpm *H* (12/31/22 4:44 AM) 68 bpm (12/30/22 8:43 PM) Blood Pressure [90-138/55-84 mm Hg] 0/0mm Hg *L* (12/31/22 9:08 AM) 120/87mm Hg (12/31/22 4:44 AM) 134/89mm Hg (12/30/22 8:43 PM) Respiratory Rate [16-30 br/min] 16 br/min (12/31/22 4:44 AM) 16 br/min (12/30/22 8:43 PM) 18 br/min (12/30/22 6:49 PM) Temperature [96.8-100.4 DegF] 98.6 DegF (12/30/22 8:43 PM) 98.6 DegF (12/30/22 3:59 PM) Mode of Delivery (Oxygen) Room air (12/31/22 4:44 AM) Room air (12/30/22 8:43 PM) Room air (12/30/22 3:59 PM) Blood pressure sites Arm, right (12/31/22 4:44 AM) Arm, right (12/30/22 8:43 PM) Arm, left (12/30/22 3:59 PM) Temperature Route Oral (12/30/22 8:43 PM) Oral (12/30/22 3:59 PM) Social History Social History Type Response Sex Female Admission evaluation note * Vale KEITH, Mariana: PERFORM, MODIFY Event Display: Admission Note Authored Date: [id number] Patient: ??ALISATELLO ? Age:??72 Years?Sex:??Female?:??1950?? Chief Complaint/Reason for Consultation coming from urgent care, c/o sudden onset LLQ/L flank pain x2 days, abd distention/rigidity noted, +diarrhea, History of Present Illness 72 year old female with pertinent history of hypertension, Type II DM referred here by urgent care for complaints??of left-sided abdominal pain radiating to the flank. ?? Patient reports??that since 2 days??she had acute onset of sharp Left-sided abdominal pain??radiating to the back?? 20/10 in intensity, not associated with nausea/vomiting. Pain did not relieve after taking couple of doses of tylenol. Appetite is reduced due to the pain. Does not report unintentional weight loss. Reports that??she had one episode of diarrhea??2 days ago,??after which she had a normal bowel movement??on 12/29/2022.?? She is passing flatus??and??did not have any??bowel movements after that. She does report a vague history??of right upper quadrant discomfort after eating??a fatty meal. Not report dyspnea,??abdominal distention. No previous episodes of pancreatitis. ?? Does not report of excessive alcohol use, quit smoking many years ago, does report smoking marijuana daily, no other recreational drug use. ?? No family history significant for pancreatitis, or GI disorders/cancers. ?? ER Course Vitals unremarkable. Labs significant for Sodium of 132,??Bicarb of 18, glucose level of 332, lipase of 515, liver function test unremarkable.?? Lipid panel was significant for cholesterol of 252, triglyceride of 222. CT abdomen and pelvis without contrast was significant for stable 1.9 cm cyst in the right hepatic lobe superiorly.?? No CT evidence of gallbladder pathology.?? No biliary ductal dilation no hydronephrosis, stones, noncontrast evidence of suspicious masses. Patient received Tylenol 975 mg, Dilaudid 0.5 mg and 1 L of LR bolus. Review of Systems All other systems were reviewed and are negative except for the ones mentioned above. Objective ? Vital Signs?? Temperature: 98.6 DegF (12/30/22 20:43:00) Temperature Route: Oral (12/30/22 20:43:00) Pulse Rate: 68 bpm (12/30/22 20:43:00) Respiratory Rate: 16 br/min (12/30/22 20:43:00) Systolic Blood Pressure: 134 mm Hg (12/30/22 20:43:00) Diastolic Blood Pressure:??89 mm Hg??High (12/30/22 20:43:00) Blood pressure sites: Arm, right (12/30/22 20:43:00) Mean Arterial Pressure: 88 mm Hg (12/30/22 15:59:00) Pulse Pressure: 45 mm Hg (12/30/22 20:43:00) Oxygen Saturation: 99 % (12/30/22 20:43:00) Mode of Delivery (Oxygen): Room air (12/30/22 20:43:00) Early Warning Score: 1 (12/30/22 21:57:10 ?? Physical Exam General:??Alert, in no acute cardiopulmonary distress.?? Clinically hypovolemic Mental Status:??Oriented to person, place and time. Normal affect. Eyes:??No jaundice Respiratory:??Clear to auscultation. No wheezing, rales or rhonchi. Cardiovascular:??Regular rate and rhythm, no murmurs, rubs or gallops. No lower extremity edema. Gastrointestinal:??Abdomen soft, epigastric tenderness??and left flank tenderness.?? Nondistended Neurologic:??No Focal neurological deficits Musculoskeletal:??No gross deformities, normal range of motion. Assessment/Plan This is a 72-year-old??female with pertinent history of uncontrolled??type 2 diabetes, hypertension??presented with??left-sided abdominal pain radiating to the back??with epigastric tenderness on examination??and lipase level of more than twice the upper limit of normal??admitted here??for further evaluation and management of acute pancreatitis of unknown cause. ?? Mild acute pancreatitis Patient meets??2 out of the 3??revised Mable??criteria for??acute pancreatitis with epigastric tenderness on examination??and??elevation of serum lipase??to 3 times the normal level. We have ruled out the most common causes??like gallstones, alcohol, familial, medication induced, hypertriglyceridemia.?? It could likely be idiopathic in nature. ?? Plan: -As per the waterfall trial??we will start the patient on 1.5 mL/kg of LR??which is 75 cc. -We will start on clear liquid diet,??can??upgrade as patient tolerates it. -Pain managment with dialaudid ?? Uncontrolled type 2 diabetes A1c of 12.8.?? Patient is on??Jardiance 10 mg, glimepiride 4 mg, metformin??1000 mg twice daily. ?? Plan: -We will hold oral antidiabetic medications-metformin and glimepiride. -Continue Jardiance 10 mg??daily -Outpatient PCP follow-up for strict??antidiabetic regimen -We will place the patient on lispro sliding scale ?? Chronic stable medical conditions Hypertension:??On ramipril 5 mg??at home we will substitute this with lisinopril 20 mg??in the hospital. Continue metoprolol 100mg daily GERD: On omeprazole at home, will start protonix 40mg daily ?? Quality measures VTE prophylaxis:??Enoxaparin 40 mg??daily Diet: Clear liquid diet CODE STATUS: Full code-reviewed with patient Disposition:??Resolution of abdominal pain and further work-up??if the pain continues. ??She lives at home??with her grandson and is independent of daily living activities. ?? Plan and care discussed with attending Dr Ayala ?? Mariana Bell PGY-2 Internal Medicine Resident ?? Histories Past Medical History/Problem List Active Problems??(14) *[id number]-Codi Montoya Acute pancreatitis Adjustment disorder with anxiety Breast mass, right Cervical radiculopathy Cervical stenosis of spinal canal Chronic left shoulder pain Diabetes Mellitus Hx of fracture of clavicle Hypertension Subclinical hyperthyroidism Thyroid nodule - TIRADS 4, follow up US due 05/01/2023 Urinary incontinence ? Past Surgical History No surgery history documented. ? Social History Alcohol Details:??Use: Past. ??Frequency: 1-2 times per week. ??Other: Stopped when she started duloxetine 07/2018. Exercise Details:??Regular exercise: No. Sexual Details:??Other contraceptive use: post menopausal. Substance Abuse Details:??Type: Marijuana. ? Family History Mother (): Diabetes mellitus type II Sister: Cancer of bladder ? 15-FEB-2016 04:31:48<$> ? Medications Home Medications Acetaminophen (acetaminophen 500 mg oral tablet)?2?tab(s)?1,000?Milligram?By Mouth?4 times a day?as needed?for pain Capsaicin Topical (capsaicin 0.025% topical cream)?1?michelle?Topically?3 times a day?as needed?Pain , Moderate Cetirizine (cetirizine 10 mg oral tablet)?1?tab(s)?By Mouth?Daily Clotrimazole Topical (clotrimazole 1% topical cream)?See Instructions?APPLY EXTERNALLY TO THEVAGINAL AREA NEEDED FOR ITCH TWICE DAILY FOR YEAST INFECTION Diclofenac Topical (diclofenac 1% topical gel)?2?gram?Topically?4 times a day?as needed?Pain , Moderate Durable Medical Equipment (Alcohol Pads)?See Instructions?Use to check blood sugar twice daily for type 2 diabetes E11.65 Durable Medical Equipment (Pen [place], 31 G x 5 mm BD Ultra Fine III)?See Instructions?Use for once weekly trulicity injection for DM E11.65 Durable Medical Equipment (disposable bed pads)?See Instructions?Use up to 3 bed pads per night for urinary incontinence. 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 E11.42 Durable Medical Equipment (Walker)?See Instructions?Use for ambulation Durable Medical Equipment (Pls discontinue empagliflozin (Jardiance))?See Instructions?pls dicontinue Durable Medical Equipment (One Touch Ultra 2 Glucose Meter)?See Instructions?Use to test blood sugar twice a ??day for type 2 diabetes E11.65 Durable Medical Equipment (One Touch Ultra Test Strips)?See Instructions?Use to test blood sugar twice a ??day for type 2 diabetes E11.65 Durable Medical Equipment (One Touch UltraSoft Lancets)?See Instructions?Use to test blood sugar twice a ??day for type 2 diabetes E11.65 empagliflozin (Jardiance 10 mg oral tablet)?1?tab(s)?By Mouth?Daily in AM Glimepiride (glimepiride 4 mg oral tablet)?See Instructions?TAKE 1 TABLET BY MOUTH EVERY DAY WITH THE FIRST MEAL OF THE DAY Ibuprofen (ibuprofen 600 mg oral tablet)?1?tablet?By Mouth?4 times a day?as needed? NEEDED FOR PAIN Metformin (metFORMIN 1000 mg oral tablet)?1?tab(s)?By Mouth?2 times a day Metoprolol (Metoprolol Succinate ER 100 mg oral tablet, extended release)?1?tab(s)?By Mouth?Daily?for 90?Days Omeprazole (omeprazole 20 mg oral enteric coated capsule)?1?capsule?20?Milligram?By Mouth?Daily?for 14?Days Ramipril (ramipril 5 mg oral capsule)?1?capsule?By Mouth?Daily ? Inpatient Medications Medications (18) Active SCHEDULED: (7) Dapagliflozin 10 mg Tablet (Dapagliflozin Tablet) ??10 mg, By Mouth, Daily Enoxaparin (Enoxaparin Inj) ??40 mg, Subcutaneous Injection, Every 24 hours Insulin Lispro 100 units/mL Inj (3mL) (Insulin LISPRO Sliding Scale) ??4-12 units, Subcutaneous Injection, 3 times a day before meals Lisinopril 20 mg Tablet (lisinopril 20 mg oral tablet) ??20 mg, By Mouth, Daily Metoprolol 100 mg XL Tablet (Metoprolol Succinate ER 100 mg oral tablet, extended release) ??100 mg, By Mouth, Daily NaCl 0.9% Flush 3ml (NaCL 0.9% Flush) ??3 mL, IV Push, Every 8 hours Pantoprazole 40 mg EC Tablet (pantoprazole 40 mg oral delayed release tablet) ??40 mg, By Mouth, Daily CONTINUOUS: (1) Lactated Ringers (1000 mL) Cont IV 1800 mL (LR 1800 mL) ??1,800 mL, IV Infusion, 75 mL/hr PRN: (10) Acetaminophen 325 mg Tablet (Acetaminophen Tablet) ??650 mg, By Mouth, Every 4 hours Dextromethorphan-Guaifenesin 20 mg-200 mg/10 mL Liqu UD (Robitussin DM Liquid) ??10 mL, By Mouth, Every 4 hours Dextrose Inj Syringe (Dextrose 50% Inj Syringe (25Gm)) ??12.5 Gm, IV Push Slowly, Every 20 minutes Dextrose Inj Syringe (Dextrose 50% Inj Syringe (25Gm)) ??25 Gm, IV Push Slowly, Every 15 minutes HYDROmorphone 0.5 mg/0.5 mL Inj Syringe (Dilaudid Inj) ??0.5 mg 0.5 mL, IV Push Slowly, Every 4 hours Melatonin 3 mg Tablet (Melatonin Tablet) ??3 mg, By Mouth, Daily at bedtime NaCl 0.9% Flush 3ml (NaCL 0.9% Flush) ??3 mL, IV Push, Every 8 hours Polyethylene Glycol 17 Gm Powder (MiraLax Powder) ??17 Gm 1 pack/packet, By Mouth, Daily Senna 8.6 mg / Docusate 50 mg tablet (Docusate/Senna Tablet) ??1 tablet, By Mouth, 2 times a day Simethicone 80 mg Chewable Tablet (Simethicone Tablet) ??80 mg, Chew, 3 times a day ? Results Recent Labs BLOOD COUNT & DIFF WBC 8.5 k/mm3 ()?? 12/30/2022 16:59 RBC 4.38 m/mm3 ()?? 12/30/2022 16:59 Hgb 12.4 Gm/dL ()?? 12/30/2022 16:59 Hct 38.3 % ()?? 12/30/2022 16:59 MCV 87.4 femtoliters ()?? 12/30/2022 16:59 MCH 28.3 pg ()?? 12/30/2022 16:59 MCHC 32.4 g/dL (Low)?? 12/30/2022 16:59 Platelet Count 223 k/mm3 ()?? 12/30/2022 16:59 RDW-SD 43.1 femtoliters ()?? 12/30/2022 16:59 MPV 10.5 femtoliters ()?? 12/30/2022 16:59 Nucleated RBC (Automated) 0.0 #/100 WBC'S ()?? 12/30/2022 16:59 Abs. NRBC 0.0 k/mm3 ()?? 12/30/2022 16:59 Abs. Neut 4.0 k/mm3 ()?? 12/30/2022 16:59 Abs. Lymph 3.5 k/mm3 (High)?? 12/30/2022 16:59 Abs. [place] 0.6 k/mm3 ()?? 12/30/2022 16:59 Abs. Eo 0.2 k/mm3 ()?? 12/30/2022 16:59 Abs. Baso 0.1 k/mm3 ()?? 12/30/2022 16:59 Neut % 47.3 % ()?? 12/30/2022 16:59 Lymph % 41.5 % ()?? 12/30/2022 16:59 [place] % 7.5 % ()?? 12/30/2022 16:59 Eos % 2.6 % ()?? 12/30/2022 16:59 Baso % 0.9 % ()?? 12/30/2022 16:59 Imm Gran 0.2 % ()?? 12/30/2022 16:59 Abs. Imm Gran 0.0 k/mm3 ()?? 12/30/2022 16:59 ?? CARDIAC High Sensitivity Troponin (HSTnT) <6 ng/L ()?? 12/30/2022 16:59 ?? CHEM GENERAL Sodium 132 mmol/L (Low)?? 12/30/2022 16:52 Potassium 4.5 mmol/L ()?? 12/30/2022 16:52 Chloride 98 mmol/L ()?? 12/30/2022 16:52 Bicarbonate Level 18 mmol/L (Low)?? 12/30/2022 16:52 Anion Gap 16 ()?? 12/30/2022 16:52 Glucose Level 332 mg/dL (High)?? 12/30/2022 16:52 Glucose, POC 275 mg/dL (High)?? 12/30/2022 21:10 Hemoglobin A1C (Monitoring) 12.5 % (High)?? 12/30/2022 16:59 Beta Hydroxybutyrate 0.61 mmol/L (High)?? 12/30/2022 16:52 BUN 8 mg/dL ()?? 12/30/2022 16:52 Creatinine-Blood 0.5 mg/dL ()?? 12/30/2022 16:52 Estimated GFR Creatinine 103 ML/MIN/1.73 M2 ()?? 12/30/2022 16:52 Calcium 9.5 mg/dL ()?? 12/30/2022 16:52 Magnesium 1.8 mg/dL ()?? 12/30/2022 16:52 Protein, Total 6.4 Gm/dL ()?? 12/30/2022 16:52 Albumin 4.4 Gm/dL ()?? 12/30/2022 16:52 AG Ratio 2.2 ()?? 12/30/2022 16:52 Alkaline Phosphatase 89 units/L ()?? 12/30/2022 16:52 Lipase 515 units/L (High)?? 12/30/2022 16:52 AST (SGOT) 19 units/L ()?? 12/30/2022 16:52 ALT (SGPT) 20 units/L ()?? 12/30/2022 16:52 Bilirubin, Total 0.3 mg/dL ()?? 12/30/2022 16:52 Lactate 1.3 mmol/L ()?? 12/30/2022 16:59 ?? LIPID STUDIES Cholesterol 252 mg/dL (High)?? 12/30/2022 16:52 Triglycerides 222 mg/dL (High)?? 12/30/2022 16:52 HDL Cholesterol 82 mg/dL ()?? 12/30/2022 16:52 LDL Cholesterol 126 mg/dL ()?? 12/30/2022 16:52 Non HDL Cholesterol 170 mg/dL (High)?? 12/30/2022 16:52 ?? TOXICOLOGY/TDM Ethanol, Serum or Plasma NONE DETECTED mg/dL ()?? 12/30/2022 16:52 ?? VIROLOGY COVID-19 by RT-PCR NEGATIVE ()?? 12/30/2022 21:10 ? * Jon Ayala MD: PERFORM Event Display: Admission Note Authored Date: [id number] ??Attending Attestation: I have seen and evaluated this patient. ?? I have discussed the case and its management with the resident and agree with the findings and shaka documented in the resident's note. ??I ??will continue to provide care to this patient till 7 AMof the admitting date. ?? 72-year-old female with a past medical history of anxiety, back pain, depression, diabetes came with a complaint of abdominal pain, flank pain, back pain. ??Complaint of nausea. ??Denied any dysuria,diarrhea, chest pain, shortness of breath, cough, phlegm, fever, chills. ??Lab work-up is nondiagnos tic with high blood sugars with positive ketone body. ??Lipase was high at 515. ??CT of the abdomenshowed no acute abnormality in the abdomen and pelvis. ??She is admitted for pancreatitis. ??UA is abnormal. ??Most likely her clinical presentation is more consistent with complicated UTI. ??We willcontinue with the antibiotics. 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 Age:??72 Years?Sex:??Female?:??1950?? Patient Information Discharge Location: [facility] Primary Care Physician: Nicolette Rider NP Admit Date/Time: 12/30/22 20:21 Discharge Disposition Discharge Disposition: Home: No Services??patient was discharged AGAINST MEDICAL ADVICE Discharge Diagnosis Acute pancreatitis (K85.90) ?? _ Discharge Medications Acetaminophen (acetaminophen 500 mg oral tablet)?2?tab(s)?1,000?Milligram?By Mouth?4 times a day?as needed?for pain Capsaicin Topical (capsaicin 0.025% topical cream)?1?michelle?Topically?3 times a day?as needed?Pain , Moderate Cetirizine (cetirizine 10 mg oral tablet)?1?tab(s)?By Mouth?Daily Clotrimazole Topical (clotrimazole 1% topical cream)?See Instructions?APPLY EXTERNALLY TO THEVAGINAL AREA NEEDED FOR ITCH TWICE DAILY FOR YEAST INFECTION Diclofenac Topical (diclofenac 1% topical gel)?2?gram?Topically?4 times a day?as needed?Pain , Moderate Durable Medical Equipment (Alcohol Pads)?See Instructions?Use to check blood sugar twice daily for type 2 diabetes E11.65 Durable Medical Equipment (Pen [place], 31 G x 5 mm BD Ultra Fine III)?See Instructions?Use for once weekly trulicity injection for DM E11.65 Durable Medical Equipment (disposable bed pads)?See Instructions?Use up to 3 bed pads per night for urinary incontinence. 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 E11.42 Durable Medical Equipment (Walker)?See Instructions?Use for ambulation Durable Medical Equipment (Pls discontinue empagliflozin (Jardiance))?See Instructions?pls dicontinue Durable Medical Equipment (One Touch Ultra 2 Glucose Meter)?See Instructions?Use to test blood sugar twice a ??day for type 2 diabetes E11.65 Durable Medical Equipment (One Touch Ultra Test Strips)?See Instructions?Use to test blood sugar twice a ??day for type 2 diabetes E11.65 Durable Medical Equipment (One Touch UltraSoft Lancets)?See Instructions?Use to test blood sugar twice a ??day for type 2 diabetes E11.65 empagliflozin (Jardiance 10 mg oral tablet)?1?tab(s)?By Mouth?Daily in AM Glimepiride (glimepiride 4 mg oral tablet)?See Instructions?TAKE 1 TABLET BY MOUTH EVERY DAY WITH THE FIRST MEAL OF THE DAY Ibuprofen (ibuprofen 600 mg oral tablet)?1?tablet?By Mouth?4 times a day?as needed? NEEDED FOR PAIN Metformin (metFORMIN 1000 mg oral tablet)?1?tab(s)?By Mouth?2 times a day Metoprolol (Metoprolol Succinate ER 100 mg oral tablet, extended release)?1?tab(s)?By Mouth?Daily?for 90?Days Omeprazole (omeprazole 20 mg oral enteric coated capsule)?1?capsule?20?Milligram?By Mouth?Daily?for 14?Days Ramipril (ramipril 5 mg oral capsule)?1?capsule?By Mouth?Daily Future Appointments Wednesday 1:00 PM EDT ?? With: Maryjane Rosenberg Where: [facility] Status: Pending 2022 11:30 AM EDT ?? With: Maryjane Rosenberg Where: [facility] Status: Pending Wednesday 11:30 AM EDT ?? With: Tereso MILLER, Nicolette Mills Where: [place] [address]- Status: Pending Wednesday 11:30 AM EDT ?? With: Nicolette Rider NP Where: [address] [address]- Status: Pending Hospital Course ?? Patient??left AGAINST MEDICAL ADVICE even before??I have??seen the patient; I was paged by nurse that patient would like to be??discharged??AGAINST MEDICAL ADVICE??and by the time I went down??to seethe patient patient is already gone. ?? Reportedly??she is a 72-year-old female with past medical history of anxiety back pain depression diabetes??came in with abdominal pain flank pain and back pain??and initially she was suspected to behaving acute pancreatitis??however admitting team suspected this is more consistent with complicated UTI and patient was started on antibiotics. ??I tried to call the??phone number??that is on the chart and was not able to reach the patient.? 3??minutes spent on discharge Patient Care team information Care Team Personnel Name: Nicolette Rider NP Position: [facility] PCO Associate Professional Member Role: PCP Address: Address: [address] [place] [address]- Name: Neelam Garvey RN Position: [facility] RN Member Role: Primary Care Nurse Name: Jo Quick RN Position: [facility] RN Member Role: Primary Care Nurse Name: La Mares RN Position: [facility] RN Member Role: Primary Care Nurse Name: Cherie Vaughan RN Position: [facility] RN Member Role: Primary Care Nurse Name: Torsten Gay RN Position: [facility] RN Member Role: Primary Care Nurse Address: Address: [address] [place] [address]- Name: Jayme HARTLEY Attending Position: [facility] ED Medicine Name: Karan Mcgowan RN Position: [facility] ED RN W/OE and Tasks Member Role: Patient Care Provider Name: Cynthia Mcgowan RN Position: [facility] ED RN W/OE and Tasks Name: Shira Cardoso Position: [facility] ED TA [facility] Care Team Related Persons Name: AMMON CUELLAR Address: home [address] [place] [address] Name: FAISAL GILLESPIE Address: home [address] [place] [address] Name: AMMON PIERRE Address: home [address] [place] [address]
--- OUTSIDE RECORDS SUMMARY | 2023-06-04 11:59 | XMS_ITS | Continuity of Care Document ---
Author Name Unknown Organization [facility] Address [address] [place] [address]- Care Team Providers Care Parking Enforcement Specialist Name Role Phone Nicolette Rider NP Primary Care Physician [phone] Encounter [facility] Date(s): 07/27/22 - 09/26/[address] [address] Attending Physician: Not on Staff, Attending MD [...] Given Patient Refuses 1Result Comment: DILUENT LOT#: [id number] EXP: 10/2022 MFG: FRESENSIUS 2Admin Note: vis [...] Refills, Maintenance, 09/01/22 11:12:00 EDT, [id number], 146, cm, 09/01/22 11:06:00 EDT, Height, 50, [...] 05/21/22 11:57:00 EST, Route to Pharmacy Electronically, [facility]/pharmacy #[id number], Partial fill upon patient [...] tablet, 1 Refills, Maintenance, 06/30/22 10:31:00 EST, [facility]/pharmacy#[id number], 146, cm, 05/21/22 11:19:00 EST, Height, 50, kg, 04/16/22 12:46:00 EST, Dry Weight Start Date: 06/30/22 Stop Date: 12/27/22 Status: Ordered omeprazole 20 mg oral enteric coated capsule 1 capsule = 20 mg, By Mouth, Daily, # 14 capsule, 0 Refills, Maintenance, 12/02/21 18:07:00 EDT, ECCapsule, [facility]/pharmacy #[id number], Partial fill upon patient request if the [...] Weight Start Date: 09/04/22 Status: Ordered Pen Burke, 31 G x 5 mm BD Ultra [...] Stop 02/07/23 11:04:00 EDT, 08/11/22 11:04:00 EDT, [facility]/pharmacy #[id number], Please allow for [...] EST, Route to Pharmacy Electronically, [facility], 146, cm, 05/21/22 11:19:00 EST, Height, 50, [...] clavicle Confirmed Active Hypertension Confirmed 02/19/10 Active *[id number]-Kirby cherelle Cabandileep Confirmed Active Current smoker Confirmed Active Cervical stenosis of spinal canal Confirmed Active Subclinical hyperthyroidism Confirmed Active Thyroid nodule - TIRADS 4, follow up US due 05/01/2023 Confirmed Active Urinary incontinence Confirmed Active 1Dx in 08/2018 upon psych eval Patient Care team information Care Team Personnel Name: Nicolette Rider NP Position: [facility] PCO Associate Professional Member Role: PCP Address: Address: [address] [place] [address]- [place] Name: Neelam Garvey RN Position: S RN Member Role: Primary Care Nurse Name: Jo Quick RN Position: S RN Member Role: Primary Care Nurse Name: La Mares RN Position: [facility] RN Member Role: Primary Care Nurse Name: Cherie Vaughan RN Position: [facility] RN Member Role: Primary Care Nurse Name: Torsten Gay RN Position: [facility] RN Member Role: Primary Care Nurse Address: Address: [address] [place] [address]- Care Team Related Persons Name: AMMON CUELLAR Address: home [address] [place] [address] Name: FAISAL GILLESPIE Address: home [address] [place] [address] Name: AMMON PIERRE Address: home [address] [address]
--- OUTSIDE RECORDS SUMMARY | 2023-06-04 11:59 | XMS_ITS | Continuity of Care Document ---
Author Name Unknown Organization [facility] Address [address] [place] [address]- Care Team Providers Care Foreign Policy Officer Name Role Phone Tereso MILLER, Nicolette Mills Primary Care Physician [phone] [facility]counter [facility] Date(s): 05/24/19 - 08/04/[address] [address]- [facility] Attending Physician: [place] MD Admitting Physician: [...] 03/16/19 14:34:47 EST, Route to Pharmacy Electronically, [id number], [facility]/pharmacy #[id number] Start Date: 03/16/19 Stop [...] 14:46:00 EST, Route to Pharmacy Electronically, [facility]/pharmacy #[id number], 151, cm, 05/01/19 14:24:00 [...] 3 Refills, Maintenance, 05/24/19 15:09:00 EST, Tablet, [id number], 1 tablet By Mouth Daily,x90 days, [...] Once, PRN as needed for fever, lot [id number] EXP 05/2018, # 2 capsule, 0 Refills, [...] Diabetes Mellitus(Confirmed) 02/19/10 Active Hypertension(Confirmed) 02/19/10 Active *[id number]-Commercial Title Examiner-Tigist Cottobrook(Confirmed) Active Current smoker(Confirmed) Active 1Dx in 08/2018 upon psych eval
--- OUTSIDE RECORDS SUMMARY | 2023-06-04 11:59 | XMS_ITS | Continuity of Care Document ---
Author Name Unknown Organization [facility] Address [address] [place] [address]- Care Team Providers Care Architecture Manager Name Role Phone Tereso MILLER, Nicolette Mills Primary Care Physician [phone] Encounter [facility] Date(s): 10/07/21 - 11/06/[address] [address]- Allergies, Adverse Reactions, Alerts Substance Reaction Severity [...] Given Patient Refuses 1Result Comment: DILUENT LOT#: [id number] EXP: 10/2022 MFG: FRESENSIUS 2Admin Note: vis [...] 3 Refills, Maintenance, 10/07/21 13:53:00 EDT, Tablet, [facility]/pharmacy #[id number], Partial fill upon patient request if [...] 1 Refills, Maintenance, 09/11/21 16:40:00 EDT, Tablet, [facility]/pharmacy #[id number], Partial fill upon patient request if [...] 10/20/21 16:04:00 EDT, Route to Pharmacy Electronically, [facility]/pharmacy #[id number], Partial fill upon patient request if... Start Date: 10/20/21 Status: Ordered Lac-Hydrin 12% lotion 1 application, Topically, 2 times a day, # 400 Gm, 0 Refills, Maintenance, 03/20/21 14:35:00 EST, Lotion, [facility]/pharmacy #2566, Partial fill upon patient request if the prescription is for a schedule II opioid drug., 1 application Topically 2 times a da... Start Date: 03/20/21 Status: Ordered metFORMIN 1000 mg oral tablet 1 tablet, By Mouth, 2 times a day, # 180 tablet, 3 Refills, 10/20/21 16:04:00 EDT, [facility]/pharmacy #4471, 155, cm, 10/07/21 13:25:00 EDT, Height, 48, kg, 10/27/20 14:35:00 EDT, Dry Weight Start Date: 10/20/21 Status: Ordered methocarbamol 500 mg oral tablet See Instructions, 1-2 tablets 4 times a day as needed for muscle spasms, # 40 tablet, 1 Refills, Maintenance, 10/07/21 13:46:00 EDT, Tablet, [facility]/pharmacy #4471, Partial fill upon patient request if the prescription is for a schedule II opioid drug., 1... Start Date: 10/07/21 Status: Ordered Metoprolol Succinate ER 100 mg oral tablet, extended release 1 tablet, By Mouth, Daily, # 90 tablet, 1 Refills, Maintenance, 09/11/21 16:39:00 EDT, [facility]/pharmacy#[id number], 155, cm, 08/19/21 10:29:00 EDT, Height, 48, kg, 10/27/20 14:35:00 EDT, Dry Weight Start Date: 09/11/21 Status: Ordered Pen Prim, 31 G x 5 mm BD Ultra [...] fracture of clavicle(Confirmed) Active Hypertension(Confirmed) 02/19/10 Active *[id number] Care Partn patrick Saunders(Confirmed) Active Current smoker(Confirmed) Active Cervical stenosis of spinal canal(Confirmed) Active Urinary incontinence(Confirmed) Active 1Dx in 08/2018 upon psych eval
--- OUTSIDE RECORDS SUMMARY | 2023-06-04 11:59 | XMS_ITS | Continuity of Care Document ---
Author Name Unknown Organization [facility] Address [address] [place] [address]- Care Team Providers Care Sociology Instructor Name Role Phone Tereso MILLER, Nicolette Mills Primary Care Physician [facility]counter [facility] Date(s): 03/19/20 - 04/18/[address] [address] Allergies, Adverse Reactions, Alerts Substance Reaction [...] blood sugars twice daily for DM, E11.65, 03/26/20 17:30:00 EST, Compound, 157.48, cm, 03/26/20 15:59:00 EST, Height,44.5, kg, 12/24/18 9:18:00 EDT, Dry Weight Start Date: 03/26/20 Stop Date: 07/24/20 Status: Ordered Freestyle Lite Lancets See Instructions, [...] blood sugars twice daily for diabetes, E11.65, 03/26/20 17:31:00 EST, [facility], 157.48, cm, 03/26/20 15:59:00 EST, Height, 44.5, kg, 12/24/18 9:18:00 EDT, Dry Weight Start Date: 03/26/20 Stop Date: 07/24/20 Status: Ordered Freestyle Lite Test Strips See [...] 3 Refills, Soft Stop, 03/19/20 12:51:00 EST, [facility]/pharmacy #2566, 157.48, cm, 10/31/19 7:51:00 EDT, Height, [...] Daily, # 90 capsule, 3 Refills, Maintenance, 03/26/20 17:28:00 EST, Capsule, [facility]/pharmacy #[id number], 1 capsule By Mouth Daily,x90 days, 157.48, cm, 03/26/20 15:59:00 EST, Height, 44.5, kg, 12/24/18 9:18:00 EDT, Dry Weight Start Date: 03/26/20 Stop Date: 03/21/21 Status: Ordered multivitamin Multiple Vitamins oral capsule [...] 3 Refills, Maintenance, 03/19/20 12:51:00 EST, Capsule, [facility]/pharmacy #2566, resent as a dup, 157.48, cm, [...] Once, PRN as needed for fever, lot [id number] EXP 05/2018, # 2 capsule, 0 Refills, Maintenance, 03/07/18 17:28:48 EST, Capsule Start Date: 03/07/18 Stop Date: 03/07/18 Status: Ordered Problem List Condition Effective Dates Status Health Status Inform ant Adjustment disorder with anxiety(Confirmed) 1 Active Breast mass, right(Confirmed) Active Cervical radiculopathy(Confirmed) Active Diabetes Mellitus(Confirmed) 02/19/10 Active Hypertension(Confirmed) 02/19/10 Active *[id number] Care Partn patrick Saunders(Confirmed) Active Current smoker(Confirmed) Active 1Dx in 08/2018 upon psych eval
--- OUTSIDE RECORDS SUMMARY | 2023-06-04 12:00 | XMS_ITS | Continuity of Care Document ---
Author Name Unknown Organization [facility] Address [address] [place] [address]- Care Team Providers Care Escort Blind Name Role Phone Nicolette Rider NP Primary Care Physician [phone] Encounter [facility] [id number] Date(s): 12/15/22 - 01/26/[address] [address]- Encounter Diagnosis Pain in right shoulder(Final) - Discharge Disposition: A-D/C Home Attending Physician: Nicolette Rider NP Admitting Physician: [...] 7 02/18/10 Given 1Result Comment: DILUENT LOT#: [id number] EXP: 10/2022 MFG: FRESENSIUS 2Admin Note: vis 3Admin Note: VIS GIVEN 4Admin Note: vis 08/16/08 5Admin Note: vis 03/20/08 6Admin Note: vis given 7Admin Note: VIS Medications acetaminophen 500 mg oral tablet 2 tablet = 1,000 mg, By Mouth, 4 times a day, PRN for pain, # 100 tablet, 0 Refills, Maintenance, 07/17/21 10:31:00 EDT, Tablet, [facility]/pharmacy #[id number], Partial fill upon patient [...] 01/26/23 9:38:00 EDT, [facility], [id number], Partial fill upon patient request if the [...] Gm, 1 Refills, Maintenance, 12/23/22 21:53:00 EDT, [facility] STORE 42[facility], 40, APPLY EXTERNALLY TO THE VAGINAL AREA [...] Refills, Maintenance, 11/23/22 13:00:00 EDT, Gel, [facility]/pharmacy #[id number], Partial fill upon patient [...] 1 Refills, Maintenance, 01/12/23 12:16:00 EDT, [facility]/pharmacy #[id number], 146, cm, 01/12/23 11:33:00 [...] 12:17:00 EDT, Route to Pharmacy Electronically, [facility]/pharmacy #[id number], 146, cm, 01/12/23 11:33:00 EDT, Height, 50, kg, 04/16/22 12:46:00 EST, Dry... Start Date: 01/12/23 Stop Date: 07/11/23 Status: Ordered ibuprofen 600 mg oral tablet 1, tablet, By Mouth, 4 times a day, PRN, # 60 tablet, Refills 1, Maintenance, NEEDED FOR PAIN, 11/18/22 11:25:00 EDT, Route to Pharmacy Electronically, [facility] 8[facility], 146, cm, 09/01/22 11:06:00 EDT, Height, 50, kg, 04/16/22 12:46:00 EST, Dry Weight Start Date: 11/18/22 Status: Ordered isopropyl alcohol 70% topical pad See Instructions, USE DIRECTED., # 100 each, 5 Refills, Maintenance, 01/12/23 12:17:00 EDT, [facility]/pharmacy #[id number], USE DIRECTED., 146, cm, 01/12/23 11:33:00 EDT, Height, 50, kg, 04/16/22 12:46:00 EST, Dry Weight Start Date: 01/12/23 Status: Ordered Lantus Solostar Pen 100 units/mL subcutaneous solution = 12 units, Subcutaneous Injection, Daily, # 15 mL, 3 Refills, Maintenance, 01/12/23 12:15:00 EDT, [facility]/pharmacy #[id number], 146, cm, 01/12/23 11:33:00 EDT, Height, 50, kg, 04/16/22 12:46:00 EST, Dry Weight Start Date: 01/12/23 Stop Date: 01/07/24 Status: Ordered metFORMIN 1000 mg oral tablet 1 tablet, By Mouth, 2 times a day, # 60 tablet, 5 Refills, 08/07/22 13:34:00 EDT, [facility]/pharmacy #[id number], Please allow for early refill as last her pills were dropped in water, 146, cm, 07/27/22 11:29:00EDT, Height, 50, kg, 04/16/22 12:46:00 EST, Dry We... Start Date: 08/07/22 Status: Ordered methocarbamol 750 mg oral tablet 1 tablet = 750 mg, By Mouth, 3 times a day, PRN Pain , Moderate, # 90 tablet, 3 Refills, Maintenance, 01/12/23 12:15:00 EDT, [facility]/pharmacy #[id number], 146, cm, 01/12/23 11:33:00 EDT, Height, 50, kg, 04/16/22 12:46:00 EST, Dry Weight Start Date: 01/12/23 Status: Ordered Metoprolol Succinate ER 100 mg oral tablet, extended release 1 tablet, By Mouth, Daily, # 90 tablet, 1 Refills, Maintenance, 12/27/22 10:31:00 EDT, [facility]/pharmacy#2566, 146, cm, 12/04/22 11:11:00 EDT, [...] 01/12/23 Stop Date: 04/12/23 Status: Ordered Pen [place], 31 G x 5 mm BD Ultra [...] capsule, 1 Refills, Maintenance, 01/26/23 9:36:00 EDT, [facility]/pharmacy #[id number], 146, cm, 01/12/23 11:33:00 [...] clavicle Confirmed Active Hypertension Confirmed 02/19/10 Active *[id number] 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 Burnett Confirmed Active Current smoker [...] Name: Nicolette Rider NP Position: [facility] PCO Associate Professional Member Role: PCP Address: Address: [address] [place] [address]- Name: Neelam Garvey RN Position: S RN Member Role: Primary Care Nurse Name: Jo Quick RN Position: S RN Member Role: Primary Care Nurse Name: La Mares RN Position: S RN Member Role: Primary Care Nurse Name: Cherie Vaughan RN Position: S RN Member Role: Primary Care Nurse Name: Torsten Gay RN Position: [facility] RN Member Role: Primary Care Nurse Address: Address: [address] [place] [address]- Care Team Related Persons Name: AMMON CUELLAR Address: home [address] [place] [address] Name: FAISAL GILLESPIE Address: home [address] [place] [address] Name: AMMON PIERRE Address: home [address] [address]
--- OUTSIDE RECORDS SUMMARY | 2023-06-04 12:00 | XMS_ITS | Continuity of Care Document ---
Author Name Unknown Organization [facility] Address [address] [place] [address]- Care Team Providers Care Mason Tender Restoration Labor Name Role Phone Nicolette Rider NP Primary Care Physician [id number] Date(s): 03/30/23 - 05/08/[address] [address] Attending Physician: Nicolette [...] 7 02/18/10 Given 1Result Comment: DILUENT LOT#: [id number] EXP: 10/2022 MFG: FRESENSIUS 2Admin Note: vis 3Admin Note: VIS GIVEN 4Admin Note: vis 08/16/08 5Admin Note: vis 03/20/08 6Admin Note: vis given 7Admin Note: VIS Medications acetaminophen 500 mg oral tablet 2 tablet = 1,000 mg, By Mouth, 4 times a day, PRN for pain, # 100 tablet, 0 Refills, Maintenance, 07/17/21 10:31:00 EDT, Tablet, [facility]/pharmacy #[id number], Partial fill upon patient request [...] Refills, Maintenance, 02/09/23 11:58:00 EDT, [facility]apsule, [id number], to replace amlodipine, benazepril, ramipril., 1 capsule [...] capsule, 3 Refills, Maintenance, 04/09/23 13:32:00 EST, [facility]/pharmacy #[id number], Partial fill upon patient request [...] Refills, Maintenance, 05/07/23 14:28:00 EST, [facility], 146, cm, 04/09/23 12:58:00 EST, Height, 50, kg, 04/16/22 12:46:00 EST, Dry Weight Start Date: 05/07/23 Status: Ordered Lantus Solostar Pen 100 units/mL subcutaneous solution = 20 units, Subcutaneous Injection, Daily, Adjust dose as recommended weekly by RN per protocol. Dispense 3 pens per month, # 15 mL, 3 Refills, Maintenance, 02/09/23 12:19:00 EDT, [facility]/pharmacy #4471,146, cm, 02/09/23 11:42:00 EDT, Height, [...] Stop 03/18/24 8:41:00 EST, 03/24/23 8:41:00 EST, [facility]/pharmacy #[id number], Note dose change; ER 1000 mg tabsare not covered by patient's insurance, 146, cm, 11... Start Date: 03/24/23 Stop Date: 03/18/24 Status: Ordered methocarbamol 750 mg oral tablet 1 tablet = 750 mg, By Mouth, 3 times a day, PRN Pain , Moderate, Take only as needed for muscle spasms and pain., # 90 tablet, 3 Refills, Maintenance, 02/09/23 12:40:00 EDT, [facility]/pharmacy #4471, 146, cm, 02/09/23 11:42:00 EDT, Height, 50, kg, 04/16/22... Start Date: 02/09/23 Status: Ordered Metoprolol Succinate ER 100 mg oral tablet, extended release 1 tablet, By Mouth, Daily, # 90 tablet, 1 Refills, Maintenance, 12/27/22 10:31:00 EDT, [facility]/pharmacy#2566, 146, cm, 12/04/22 11:11:00 EDT, Height, [...] 01/12/23 Stop Date: 04/12/23 Status: Ordered Pen [place], 31 G x 5 mm BD Ultra [...] 3 Refills, Maintenance, 03/24/23 8:41:00 EST, Tablet, [facility]/pharmacy #7845, Partial fill upon patient request if the [...] clavicle Confirmed Active Hypertension Confirmed 02/19/10 Active *[id number] Junction Maker Claudette Burnett Confirmed Active Current smoker Confirmed [...] Name: Nicolette Rider NP Position: [facility] PCO Associate Professional Member Role: PCP Address: Address: [address] [place] [address]- Name: Neelam Garvey RN Position: [facility] RN Member Role: Primary Care Nurse Name: Jo Quick RN Position: [facility] RN Member Role: Primary Care Nurse Name: La Mares RN Position: [facility] RN Member Role: Primary Care Nurse Name: Cherie Vaughan NP Position: [facility] Medical Student Member Role: Primary Care Nurse Name: Torsten Gay RN Position: [facility] RN Member Role: Primary Care Nurse Address: Address: [address] [place] [address]- Care Team Related Persons Name: AMMON CUELLAR Address: home [address] [place] [address] Name: FAISAL GILLESPIE Address: home [address] [place] [address] Name: AMMON PIERRE Address: home [address] [address]
--- OUTSIDE RECORDS SUMMARY | 2023-06-04 12:00 | XMS_ITS | Continuity of Care Document ---
Author Name Unknown Organization [facility] ter Address [address] [place] [address]- Care Team Providers Care Enterprise Resource Planner Name Role Phone Tereso MILLER, Nicolette Mills Primary Care Physician [phone] [place] [facility] [place]13[place] - 09/30/[address] [address]- [facility] Attending Physician: Jovon Nixon MD Admitting Physician: Jovon Nixon MD Allergies, Adverse Reactions, [...] 03/16/19 14:34:47 EST, Route to Pharmacy Electronically, [id number], [facility]/pharmacy #[id number] Start Date: 03/16/19 Stop [...] # 90 tablet, 0 Refills, Soft Stop, 09/26/19 9:11:00 EDT, [facility]/pharmacy #[id number], 151, cm, 06/12/19 9:50:00 EST, Height, 44.5, kg, 12/24/18 9:18:00 EDT, Dry Weight Start Date: 09/26/19 Stop Date: 12/25/19 Status: Ordered ibuprofen 600 mg oral tablet 600 mg, 1, tablet, By Mouth, Every 6 hours, PRN, # 60 tablet, Refills 1, Tot. Refills 1, Maintenance, Pain , Severe, 05/24/19 14:46:00 EST, Route to Pharmacy Electronically, [facility]/pharmacy #[id number], 151, cm, 05/01/19 14:24:00 EST, Height, 44.5, kg, 08/24/1... Start Date: 05/24/19 Status: Ordered Lipitor 40 [...] Refills, Maintenance, 08/22/19 7:23:00 EDT, [facility], 151, cm, 06/12/19 9:50:00 EST, Height, 44.5, [...] 3 Refills, Maintenance, 05/24/19 15:09:00 EST, Tablet, [facility]/pharmacy #[id number], 1 tablet By Mouth [...] Once, PRN as needed for fever, lot [id number] EXP 05/2018, # 2 capsule, 0 Refills, Maintenance, 03/07/18 17:28:48 EST, Capsule Start Date: 03/07/18 Stop Date: 03/07/18 Status: Ordered Voltaren 1% topical gel 1 application, Topically, 4 times a day, PRN Pain , Mild, # 100 Gm, 0 Refills, Maintenance, 09/29/19 16:40:00 EDT, Gel, [id number], resent as a dup, 1 application Topically 4 times a day,PRN:Pain , Mild, 151, cm, 06/12/19 9:50:00 EST, Height,... Start Date: 09/29/19 Status: Ordered Problem List Condition Effective Dates Status Health Status Inform ant Adjustment disorder with anxiety(Confirmed) 1 Active Breast mass, right(Confirmed) Active Cervical radiculopathy(Confirmed) Active Diabetes Mellitus(Confirmed) 02/19/10 Active Hypertension(Confirmed) 02/19/10 Active *[id number]-Allergy And Immunology Specialist-Tigist Cottobrook(Confirmed) Active Current smoker(Confirmed) Active 1Dx in 08/2018 upon psych eval
--- OUTSIDE RECORDS SUMMARY | 2023-06-04 12:00 | XMS_ITS | Continuity of Care Document ---
Author Name Unknown Organization [facility] ter Address [address] [place] [address]- Care Team Providers Care Christian Science Healer Name Role Phone Tereso MILLER, Nicolette Mills Primary Care Physician [facility]counter [facility] Date(s): 04/20/20 - 07/19/[address] [address] Attending Physician: Nicolette Rider NP [...] 3 Refills, Soft Stop, 03/19/20 12:51:00 EST, [facility]/pharmacy #2566, 157.48, cm, 10/31/19 7:51:00 EDT, [...] 3 Refills, Maintenance, 03/19/20 12:51:00 EST, Capsule, [facility]/pharmacy #2566, resent as a dup, 157.48, [...] Refills, Soft Stop, 03/26/20 17:30:00 EST, Powder, [facility]/pharmacy #1291, Partial fill upon patient request, 0.5 [...] Once, PRN as needed for fever, lot [id number] EXP 05/2018, # 2 capsule, 0 Refills, Maintenance, 03/07/18 17:28:48 EST, Capsule Start Date: 03/07/18 Stop Date: 03/07/18 Status: Ordered Problem List Condition Effective Dates Status Health Status Inform ant Adjustment disorder with anxiety(Confirmed) 1 Active Breast mass, right(Confirmed) Active Cervical radiculopathy(Confirmed) Active Chronic left shoulder pain(Confirmed) Active Diabetes Mellitus(Confirmed) 02/19/10 Active Hx of fracture of clavicle(Confirmed) Active Hypertension(Confirmed) 02/19/10 Active *[id number] Care Partn er Claudette Saunders(Confirmed) Active Current smoker(Confirmed) Active 1Dx in 08/2018 upon psych eval
--- OUTSIDE RECORDS SUMMARY | 2023-06-04 12:00 | XMS_ITS | Continuity of Care Document ---
Author Name Unknown Organization [facility] Address [address] [place] [address]- Care Team Providers Care Area Sales Manager Name Role Phone Tereso MILLER, Nicolette Mills Primary Care Physician [phone] Encounter [facility] Date(s): 07/05/19 - 08/25/[address] [address]- [facility] Attending Physician: Debra Michael MD Admitting Physician: [...] 03/16/19 14:34:47 EST, Route to Pharmacy Electronically, [id number], [facility]/pharmacy #[id number] Start Date: 03/16/19 Stop Date: [...] EST, Route to Pharmacy Electronically, [facility]/pharmacy #[id number], 151, cm, 05/01/19 14:24:00 EST, Height, [...] Refills, Maintenance, 08/22/19 7:23:00 EDT, [facility], 151, cm, 06/12/19 9:50:00 EST, Height, 44.5, [...] Maintenance, 05/24/19 15:09:00 EST, Tablet, [facility]/pharmacy #[id number], 1 tablet By Mouth Daily,x90 days, [...] Once, PRN as needed for fever, lot [id number] EXP 05/2018, # 2 capsule, 0 Refills, Maintenance, 03/07/18 17:28:48 EST, Capsule Start Date: 03/07/18 Stop Date: 03/07/18 Status: Ordered Voltaren 1% topical gel 1 application, Topically, 4 times a day, PRN Pain , Mild, # 100 Gm, 0 Refills, Maintenance, 06/30/19 12:31:00 EST, Gel, [facility]/pharmacy #[id number], 1 application Topically 4 times a day,PRN:Pain , Mild, 151,cm, 06/12/19 9:50:00 EST, Height, 44.5, kg, ... Start Date: 06/30/19 Status: Ordered Problem List Condition Effective Dates Status Health Status Inform ant Adjustment disorder with anxiety(Confirmed) 1 Active Breast mass, right(Confirmed) Active Cervical radiculopathy(Confirmed) Active Diabetes Mellitus(Confirmed) 02/19/10 Active Hypertension(Confirmed) 02/19/10 Active *[id number]-Patient Assessment Coordinator-Kirti,McElya(Confirmed) Active Current smoker(Confirmed) Active 1Dx in 08/2018 upon psych eval
--- OUTSIDE RECORDS SUMMARY | 2023-06-04 12:00 | XMS_ITS | Continuity of Care Document ---
Author Name Unknown Organization [facility] Address [address] [place] [address] [address], [address] [place] [address]- Care Team Providers Care Crating And Moving Estimator Name Role Phone Nicolette Rider NP Primary Care Physician [phone] Encounter [facility] Date(s): 07/06/19 - 11/03/19 [facility] [address] [place] [address] Drive, [address] [place] [address]- [facility] Attending Physician: Jovon Nixon MD Referring Physician: [...] blood sugars twice daily for DM, E11.65, 05/04/18 17:17:52 EDT, Compound Start Date: 09/03/17 Stop [...] 0 Refills, Soft Stop, 10/02/19 8:52:00 EDT, [facility]/pharmacy #[id number], 151, cm, 06/12/19 9:50:00 EST, [...] Refills, Maintenance, 08/22/19 7:23:00 EDT, [facility], 151, cm, 06/12/19 9:50:00 EST, Height, 44.5, [...] 1 Refills, Maintenance, 09/29/19 16:40:00 EDT, Capsule, [facility]/pharmacy #2566, resent as a dup, 151, cm, 06/12/19 9:50:00 EST, Height, 44.5, kg, 12/24/:18:00 EDT, Dry Weight Start Date: 09/29/19 Stop [...] Once, PRN as needed for fever, lot [id number] EXP 05/2018, # 2 capsule, 0 Refills, Maintenance, 03/07/18 17:28:48 EST, Capsule Start Date: 03/07/18 Stop Date: 03/07/18 Status: Ordered Problem List Condition Effective Dates Status Health Status Inform ant Adjustment disorder with anxiety(Confirmed) 1 Active Breast mass, right(Confirmed) Active Cervical radiculopathy(Confirmed) Active Diabetes Mellitus(Confirmed) 02/19/10 Active Hypertension(Confirmed) 02/19/10 Active *[id number]-Manga Artist-Jose E Cotto(Confirmed) Active Current smoker(Confirmed) Active 1Dx in 08/2018 upon psych eval
--- OUTSIDE RECORDS SUMMARY | 2023-06-04 12:00 | XMS_ITS | Continuity of Care Document ---
Author Name Unknown Organization [facility] Address [address] [place] [address]- Care Team Providers Care Facilities Operator Name Role Phone Tereso MILLER, Nicolette Mills Primary Care Physician [phone] Encounter [facility] [place] [id number] Date(s): 02/12/22 - 03/14/[address] [address]- Attending Physician: Dai Clark Admitting Physician: Dai [...] Given Patient Refuses 1Result Comment: DILUENT LOT#: [id number] EXP: 10/2022 MFG: FRESENSIUS 2Admin Note: vis 3Admin Note: VIS GIVEN 2011- 4Admin Note: vis 08/16/08 5Admin Note: vis 03/20/08 6Admin Note: vis given 7Admin Note: VIS Medications acetaminophen 500 mg oral tablet 2 tablet = 1,000 mg, By Mouth, 4 times a day, PRN for pain, # 100 tablet, 0 Refills, Maintenance, 07/17/21 10:31:00 EDT, Tablet, [facility]/pharmacy #2566, Partial fill upon patient [...] Refills, Maintenance, 12/25/21 13:17:00 EDT, Tablet, [facility], Partial fill upon patient request if the [...] Refills, Soft Stop, 12/17/21 9:21:00 EDT, Tablet, [facility], Partial fill upon [...] 0 Refills, Maintenance, 03/10/22 16:40:00 EST, Tablet, [facility]/pharmacy #2566, Please allow for early [...] 10/20/21 16:04:00 EDT, Route to Pharmacy Electronically, [facility]/pharmacy #4471, Partial fill upon patient request if... Start Date: 10/20/21 Status: Ordered Lac-Hydrin 12% lotion 1 application, Topically, 2 times a day, # 400 Gm, 0 Refills, Maintenance, 03/20/21 14:35:00 EST, Lotion, [facility]/pharmacy #2566, Partial fill upon patient [...] tablet, 3 Refills, Maintenance, 12/15/21 8:39:00 EDT, [facility]/pharmacy #4471, 155, cm, 12/02/21 16:59:00 EDT, Height, 48, kg, 10/27/20 14:35:00 EDT, Dry Weight Start Date: 12/15/21 Stop Date: 12/10/22 Status: Ordered omeprazole 20 mg oral enteric coated capsule 1 capsule = 20 mg, By Mouth, Daily, # 14 capsule, 0 Refills, Maintenance, 12/02/21 18:07:00 EDT, ECCapsule, [facility]/pharmacy #4471, Partial fill upon patient [...] 0 Refills, Maintenance, 12/02/21 18:03:00 EDT, Tablet, [facility]/pharmacy #2566, Partial fill upon patient request if the prescrip... Start Date: 12/02/21 Stop Date: 12/07/21 Status: Ordered Pen [place], 31 G x 5 mm BD [...] clavicle Confirmed Active Hypertension Confirmed 02/19/10 Active *[id number] [employer] Consultant Claudette Saunders Confirmed Active Current smoker Confirmed Active Cervical stenosis of spinal canal Confirmed Active Urinary incontinence Confirmed Active 1Dx in 08/2018 upon psych eval Note * Juan Colon: PERFORM Event Display: Discharge/Transfer Note Hospital Authored Date: [id number] Patient Care team information Care Team Personnel Name: Nicolette Rider NP Position: [facility] PCO Associate Professional Member Role: PCP Address: Address: [address] [place] [address]- Name: Neelam Garvey RN Position: S RN Member Role: Primary Care Nurse Name: La Mares RN Position: S RN Member Role: Primary Care Nurse Name: Cherie Vaughan RN Position: [facility] RN Member Role: Primary Care Nurse Name: Torsten Gay RN Position: [facility] RN Member Role: Primary Care Nurse Address: Address: [address] [place] [address]- Care Team Related Persons Name: AMMON CUELLAR Address: home [address] [place] [address] Name: FAISAL GILLESPIE Address: home [address] [place] [address] Name: AMMON PIERRE Address: home [address] [address]
--- OUTSIDE RECORDS SUMMARY | 2023-06-04 12:00 | XMS_ITS | Continuity of Care Document ---
Author Name Unknown Organization [facility] Address [address] [place] [address]- Care Team Providers Care Test Driver Name Role Phone Nicolette Riedr NP Primary Care Physician [phone] Encounter [facility] Date(s): 04/14/23 - 05/14/23 [facility] [address] [place], [place] [address] Allergies, Adverse Reactions, Alerts Substance [...] 7 02/18/10 Given 1Result Comment: DILUENT LOT#: [id number] EXP: 10/2022 MFG: FRESENSIUS 2Admin Note: vis [...] Refills, Maintenance, 02/09/23 11:58:00 EDT, Capsule, [facility], to replace amlodipine, benazepril, ramipril., 1 capsule [...] 3 Refills, Maintenance, 11/23/22 13:00:00 EDT, Gel, [facility]/pharmacy #2566, Partial fill upon patient request [...] capsule, 3 Refills, Maintenance, 04/09/23 13:32:00 EST, [facility]/pharmacy #4471, Partial fill upon patient request [...] tablet, 0 Refills, Maintenance, 05/07/23 14:28:00 EST, [facility], 146, cm, 04/09/23 12:58:00 EST, Height, 50, kg, 04/16/22 12:46:00 EST, Dry Weight Start Date: 05/07/23 Status: Ordered Lantus Solostar Pen 100 units/mL subcutaneous solution = 20 units, Subcutaneous Injection, Daily, Adjust dose as recommended weekly by RN per protocol. Dispense 3 pens per month, # 15 mL, 3 Refills, Maintenance, 02/09/23 12:19:00 EDT, [facility], cm, 02/09/23 11:42:00 EDT, Height, 50, kg, 12... Start Date: 02/09/23 Stop Date: 02/04/24 Status: Ordered MetFORMIN (Eqv-Glucophage XR) 500 mg oral tablet, extended release 2 tablet = 1,000 mg, By Mouth, 2 times a day, # 360 tablet, 3 Refills, Maintenance, 04/19/23 17:54:00 EST, [facility]/pharmacy #4471, Partial fill upon patient request [...] tablet, 3 Refills, Maintenance, 02/09/23 12:40:00 EDT, [facility]/pharmacy #4471, 146, cm, 02/09/23 11:42:00 EDT, Height, 50, kg, 04/16/22... Start Date: 02/09/23 Status: Ordered Metoprolol Succinate ER 100 mg oral tablet, extended release 1 tablet, By Mouth, Daily, # 90 tablet, 1 Refills, Maintenance, 12/27/22 10:31:00 EDT, [facility]/pharmacy#2566, 146, cm, 12/04/22 11:11:00 EDT, Height, [...] 01/12/23 Stop Date: 04/12/23 Status: Ordered Pen [place], 31 G x 5 mm BD Ultra [...] 3 Refills, Maintenance, 03/24/23 8:41:00 EST, Tablet, [facility]/pharmacy #1271, Partial fill upon patient request if the [...] clavicle Confirmed Active Hypertension Confirmed 02/19/10 Active *[id number] Mds Nurse Claudette Burnett Confirmed Active Current smoker [...] Team Personnel Name: Nicolette Rider NP Position: [facility] PCO Associate Professional Member Role: PCP Address: Address: [address] [place] [address]- Name: Neelam Garvey RN Position: [facility] RN Member Role: Primary Care Nurse Name: Jo Quick RN Position: S RN Member Role: Primary Care Nurse Name: La Mares RN Position: [facility] RN Member Role: Primary Care Nurse Name: Torsetn Gay RN Position: [facility] RN Member Role: Primary Care Nurse Address: Address: [address] [place] [address]- Care Team Related Persons Name: AMMON CUELLAR Address: home [address] [place] [address] Name: FAISAL GILLESPIE Address: home [address] [place] [address] Name: AMMON PIERRE Address: home [address] [address]
--- OUTSIDE RECORDS SUMMARY | 2023-06-04 12:00 | XMS_ITS | Continuity of Care Document ---
Author Name Unknown Organization [facility] Address [address] [place] [address]- Care Team Providers Care Kelly Machine Operator Name Role Phone Nicolette Rider NP Primary Care Physician Encounter [facility] ACCT [facility] [id number] Date(s): 09/01/22 - 10/01/[address] [address] Attending Physician: Dai Clark Admitting Physician: [...] Given Patient Refuses 1Result Comment: DILUENT LOT#: [id number] EXP: 10/2022 MFG: HENRYSENSIUS 2Admin Note: vis 3Admin Note: VIS GIVEN [...] Refills, Maintenance, 09/01/22 11:12:00 EDT, [facility], 146, cm, 09/01/22 11:06:00 EDT, Height, 50, [...] 05/21/22 11:57:00 EST, Route to Pharmacy Electronically, [facility]/pharmacy #[id number], Partial fill upon patient request if the prescription is for a... Start Date: 05/21/22 Status: Ordered Jardiance 10 mg oral tablet 1 tablet, By Mouth, Daily in AM, # 30 tablet, 2 Refills, Maintenance, 09/29/22 12:59:00 EDT, [facility], 146, cm, 09/01/22 11:06:00 EDT, Height, 50, kg, 04/16/22 12:46:00 EST, Dry Weight Start Date: 09/29/22 Status: Ordered metFORMIN 1000 mg oral tablet 1 tablet, By Mouth, 2 times a day, # 60 tablet, 5 Refills, 08/07/22 13:34:00 EDT, [facility]/pharmacy #2566, Please allow for early refill as last her pills were dropped in water, 146, cm, 07/27/22 11:29:00EDT, Height, 50, kg, 04/16/22 12:46:00 EST, Dry We... Start Date: 08/07/22 Status: Ordered Metoprolol Succinate ER 100 mg oral tablet, extended release 1 tablet, By Mouth, Daily, # 90 tablet, 1 Refills, Maintenance, 06/30/22 10:31:00 EST, [facility]/pharmacy#2566, 146, cm, 05/21/22 11:19:00 EST, Height, 50, kg, 04/16/22 12:46:00 EST, Dry Weight Start Date: 06/30/22 Stop Date: 12/27/22 Status: Ordered omeprazole 20 mg oral enteric coated capsule 1 capsule = 20 mg, By Mouth, Daily, # 14 capsule, 0 Refills, Maintenance, 12/02/21 18:07:00 EDT, ECCapsule, [facility]/pharmacy #7201, Partial fill upon patient request if the [...] Weight Start Date: 09/04/22 Status: Ordered Pen [place], 31 G x 5 mm BD Ultra [...] Stop 02/07/23 11:04:00 EDT, 08/11/22 11:04:00 EDT, [facility]/pharmacy #2566, [...] 06/16/22 15:00:00 EST, Route to Pharmacy Electronically, [facility] STORE 15206, 146, cm, 05/21/22 11:19:00 EST, Height, 50, [...] clavicle Confirmed Active Hypertension Confirmed 02/19/10 Active *[id number]-Kirby cherelle Cabandileep Confirmed Active Current smoker Confirmed [...] Team Personnel Name: Nicolette Rider NP Position: [facility] PCO Associate Professional Member Role: PCP Address: Address: [address] [place] [address]- Name: Neelam Garvey RN Position: S RN Member Role: Primary Care Nurse Name: Jo Quick RN Position: S RN Member Role: Primary Care Nurse Name: La Mares RN Position: [facility] RN Member Role: Primary Care Nurse Name: Cherie Vaughan RN Position: [facility] RN Member Role: Primary Care Nurse Name: Torsten Gay RN Position: [facility] RN Member Role: Primary Care Nurse Address: Address: [address] [place] [address]- Care Team Related Persons Name: AMMON CUELLAR Address: home [address] [place] [address] Name: FAISAL GILLESPIE Address: home [address] [place] [address] Name: AMMON PIERRE Address: home [address] [address]
--- OUTSIDE RECORDS SUMMARY | 2023-06-04 12:00 | XMS_ITS | Continuity of Care Document ---
Author Name Unknown Organization [facility] Address [address] [place] [address]- Care Team Providers Care Spray Machine Operator Name Role Phone Tereso MILLER, Nicolette Mills Primary Care Physician Encounter [facility] Date(s): 12/02/21 - 01/01/[address] [address]- Allergies, Adverse Reactions, Alerts Substance Reaction Severity [...] Given Patient Refuses 1Result Comment: DILUENT LOT#: [id number] EXP: 10/2022 MFG: FRESENSIUS 2Admin Note: vis 3Admin Note: VIS GIVEN 4Admin Note: vis 08/16/08 5Admin Note: vis 03/20/08 6Admin Note: vis given 7Admin Note: VIS Medications acetaminophen 500 mg oral tablet 2 tablet = 1,000 mg, By Mouth, 4 times a day, PRN for pain, # 100 tablet, 0 Refills, Maintenance, 07/17/21 10:31:00 EDT, Tablet, [facility]/pharmacy #2566, Partial fill upon patient request if [...] pleasedo not drive or operate machinery with [employer]... Start Date: 12/04/21 Status: Ordered cyclobenzaprine 5 mg oral tablet 1 tablet = 5 mg, By Mouth, 3 times a day, PRN muscle spasms, # 30 tablet, 0 Refills, Maintenance, 12/25/21 13:17:00 EDT, Tablet, [facility], Partial fill upon patient request if the [...] Soft Stop, 12/17/21 9:21:00 EDT, Tablet, [facility]/pharmacy #2566, Partial fill upon patient request if [...] Refills, Maintenance, 11/09/21 13:28:00 EDT, Tablet, [facility]/pharmacy #2566, Please allow for early refill as [...] 16:40:00 EST, 09/11/21 16:40:00 EDT, Tablet, [facility]/pharmacy #4471, Partial fillupon patient request if the [...] 12/02/21 Stop Date: 12/07/21 Status: Ordered Pen [place], 31 G x 5 mm BD Ultra [...] fracture of clavicle(Confirmed) Active Hypertension(Confirmed) 02/19/10 Active *[id number] Care Partn patrick Saunders(Confirmed) Active Current smoker(Confirmed) Active Cervical stenosis of spinal canal(Confirmed) Active Urinary incontinence(Confirmed) Active 1Dx in 08/2018 upon psych eval Care Team Personnel Name: Nicolette Rider NP Address: [address] [place] [address]
--- OUTSIDE RECORDS SUMMARY | 2023-06-04 12:00 | XMS_ITS | Continuity of Care Document ---
Author Name Unknown Organization [facility] Address [address] [place] [address]- Care Team Providers Care Cloth Doffer Name Role Phone Tereso MILLER, Nicolette Mills Primary Care Physician [phone] [place] [facility] [place] [id number] Date(s): 10/30/21 - 11/29/[address] [address]- Attending Physician: Dai Clark Admitting Physician: AdmDai [...] Given Patient Refuses 1Result Comment: DILUENT LOT#: [id number] EXP: 10/2022 MFG: FRESENSIUS 2Admin Note: vis 3Admin Note: VIS GIVEN 4Admin Note: vis 08/16/08 5Admin Note: vis 03/20/08 6Admin Note: vis given 7Admin Note: VIS Medications acetaminophen 500 mg oral tablet 2 tablet = 1,000 mg, By Mouth, 4 times a day, PRN for pain, # 100 tablet, 0 Refills, Maintenance, 07/17/21 10:31:00 EDT, Tablet, [facility]/pharmacy #[id number], Partial fill upon patient [...] 0 Refills, Maintenance, 11/09/21 13:28:00 EDT, Tablet, [facility]/pharmacy #[id number], Please allow for early refill as last [...] 03/10/22 16:40:00 EST, 09/11/21 16:40:00 EDT, Tablet, [facility]/pharmacy #0614, Partial fillupon patient request if the prescription is for a s... Start Date: 09/11/21 Stop Date: 03/10/22 Status: Ordered glimepiride 4 mg oral tablet 1 tablet = 4 mg, By Mouth, Daily, with the first meal of the day, # 30 tablet, 0 Refills, Maintenance, 03/10/22 16:40:00 EST, Tablet, [facility]/pharmacy #[id number], Please allow for early refill [...] 10/20/21 16:04:00 EDT, Route to Pharmacy Electronically, [facility]/pharmacy #[id number], Partial fill upon patient request if... Start Date: 10/20/21 Status: Ordered Lac-Hydrin 12% lotion 1 application, Topically, 2 times a day, # 400 Gm, 0 Refills, Maintenance, 03/20/21 14:35:00 EST, Lotion, [facility]/pharmacy #[id number], Partial fill upon patient request if the prescription is for a schedule II opioid drug., 1 application Topically 2 times a da... Start Date: 03/20/21 Status: Ordered metFORMIN 1000 mg oral tablet 1 tablet, By Mouth, 2 times a day, # 60 tablet, 0 Refills, 11/09/21 13:29:00 EDT, [facility]/pharmacy #[id number], Please allow for early refill as last her pills were dropped in water, 155, cm, 10/07/21 13:25:00EDT, Height, 48, kg, 10/27/20 14:35:00 EDT, Dry We... Start Date: 11/09/21 Status: Ordered methocarbamol 500 mg oral tablet See Instructions, 1-2 tablets 4 times a day as needed for muscle spasms, # 40 tablet, 1 Refills, Maintenance, 10/07/21 13:46:00 EDT, Tablet, [facility]/pharmacy #[id number], Partial fill upon patient request if the prescription is for a schedule II opioid drug., 1... Start Date: 10/07/21 Status: Ordered Metoprolol Succinate ER 100 mg oral tablet, extended release 1 tablet, By Mouth, Daily, # 30 tablet, 0 Refills, Maintenance, 11/09/21 13:29:00 EDT, [facility]/pharmacy#[id number], Please allow for early refill as last her pills were dropped in water, 155, cm, 10/07/21 13:25:00 EDT, Height, 48, kg, 10/27/20 14:35:00 EDT, D... Start Date: 11/09/21 Status: Ordered Pen [place], 31 G x 5 mm BD Ultra [...] 5 Refills, Maintenance, 01/22/21 10:34:00 EDT, Gel, [facility]/pharmacy #[id number], 1 application Topically 4 times a day,PRN:Pain , Mild, 155,cm, 12/17/20 15:46:00 EDT, Height, 48, kg, 10/27/20... Start Date: 9/22/21 Status: Ordered Problem List Condition Effective Dates Status Health Status Inform ant Adjustment disorder with anxiety(Confirmed) 1 Active Breast mass, right(Confirmed) Active Cervical radiculopathy(Confirmed) Active Chronic left shoulder pain(Confirmed) Active Diabetes Mellitus(Confirmed) 02/19/10 Active Hx of fracture of clavicle(Confirmed) Active Hypertension(Confirmed) 02/19/10 Active *[id number] Care Partn patrick Saunders(Confirmed) Active Current smoker(Confirmed) Active Cervical stenosis of spinal canal(Confirmed) Active Urinary incontinence(Confirmed) Active 1Dx in 08/2018 upon psych eval
--- OUTSIDE RECORDS SUMMARY | 2023-06-04 12:00 | XMS_ITS | Continuity of Care Document ---
Author Name Unknown Organization [facility] Address [address] [place] [address]- Care Team Providers Care Car Customizer Name Role Phone Tereso MILLER, Nicolette Mills Primary Care Physician Encounter [facility] [place] Date(s): 05/01/19 - 05/11/19 [facility] [address] [place] [address]- [facility] Attending Physician: Dai Clark Admitting Physician: [...] 03/16/19 14:34:47 EST, Route to Pharmacy Electronically, [id number], [facility]/pharmacy #[id number] Start Date: 03/16/19 Stop Date: [...] Once, PRN as needed for fever, lot [id number] EXP 05/2018, # 2 capsule, 0 Refills, Maintenance, 03/07/18 17:28:48 EST, Capsule Start Date: 03/07/18 Stop Date: 03/07/18 Status: Ordered Voltaren 1% topical gel 1 application, Topically, 4 times a day, PRN Pain , Mild, # 100 Gm, 0 Refills, Maintenance, 04/21/19 13:41:00 EST, Gel, [facility]/pharmacy #[id number], 1 application Topically 4 times a day,PRN:Pain , Mild, 151,cm, 04/21/19 13:19:00 EST, Height, 44.5, kg, 12/24/... Start Date: 04/21/19 Status: Ordered Problem List Condition Effective Dates Status Health Status Inform ant Adjustment disorder with anxiety(Confirmed) 1 Active Breast mass, right(Confirmed) Active Cervical radiculopathy(Confirmed) Active Diabetes Mellitus(Confirmed) 02/19/10 Active Hypertension(Confirmed) 02/19/10 Active *[id number]-Reimbursement Analyst-Jose E Cotto(Confirmed) Active Current smoker(Confirmed) Active 1Dx in 08/2018 upon psych eval
--- OUTSIDE RECORDS SUMMARY | 2023-06-04 12:00 | XMS_ITS | Continuity of Care Document ---
Author Name Unknown Organization [facility] Address [address] [place] [address]- Care Team Providers Care Job Recruiter Name Role Phone Tereso MILLER, Nicolette Mills Primary Care Physician Encounter [facility] Date(s): 03/15/23 - 04/14/[address] [address]- Allergies, Adverse Reactions, Alerts Substance Reaction Severity [...] 7 02/18/10 Given 1Result Comment: DILUENT LOT#: [id number] EXP: 10/2022 MFG: FRESENSIUS 2Admin Note: vis 3Admin Note: VIS GIVEN 2011- 4Admin Note: vis 08/16/08 5Admin Note: vis 03/20/08 6Admin Note: vis given 7Admin Note: VIS Medications acetaminophen 500 mg oral tablet 2 tablet = 1,000 mg, By Mouth, 4 times a day, PRN for pain, # 100 tablet, 0 Refills, Maintenance, 07/17/21 10:31:00 EDT, Tablet, [id number], Partial fill upon patient request if the [...] Refills, Maintenance, 02/09/23 11:58:00 EDT, Capsule, [id number], to replace amlodipine, benazepril, ramipril., 1 capsule [...] 3 Refills, Maintenance, 11/23/22 13:00:00 EDT, Gel, [facility]/pharmacy #2566, Partial fill upon patient request if [...] capsule, 3 Refills, Maintenance, 04/09/23 13:32:00 EST, [facility]/pharmacy #4471, Partial fill upon patient request if [...] 0 Refills, Maintenance, 04/09/23 11:34:00 EST, Tablet, [facility]/pharmacy #[id number], Partial fill upon patient request if [...] mL, 3 Refills, Maintenance, 02/09/23 12:19:00 EDT, [facility]/pharmacy #4471,146, cm, 02/09/23 11:42:00 EDT, Height, 50, kg, 12... Start Date: 02/09/23 Stop Date: 02/04/24 Status: Ordered metFORMIN 500 mg oral tablet, extended release 2 tablet = 1,000 mg, By Mouth, 2 times a day, Take with food, # 360 tablet, 3 Refills, Maintenance,03/18/24 8:41:00 EST, [facility]/pharmacy #[id number], Note dose change; ER 1000 mg [...] tablet, 3 Refills, Maintenance, 02/09/23 12:40:00 EDT, [facility]/pharmacy #[id number], 146, cm, 02/09/23 11:42:00 EDT, Height, 50, kg, 04/16/22... 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 Active Current smoker Confirmed [...] Team Personnel Name: Nicoletet Rider NP Position: [facility] Associate Professional Member Role: PCP Address: Address: [address] [place] [address]- Name: Neelam Garvey RN Position: S RN Member Role: Primary Care Nurse Name: Jo Quick RN Position: S RN Member Role: Primary Care Nurse Name: La Mares RN Position: S RN Member Role: Primary Care Nurse Name: Cherie Vaughan NP Position: [facility] Associate Professional Member Role: Primary Care Nurse Name: Torsten Gay RN Position: S RN Member Role: Primary Care Nurse Address: Address: [address] [place] [id number]- Care Team Related Persons Name: AMMON CUELLAR Address: home [address] [place] [address] Name: FAISAL GILLESPIE Address: home [address] [place] [address] Name: AMMON PIERRE Address: home [address] [address]
--- OUTSIDE RECORDS SUMMARY | 2023-06-04 12:00 | XMS_ITS | Continuity of Care Document ---
Author Name Unknown Organization [facility] Address [address] [place] [address]- Care Team Providers Care Horticultural Specialty Grower Name Role Phone Nicolette Rider NP Primary Care Physician Encounter [facility] [place] [id number] Date(s): 12/04/22 - 01/03/[address] [address] Attending Physician: AdmDai quiroz Admitting Physician: AdmtrDai Referring Physician: Admtr, Ar8 [...] 7 02/18/10 Given 1Result Comment: DILUENT LOT#: [id number] EXP: 10/2022 MFG: FRESENSIUS 2Admin Note: vis [...] Refills, Maintenance, 09/01/22 11:12:00 EDT, [facility], 146, cm, 09/01/22 11:06:00 EDT, Height, 50, kg, 04/16/22 12:46:00 EST, Dry Weight Start Date: 09/01/22 Status: Ordered clotrimazole 1% topical cream See Instructions, APPLY EXTERNALLY TO THE VAGINAL AREA NEEDED FOR ITCH TWICE DAILY FOR YEAST INFECTION, # 60 Gm, 1 Refills, Maintenance, 12/23/22 21:53:00 EDT, [facility], 40, APPLY EXTERNALLY TO THE VAGINAL AREA [...] 3 Refills, Maintenance, 11/23/22 13:00:00 EDT, Gel, [facility]/pharmacy #[id number], Partial fill upon [...] tablet, 1 Refills, Maintenance, 12/23/22 21:53:00 EDT, [facility], 146, cm, 12/04/22 11:11:00 EDT, Height,50, kg, 04/16/22 12:46:00 EST, Dry Weight Start Date: 12/23/22 Status: Ordered ibuprofen 600 mg oral tablet 1, tablet, By Mouth, 4 times a day, PRN, # 60 tablet, Refills 1, Maintenance, NEEDED FOR PAIN, 11/18/22 11:25:00 EDT, Route to Pharmacy Electronically, [facility], 146, cm, 09/01/22 11:06:00 EDT, Height, 50, kg, 04/16/22 12:46:00 EST, Dry Weight Start Date: 11/18/22 Status: Ordered Jardiance 10 mg oral tablet 1 tablet, By Mouth, Daily in AM, # 30 tablet, 2 Refills, Maintenance, 09/29/22 12:59:00 EDT, [facility], 146, cm, 09/01/22 11:06:00 EDT, Height, 50, kg, 04/16/22 12:46:00 EST, Dry Weight Start Date: 09/29/22 Status: Ordered metFORMIN 1000 mg oral tablet 1 tablet, By Mouth, 2 times a day, # 60 tablet, 5 Refills, 08/07/22 13:34:00 EDT, [facility]/pharmacy #[id number], Please allow for early refill as last her pills were dropped in water, 146, cm, 07/27/22 11:29:00EDT, Height, 50, kg, 04/16/22 12:46:00 EST, Dry We... Start Date: 08/07/22 Status: Ordered Metoprolol Succinate ER 100 mg oral tablet, extended release 1 tablet, By Mouth, Daily, # 90 tablet, 1 Refills, Maintenance, 12/27/22 10:31:00 EDT, [facility]/pharmacy#2566, 146, cm, 12/04/22 11:11:00 EDT, Height, 50, kg, 04/16/22 12:46:00 EST, Dry Weight Start Date: 12/27/22 Stop Date: 06/25/23 Status: Ordered omeprazole 20 mg oral enteric coated capsule 1 capsule = 20 mg, By Mouth, Daily, # 14 capsule, 0 Refills, Maintenance, 12/02/21 18:07:00 EDT, ECCapsule, [facility]/pharmacy #[id number], Partial fill upon [...] Weight Start Date: 09/04/22 Status: Ordered Pen [place], 31 G x 5 mm BD Ultra [...] Refills, Maintenance, 12/17/22 14:32:00 EDT, [facility], 146, cm, 12/04/22 11:11:00 EDT, Height, 50, [...] clavicle Confirmed Active Hypertension Confirmed 02/19/10 Active *[id number]-Kirby cherelle Montoya Confirmed Active Current smoker Confirmed Active Cervical stenosis of spinal canal Confirmed Active Subclinical hyperthyroidism Confirmed Active Thyroid nodule - TIRADS 4, follow up US due 05/01/2023 Confirmed Active Urinary incontinence Confirmed Active 1Dx in 08/2018 upon psych eval Social History Social History Type Response Sex Female Consult note * Magalis Gomes: PERFORM Event Display: Consultation Note Authored Date: [id number] Note * Juan Colon: PERFORM Event Display: Discharge/Transfer Note Hospital Authored Date: Patient Care team information Care Team Personnel Name: Nicolette Rider NP Position: [facility] Associate Professional Member Role: PCP Address: Address: [address] [place] [address]- Name: Mare MANCILLA, Neelam Position: [facility] RN Member Role: Primary Care Nurse Name: Jo Quick RN Position: [facility] RN Member Role: Primary Care Nurse Name: La Mares RN Position: S RN Member Role: Primary Care Nurse Name: Cherie Vaughan RN Position: [facility] RN Member Role: Primary Care Nurse Name: Torsten Gay RN Position: [facility] RN Member Role: Primary Care Nurse Address: Address: [address] [place] [address]- [place] Care Team Related Persons Name: AMMON CUELLAR Address: home [address] [place] [address] Name: FAISAL GILLESPIE Address: home [address] [place] [address] Name: AMMON PIERRE Address: home [address] [address]
--- OUTSIDE RECORDS SUMMARY | 2023-06-04 12:00 | XMS_ITS | Continuity of Care Document ---
Author Name Unknown Organization [facility] Address [address] [place] [address]- Care Team Providers Care Mental Tester Name Role Phone Nicolette Rider NP Primary Care Physician Encounter [facility] Date(s): 07/10/22 - 08/09/22 [facility] [address] [place], [place] [address] Attending Physician: Admgabriella, Major8 Admitting Physician: Admtr, Major8 Referring Physician: Admtr, Ar8 Allergies, Adverse Reactions, [...] Given Patient Refuses 1Result Comment: DILUENT LOT#: [id number] EXP: 10/2022 MFG: FRESENSIUS 2Admin Note: vis [...] 5 Refills, Maintenance, 03/12/22 21:19:00 EST, Tablet, [facility]/pharmacy #[id number], Please allow for early refill as [...] 5 Refills, Maintenance, 08/07/22 13:54:00 EDT, Tablet, [facility]/pharmacy #2566, Please allow for early refill as last her pills were dropped in water; Partial fill upon patient... Start Date: 08/07/22 Stop Date: 02/03/23 Status: Ordered ibuprofen 600 mg oral tablet 600 mg, 1, tablet, By Mouth, 4 times a day, PRN, # 60 tablet, Refills 1, Tot. Refills 1, Maintenance, for pain, 05/21/22 11:57:00 EST, Route to Pharmacy Electronically, [facility]/pharmacy #[id number], Partial fill upon patient request if the prescription is for a... Start Date: 05/21/22 Status: Ordered metFORMIN 1000 mg oral tablet 1 tablet, By Mouth, 2 times a day, # 60 tablet, 5 Refills, 08/07/22 13:34:00 EDT, [facility]/pharmacy #[id number], Please allow for early refill as [...] 0 Refills, Maintenance, 12/02/21 18:07:00 EDT, ECCapsule, [facility]/pharmacy #4471, Partial fill upon patient request if the prescription is for a schedule II opioid drug., 155, cm, 12/02/21 16:59:00 EDT, H... Start Date: 12/02/21 Stop Date: 12/16/21 Status: Ordered Pen [place], 31 G x 5 mm BD [...] Stop 08/11/22 11:04:00 EDT, 02/12/22 11:04:00 EDT, [facility]/pharmacy #[id number], Please allow for early refill as last her pills weredropped in water, 155, cm, 12/02/21 16:59:00 EDT,... 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 Active Current smoker Confirmed Active Cervical stenosis of spinal canal Confirmed Active Subclinical hyperthyroidism Confirmed Active Thyroid nodule - TIRADS 4, follow up US due 05/01/2023 Confirmed Active Urinary incontinence Confirmed Active 1Dx in 08/2018 upon psych eval Patient Care team information Care Team Personnel Name: Nicolette Rider NP Position: [facility] Associate Professional Member Role: PCP Address: Address: [address] [place] [address]- Name: Neelam Garvey RN Position: S RN Member Role: Primary Care Nurse Name: Jo Quick RN Position: S RN Member Role: Primary Care Nurse Name: La Mares RN Position: S RN Member Role: Primary Care Nurse Name: Cherie Vaughan RN Position: S RN Member Role: Primary Care Nurse Name: Torsten Gay RN Position: S RN Member Role: Primary Care Nurse Address: Address: [address] [place] [address] Care Team Related Persons Name: AMMON CUELLAR Address: home [address] [place] [address] Name: FAISAL GILLESPIE Address: home [address] [place] [address] Name: AMMON PIERRE Address: home [address] [address]
--- OUTSIDE RECORDS SUMMARY | 2023-06-04 12:00 | XMS_ITS | Continuity of Care Document ---
Author Name Unknown Organization [facility] Address [address] [place] [address]- Care Team Providers Care Grain Inspector Name Role Phone Tereso MILLER, Nicolette Mills Primary Care Physician Encounter [facility] Date(s): 08/01/21 - 09/04/[address] [address]- Attending Physician: Not on Staff, Attending MD [...] Given Patient Refuses 1Result Comment: DILUENT LOT#: [id number] EXP: 10/2022 MFG: FRESENSIUS 2Admin Note: vis [...] 0 Refills, Maintenance, 07/17/21 10:31:00 EDT, Tablet, [facility]/pharmacy #[id number], Partial fill upon patient [...] a day, # 180 tablet, 0 Refills, [facility], 155, cm, 08/01/21 14:55:00 EDT, Height, 48, kg, 10/27/20 14:35:00 EDT, Dry Weight Start Date: 08/08/21 Status: Ordered methocarbamol 500 mg oral tablet See Instructions, 1-2 tablets 4 times a day as needed for muscle spasms, # 40 tablet, 0 Refills, Maintenance, 08/19/21 11:23:00 EDT, Tablet, [facility]/pharmacy #2566, Partial fill upon patient request if the prescription is for a schedule II opioid drug., 1... Start Date: 08/19/21 Status: Ordered Metoprolol Succinate ER 100 mg oral tablet, extended release 1 tablet, By Mouth, Daily, # 90 tablet, 1 Refills, Maintenance, 05/14/21 14:44:00 EST, [facility]/pharmacy#[id number], 155, cm, 03/20/21 13:49:00 EST, Height, 48, kg, 10/27/20 14:35:00 EDT, Dry Weight Start Date: 05/14/21 Status: Ordered multivitamin Multiple Vitamins oral capsule 1 capsule, By Mouth, Daily, # 90 capsule, 3 Refills, Maintenance, 04/24/20 11:53:00 EST, Capsule, [facility]/pharmacy #[id number], 1 capsule By Mouth Daily,x90 [...] EDT,Compound Start Date: 09/03/17 Status: Ordered Pen [place], 31 G x 5 mm BD Ultra [...] Refills, Maintenance, 08/01/21 15:13:00 EDT, Solution, [facility], Partial fill upon patient request if the [...] fracture of clavicle(Confirmed) Active Hypertension(Confirmed) 02/19/10 Active *[id number] Care Partn patrick Saunders(Confirmed) Active Current smoker(Confirmed) Active Cervical stenosis of spinal canal(Confirmed) Active 1Dx in 08/2018 upon psych eval
--- OUTSIDE RECORDS SUMMARY | 2023-06-04 12:00 | XMS_ITS | Continuity of Care Document ---
Author Name Unknown Organization [facility] Address [address] [place] [address]- Care Team Providers Care Director Of Human Resources Name Role Phone Tereso MILLER, Nicolette Mills Primary Care Physician [phone] Encounter [facility] [place] ACCT R [id number] Date(s): 04/16/21 - 05/16/[address] [address]- Attending Physician: Dai Clark Admitting Physician: Dai [...] Given Patient Refuses 1Result Comment: DILUENT LOT#: [id number] EXP: 10/2022 MFG: FRESENSIUS 2Admin Note: vis [...] Mouth, Daily, # 90 capsule, 1 Refills, [facility], 155, cm, 03/04/21 13:56:00 EDT, Height, 48, [...] Once, PRN as needed for fever, lot [id number] EXP 05/2018, # 2 capsule, 0 Refills, [...] fracture of clavicle(Confirmed) Active Hypertension(Confirmed) 02/19/10 Active *[id number] Care Partn patrick Saunders(Confirmed) Active Current smoker(Confirmed) Active Cervical stenosis of spinal canal(Confirmed) Active 1Dx in 08/2018 upon psych eval
--- OUTSIDE RECORDS SUMMARY | 2023-06-04 12:01 | XMS_ITS | Continuity of Care Document ---
Author Name Unknown Organization [facility] Address [address] [place] [address]- Care Team Providers Care Lead Nuclear Medicine Technologist Name Role Phone Tereso MILLER, Nicolette Mills Primary Care Physician Encounter [facility] Date(s): 03/22/23 - 05/21/[address] [address]- Attending Physician: Raffy Garcia MD Admitting Physician: Raffy Garcia MD Allergies, Adverse Reactions, Alerts Substance Reaction [...] 7 02/18/10 Given 1Result Comment: DILUENT LOT#: [id number] EXP: 10/2022 MFG: FRESENSIUS 2Admin Note: vis 3Admin Note: VIS GIVEN 4Admin Note: vis 08/16/08 5Admin Note: vis 03/20/08 6Admin Note: vis given 7Admin Note: VIS Medications acetaminophen 500 mg oral tablet 2 tablet = 1,000 mg, By Mouth, 4 times a day, PRN for pain, # 100 tablet, 0 Refills, Maintenance, 07/17/21 10:31:00 EDT, Tablet, [facility]/pharmacy #[id number], Partial fill upon patient [...] Refills, Maintenance, 02/09/23 11:58:00 EDT, Capsule, [facility]/pharmacy #[id number], to replace amlodipine, benazepril, ramipril., 1 capsule [...] 0 Refills, Maintenance, 05/07/23 14:28:00 EST, [facility] STORE [facility], 146, cm, 04/09/23 12:58:00 EST, Height, 50, kg, 04/16/22 12:46:00 EST, Dry Weight Start Date: 05/07/23 Status: Ordered Lantus Solostar Pen 100 units/mL subcutaneous solution = 20 units, Subcutaneous Injection, Daily, Adjust dose as recommended weekly by RN per protocol. Dispense 3 pens per month, # 15 mL, 3 Refills, Maintenance, 02/09/23 12:19:00 EDT, [facility]/pharmacy #4471,146, cm, 02/09/23 11:42:00 EDT, Height, 50, kg, 12... Start Date: 02/09/23 Stop Date: 02/04/24 Status: Ordered metFORMIN 500 mg/5 mL oral solution 5 mL = 500 mg, By Mouth, 2 times a day, # 300 mL, 4 Refills, Maintenance, 05/20/23 15:46:00 EST, Solution, [facility]/pharmacy #[id number], Partial fill upon patient request if the prescription is for a schedule II opioid drug., 146, cm, 05/20/23 14:43:00 EST, Hei... Start Date: 05/20/23 Status: Ordered Metoprolol Succinate ER 100 mg oral tablet, extended release 1 tablet, By Mouth, Daily, # 90 tablet, 1 Refills, Maintenance, 12/27/22 10:31:00 EDT, [facility]/pharmacy#[id number], 146, cm, 12/04/22 11:11:00 EDT, [...] 05/21/23 Stop Date: 11/17/23 Status: Ordered Pen [place], 31 G x 5 mm BD [...] 3 Refills, Maintenance, 03/24/23 8:41:00 EST, Tablet, [facility]/pharmacy #[id number], Partial fill upon patient request if the [...] 5 Refills, Maintenance, 05/20/23 15:46:00 EST, [facility]/pharmacy #[id number], Partial fill upon patient [...] clavicle Confirmed Active Hypertension Confirmed 02/19/10 Active *[id number] 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 Database 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 Claudette Burnett Confirmed Active Current smoker Confirmed [...] Associate Professional Member Role: PCP Address: Address: [address] [place] [address]- Name: Neelam Garvey RN Position: S RN Member Role: Primary Care Nurse Name: Jo Quick RN Position: S RN Member Role: Primary Care Nurse Name: La Mares RN Position: S RN Member Role: Primary Care Nurse Name: Torsten Gay RN Position: S RN Member Role: Primary Care Nurse Address: Address: [address] [place] [address]- Care Team Related Persons Name: AMMON CUELLAR Address: home [address] [place] [address] Name: FAISAL GILLESPIE Address: home [address] [place] [address] Name: AMMON PIERRE Address: home [address] [address]
--- OUTSIDE RECORDS SUMMARY | 2023-06-04 12:01 | XMS_ITS | Continuity of Care Document ---
Author Name Unknown Organization [facility] Address [address] [place] [address]- Care Team Providers Care Textile Scrap Salvager Name Role Phone Nicolette Rider NP Primary Care Physician Encounter [facility] Date(s): 08/12/22 - 09/11/[address] [address] Attending Physician: Dai Clark Admitting Physician: AdmtrDai [...] Given Patient Refuses 1Result Comment: DILUENT LOT#: [id number] EXP: 10/2022 MFG: FRESENSIUS 2Admin Note: vis [...] Refills, Maintenance, 09/01/22 11:12:00 EDT, [facility], 146, cm, 09/01/22 11:06:00 EDT, Height, 50, [...] 5 Refills, Maintenance, 08/07/22 13:54:00 EDT, Tablet, [facility]/pharmacy #[id number], Please allow [...] 05/21/22 11:57:00 EST, Route to Pharmacy Electronically, [facility]/pharmacy #[id number], Partial fill upon patient request if the prescription is for a... Start Date: 05/21/22 Status: Ordered metFORMIN 1000 mg oral tablet 1 tablet, By Mouth, 2 times a day, # 60 tablet, 5 Refills, 08/07/22 13:34:00 EDT, [facility]/pharmacy #[id number], Please allow for early refill as last her pills were dropped in water, 146, cm, 07/27/22 11:29:00EDT, Height, 50, kg, 04/16/22 12:46:00 EST, Dry We... Start Date: 08/07/22 Status: Ordered Metoprolol Succinate ER 100 mg oral tablet, extended release 1 tablet, By Mouth, Daily, # 90 tablet, 1 Refills, Maintenance, 06/30/22 10:31:00 EST, [facility]/pharmacy#[id number], 146, cm, 05/21/22 11:19:00 EST, Height, 50, kg, 04/16/22 12:46:00 EST, Dry Weight Start Date: 06/30/22 Stop Date: 12/27/22 Status: Ordered omeprazole 20 mg oral enteric coated capsule 1 capsule = 20 mg, By Mouth, Daily, # 14 capsule, 0 Refills, Maintenance, 12/02/21 18:07:00 EDT, ECCapsule, [facility]/pharmacy #[id number], Partial fill upon patient request if the [...] Weight Start Date: 09/04/22 Status: Ordered Pen [place], 31 G x 5 mm BD Ultra [...] Stop 02/07/23 11:04:00 EDT, 08/11/22 11:04:00 EDT, [facility]/pharmacy #[id number], Please allow for [...] 06/16/22 15:00:00 EST, Route to Pharmacy Electronically, [facility] STORE 85465, 146, cm, 05/21/22 11:19:00 EST, Height, 50, [...] clavicle Confirmed Active Hypertension Confirmed 02/19/10 Active *[id number] Element Burner Claudette Burnett Confirmed 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 Current smoker Confirmed Active Cervical stenosis of spinal canal Confirmed Active Subclinical hyperthyroidism Confirmed Active Thyroid nodule - TIRADS 4, follow up US due 05/01/2023 Confirmed Active Urinary incontinence Confirmed Active 1Dx in 08/2018 upon psych eval Patient Care team information Care Team Personnel Name: Nicolette Rider NP Position: [facility] Associate Professional Member Role: PCP Address: Address: [address] [place] [address]- [place] Name: Neelam Garvey RN Position: S RN Member Role: Primary Care Nurse Name: Jo Quick RN Position: S RN Member Role: Primary Care Nurse Name: La Mares RN Position: S RN Member Role: Primary Care Nurse Name: Cherie Vaughan RN Position: [facility] RN Member Role: Primary Care Nurse Name: Torsten Gay RN Position: [facility] RN Member Role: Primary Care Nurse Address: Address: [address] [place] [address]- Care Team Related Persons Name: AMMON CUELLAR Address: home [address] [place] [address] Name: FAISAL GILLESPIE Address: home [address] [facility] [address] [place] [address] Name: AMMON PIERRE Address: home [address] [address]
--- OUTSIDE RECORDS SUMMARY | 2023-06-04 12:01 | XMS_ITS | Continuity of Care Document ---
Author Name Unknown Organization [facility] Address [address] [place] [address]- Care Team Providers Care Lead Business Analyst Name Role Phone Tereso MILLER, Nicolette Mills Primary Care Physician [place] [facility] [place] 01/19/23 - 02/18/[address] [address]- Allergies, Adverse Reactions, Alerts Substance Reaction Severity [...] 7 02/18/10 Given 1Result Comment: DILUENT LOT#: [id number] EXP: 10/2022 MFG: FRESENSIUS 2Admin Note: vis [...] Refills, Maintenance, 02/09/23 11:58:00 EDT, [facility], [id number], to replace amlodipine, benazepril, ramipril., 1 capsule [...] 3 Refills, Maintenance, 11/23/22 13:00:00 EDT, Gel, [facility]/pharmacy #[id number], Partial fill upon [...] capsule, 1 Refills, Maintenance, 01/12/23 12:16:00 EDT, [facility]/pharmacy #[id number], 146, cm, 01/12/23 11:33:00 [...] Maintenance,01/12/23 12:17:00 EDT, Route to Pharmacy Electronically, [facility]/pharmacy #[id number], 146, cm, 01/12/23 11:33:00 EDT, Height, 50, kg, 04/16/22 12:46:00 EST, Dry... Start Date: 01/12/23 Stop Date: 07/11/23 Status: Ordered Lantus Solostar Pen 100 units/mL subcutaneous solution = 24 units, Subcutaneous Injection, Daily, Adjust dose as recommended weekly by RN per protocol. Dispense 3 pens per month, # 15 mL, 3 Refills, Maintenance, 02/09/23 12:19:00 EDT, [facility]/pharmacy #[id number],146, cm, 02/09/23 11:42:00 EDT, Height, 50, kg, 12... Start Date: 02/09/23 Stop Date: 02/04/24 Status: Ordered methocarbamol 750 mg oral tablet 1 tablet = 750 mg, By Mouth, 3 times a day, PRN Pain , Moderate, Take only as needed for muscle spasms and pain., # 90 tablet, 3 Refills, Maintenance, 02/09/23 12:40:00 EDT, [facility]/pharmacy #[id number], 146, cm, 02/09/23 11:42:00 EDT, Height, 50, kg, 04/16/22... 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 Current smoker Confirmed Active Cervical stenosis of spinal canal Confirmed Active Subclinical hyperthyroidism Confirmed Active Thyroid nodule - TIRADS 4, follow up US due 05/01/2023 Confirmed Active Urinary incontinence Confirmed Active 1Dx in 08/2018 upon psych eval Social History Social History Type Response Sex Female Patient Care team information Care Team Personnel Name: Nicolette Rider NP Position: [facility] Associate Professional Member Role: PCP Address: Address: [address] [place] [address]- Name: Neelam Garvey RN Position: S RN Member Role: Primary Care Nurse Name: Jo Quick RN Position: S RN Member Role: Primary Care Nurse Name: La Mares RN Position: S RN Member Role: Primary Care Nurse Name: Cherie Vaughan RN Position: S RN Member Role: Primary Care Nurse Name: Torsten Gay RN Position: S RN Member Role: Primary Care Nurse Address: Address: [address] [place] [address]- Care Team Related Persons Name: AMMON CUELLAR Address: home [address] [place] [address] Name: FAISAL GILLESPIE Address: home [address] [facility] [address] [place] [address] Name: AMMON PIERRE Address: home [address] [address]
--- OUTSIDE RECORDS SUMMARY | 2023-06-04 12:01 | XMS_ITS | Continuity of Care Document ---
Author Name Unknown Organization [facility] Address [address] [place] [address]- Care Team Providers Care Senior Care Specialist Name Role Phone Tereso MILLER, Nicolette Mills Primary Care Physician Encounter [facility] ACCT R [id number] Date(s): 08/19/21 - 09/18/[address] [address]- Attending Physician: Dai Clark Admitting Physician: AdmDai [...] Given Patient Refuses 1Result Comment: DILUENT LOT#: [id number] EXP: 10/2022 MFG: FRESENSIUS 2Admin Note: vis 3Admin Note: VIS GIVEN 4Admin Note: vis 08/16/08 5Admin Note: vis 03/20/08 6Admin Note: vis given 7Admin Note: VIS Medications acetaminophen 500 mg oral tablet 2 tablet = 1,000 mg, By Mouth, 4 times a day, PRN for pain, # 100 tablet, 0 Refills, Maintenance, 07/17/21 10:31:00 EDT, Tablet, [facility]/pharmacy #[id number], Partial fill upon patient [...] EDT, Supply Start Date: 09/08/21 Status: Ordered Freestyle Lite Lancets See Instructions, [...] 1 Refills, Maintenance, 09/11/21 16:40:00 EDT, Tablet, [facility]/pharmacy #1511, Partial fill upon patient request if the prescription is for a schedule II opioid drug., 155, cm,... Start Date: 09/11/21 Stop Date: 03/10/22 Status: Ordered ibuprofen 600 mg oral tablet 600 mg, 1, tablet, By Mouth, Every 6 hours, PRN, with food or milk, # 60 tablet, Refills 1, Tot. Refills 1, Maintenance, Pain , Moderate, 07/17/21 10:31:00 EDT, Route to Pharmacy Electronically, [facility]/pharmacy #[id number], Partial fill upon patient request if... Start Date: 07/17/21 Status: Ordered Lac-Hydrin 12% lotion 1 application, Topically, 2 times a day, # 400 Gm, 0 Refills, Maintenance, 03/20/21 14:35:00 EST, Lotion, [facility]/pharmacy #[id number], Partial fill upon patient request if the prescription is for a schedule II opioid drug., 1 application Topically 2 times a da... Start Date: 03/20/21 Status: Ordered metFORMIN 1000 mg oral tablet 1 tablet, By Mouth, 2 times a day, # 180 tablet, 0 Refills, [facility], 155, cm, 08/01/21 14:55:00 EDT, Height, 48, kg, 10/27/20 14:35:00 EDT, Dry Weight Start Date: 08/08/21 Status: Ordered methocarbamol 500 mg oral tablet See Instructions, 1-2 tablets 4 times a day as needed for muscle spasms, # 40 tablet, 0 Refills, Maintenance, 08/19/21 11:23:00 EDT, Tablet, [facility]/pharmacy #[id number], Partial fill upon patient request if the prescription is for a schedule II opioid drug., 1... Start Date: 08/19/21 Status: Ordered Metoprolol Succinate ER 100 mg oral tablet, extended release 1 tablet, By Mouth, Daily, # 90 tablet, 1 Refills, Maintenance, 09/11/21 16:39:00 EDT, [facility]/pharmacy#[id number], 155, cm, 08/19/21 10:29:00 EDT, Height, 48, kg, 10/27/20 14:35:00 EDT, Dry Weight Start Date: 09/11/21 Status: Ordered Pen [place], 31 G x 5 mm BD Ultra [...] 90 capsule, 1 Refills, 08/22/21 13:26:00 EDT, [facility]/pharmacy #[id number], 155, cm, 08/19/21 10:29:00 EDT, Height, 48, kg, 10/27/20 14:35:00 EDT, Dry Weight Start Date: 08/22/21 Status: Ordered Trulicity Pen 0.75 mg/0.5 mL subcutaneous solution 0.5 mL = 0.75 mg, Subcutaneous Injection, Every week, rotate injection sites, # 6.5 mL, 1 Refills, Maintenance, 09/11/21 16:39:00 EDT, Solution, [facility]/pharmacy #[id number], Partial fill upon patient request if the prescription is for a schedule II opioid drug... Start Date: 09/11/21 Stop Date: 03/10/22 Status: Ordered Voltaren 1% topical gel 1 [...] fracture of clavicle(Confirmed) Active Hypertension(Confirmed) 02/19/10 Active *[id number] Care Partn patrick Saunders(Confirmed) Active Current smoker(Confirmed) Active Cervical stenosis of spinal canal(Confirmed) Active 1Dx in 08/2018 upon psych eval
--- OUTSIDE RECORDS SUMMARY | 2023-06-04 12:01 | XMS_ITS | Continuity of Care Document ---
Author Name Unknown Organization [facility] Address [address] [place] [address]- Care Team Providers Care Barback Name Role Phone Tereso MILLER, Nicolette Mills Primary Care Physician [place] [facility] Date(s): 06/01/22 - 09/03/[address] [address]- Encounter Diagnosis Disease of spinal cord, unspecified(Final) - Discharge Disposition: A-D/C Home Attending Physician: Jovon [...] Given Patient Refuses 1Result Comment: DILUENT LOT#: [id number] EXP: 10/2022 MFG: FRESENSIUS 2Admin Note: vis 3Admin Note: VIS GIVEN 4Admin Note: vis 08/16/08 5Admin Note: vis 03/20/08 6Admin Note: vis given 7Admin Note: VIS Medications acetaminophen 500 mg oral tablet 2 tablet = 1,000 mg, By Mouth, 4 times a day, PRN for pain, # 100 tablet, 0 Refills, Maintenance, 07/17/21 10:31:00 EDT, Tablet, [facility]/pharmacy #[id number], Partial fill upon patient request [...] Refills, Maintenance, 09/01/22 11:12:00 EDT, [facility], 146, cm, 09/01/22 11:06:00 EDT, Height, 50, kg, 04/16/22 12:46:00 EST, Dry Weight Start Date: 09/01/22 Status: Ordered clotrimazole 1% topical cream 1 application, Topically, 2 times a day, For yeast infection. Apply externally to the vaginal area as needed for itch., # 60 Gm, 1 Refills, Maintenance, 09/01/22 11:29:00 EDT, Cream, [facility]/pharmacy #[id number], Partial fill upon patient request if [...] 5 Refills, Maintenance, 03/12/22 21:19:00 EST, Tablet, [facility]/pharmacy #[id number], Please allow for early refill as [...] Refills, Soft Stop, 09/01/22 11:17:00 EDT, Tablet, [facility]/pharmacy #[id number], Partial fill upon patient reque... Start Date: 09/01/22 Status: Ordered Freestyle Lite Lancets See Instructions, # 100 each, Refills 3, Tot. Refills 3, Maintenance, use to check blood sugars twice daily for DM, E11.65, 09/01/22 11:21:00 EDT, Compound, 146, cm, 09/01/22 11:06:00 EDT, Height, 50, kg, 04/16/22 12:46:00 EST, Dry Weight Start Date: 09/01/22 Stop Date: 12/30/22 Status: Ordered Freestyle Lite Monitor See Instructions, # 1 each, Refills 0, Tot. Refills 0, Maintenance, use to test blood sugars twice daily for DM, E11.65, 09/01/22 11:21:00 EDT, Compound, 146, cm, 09/01/22 11:06:00 EDT, Height, 50, kg, 04/16/22 12:46:00 EST, Dry Weight Start Date: 09/01/22 Status: Ordered Freestyle Lite Test Strips See Instructions, # 100 each, Refills 3, Tot. Refills 3, Maintenance, use to test blood sugars twice daily for diabetes, E11.65, 09/01/22 11:21:00 EDT, Compound, 146, cm, 09/01/22 11:06:00 EDT, Height, 50, kg, 04/16/22 12:46:00 EST, Dry Weight Start Date: 09/01/22 Stop Date: 12/30/22 Status: Ordered glimepiride 4 mg oral tablet 1 tablet = 4 mg, By Mouth, Daily, with the first meal of the day, # 30 tablet, 5 Refills, Maintenance, 08/07/22 13:54:00 EDT, Tablet, [facility]/pharmacy #[id number], Please allow for early refill as last her pills were dropped in water; Partial fill upon patient... Start Date: 08/07/22 Stop Date: 02/03/23 Status: Ordered ibuprofen 600 mg oral tablet 600 mg, 1, tablet, By Mouth, 4 times a day, PRN, # 60 tablet, Refills 1, Tot. Refills 1, Maintenance, for pain, 05/21/22 11:57:00 EST, Route to Pharmacy Electronically, [facility]/pharmacy #[id number], Partial fill upon patient request if the prescription is for a... Start Date: 05/21/22 Status: Ordered metFORMIN 1000 mg oral tablet 1 tablet, By Mouth, 2 times a day, # 60 tablet, 5 Refills, 08/07/22 13:34:00 EDT, [facility]/pharmacy #[id number], Please allow for early refill as last her pills were dropped in water, 146, cm, 07/27/22 11:29:00EDT, Height, 50, kg, 04/16/22 12:46:00 EST, Dry We... Start Date: 08/07/22 Status: Ordered Metoprolol Succinate ER 100 mg oral tablet, extended release 1 tablet, By Mouth, Daily, # 90 tablet, 1 Refills, Maintenance, 06/30/22 10:31:00 EST, [facility]/pharmacy#[id number], 146, cm, 05/21/22 11:19:00 EST, Height, 50, kg, 04/16/22 12:46:00 EST, Dry Weight Start Date: 06/30/22 Stop Date: 12/27/22 Status: Ordered omeprazole 20 mg oral enteric coated capsule 1 capsule = 20 mg, By Mouth, Daily, # 14 capsule, 0 Refills, Maintenance, 12/02/21 18:07:00 EDT, ECCapsule, [facility]/pharmacy #[id number], Partial fill upon patient request if the prescription is for a schedule II opioid drug., 155, cm, 12/02/21 16:59:00 EDT, H... Start Date: 12/02/21 Stop Date: 12/16/21 Status: Ordered Pen [place], 31 G x 5 mm BD Ultra [...] Stop 02/07/23 11:04:00 EDT, 08/11/22 11:04:00 EDT, [facility]/pharmacy #[id number], Please allow for early refill [...] 06/16/22 15:00:00 EST, Route to Pharmacy Electronically, 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 Associate Professional Member Role: PCP Address: Address: [address] [place] [address]- [place] Name: Neelam Garvey RN Position: S RN Member Role: Primary Care Nurse Name: Jo Quick RN Position: S RN Member Role: Primary Care Nurse Name: La Mares RN Position: [facility] RN Member Role: Primary Care Nurse Name: Cherie Vaughan RN Position: [facility] RN Member Role: Primary Care Nurse Name: Torsten Gay RN Position: [facility] RN Member Role: Primary Care Nurse Address: Address: [address] [place] [address]- Care Team Related Persons Name: AMMON CUELLAR Address: home [address] [place] [address] Name: FAISAL GILLESPIE Address: home [address] [place] [address] Name: AMMON PIERRE Address: home [address] [address]
--- OUTSIDE RECORDS SUMMARY | 2023-06-04 12:01 | XMS_ITS | Continuity of Care Document ---
Author Name Unknown Organization [facility] Address [address] [place] [address]- Care Team Providers Care Mobile Lab Technician Name Role Phone Nicolette Rider NP Primary Care Physician Encounter [facility] Date(s): 12/25/20 - 01/24/21 [facility] [address] [place], [place] [address] Attending Physician: Dai Clark Admitting Physician: AdmDai quiroz Referring Physician: Admtr, Ar8 Allergies, Adverse Reactions, [...] Date: 09/27/20 Stop Date: 01/25/21 Status: Ordered Augmentin 875 mg-125 mg oral tablet 1 tablet, By Mouth, Every 12 hours, for 7 days, # 14 tablet, 0 Refills, Acute 01/29/21 10:54:00 EDT, 01/22/21 10:54:00 EDT, Tablet, [facility]/pharmacy #[id number], Partial fill upon patient request if the prescription is for a schedule II opioid drug., 155, cm, 0... Start Date: 01/22/21 Stop Date: 01/29/21 Status: Ordered Bedside Commode See Instructions, # [...] Date: 01/22/21 Stop Date: 07/21/21 Status: Ordered meloxicam 15 mg oral tablet [...] 3 Refills, Maintenance, 04/24/20 11:53:00 EST, Capsule, [facility]/pharmacy #[id number], 1 capsule By Mouth Daily,x90 days, [...] 03/19/20 Stop Date: 03/14/21 Status: Ordered nicotine 14 mg/24 hr transdermal film, extended release 1 patch, Topically, Daily, for 14 days, Start after finishing 21 mg patches, # 14 patch, 0 Refills,Acute 02/05/21 10:44:00 EDT, 01/22/21 10:44:00 EDT, Patch, [facility]/pharmacy #[id number], Partial fill upon patient request if the prescription is for a schedule... Start Date: 01/22/21 Stop Date: 02/05/21 Status: Ordered nicotine 2 mg oral transmucosal lozenge 1 lozenge = 2 mg, By Mouth, 4 times a day, # 72 lozenge, 0 Refills, Maintenance, 01/22/21 10:44:00 EDT, [id number], Partial fill upon patient request if the prescription is for a schedule II opioid drug., 1 lozenge By Mouth 4 times a day, 155,... Start Date: 01/22/21 Status: Ordered nicotine 21 mg/24 hr transdermal film, extended release 1 patch, Topically, Daily, for 42 days, # 42 patch, 0 Refills, Acute 03/05/21 10:44:00 EDT, 01/22/21 10:44:00 EDT, Patch, [id number], Partial fill upon patient request if the prescription is for a schedule II opioid drug., 1 patch Topically Da... Start Date: 01/22/21 Stop Date: 03/05/21 Status: Ordered Nicotine 7 mg/24 hour patch 1 patch, Topically, Daily, for 14 days, Start after finishing 14 mg patches, # 14 patch, 0 Refills,Acute 02/05/21 10:44:00 EDT, 01/22/21 10:44:00 EDT, Patch, [id number], Partial fill upon patient request if the prescription is for a schedule... Start Date: 01/22/21 Stop Date: 02/05/21 Status: Ordered Nutritional Supplements See Instructions, # [...] Once, PRN as needed for fever, lot [id number] EXP 05/2018, # 2 capsule, 0 Refills, [...] fracture of clavicle(Confirmed) Active Hypertension(Confirmed) 02/19/10 Active *[id number] Care Partn er Claudette Saunders(Confirmed) Active Current smoker(Confirmed) Active Cervical stenosis of spinal canal(Confirmed) Active 1Dx in 08/2018 upon psych eval
--- OUTSIDE RECORDS SUMMARY | 2023-06-04 12:01 | XMS_ITS | Patient Health Record ---
Author Name Unknown [facility] Address [address] [place] [address] Care Team Providers Care Filler Shredding Machine Loader Name Role Phone Nicolette Rider NP Primary Care Provider Anel Ragsdale Unavailable [phone] ALLERGIES No Known Allergies RESULTS Component Value Reference Range Notes HEMOGLOBIN A1C (GLYCOHEMOGLO BIN) Reviewed date:09/24/2022 02:12:04 PM Interpretation: Performing Lab: Notes/Report: TOTAL HEMOGLOBIN (HGBA1C) HEMOGLOBIN A1C (HH) 7.4 HEMOGLOBIN A1C % (HH) ESTIMATED AVG GLUCOSE HEMOGLOBIN A1C (GLYCOHEMOGLO BIN) Reviewed date:03/11/2023 02:03:39 PM Interpretation: Performing Lab: Notes/Report: TOTAL HEMOGLOBIN (HGBA1C) HEMOGLOBIN A1C (HH) 12 HEMOGLOBIN A1C % (HH) ESTIMATED AVG GLUCOSE REASON FOR REFERRAL No Information MEDICATIONS Medication SIG (Take, Route, Frequency, Duration) Notes Start Date End Date Status Ramipril 5 MG 1 capsule Orally Onc e a day for 30 day(s) Not-Taking Ciclopirox 0.77 % 1 application to affected area Externally Twice a day for 365 days Not-Hiram ing metFORMIN HCl 1000 MG 1 tablet with a me al Orally Once a day for 30 day(s) Active Ciclopirox Olamine 0.77 % 1 application to affected area Externally to feet Twice a day for 30 days Active Metoprolol Succinate ER 100 MG 1 tablet Orally Once a day for 30 day(s) Not-Taking metFORMIN HCl 1000 MG 1 tablet with a me al Orally Once a day for 30 day(s) Not-Taking Trulicity Not-Taking Glimepiride 4 MG 1 tablet with breakf ast or the first main meal of the day Orally Once a day for 30 day(s) Not-Taking Ramipril 5 MG 1 capsule Orally Onc e a day for 30 day(s) Not-Taking Metoprolol Succinate ER 100 MG 1 tablet Orally Once a day for 30 day(s) Active Glimepiride 4 MG 1 tablet with breakf ast or the first main meal of the day Orally Once a day for 30 day(s) Not-Taking Ammonium Lactate 12 % 1 application Exte rnally Twice a day for 30 days Active Insulin Pen Needle A ctive IMMUNIZATIONS Vaccine Route Administration Date Status Comme nts Influenza Unknown 08/26/2021 Administered SOCIAL HISTORY Tobacco Use: Social History Observation Description Date Details (start date - stop date) Former Smoker NA - NA Sex Assigned At : Social History Observation Description Sex Assigned At Unknown Tobacco Use/Smoking Question Answer Notes Are you a: former smoker Alcohol Screen Question Answer Notes Did you have a drink containing alcohol in the p ast year? Yes Points 0 Interpretation Negative Tobacco use other than smoking: Question Answer Notes Are you an other tobacco user? No PROBLEMS Problem Type ICD Code Onset Dates Problem Status W/U Status Risk SNOMED Code Notes Problem Plantar wart (B07.0) Active confirmed 92824390 Problem Type 2 diabetes mellitus with polyneuropathy (E11.42) Active confirmed 28511422 VITAL SIGNS Height 5 ft 0 in in 03/11/2023 Weight 105 lbs 03/11/2023 BMI 20.50 kg/m2 03/11/2023 Encounters Encounter Location Date Provider Diagnosis [address] [address] 07/16/2022 Anel Perica Tinea unguium B35.1 and Type 2 diabetes mellitus with polyneuropathy E11.[address] [address] 09/24/2022 Anel Perica Tinea unguium B35.1 and Type 2 diabetes mellitus with polyneuropathy E11.[address] [address] 12/03/2022 Anel Perica Tinea unguium B35.1 and Type 2 diabetes mellitus with polyneuropathy E11.[address] [address] 03/11/2023 Anel Gottlieb Xerosis of skin L85. 3 ; Type 2 diabetes mellitus with polyneuropathy E11.42 and Tinea unguium B35.[address] [facility] [address] [address] 05/19/2023 Anel Gottlieb [facility] [address] 05/21/2023 Anel Gottlieb ASSESSMENTS Encounter Date Diagnosis Assessment Notes Treatment Notes Treatment Clinical Notes 07/16/2022 Tinea unguium (ICD-1 0 - B35.1) 07/16/2022 Type 2 diabetes mellitus with polyneuropathy (ICD-10 - E11.42) 09/24/2022 Tinea unguium (ICD-1 0 - B35.1) 09/24/2022 Type 2 diabetes mellitus with polyneuropathy (ICD-10 - E11.42) 12/03/2022 Tinea unguium (ICD-1 0 - B35.1) 12/03/2022 Type 2 diabetes mellitus with polyneuropathy (ICD-10 - E11.42) 03/11/2023 Xerosis of skin (ICD-10 - L85.3) 03/11/2023 Type 2 diabetes mellitus with polyneuropathy (ICD-10 - E11.42) 03/11/2023 Tinea unguium (ICD-1 0 - B35.1) PLAN OF TREATMENT Pending Test Test Name Order Date X ray : Foot, right 3V 09/01/2021 Next Appt Details Provider Name:Anel tate, 06/30/2023 01:30:00 PM, [address] [place] [address], [phone], Insurance Providers Payer Name Payer Address Payer Phone Subscriber Number Group Number Insured Name Patient Relationship to Insured Coverage Start Date Coverage End Date [facility] [employer] Claims [address] [place] [address] [phone] [id number] Rosa Isela Zuñiga Self - patient is the insured MEDICAL (GENERAL) HISTORY Medical History History ICD Code Anxiety Back,Hip,and Knee pain Depression Diabetic thyroid Chicken pox Surgical History Surgery Date(Month/Year) ear surgery neck surgery cataract sx bilateral Hospitalization History Reason Date(Month/Year) [facility] 01/2023
--- OUTSIDE RECORDS SUMMARY | 2023-06-04 12:01 | XMS_ITS | Continuity of Care Document ---
Author Name Unknown Organization [facility] Address [address] [place] [address]- Care Team Providers Care Parts Interpreter Name Role Phone Tereso MILLER, Nicolette Mills Primary Care Physician [phone] Encounter [facility] Date(s): 01/18/23 - 02/17/[address] [address]- Allergies, Adverse Reactions, Alerts Substance Reaction Severity [...] 7 02/18/10 Given 1Result Comment: DILUENT LOT#: [id number] EXP: 10/2022 MFG: FRESENSIUS 2Admin Note: vis [...] Refills, Maintenance, 02/09/23 11:58:00 EDT, Capsule, [id number], to replace amlodipine, benazepril, ramipril., 1 capsule [...] 3 Refills, Maintenance, 11/23/22 13:00:00 EDT, Gel, [facility]/pharmacy #[id number], Partial fill upon [...] capsule, 1 Refills, Maintenance, 01/12/23 12:16:00 EDT, [facility]/pharmacy #[id number], 146, cm, 01/12/23 [...] Maintenance,01/12/23 12:17:00 EDT, Route to Pharmacy Electronically, [facility]/pharmacy #[id number], 146, cm, 01/12/23 11:33:00 EDT, Height, 50, kg, 04/16/22 12:46:00 EST, Dry... Start Date: 01/12/23 Stop Date: 07/11/23 Status: Ordered Lantus Solostar Pen 100 units/mL subcutaneous solution = 24 units, Subcutaneous Injection, Daily, Adjust dose as recommended weekly by RN per protocol. Dispense 3 pens per month, # 15 mL, 3 Refills, Maintenance, 02/09/23 12:19:00 EDT, [facility]/pharmacy #[id number],146, cm, 02/09/23 11:42:00 EDT, Height, 50, kg, 12... Start Date: 02/09/23 Stop Date: 02/04/24 Status: Ordered methocarbamol 750 mg oral tablet 1 tablet = 750 mg, By Mouth, 3 times a day, PRN Pain , Moderate, Take only as needed for muscle spasms and pain., # 90 tablet, 3 Refills, Maintenance, 02/09/23 12:40:00 EDT, [facility]/pharmacy #[id number], 146, cm, 02/09/23 11:42:00 EDT, Height, 50, kg, 04/16/22... 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 Current smoker Confirmed [...] Professional Member Role: PCP Address: Address: [address] [place] [address]- Name: Neelam Garvey RN Position: S RN Member Role: Primary Care Nurse Name: Jo Quick RN Position: S RN Member Role: Primary Care Nurse Name: La aMres RN Position: S RN Member Role: Primary Care Nurse Name: Cherie Vaughan RN Position: S RN Member Role: Primary Care Nurse Name: Torsten Gay RN Position: S RN Member Role: Primary Care Nurse Address: Address: [address] [place] [address]- Care Team Related Persons Name: AMMON CUELLAR Address: home [address] [place] [address] Name: FAISAL GILLESPIE Address: home [address] [place] [address] Name: AMMON PIERRE Address: home [address] [address]
--- OUTSIDE RECORDS SUMMARY | 2023-06-04 12:01 | XMS_ITS | Continuity of Care Document ---
Author Name Unknown Organization [facility] Address [address] [place] [address]- Care Team Providers Care Burglar Alarm Operator Name Role Phone Tereso MILLER, Nicolette Mills Primary Care Physician Encounter [id number] Date(s): 07/05/19 - 07/15/[address] [address]- [facility] Attending Physician: Dai Clark Admitting Physician: [...] 03/16/19 14:34:47 EST, Route to Pharmacy Electronically, [id number], [facility]/pharmacy #[id number] Start Date: 03/16/19 Stop Date: [...] 05/24/19 14:46:00 EST, Route to Pharmacy Electronically, [facility]/pharmacy #[id number], 151, cm, 05/01/19 14:24:00 EST, [...] 3 Refills, Maintenance, 05/24/19 15:09:00 EST, Tablet, [facility]/pharmacy #[id number], 1 tablet By Mouth Daily,x90 [...] Once, PRN as needed for fever, lot [id number] EXP 05/2018, # 2 capsule, 0 Refills, [...] Diabetes Mellitus(Confirmed) 02/19/10 Active Hypertension(Confirmed) 02/19/10 Active *[id number] Engineer-Jose E Cotto(Confirmed) Active Current smoker(Confirmed) Active 1Dx in 08/2018 upon psych eval
--- OUTSIDE RECORDS SUMMARY | 2023-06-04 12:01 | XMS_ITS | Continuity of Care Document ---
Author Name Unknown Organization [facility] Address [address] [place] [address]- Care Team Providers Care Personnel Coordinator Name Role Phone Nicolette Rider NP Primary Care Physician Encounter [facility] Date(s): 04/14/22 - 05/14/[address] [address]- Allergies, Adverse Reactions, Alerts Substance Reaction Severity [...] Given Patient Refuses 1Result Comment: DILUENT LOT#: [id number] EXP: 10/2022 MFG: FRESENSIUS 2Admin Note: vis [...] 0 Refills, Maintenance, 04/06/22 9:51:00 EST, Tablet, [facility] 3, Partial fill upon patient request if [...] 5 Refills, Maintenance, 03/12/22 21:19:00 EST, Tablet, [facility]/pharmacy #[id number], Please allow for early refill [...] 0 Refills, Maintenance, 03/10/22 16:40:00 EST, Tablet, [facility]/pharmacy #[id number], Please allow for early refill [...] 60 tablet, 5 Refills, 02/04/22 11:40:00 EDT, [facility]/pharmacy #[id number], Please allow for early refill as last her pills were dropped in water, 155, cm, 12/02/21 16:59:00EDT, Height, 48, kg, 10/27/20 14:35:00 EDT, Dry We... Start Date: 02/04/22 Status: Ordered Metoprolol Succinate ER 100 mg oral tablet, extended release 1 tablet, By Mouth, Daily, # 90 tablet, 3 Refills, Maintenance, 12/15/21 8:39:00 EDT, [facility]/pharmacy #[id number], 155, cm, 12/02/21 16:59:00 EDT, Height, 48, kg, 10/27/20 14:35:00 EDT, Dry Weight Start Date: 12/15/21 Stop Date: 12/10/22 Status: Ordered omeprazole 20 mg oral enteric coated capsule 1 capsule = 20 mg, By Mouth, Daily, # 14 capsule, 0 Refills, Maintenance, 12/02/21 18:07:00 EDT, ECCapsule, [facility]/pharmacy #[id number], Partial fill upon patient [...] Replace Required Details, Route to Pharmacy Electronically, [facility]... Start Date: 04/06/22 Status: Ordered Pen [place], 31 G x 5 mm BD Ultra [...] Stop 08/11/22 11:04:00 EDT, 02/12/22 11:04:00 EDT, [facility]/pharmacy #[id number], Please allow for early refill as last [...] clavicle Confirmed Active Hypertension Confirmed 02/19/10 Active *[id number] University Professor Claudette Burnett Confirmed Active Current smoker Confirmed Active Cervical stenosis of spinal canal Confirmed Active Urinary incontinence Confirmed Active 1Dx in 08/2018 upon psych eval Patient Care team information Care Team Personnel Name: Nicolette Rider NP Position: [facility] PCO Associate Professional Member Role: PCP Address: Address: [address] [place] [address]- Name: Neelam Garvey RN Position: S RN Member Role: Primary Care Nurse Name: Jo Quick RN Position: S RN Member Role: Primary Care Nurse Name: La Mares RN Position: S RN Member Role: Primary Care Nurse Name: Cherie Vaughan RN Position: S RN Member Role: Primary Care Nurse Name: Torsten Gay RN Position: [facility] RN Member Role: Primary Care Nurse Address: Address: [address] [place] [address]- Care Team Related Persons Name: AMMON CUELLAR Address: home [address] [place] [address] Name: FAISAL GILLESPIE Address: home [address] [place] [address] Name: AMMON PIERRE Address: home [address] [address]
--- OUTSIDE RECORDS SUMMARY | 2023-06-04 12:01 | XMS_ITS | Continuity of Care Document ---
Author Name Unknown Organization [facility] Address [address] [place] [address] nhi, [address] [place] [address]- Care Team Providers Care Applications Systems Engineer Name Role Phone Tereso MILLER, Nicolette Mills Primary Care Physician Encounter [facility] Date(s): 03/25/22 - 04/24/22 [facility] [address] [place] [address] Drive, [address] [place] [address]- Allergies, Adverse Reactions, Alerts Substance Reaction Severity [...] Given Patient Refuses 1Result Comment: DILUENT LOT#: [id number] EXP: 10/2022 MFG: FRESENSIUS 2Admin Note: vis 3Admin Note: VIS GIVEN 4Admin Note: vis 08/16/08 5Admin Note: vis 03/20/08 6Admin Note: vis given 7Admin Note: VIS Medications acetaminophen 500 mg oral tablet 2 tablet = 1,000 mg, By Mouth, 4 times a day, PRN for pain, # 100 tablet, 0 Refills, Maintenance, 07/17/21 10:31:00 EDT, Tablet, [facility]/pharmacy #[id number], Partial fill upon patient request [...] 0 Refills, Maintenance, 04/06/22 9:51:00 EST, Tablet, [facility] 3, Partial fill upon patient request if [...] 5 Refills, Maintenance, 03/12/22 21:19:00 EST, Tablet, [facility]/pharmacy #[id number], Please allow for early refill [...] 0 Refills, Maintenance, 03/10/22 16:40:00 EST, Tablet, [facility]/pharmacy #[id number], Please allow for early refill [...] 60 tablet, 5 Refills, 02/04/22 11:40:00 EDT, [facility]/pharmacy #[id number], Please allow for early refill as last her pills were dropped in water, 155, cm, 12/02/21 16:59:00EDT, Height, 48, kg, 10/27/20 14:35:00 EDT, Dry We... Start Date: 02/04/22 Status: Ordered Metoprolol Succinate ER 100 mg oral tablet, extended release 1 tablet, By Mouth, Daily, # 90 tablet, 3 Refills, Maintenance, 12/15/21 8:39:00 EDT, [facility]/pharmacy #[id number], 155, cm, 12/02/21 16:59:00 EDT, Height, 48, kg, 10/27/20 14:35:00 EDT, Dry Weight Start Date: 12/15/21 Stop Date: 12/10/22 Status: Ordered omeprazole 20 mg oral enteric coated capsule 1 capsule = 20 mg, By Mouth, Daily, # 14 capsule, 0 Refills, Maintenance, 12/02/21 18:07:00 EDT, ECCapsule, [facility]/pharmacy #[id number], Partial fill upon patient request [...] Replace Required Details, Route to Pharmacy Electronically, [facility]... Start Date: 04/06/22 Status: Ordered Pen [place], 31 G x 5 mm BD Ultra [...] Stop 08/11/22 11:04:00 EDT, 02/12/22 11:04:00 EDT, [facility]/pharmacy #4319, Please allow for early refill as last [...] clavicle Confirmed Active Hypertension Confirmed 02/19/10 Active *[id number] Trial Mgr Claudette Burnett Confirmed Active Current smoker Confirmed Active Cervical stenosis of spinal canal Confirmed Active Urinary incontinence Confirmed Active 1Dx in 08/2018 upon psych eval Patient Care team information Care Team Personnel Name: Tereso MILLER, Nicolette Mills Position: S PCO Associate Professional Member Role: PCP Address: Address: [address] [place] [address]- Name: Neelam Garvey RN Position: S RN Member Role: Primary Care Nurse Name: Jo Quick RN Position: S RN Member Role: Primary Care Nurse Name: La Mares RN Position: S RN Member Role: Primary Care Nurse Name: Cherie Vaughan RN Position: S RN Member Role: Primary Care Nurse Name: Torsten Gay RN Position: S RN Member Role: Primary Care Nurse Address: Address: [address] [place] [address]- Care Team Related Persons Name: AMMON CUELLAR Address: home [address] [place] [address] Name: FAISAL GILLESPIE Address: home [address] [place] [address] Name: AMMON PIERRE Address: home [address] [address]
--- OUTSIDE RECORDS SUMMARY | 2023-06-04 12:01 | XMS_ITS | Continuity of Care Document ---
Author Name Unknown Organization [facility] Address [address] [place] [address] nhi, [address] [place] [address]- Care Team Providers Care Plumbing Contractor Name Role Phone Tereso MILLER, Nicolette Mills Primary Care Physician [place] [facility] Date(s): 04/29/22 - 05/29/22 [facility] [address] [place] [address] [address], [address] [place] [place] [address] Attending Physician: Dai Clark Admitting [...] Given Patient Refuses 1Result Comment: DILUENT LOT#: [id number] EXP: 10/2022 MFG: FRESENSIUS 2Admin Note: vis [...] 5 Refills, Maintenance, 03/12/22 21:19:00 EST, Tablet, [facility]/pharmacy #[id number], Please allow for early refill as [...] 0 Refills, Maintenance, 03/10/22 16:40:00 EST, Tablet, [facility]/pharmacy #[id number], Please allow for early refill as last her pills were dropped in water; Partial fill upon patient... Start Date: 03/10/22 Stop Date: 04/09/22 Status: Ordered ibuprofen 600 mg oral tablet 600 mg, 1, tablet, By Mouth, 4 times a day, PRN, # 60 tablet, Refills 1, Tot. Refills 1, Maintenance, for pain, 05/21/22 11:57:00 EST, Route to Pharmacy Electronically, [facility]/pharmacy #[id number], Partial fill upon patient request if the prescription is for a... Start Date: 05/21/22 Status: Ordered metFORMIN 1000 mg oral tablet 1 tablet, By Mouth, 2 times a day, # 60 tablet, 5 Refills, 02/04/22 11:40:00 EDT, [facility]/pharmacy #[id number], Please allow for early refill as last her pills were dropped in water, 155, cm, 12/02/21 16:59:00EDT, Height, 48, kg, 10/27/20 14:35:00 EDT, Dry We... Start Date: 02/04/22 Status: Ordered Metoprolol Succinate ER 100 mg oral tablet, extended release 1 tablet, By Mouth, Daily, # 90 tablet, 3 Refills, Maintenance, 12/15/21 8:39:00 EDT, [facility]/pharmacy #[id number], 155, cm, 12/02/21 16:59:00 EDT, Height, 48, kg, 10/27/20 14:35:00 EDT, Dry Weight Start Date: 12/15/21 Stop Date: 12/10/22 Status: Ordered omeprazole 20 mg oral enteric coated capsule 1 capsule = 20 mg, By Mouth, Daily, # 14 capsule, 0 Refills, Maintenance, 12/02/21 18:07:00 EDT, ECCapsule, [facility]/pharmacy #[id number], Partial fill upon patient request if the prescription is for a schedule II opioid drug., 155, cm, 12/02/21 16:59:00 EDT, H... Start Date: 12/02/21 Stop Date: 12/16/21 Status: Ordered Pen [place], 31 G x 5 mm BD Ultra [...] Stop 08/11/22 11:04:00 EDT, 02/12/22 11:04:00 EDT, [facility]/pharmacy #[id number], Please allow for early refill as last [...] 05/21/22 11:55:00 EST, Route to Pharmacy Electronically, [facility]/pharmacy #[id number], Partial fill upon patient request if the [...] clavicle Confirmed Active Hypertension Confirmed 02/19/10 Active *[id number] Entry Level Claudette Burnett Confirmed Active Current smoker Confirmed Active Cervical stenosis of spinal canal Confirmed Active Urinary incontinence Confirmed Active 1Dx in 08/2018 upon psych eval Patient Care team information Care Team Personnel Name: Nicolette Rider NP Position: [facility] PCO Associate Professional Member Role: PCP Address: Address: [address] [place] [address]- Name: Neelam Garvey RN Position: S RN Member Role: Primary Care Nurse Name: Jo Quick RN Position: S RN Member Role: Primary Care Nurse Name: La Mares RN Position: [facility] RN Member Role: Primary Care Nurse Name: Cherie Vaughan RN Position: S RN Member Role: Primary Care Nurse Name: Torsten Gay RN Position: [facility] RN Member Role: Primary Care Nurse Address: Address: [address] [place] [address]- Care Team Related Persons Name: AMMON CUELLAR Address: home [address] [place] [address] Name: FAISAL GILLESPIE Address: home [address] [place] [address] Name: AMMON PIERRE Address: home [address] [address]
--- OUTSIDE RECORDS SUMMARY | 2023-06-04 12:01 | XMS_ITS | Continuity of Care Document ---
Author Name Unknown Organization [facility] Address [address] [place] [address]- Care Team Providers Care Production Honing Machine Operator Name Role Phone Tereso MILLER, Nicolette Mills Primary Care Physician Encounter [facility] Date(s): 05/27/22 - 06/26/[address] [address]- Allergies, Adverse Reactions, Alerts Substance Reaction Severity [...] Given Patient Refuses 1Result Comment: DILUENT LOT#: [id number] EXP: 10/2022 MFG: FRESENSIUS 2Admin Note: vis [...] 12/02/21 Stop Date: 12/16/21 Status: Ordered Pen [place], 31 G x 5 mm BD Ultra [...] 11:04:00 EDT, [facility]/pharmacy #[id number], Please allow for early refill as last [...] 06/16/22 15:00:00 EST, Route to Pharmacy Electronically, [facility], 146, cm, 05/21/22 11:19:00 EST, Height, 50, [...] clavicle Confirmed Active Hypertension Confirmed 02/19/10 Active *[id number] Last Putter Away Claudette Burnett Confirmed Active Current smoker Confirmed Active Cervical stenosis of spinal canal Confirmed Active Urinary incontinence Confirmed Active 1Dx in 08/2018 upon psych eval Patient Care team information Care Team Personnel Name: Nicolette Rider NP Position: S PCO Associate Professional Member Role: PCP Address: Address: [address] [place] [address]- Name: Neelam Garvey RN Position: S RN Member Role: Primary Care Nurse Name: Jo Quick RN Position: S RN Member Role: Primary Care Nurse Name: La Mares RN Position: S RN Member Role: Primary Care Nurse Name: Cherie Vaughan RN Position: S RN Member Role: Primary Care Nurse Name: Torsten aGy RN Position: S RN Member Role: Primary Care Nurse Address: Address: [address] [place] [address]- Care Team Related Persons Name: AMMON CUELLAR Address: home [address] [place] [address] Name: FAISAL GILLESPIE Address: home [address] [place] [address] Name: AMMON PIERRE Address: home [address] [address]
--- OUTSIDE RECORDS SUMMARY | 2023-06-04 12:01 | XMS_ITS | Continuity of Care Document ---
Author Name Unknown Organization [facility] Address [address] [place] [address]- Care Team Providers Care English As A Second Language Teacher Name Role Phone Tereso MILLER, Nicolette Mills Primary Care Physician [place] [facility] [place] - 02/26/[address] [address]- Attending Physician: Not on Staff, Attending MD [...] Given Patient Refuses 1Result Comment: DILUENT LOT#: [id number] EXP: 10/2022 MFG: FRESENSIUS 2Admin Note: vis [...] Refills, Maintenance, 12/25/21 13:17:00 EDT, Tablet, [id number], Partial fill upon patient request if the [...] 0 Refills, Maintenance, 11/09/21 13:28:00 EDT, Tablet, [id number], Please allow for [...] 03/10/22 16:40:00 EST, 09/11/21 16:40:00 EDT, Tablet, [id number], Partial fillupon patient request if the [...] 60 tablet, 5 Refills, 02/04/22 11:40:00 EDT, [facility]/pharmacy #[id number], Please allow for early refill as last her pills were dropped in water, 155, cm, 12/02/21 16:59:00EDT, Height, 48, kg, 10/27/20 14:35:00 EDT, Dry We... Start Date: 02/04/22 Status: Ordered methocarbamol 500 mg oral tablet See Instructions, 1-2 tablets 4 times a day as needed for muscle spasms, # 40 tablet, 1 Refills, Maintenance, 10/07/21 13:46:00 EDT, Tablet, [facility]/pharmacy #[id number], Partial fill upon patient [...] 0 Refills, Maintenance, 12/02/21 18:07:00 EDT, ECCapsule, [facility]/pharmacy #[id number], Partial fill upon patient [...] 12/02/21 Stop Date: 12/07/21 Status: Ordered Pen [place], 31 G x 5 mm BD [...] clavicle Confirmed Active Hypertension Confirmed 02/19/10 Active *[id number] Sanitary Aide Claudette Saunders Confirmed Active Current smoker Confirmed Active Cervical stenosis of spinal canal Confirmed Active Urinary incontinence Confirmed Active 1Dx in 08/2018 upon psych eval Patient Care team information Personnel Name: Nicolette Rider NP Address: Address: [address] [place] [address]
--- OUTSIDE RECORDS SUMMARY | 2023-06-04 12:01 | XMS_ITS | Continuity of Care Document ---
Author Name Unknown Organization [facility] Address [address] [place] [address]- Care Team Providers Care Remote Sensing Specialist Name Role Phone Tereso MILLER, Nicolette Mills Primary Care Physician Encounter [facility] Date(s): 08/07/22 - 09/06/[address] [address]- Allergies, Adverse Reactions, Alerts Substance Reaction Severity [...] Given Patient Refuses 1Result Comment: DILUENT LOT#: [id number] EXP: 10/2022 MFG: FRESENSIUS 2Admin Note: vis [...] Refills, Maintenance, 09/01/22 11:12:00 EDT, [id number], 146, cm, 09/01/22 11:06:00 EDT, Height, 50, [...] 05/21/22 11:57:00 EST, Route to Pharmacy Electronically, [facility]/pharmacy #[id number], Partial fill upon patient request if the prescription is for a... Start Date: 05/21/22 Status: Ordered metFORMIN 1000 mg oral tablet 1 tablet, By Mouth, 2 times a day, # 60 tablet, 5 Refills, 08/07/22 13:34:00 EDT, [facility]/pharmacy #[id number], Please allow for early refill as last her pills were dropped in water, 146, cm, 07/27/22 11:29:00EDT, Height, 50, kg, 04/16/22 12:46:00 EST, Dry We... Start Date: 08/07/22 Status: Ordered Metoprolol Succinate ER 100 mg oral tablet, extended release 1 tablet, By Mouth, Daily, # 90 tablet, 1 Refills, Maintenance, 06/30/22 10:31:00 EST, [facility]/pharmacy#[id number], 146, cm, 05/21/22 11:19:00 EST, Height, 50, kg, 04/16/22 12:46:00 EST, Dry Weight Start Date: 06/30/22 Stop Date: 12/27/22 Status: Ordered omeprazole 20 mg oral enteric coated capsule 1 capsule = 20 mg, By Mouth, Daily, # 14 capsule, 0 Refills, Maintenance, 12/02/21 18:07:00 EDT, ECCapsule, [facility]/pharmacy #[id number], Partial fill upon patient request if the [...] Weight Start Date: 09/04/22 Status: Ordered Pen [place], 31 G x 5 mm BD Ultra [...] Stop 02/07/23 11:04:00 EDT, 08/11/22 11:04:00 EDT, [facility]/pharmacy #[id number], Please allow for [...] EST, Route to [facility] Electronically, [id number], 146, cm, 05/21/22 11:19:00 EST, Height, 50, [...] clavicle Confirmed Active Hypertension Confirmed 02/19/10 Active *[id number] Pearl Fisherman Claudette Burnett Confirmed Active Current smoker Confirmed Active Cervical stenosis of spinal canal Confirmed Active Subclinical hyperthyroidism Confirmed Active Thyroid nodule - TIRADS 4, follow up US due 05/01/2023 Confirmed Active Urinary incontinence Confirmed Active 1Dx in 08/2018 upon psych eval Patient Care team information Care Team Personnel Name: Nicolette Rider NP Position: [facility] PCO Associate Professional Member Role: PCP Address: Address: [address] [place] [address]- [place] Name: Neelam Garvey RN Position: S RN Member Role: Primary Care Nurse Name: Jo Quick RN Position: S RN Member Role: Primary Care Nurse Name: La Mares RN Position: [facility] RN Member Role: Primary Care Nurse Name: Cherie Vaughan RN Position: [facility] RN Member Role: Primary Care Nurse Name: Torsten Gay RN Position: [facility] RN Member Role: Primary Care Nurse Address: Address: [address] [place] [address]- Care Team Related Persons Name: AMMON CUELLAR Address: home [address] [place] [address] Name: FAISAL GILLESPIE Address: home [address] [place] [address] Name: AMMON PIERRE Address: home [address] [address]
--- OUTSIDE RECORDS SUMMARY | 2023-06-04 12:01 | XMS_ITS | Continuity of Care Document ---
Author Name Unknown Organization [facility] Address [address] [place] [address]- Care Team Providers Care Finisher [employer] Name Role Phone Tereso MILLER, Nicolette Mills Primary Care Physician Encounter [facility] Date(s): 12/04/21 - 01/03/[address] [address]- Allergies, Adverse Reactions, Alerts Substance Reaction Severity [...] Given Patient Refuses 1Result Comment: DILUENT LOT#: [id number] EXP: 10/2022 MFG: FRESENSIUS 2Admin Note: vis [...] pleasedo not drive or operate machinery with [employer]... Start Date: 12/04/21 Status: Ordered cyclobenzaprine 5 mg oral tablet 1 tablet = 5 mg, By Mouth, 3 times a day, PRN muscle spasms, # 30 tablet, 0 Refills, Maintenance, 12/25/21 13:17:00 EDT, Tablet, [id number], Partial fill upon patient request if the [...] Refills, Soft Stop, 12/17/21 9:21:00 EDT, Tablet, [facility]/pharmacy #[id number], Partial fill upon patient [...] 0 Refills, Maintenance, 11/09/21 13:28:00 EDT, Tablet, [facility]/pharmacy #[id number], Please allow for early [...] 03/10/22 16:40:00 EST, 09/11/21 16:40:00 EDT, Tablet, [facility]/pharmacy #[id number], Partial fillupon patient request [...] 12/02/21 Stop Date: 12/07/21 Status: Ordered Pen [place], 31 G x 5 mm BD Ultra [...] fracture of clavicle(Confirmed) Active Hypertension(Confirmed) 02/19/10 Active *[id number] Care Partn patrick Saunders(Confirmed) Active Current smoker(Confirmed) Active Cervical stenosis of spinal canal(Confirmed) Active Urinary incontinence(Confirmed) Active 1Dx in 08/2018 upon psych eval Care Team Personnel Name: Nicolette Rider NP Address: [address] [place] [address]
[2023-06-04 12:04] LABS: Alanine Aminotransferase 26 U/L (0-31); Albumin Level 4.4 g/dL (3.5-5.0); Alkaline Phosphatase 105 U/L (39-117); Anion Gap 15 (12-20); Aspartate Amino Transferase 21 U/L (5-31); Bilirubin Total 0.4 mg/dL (0.0-1.0); Blood Urea Nitrogen 10 mg/dL (9-16); Carbon Dioxide 25 mmol/L (22-29); Chloride 100 mmol/L (96-108); Creatinine Clr Calc Pharmacy 56.9; Estimated Glomerular Filt Rate > 60; Glucose Random 108 mg/dL (60-115); Magnesium 1.7 mg/dL (1.6-2.6); Potassium 4.7 mmol/L (3.3-5.1); Sodium 135 mmol/L (135-145)
--- NOTE | 2023-06-04 12:43 | ED.ABDPAIN ---
HPI - Abdominal Pain General Chief Complaint: Abdominal Pain Stated Complaint: abd pain/ leg pain sent by PCP Time Seen by Provider: 06/04/23 12:00 History of Present Illness HPI narrative: Patient is a 72-year-old female presents today with having abdominal pain. The pain is over the left lower quadrant area. It radiates to the side. Patient denies any nausea vomiting diarrhea. There has no chest pain no shortness of breath. There has no diaphoresis. Patient is from home. Was seen at [facility] for the same pain. Patient recently was treated for urinary tract infection and BV. The pain has not improved. Came to the ED. patient denies noticing any rash in the area. Denies any diaphoresis denies any chest pain denies any focal weakness in the lower extremity denies any bowel urinary incontinence denies any change in bowel movement patient is from home. No fever no chills. No pain on urination. Related Data Allergies Allergy/AdvReac Type Severity Reaction Status Date / Time Sulfa (Sulfonamide AdvReac Stomach Verified 06/04/23 11:40 Antibiotics) Upset Review of Systems Review of Systems No fever no chills no cough no congestion PMFSH Past Medical History Attestation statement: The following information was validated with the patient. Social History Social History Use of substances other than those prescribed or required for medical reasons: No Advance Directives: No Advance Directives Information Provided: Yes Physical Exam ED Vital Signs: Vital Signs - 24 hr 06/04/23 11:36 06/04/23 13:16 06/04/23 14:39 Temperature 98.9 F 98.6 F 98.3 F Pulse Rate 75 80 80 Respiratory Rate 20 14 18 Blood Pressure 153/75 H 131/77 152/72 H Pulse Oximetry 100 98 97 Oxygen Delivery Method Room Air Room Air Room Air BMI result Body Mass Index 34.8 Appearance: Alert. Oriented X3. No acute distress. Eyes: Pupils equal, round and reactive to light. ENT: Pharynx normal. Neck: Normal inspection. Neck supple. No lymph nodes noted. No crepitus CVS: Normal heart rate and rhythm. Pulses normal. Normal S1 and S2 Respiratory: No respiratory distress. Breath sounds normal. No Wheezing. No rales Abdomen: Soft and nontender. No rigidity. No distention. good BS x4 Skin: Skin warm and dry. Normal skin color. Normal skin turgor. Extremities: No lower extremity edema. Neurovascular intact to all extremities. No Lacerations. No Rash Neuro: Oriented X 3. No motor deficit. No sensory deficit. Moving all extermities. No slurred speech Medical Decision Making Medical Decision Making [facility] Narrative: Patient's labs are normal. White count is 9. Hemoglobin is 13.8. No evidence for anemia. Patient's electrolytes showed a normal LFT. Normal kidney function. CT scan of the abdomen was done. Currently the result is pending. Urine is still pending. Patient's skin showed no acute rash to suggest patient has ulcers. In no distress. Differential Diagnosis Differential Diagnoses: The differential diagnosis associated with the presentation includes Obstruction, abscess, perforation, kidney stone Lab Data [facility] Lab Attestation statement: I reviewed the patient's lab results. 06/04/23 11:45 06/04/23 11:45 Labs: Lab Results 06/04/23 Range/Units 11:45 WBC 9.2 (4.8-10.8) X10*3/uL RBC 5.00 (4.20-5.50) X10*6/uL Hgb 13.8 (12.0-16.0) g/dl Hct 42.0 (37.0-47.0) % MCV 84.0 (80.0-98.0) fL MCH 27.6 (27.0-33.0) pg MCHC 32.9 (31.0-35.0) g/dl RDW 14.2 (11.0-16.0) % Plt Count 242 (160-400) X10*3/uL MPV 9.6 (9.4-12.3) fL Immature Gran % (Auto) 0.2 (0.0-0.4) % Neut % (Auto) 58.1 (45-73) % Lymph % (Auto) 34.2 (20-40) % [place] % (Auto) 6.0 (2-11) % Eos % (Auto) 0.8 (0-4) % Baso % (Auto) 0.7 (0-2) % Lymph # (Auto) 3.2 (1.2-4.9) X10*3/uL [place] # (Auto) 0.6 (0.1-1.2) X10*3/uL Eos # (Auto) 0.1 (0.0-0.4) X10*3/uL Baso # (Auto) 0.1 (0.0-0.2) X10*3/uL Abs Immat Gran (auto) 0.02 (0.00-0.03) X10*3/uL Absolute Neuts (auto) 5.4 (2.0-8.3) x10*3/uL Absolute Nucleated RBC 0.000 (0.0-0.012) X10*3/uL Nucleated RBC % (auto) 0.0 (0.0-0.2) /100WBC Sodium 135 (135-145) mmol/L Potassium 4.7 (3.3-5.1) mmol/L Chloride 100 (96-108) mmol/L Carbon Dioxide 25 (22-29) mmol/L Anion Gap 15 (12-20) BUN 10 (9-16) mg/dL Creatinine 0.76 (0.5-1.4) mg/dL Estim Creat Clear Calc 56.9 Estimated GFR > 60 Random Glucose 108 (60-115) mg/dL Calcium 10.0 (8.4-10.2) mg/dL Magnesium 1.7 (1.6-2.6) mg/dL Total Bilirubin 0.4 (0.0-1.0) mg/dL AST 21 (5-31) U/L ALT 26 (0-31) U/L Alkaline Phosphatase 105 (39-117) U/L Total Protein 8.0 (6.5-8.0) g/dL Albumin 4.4 (3.5-5.0) g/dL Medications Administered Discontinued Medications Generic Name Dose Route Start Last Admin Trade Name Freq PRN Reason Stop Dose Admin Hydromorphone HCl 0.5 mg 06/04/23 12:47 06/04/23 13:12 Hydromorphone Hcl 0.5 Mg/0.5 Ml Syringe IVPUSH 06/04/23 12:48 0.5 mg ONCE ONE Administration Protocol Sodium Chloride 1,000 mls @ 999 mls/hr 06/04/23 13:00 06/04/23 14:27 Ns IV 06/04/23 14:00 Infused .Q1H1M BERNA Infusion Iohexol 100 ml 02/02/24 13:51 06/04/23 13:51 Iohexol 350 Mg/Ml 100 Ml Infus..Btl IV 06/04/23 13:52 85 ml ONCE ONE Administration Ondansetron HCl 4 mg 06/04/23 12:47 06/04/23 13:12 Ondansetron Hcl 4 Mg/2 Ml Vial IVPUSH 06/04/23 12:48 4 mg ONCE ONE Administration Discharge Plan Discharge Clinical Impression: Abdominal pain Patient Disposition: Still a Patient
[2023-06-04] MEDS: ondansetron HCL 4 MG/2 ML VIAL IVPUSH (13:12)
[2023-06-04] MEDS: HYDROmorphone HCl 0.5 MG/0.5 ML SYRINGE IVPUSH ×2 (13:12→19:10)
[2023-06-04] MEDS: 0.9 % Sodium Chloride 1,000 ML 999 ML IV (13:13)
[2023-06-04 13:16] VITALS: BP 131/77; PULSE 80; RESP 14; TEMP 37; O2SAT 98
[2023-06-04] MEDS: iohexoL 350 MG/ML 100 ML INFUS..BTL IV (13:51)
--- NOTE | 2023-06-04 14:10 | PC.NURSE ---
20iv inserted RAC, fluid and meds given as documented.
[2023-06-04 14:39] VITALS: BP 152/72; PULSE 80; RESP 18; TEMP 36.8; O2SAT 97
[2023-06-04 18:29] LABS: Appearance Urine Clear; Color Urine Yellow; Glucose Urine UA Negative (Negative); Leukocyte Esterase Urine Negative (Negative); Nitrite Urine Negative (Negative); PH 5.5 (5.0-9.0); Specific Gravity - Urine >= 1.030 (1.005-1.025); Urine Blood Negative (Negative); Urine Ketones 15 mg/dL (Negative); Urine Protein Negative (Neg-Trace)
[2023-06-04 18:42] VITALS: BP 168/85; PULSE 76; RESP 20; TEMP 36.8; O2SAT 99
[2023-06-04 19:10] LABS: Glucose, Whole Blood 65 mg/dL (60-115)
--- NOTE | 2023-06-04 19:12 | PC.NURSE ---
this rn assumed care of pt. pt complaining of 10/10 lower abdominal pain, pt medicated per jul. aware of pt blood glucose, pt given juice.
[2023-06-04 20:22] LABS: Lipase 331 U/L (8-78)
[2023-06-04 21:59] VITALS: BP 168/78; PULSE 72; RESP 17; TEMP 36.1; O2SAT 99
== END 2023-06-04 22:02 | disposition home or self-care (01) ==
PROVIDERS: Physician Assistant Medical; Emergency Provider Emergency Medicine Emergency Medical Services; PCP Otolaryngology
DX: R10.32 Left lower quadrant pain (principal); R21 Rash and other nonspecific skin eruption
CPT/HCPCS: 36415; 74177; 80053; 81003; 82947; 83690; 83735; 85025; 96361; 96374; 96375; 96376; 99284; 99285; J1170; J2405; Q9967